=== PATIENT | female | born 1995 | race Caucasian/White ===

== ENCOUNTER 2019-07-05 13:06 | Emergency (ER) | payer BC, MEDICAID, SELFPAY ==
[2019-07-05 13:07] VITALS: BP 126/74; PULSE 93; RESP 14; TEMP 37.3; O2SAT 97; BMI 37.3
--- NOTE | 2019-07-05 13:43 | ED.DCSUM_ITS ---
History of Present Illness Chief Complaint: Lower Extremity Injury Informant: Patient Occurred: Today - JPTA Mechanism/Context: Trip Context: Sudden Onset Timing: Continuous Quality of Pain: Aching Location: R foot Current Severity: Moderate Maximum Severity: Severe Worsened by: WBing Relieved by: rest Associated Symptoms: Negative for: Parasthesia, Weakness, Loss of Funtion Narrative: Tripped on an uneven piece of concrete, her ankle inverted and she fell down onto the outside of her foot where she is having lots of pain. No ankle pain. Able to bear weight if she uses her heel. Past Medical History - Allergies and Home Meds Allergies/Adverse Reactions: Allergies No Known Allergies Allergy (Verified 07/05/19 13:11) Primary Care Physician: [facility] Doctor,Out of [NON-STAFF] - Past Medical History: None Surgical History: no surgical history Lives: With Family Smoking Status: Never smoker Review of Systems General: Denies: Chills, Fever, Sweats Musculoskeletal: Reports: Extremity Pain. Denies: Neck pain, Back pain Skin: Denies: Rash, Wounds Neurological: Denies: Headache, Weakness, Parasthesia, Numbness Physical Exam Vital Signs/Narrative: Vital Signs Temp Pulse Resp BP Pulse Ox 07/05/19 13:07 99.1 F 93 14 126/74 H 97 Inital Vital Signs reviewed: Yes - Extremity Exam Right Tib fib: - - Nontender throughout all the way up to the knees. Right Ankle: Limited ROM - Due to pain in foot, - - No deformity or swelling. No bony tenderness throughout the lateral medial malleolus including the posterior aspect and the distal sick centimeters. Right Foot: - - No deformities. Tender at the base of the fifth metatarsal, across the distal metatarsals all of them, and in the arch of the foot. Maybe some mild ecchymosis at the lateral/peroneal aspect of the foot. There is no ankle tenderness but the foot hurts worse to move the ankle. General: Well nourished, Well developed Head: Normocephalic, Atraumatic Skin: Normal color, No rash, No Trauma - Skin intact throughout the right foot and ankle Neurological: Alert, Oriented x3, Cranial nerves II-XII grossly intact, Normal Strength, Normal Sensation Psychological: Normal affect, Normal Mood Diagnostic/Tx/Re-eval Clinical Impression(s) from Imaging Studies Foot X-Ray 07/05/19 13:50 IMPRESSION: Normal x-ray examination of the foot. Electronically Signed: Gianluca Pope, at 14:04 EST , Service support , - Medical Decision Making X-rays are negative. I was mainly concerned about the base of the fifth metatarsal. She has no ankle tenderness to suggest high ankle fracture. I think this is a combination of sprains of the peroneus brevis, ATFL, and possibl y the peroneus longus. Supportive care advised long with anti-inflammatories which were given here, and an Aircast. She has crutches. All questions answered at the bedside she is comfortable with this plan. ED Disposition - Plan for ED Patient: Disposition: Home or Assisted Living Diagnosis: Right ankle sprain, Right foot sprain Instructions: Sprain Foot, Sprain, Ankle, with X-Ray Referrals: [facility] Doctor,Out of [NON-STAFF] - 10-14 Days if not better
--- NOTE | 2019-07-05 13:50 | RAD_ITS ---
STUDY: X-RAY - RIGHT FOOT CLINICAL: Female, 23 years old. Fell and injured foot this morning TECHNIQUE: 3 view(s) of the foot. COMPARISON: None. FINDINGS: Normal talus, calcaneus, and tarsal bones. Normal visualized subtalar, talonavicular, calcaneocuboid, tarsal and tarsometatarsal articulations. Normal metatarsi. Normal metatarsophalangeal joint of the great toe. Normal tibial and fibular sesamoid bones. Normal interphalangeal joint of the great toe. Normal phalanges of the great toe. Normal second through fifth metatarsophalangeal joints. Normal interphalangeal joints and phalanges of the lesser toes. The soft tissue structures are unremarkable. RAD/Foot min 3 Views IMPRESSION: Normal x-ray examination of the foot. Electronically Signed: Gianluca Pope, at 14:04 EST , Service support ,
--- NOTE | 2019-07-05 15:20 | ED.RN ---
DISCHARGE INSTRUCTIONS GIVEN TO AND REVIEWED WITH PATIENT, PATIENT DENIES QUESTIONS OR CONCERNS AND VOICES UNDERSTANDING OF DISCHARGE INSTRUCTIONS. PT AMBULATES OUT OF ROOM WITH STEADY GAIT.
== END 2019-07-05 15:21 | disposition home or self-care (01) ==
PROVIDERS: Emergency Provider Emergency Medicine
DX: S93.601A Unspecified sprain of right foot, initial encounter (principal); S93.401A Sprain of unspecified ligament of right ankle, initial encounter; W18.09XA Striking against other object with subsequent fall, initial encounter; Y93.01 Activity, walking, marching and hiking; Y92.89 Other specified places as the place of occurrence of the external cause; Y99.8 Other external cause status
CPT/HCPCS: 73630; 99283

== ENCOUNTER 2020-04-21 10:05 | Emergency (ER) | payer MEDICAID, SELFPAY ==
[2020-04-21 10:06] VITALS: BP 134/62; PULSE 99; RESP 16; TEMP 36.1; O2SAT 99; BMI 38.9
--- NOTE | 2020-04-21 10:20 | ED.VIS.GEN ---
History of Present Illness Chief Complaint: Abscess Informant: Patient Onset: Days Context: Sudden Onset Timing: Continuous Quality: Pain and redness Location: Left anterior axillary line to posterior ribs 4 5 Current Severity: Mild Maximum Severity: Severe Worsened by: Lying on area and prolonged rubbing against skin Relieved by: Nothing Associated Symptoms: No constitutional symptoms Narrative: Patient is a 24-year-old who presents with what she believes to be an abscess. She states she thought it was a pimple. She popped it. She had irritation from her bra strap. She states the area has gotten larger and more painful. There is erythema. She denies fever, chills night sweats. Denies rheumatic fever, heart murmur, mitral prolapse or being on immunosuppressive meds. She denies antibiotic allergies. She denies cardiac or respiratory symptoms. Prior similar symptoms: No Recent Illness/Hospitalization: No - Past Medical History (1) No significant past medical history Status: Acute Past Medical History - Allergies and Home Meds Allergies/Adverse Reactions: Allergies No Known Allergies Allergy (Verified 04/21/20 10:06) Primary Care Physician: Care Physician,No Primary [Primary Care Provider] - Surgical History: no surgical history Lives: Alone Smoking Status: Never smoker Alcohol: None Drugs: None Review of Systems General: Denies: Chills, Fever, Malaise ENT: Denies: Bilateral ear pain, Rhinorrhea Cardiovascular: Denies: Chest pain, Palpitations Respiratory: Denies: Dyspnea, Cough, Dyspnea on exertion Gastrointestinal: Denies: Nausea, Vomiting Musculoskeletal: Denies: Myalgias, Arthralgias, Neck pain, Back pain Skin: Reports: Abscess Neurological: Denies: Headache, Weakness Psych: Denies: Depression Hematologic: Denies: Easy bruising, Easy bleeding Allergy: Denies: Uticaria Physical Exam Vital Signs/Narrative: Vital Signs Temp Pulse Resp BP Pulse Ox 04/21/20 10:06 97.0 F L 99 16 134/62 H 99 Inital Vital Signs reviewed: Yes General: Well nourished, Well developed, Obese Head: Normocephalic, Atraumatic Eyes: Perrl, EOMI. Negative for: Pale conjunctiva Neck: Supple, Nontender, No lymphadenopathy, No JVD Cardiovascular: Regular rate, Regular rhythm, No murmurs, Normal S1, Normal S2 Respiratory: No distress, CTA bilaterally, Chest tenderness - Tenderness over the abscess which is located left side anterior to posterior axillary line ribs 4 5 on the left. Abdomen: Soft, Nontender, Nondistended, Normal bowel sounds Skin: Normal color, Rash Neurological: Alert, Oriented x3, Cranial nerves II-XII grossly intact, Normal Strength, Normal Sensation Psychological: Normal affect, Normal Mood Diagnostic/Tx/Re-eval - Medical Decision Making She has a subcutaneous abscess with surrounding cellulitis. Plan is I&D. Patient had a glass of water and a bagel approximately 1 to 2 hours ago. Plan is local anesthetic and I&D. Please read procedure note. She will receive antibiotics cephalexin and Bactrim. Procedures Procedure(s): I&D subcutaneous abscess. Patient was informed that she has an abscess which required drainage. She was informed of risks and need for I&D. Patient gave verbal consent. Patient was prepped draped sterile manner. Local and field block was placed using 1% lidocaine. A total of 5 cc was instilled. Incision was made with a 10 blade. Free flow of purulent material. There was 20 to 30 cc of green thick purulent material. Blunt dissection was undertaken. There was additional purulent material noted. The cavity was irrigated. Dressing was applied. She received first dose of cephalexin and Bactrim in the emergency department and discharged with prescription for both. ED Disposition - Plan for ED Patient: Disposition: Home or Assisted Living Diagnosis: Abscess or cellulitis of chest wall Instructions: ED Abscess Incision And Drainage, ED Cellulitis Prescriptions: Smz/Tmp Ds [Bactrim Ds] 1 tab PO BID #10 tab Transmission Status: Pending to [id number] Cephalexin [Keflex] 500 mg PO Q6 #20 cap Transmission Status: Pending to [id number] Referrals: Care Physician,No Primary [Primary Care Provider] - Yany Naylor MD [STAFF PHYSICIAN] - 2 Days for wound check Additional Instructions: You were referred to Dr. Naylor since she did not have a physician. You should follow-up in 2 to 3 days for wound check.
[2020-04-21] MEDS: Smz/Tmp Ds Tablet 1 TABLET PO (11:35)
[2020-04-21] MEDS: Lidocaine 1% (20 ml mdv) 20 ML Vial INFILT (11:36)
[2020-04-21] MEDS: Cephalexin 250 MG Capsule 500 MG PO (11:36)
[2020-04-21 11:37] VITALS: BP 134/62; PULSE 99; RESP 16; TEMP 36.1; O2SAT 99
== END 2020-04-21 11:39 | disposition home or self-care (01) ==
LOC: ED 11:11
PROVIDERS: Emergency Provider Emergency Medicine
DX: L02.412 Cutaneous abscess of left axilla (principal); E66.9 Obesity, unspecified
CPT/HCPCS: 10060; 99283

== ENCOUNTER → 2020-10-10 13:52 | Outpatient (CLI) | payer BC, MEDICAID, SELFPAY ==
[2020-10-10 15:54] LABS: Absolute Neutrophil Count 8.5 X10^3/uL (2.0-7.7); Basophil# 0.06 X10^3/uL; Basophil% 0.4 % (0-1); Eosinophil# 0.13 X10^3/uL; Hematocrit 42.4 % (37-47); Hemoglobin 13.7 g/dL (12.0-15.0); Lymphocyte % 28.1 % (19-41); Mean Corp Hgb Conc 32.3 g/dL (32-36); Mean Corpuscular Hgb 26.9 pg (27.0-32.0); Mean Corpuscular Volume 83.3 fL (81-99); Mean Platelet Vol. 9.4 fl (6.2-12.0); Monocyte# 0.94 X10^3/uL; Monocyte% 6.9 % (0-10); NRBC Flagged by Analyzer 0 % (0-5); Neutrophil # 8.54 X10^3/uL (2.7-7.7); Neutrophil % 63.1 % (47-70); Platelet Count 406 K/mm3 (150-450); RBC Distribution Width CV 13.2 % (11.6-14.6); RBC Distribution Width SD 39.8 fl (35.1-43.9); Red Blood Count 5.09 M/mm3 (4.2-5.4); White Blood Count 13.5 K/mm3 (4.4-11.0)
[2020-10-10 16:01] LABS: Glucose Challenge Gest 1H 50g 109 mg/dL (70-140)
[2020-10-11 09:01] LABS: HIV - WCH Non-Reactive (Nonreactive); Hepatitis B Surface Antigen Non-Reactive (Nonreactive); Hepatitis C Antibody Non-Reactive (Nonreactive); Rubella IgG Reactive (Nonreactive); Syphilis Antibodies Non-reactive
== END ==
PROVIDERS: Visit Provider Obstetrics & Gynecology
DX: Z34.82 Encounter for supervision of other normal pregnancy, second trimester (principal)
CPT/HCPCS: 36415; 82950; 85025; 86703; 86762; 86780; 86803; 87086; 87088; 87340

== ENCOUNTER 2020-11-15 13:31 | Outpatient (RCR) | payer BC, SELFPAY ==
[2020-10-31 14:48] VITALS: BMI 38.9
== END 2020-11-22 23:59 ==
LOC: EMPH 13:31
PROVIDERS: Visit Provider Family Medicine Geriatric Medicine
DX: Z03.818 Encounter for observation for suspected exposure to other biological agents ruled out (principal)

== ENCOUNTER → 2020-12-07 16:21 | Outpatient (CLI) | payer BC, MEDICAID, SELFPAY ==
[2020-10-31 14:48] VITALS: BMI 38.9
[2020-12-07 16:26] LABS: Mucous, Urine 0 SEEN /hpf (<or=2+); Red Blood Cells-Urine 0 SEEN /hpf (0-5)
[2020-12-07 16:38] LABS: Color, Urine Yellow (Yellow); Glucose, Dipstick Normal (Normal); Ketone-Dipstick Negative (Negative); Leukocyte Esterase-Dipstick 25 /ul (Negative); Nitrite-Dipstick Negative (Negative); Occult Blood-Urine Negative /ul (Negative); Protein-Dipstick Negative (Negative); Specific Gravity, Urine 1.015 (1.002-1.030); Urine Bilirubin Dipstick Negative (Negative); Urine Clarity Clear (Clear); Urine Urobilinogen 1 mg/dl (Normal)
[2020-12-07 16:48] LABS: Bacteria RARE /hpf (None Seen); Squamous Epithelial Cells - UA 5-10 SEEN /hpf (5-10); White Blood Cells 0-5 SEEN /hpf (0-5)
== END ==
PROVIDERS: Visit Provider Obstetrics & Gynecology
DX: O26.892 Other specified pregnancy related conditions, second trimester (principal); Z3A.00 Weeks of gestation of pregnancy not specified
CPT/HCPCS: 81001; 87086; 87088

== ENCOUNTER → 2020-12-29 14:20 | Outpatient (CLI) | payer BC, MEDICAID, SELFPAY ==
[2020-10-31 14:48] VITALS: BMI 38.9
[2020-12-29 16:44] LABS: Hematocrit 42.2 % (37-47); Hemoglobin 13.5 g/dL (12.0-15.0); Mean Corpuscular Hgb 26.9 pg (27.0-32.0); Mean Corpuscular Volume 84.1 fL (81-99); Mean Platelet Vol. 10.1 fl (6.2-12.0); Platelet Count 370 K/mm3 (150-450); RBC Distribution Width CV 14.3 % (11.6-14.6); RBC Distribution Width SD 43.7 fl (35.1-43.9); Red Blood Count 5.02 M/mm3 (4.2-5.4); White Blood Count 15.3 K/mm3 (4.4-11.0)
[2020-12-29 17:12] LABS: Glucose Challenge Gest 1H 50g 95 mg/dL (70-140)
[2021-01-02 09:54] LABS: HPV Reflexed? NOT INDICATED
== END ==
PROVIDERS: Visit Provider Obstetrics & Gynecology
DX: Z34.82 Encounter for supervision of other normal pregnancy, second trimester (principal)
CPT/HCPCS: 36415; 82950; 85027; 88175; G0145

== ENCOUNTER → 2021-03-19 | Outpatient (CLI) | payer BC, MEDICAID, SELFPAY | END | disposition home or self-care (01) | LOC: LABSPEC 16:15 | PROVIDERS: Visit Provider Obstetrics & Gynecology | DX: Z36.85 Encounter for antenatal screening for Streptococcus B (principal) | CPT/HCPCS: 87081 ==

== ENCOUNTER 2021-03-29 20:06 | Outpatient (CLI) | payer BC, MEDICAID, SELFPAY ==
[2021-03-29 20:42] VITALS: PULSE 107; O2SAT 97
[2021-03-29 20:44] VITALS: BP 124/61; PULSE 106
--- NOTE | 2021-03-29 20:48 | OB.TRI.NOTE ---
HPI - General HPI Narrative LA NENA RUFF, is a 25 F who presents contractions Maternal Data Information AYO Calculator Estimated Delivery Date Method Current WG Current Estimate 04/14/21 Manual 38w 4d PFSH PFSH Home Medications 1 tab PO/SL DAILY 03/29/21 [History Last Taken 04/03/21 09:00] Allergy/AdvReac Type Severity Reaction Status Date / Time No Known Allergies Allergy Verified 04/04/21 05:04 Social History Smoking Status: Never smoker NST FHR Rate Baby A Baseline: 120 Variability:: Moderate Accelerations:: 15 x 15 Decelerations:: None NST Reactive:: Yes Uterine Activity:: Few contractions Assessment & Plan (1) : PLAN: Patient arrives with contractions, ruled out labor. Okay to discharge home with follow-up scheduled appointments
[2021-03-29 22:22] LABS: Color, Urine Yellow (Yellow); Glucose, Dipstick Normal (Normal); Ketone-Dipstick 5 mg/dl (Negative); Leukocyte Esterase-Dipstick Negative /ul (Negative); Nitrite-Dipstick Negative (Negative); Occult Blood-Urine Negative /ul (Negative); Protein-Dipstick 15 mg/dl (Negative); Specific Gravity, Urine 1.015 (1.002-1.030); Urine Bilirubin Dipstick Negative (Negative); Urine Clarity Sl. Cloudy (Clear); Urine Urobilinogen 1 mg/dl (Normal)
[2021-03-29 22:56] VITALS: BMI 44.1
== END 2021-03-29 23:20 | disposition home or self-care (01) ==
LOC: WPOUT 20:11 → WP 20:12
PROVIDERS: Visit Provider Obstetrics & Gynecology
DX: Z34.90 Encounter for supervision of normal pregnancy, unspecified, unspecified trimester (principal)
CPT/HCPCS: 59025; 59050; 81002; 99218; G0378

== ENCOUNTER 2021-04-01 09:35 | Outpatient (CLI) | payer BC, MEDICAID, SELFPAY ==
[2021-04-01 09:52] VITALS: BMI 43.2
[2021-04-01 09:55] VITALS: BP 114/69; PULSE 113; TEMP 36.6
[2021-04-01 10:26] LABS: ROM Internal Control Test YES-OK TO RESULT pt. (Internal QC); ROM Patient Test Negative (Negative)
--- NOTE | 2021-04-02 12:36 | PCM.PN.BLA ---
Progress Note 38/1w. Rule out SROM. ROM negative. Cervix unchanged. No ruptured, not in labor. FHR 145/mod austen+accel/no decel, toco quiet Discharge home with precautions. F/u this week in office
== END 2021-04-01 10:53 | disposition home or self-care (01) ==
LOC: WPOUT 09:47 → WP 09:47
PROVIDERS: Visit Provider Student in an Organized Health Care Education/Training Program
DX: Z34.93 Encounter for supervision of normal pregnancy, unspecified, third trimester (principal)
CPT/HCPCS: 59025; 59050; 84112; 99218; G0378

== ENCOUNTER 2021-04-04 04:36 | Outpatient (CLI) | payer BC, MEDICAID, SELFPAY ==
[2021-04-04 04:57] VITALS: BP 112/72; PULSE 111; TEMP 37.5; O2SAT 98
[2021-04-04 05:05] VITALS: BMI 43.8
--- NOTE | 2021-04-04 08:09 | OB.TRI.NOTE ---
HPI - General HPI Narrative LA NENA RUFF, is a 25 F who presents with c/o contractions at 38 4/7 wga Maternal Data Information AYO Calculator Estimated Delivery Date Method Current WG Current Estimate 04/14/21 Manual 38w 4d PFSH PFSH Home Medications 1 tab PO/SL DAILY 03/29/21 [History Last Taken 04/03/21 09:00] Allergy/AdvReac Type Severity Reaction Status Date / Time No Known Allergies Allergy Verified 04/04/21 05:04 Social History Smoking Status: Never smoker NST FHR Rate Baby A Baseline: 130 Variability:: Moderate Accelerations:: None Decelerations:: None NST Reactive:: Yes FHR Category:: Category I Uterine Activity:: -08/02 Assessment & Plan (1) 38 weeks gestation of : PLAN: SVE /-3 per RN exam Cat I tracing d/c home
== END 2021-04-04 05:40 | disposition home or self-care (01) ==
LOC: WPOUT 04:39 → WP 04:40
PROVIDERS: Visit Provider Obstetrics & Gynecology
DX: Z34.83 Encounter for supervision of other normal pregnancy, third trimester (principal); Z3A.38 38 weeks gestation of pregnancy
CPT/HCPCS: 59025; 59050; 99218; G0378

== ENCOUNTER 2021-04-06 18:35 | Inpatient (IN) | payer BC, MEDICAID, SELFPAY ==
[2021-04-06] VITALS (61 sets, daily range): BP systolic 75–144; BP diastolic 40–77; PULSE 78–122; TEMP 36.2–37.4; O2SAT 87–100; BMI 43.4
[2021-04-06 18:30] LABS: ROM Internal Control Test YES-OK TO RESULT pt. (Internal QC)
[2021-04-06 18:31] LABS: ROM Patient Test POSITIVE (Negative)
[2021-04-06] MEDS: Lactated Ringers 1,000 ML 50 ML IV (18:50)
[2021-04-06] MEDS: Lactated Ringers 500 ML 999 ML IV ×2 (19:02→21:04)
[2021-04-06 19:07] LABS: Absolute Lymphocyte Count 3.27 X10^3/uL (0.83-4.51); Absolute Neutrophil Count 9.3 X10^3/uL (2.0-7.7); Basophil# 0.05 X10^3/uL; Basophil% 0.4 % (0-1); Eosinophil# 0.11 X10^3/uL; Eosinophils% 0.8 % (0-5); Hematocrit 39.6 % (37-47); Hemoglobin 12.5 g/dL (12.0-15.0); Lymphocyte # 3.27 X10^3/ul (0.83-4.51); Lymphocyte % 23.4 % (19-41); Mean Corp Hgb Conc 31.6 g/dL (32-36); Mean Corpuscular Hgb 25.6 pg (27.0-32.0); Mean Platelet Vol. 9.9 fl (6.2-12.0); Monocyte# 1.18 X10^3/uL; Monocyte% 8.4 % (0-10); NRBC Flagged by Analyzer 0 % (0-5); Neutrophil # 9.29 X10^3/uL (2.7-7.7); Neutrophil % 66.4 % (47-70); Platelet Count 364 K/mm3 (150-450); RBC Distribution Width CV 14.6 % (11.6-14.6); RBC Distribution Width SD 42.5 fl (35.1-43.9); Red Blood Count 4.89 M/mm3 (4.2-5.4)
--- NOTE | 2021-04-06 19:27 | HP.PCM.OB_ITS ---
HPI - General General Date of Admission: 04/06/21 HPI Narrative ROBINSON RUFF, is a 25 F who presents @ 38w6d with c/o painful contractions. Maternal Data Information AYO Calculator Estimated Delivery Date Method Current WG Current Estimate 04/14/21 Manual 38w 6d PFSH PFS Medical History (Updated 04/06/21 @ 19:[address] Pura Buck MD) Migraines Seasonal allergies Home Medications 1 tab PO/SL DAILY 03/29/21 [History Last Taken 04/06/21 10:00] Allergy/AdvReac Type Severity Reaction Status Date / Time No Known Allergies Allergy Verified 04/04/21 05:04 Family History Father Hypertension Mother Hypertension Surgical History (Updated 04/06/21 @ 19:[address] Pura Buck MD) H/O dilation and curettage H/O wisdom tooth extraction Social History Smoking Status: Never smoker History 4 Elective abortions Hx Para 1 Spontaneous abortions 2 Hx # Term Pregnancies 1 Ectopic pregnancies Hx # Pregnancies Multiple births # of living children 1 NST FHR Rate Baby A Baseline: 130 Variability:: Moderate Accelerations:: 15 x 15 Decelerations:: None NST Reactive:: Yes FHR Category:: Category I Uterine Activity:: 310 Vital Signs Vital Signs Vital Signs: 04/06/21 17:27 04/06/21 17:28 04/06/21 17:29 Temperature 98.8 F 98.8 F Temperature Source Temporal Pulse Rate 99 106 H Blood Pressure 114/77 114/77 BP Systolic 114 114 BP Diastolic 77 77 Pulse Ox 97 04/06/21 19:17 04/06/21 19:22 Temperature 97.2 F L Temperature Source Pulse Rate 95 97 Blood Pressure 144/71 H BP Systolic 144 BP Diastolic 71 Pulse Ox 100 99 Weight Weight: 111.357 kg Body Mass Index (BMI) 43.4 Physical Exam Const alert, oriented x3 and no apparent distress HEENT normocephalic Resp normal respiratory effort, normal air movement and clear to auscultation bilaterally Cardio regular rate and regular rhythm GI normal to inspection, nondistended, normoactive bowel sounds, soft to palpation, non-tender and non-distended Inspection: gravid Narrative: SVE per RN 3/80/-2, BBOW Labs Labs Labs: Blood Type A POSITIVE Antibody Screen Pending Hct 39.6 % (37-47) Hgb 12.5 g/dL (12.0-15.0) Syphilis Total Ab Non-reactive Rubella IgG Antibody Reactive (Nonreactive) Hep Bs Antigen Non-Reactive (Nonreactive) HIV 1&2 Antibody Non-Reactive (Nonreactive) Glucose 1 Hr 50 gm 95 mg/dL (70-140) Miscellaneous Test ACOG ANTEPARTUM RECORD - HISTORY AND PHYSICAL (04/06/2021) Name: ROBINSON RUFF History of this : This is a 25 year old [id number] presents at 38 wks + 6 days gestation. OB Physician: DISHA KARIMI MD 's Physician: [facility] Children. ...................................................................... : 1995 Age: 25 Address: [address] [place] [address] Phone: (h) [phone] ([phone] Insurance Carrier: [facility] [id number] Emergency Contact: LAVELL WORTHINGTON/ [phone] ...................................................................... Final AYO: 04/14/21 By Ultrasound: 13 weeks 3 days PARITY: (G-Total Pregnancies P-Fullterm,Premature,Induced AB,Spont AB, Ectopics, Multiple,Living) AYO CONFIRMATION: By LMP: 07/08/20 Initial Exam: 04/14/21 By First Ultrasound Exam: 04/13/21 Final AYO: 04/14/21 OB PROBLEM LIST: Declines genetic testing. Med hx- COVID19 Feb 2020., molar pg w D EPDS 6 Would like tubal ligation if has C/S ALLERGIES: No Known Drug Allergies MEDICATIONS: Macrobid 100 mg capsule One pill by mouth once a day 28 mg iron-800 mcg tablet daily Zofran 4 mg tablet One pill by mouth every eight hours PRN nausea SOCIAL HISTORY: Smoking - Never Alcohol Use - denies drinking Diet - balanced Diet, occ coffee or pop and Water tries for 6 bottles. Lifestyle - moderate stress lifestyle and Exercise - Busy w family, home. 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 Lavell has 6 and 4 yo w shared custody. Place of - [place] Spouse-Sig Other Name - Lavell Worthington Spouse-Sig Other Occupation - Apartment Leasing Specialist for [employer]. Spouse-Sig Other Phone No - [phone] Children Name(s) - Reina PRIOR DELIVERY HISTORY DEL DATE GEST LAB WT LB WT OZ TYPE ANES LABOR TX Jun 10 8 0 0 0 D and General No 10 Jul 20 4 0 0 0 Vag None No 29 Oct 17 39 4 7 3 Vag Epidural No ANTEPARTUM FLOW CHART VISIT GE RTC FU F F IN U U DATE WK MD WKS HT PN HR M SS BP ED WT IN GL D EF ST __ ____ ___ __ __ ___ __ __ __ ___ __ __ __ ___ __ 08 Mar JM 1 38 V + + 132/96 0 248 tr - 3 01 Mar JM 1 37 V + + 126/78 7s 246 tr - 1 25 Feb 36 JM 1 36 V + + 130/82 245 - - 1 Feb JM 1 35 V + + 126/74 sl 244 - - Feb 34 JM 2 34 V + + 124/76 sl 242 - - Feb 32 JM 2 32 V + + 110/68 0 242 tr - 17 Sep 30 JM 2 30 - + + 122/72 sl 240 03 Sep 28 JM 2 28 - + + 114/76 0 237 tr - 06 Jan 16 JM 4 24 - + + 114/64 0 234 - - 15 Dec 13 SHM 3 21 + + 128/70 0 232 09 Dec 12 JM 4 20 - on + 104/68 0 231 ne ne Nov 09 JMW 3 17 + ? 108/72 0 234 18 October 05 JMW 4 14 U+ US 116/80 0 231 tr - ANTEPARTUM NOTE(S): Apr 02 2021: lower abdominal and back cramping, pelvic pressure Mar 26 2021: natalie castano, pelvic pressure, hip pain Mar 19 2021: GBS today, LARC declined Mar 15 2021: Mar 05 2021: see note Feb 23 2021: doing well Feb 09 2021: natalie castano and back pain Jan 26 2021: no concerns expressed Dec 29 2020: Dec 07 2020: see note Dec 01 2020: US today Nov 08 2020: Declines AFP and Good FM Oct 10 2020: Sono, Labs Drawn,Nausea Better COMPREHENSIVE ANTEPARTUM NOTE(S): Apr 02 2021: Robinson is here for a PNV at 38/2. FM present, but not as much. No edema present. Pt reports lower abdominal and back cramping for approximately 3 days. Experiencing increased amounts of pelvic pressure. Requesting membrane sweep today. BP recheck after 5 mins of L side: 116/64. Apr 02 2021: 38wk, membranes swept. NST reactive with decreased movement. Follow up BP wnl, asymptomatic, reassuring. Mar 27 2021: H taken to OB. tkg Mar 26 2021: Robinson is here for a PNV at 37/2. Good FM. Sl edema present in fingers. Reports natalie castano, pelvic pressure and hip pain. Increasing amount of lower abdominal cramping. Would like cervix check, last exam pt was 1.5 cm. Mar 26 2021: 37 weeks, GBS negative. Cervix unchanged. Mar 19 2021: Robinson is here for visit. More uncomfortable but nothing unexpected. Reviewed FM, SROM, and labor. LARC declined and she expresses interest in tubal. Planned vaginal delivery but if has C/S would like tubal. States this is her second and baby #4 at their house and does not desire future childbearing. LMT Mar 19 2021: 36wks, GBS collected today. Desires tubal if she has unscheduled c/s. Mar 15 2021: Robinson is here as a work in visit for concern of cramping off and on for the past 4 days. Denies spotting. No leaking fluid. Long dip urine showing sp gr 1.005, ph 7.5, rest is negative. Mar 15 2021: 35wk, add on for crampy pelvic pain. NST reactive, few ctx. Cervix 1-2/th/h. Mar 05 2021: Has been feeling more dizzy and noted edema in hands in the am. Had friend take her B/P this am and it was 130/95. Normal today in office, 124.76. No proteinuria. Reviewed FM, PTL, PROM. Encouraged Tdap and Influenza today at [facility] retail pharmacy. LMT Mar 05 2021: 34wks, discussed hydration and dizziness. GBS next visit. Feb 23 2021: Encouraged Influenza and Tdap vaccine. Reviewed FM, PROM, and PTL. LMT Feb 23 2021: 32wks, no complaints. Feb 09 2021: Robinson is here for a PNV at 30 wks 6 days. Good FM. Sl edema present in ankles. Occasional natalie castano, back pain present. No other concerns expressed. Feb 09 2021: 30 weeks, no complaints. Jan 26 2021: Robinson is here for a PNV at 28 wks w/ SO. Good FM. No edema present. Denies concerns/ questions at this time. Jan 26 2021: 28 weeks, 1 hour GTT within normal limits. Pap smear within normal limits. Dec 29 2020: Robinson presents today with grandmother for 24 wk 6 day PNV. States she is doing well. Reports good FM. No edema present today. She is due for her PAP and cultures today. Last PAP was 4 years ago. She c/o right side kidney pain and discomfort. Medications and allergies up to date. Dec 29 2020: 24 weeks, 1 hour GTT today. Pap and cultures collected today. Consider growth ultrasounds in third trimester. Dec 07 2020: Robinson calling @ 21 wks 5 days with concern of light pink vaginal bleeding and cramping. Last IC a week or so ago. Reporting FM this morning. Worried something is wrong as yesterday she was in for decreased FM. FHT's good here at yesterday's visit. US scheduled for today. Dec 07 2020: Robinson is here with complaint of bleeding last night for 1 hour when wiping. No further bleeding. Notes mild cramping. U/S does not show a bleed. Denies hemorrhoid, skin lesion. Urine is sent for complete UA and urine culture. LMT Dec 07 2020: Reports BRB per vagina x 1 hour with wiping last night. Denies intercourse, trauma/falls. Reports she did some lifting at work, she works as ENGINEERING ASSOCIATE at a assisted. US today with no evidence of bleeding and no previa. Exam performed with no blood in vaginal vault, no hemorrhoids. Wet prep neg clue/trich/yeast, pH < 4.5. Hx UTI. U/A and cx sent today. Dec 06 2020: Robinson is here following call to Triage re to decreased movement at 21.4 w. At work last evening she assisted moving a patient up in bed and felt a sharp pain in her rt hip to the front of her abd. Noted less movement following. FHT located with ease in low mid abd at 130 to 140s.. Robinson is relieved. Advised good body mechanics at work which she says they were taught and use. ISABEL. Dec 01 2020: Robinson ishere today folloiwng US. Per PERRY, to repeat GCT at 28 weeks. Robinson is c/o continuous N/V. Did not fill Zofran Rx due to cost. Finds the only thing that stays down is sweets/baked goods. Is able to keep fluids down. Advised to try healthier foods. Having good FM. No edema present today Urine neg/neg LSS Dec 01 2020: 20 weeks, anatomy ultrasound within normal limits. Passed early 1 hour GTT. For second trimester 1 hour GTT at next visit. PERRY Nov 08 2020: Robinson is her for PNV. N/V had subsided but has returned. Discussed saltines at bedside. Pepcid if needed. Is able to get adequate hydration. No edema noted. Thinks she be starting to feel FM. Voices no concerns today. Urine tr/neg. 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 Her other pregnancies have been in [place] Her first pg was a molar with a PO hemorrhage at day 2. She did not need transfused. . FOB is Lavell Worthington, Packaging Assembler of [employer] in [place] Oct 02 2020: Robinson is here for missed menses appt with her Lavell. They recently relocated from [place]. Lavell has a job here as a GM and her grandmother lives here. She relates LMP 2/13, +UPT today in office, EDC 04/14/21. She relates nausea is resolved. She does have cold/congestion sx. OTC meds for allergies/congestion reviewed. She is taking OTC PNV and no prescribed meds at this time. She is a REVIEW OF SYSTEMS: GENERAL - Denies fever, or chills SKIN - Denies rash, new skin lesions, or change in moles EYES - Denies blurred vision, or change in visual acuity EARS - Denies ear pain, or difficulty hearing NOSE - Denies nasal congestion, discharge, or bleeding MOUTH - Denies sore throat, or difficulty swallowing NECK - Denies pain or swelling RESPIRATORY - Denies shortness of breath, cough, wheezing CARDIOVASCULAR - Denies palpitations, chest pain, orthopnea, PND, peripheral edema, syncope or claudication GASTROINTESTINAL - Denies nausea, vomiting, diarrhea, constipation, Denies a bdominal pain, melena and or bright red blood GENITOURINARY - Denies dysuria, frequency of urination, urgency, or hesitancy MUSCULOSKELETAL - Denies joint or muscle pain, or back pain NEUROLOGICAL - Denies localized numbness, weakness, or tingling PSYCHIATRIC - Denies depression, anxiety, substance abuse or suicide attempts ENDOCRINE - Denies heat or cold intolerance, weight loss or gain, increasing thirst HEMATO-IMMUNOLOGIC - Denies easy bruising, bleeding, oral ulcerations or recurrent infections GENETICS SCREENING: Age 35+ years: No Thalassemia: No Neural Tube Defect: No Down Syndrome: No LEE ANN-SACHS: No Sickle Cell Disease: No Hemophilia: No Musc. Dystrophy: No Cystic Fibrosis: No-declines screening [place] Chorea: No Mental Retardation: No Fragile X: No Other genetic: No Other defects: No SABs/still births: Yes x2 Drugs since LMP: Yes INFECTION HISTORY: High risk AIDS: No High risk Hepatitis: No Exposed to TB: No Exposed to Herpes: No Rash/viral illness since LMP: No History of STD: No MENSTRUAL HISTORY: *Menses Amount/Duration: 3-4Menses Regularity: RegularMenarche (Age Onset): 16* PAST SUMMARY: PARITY: 1. Total Pregnancies............ 4 2. Full Term Pregnancies........ 1 3. Premature.................... 0 4. Abortions - Induced.......... 0 5. Abortions - Spontaneous...... 2 6. Ectopics..................... 0 7. Multiple Births.............. 0 8. Living Children.............. 1 PAST #1: Date of :.................. 05/26/15 Gestation Weeks:................ 8 Length of labor(hours):......... 0 Sex:............................ Weight-lbs:............... 0 Weight-oz:................ 0 Type of Delivery:............... D and C Type of Anesthesia:............. General Place of Delivery:.............. [place] Treatment of Labor?:.... No Comment: MOLAR PAST #2: Date of :.................. 11/21/16 Gestation Weeks:................ 39 Length of labor(hours):......... 4 Sex:............................ F Weight-lbs:............... 7 Weight-oz:................ 3 Type of Delivery:............... Vag Type of Anesthesia:............. Epidural Place of Delivery:.............. [place] Treatment of Labor?:.... No Comment: PPD PAST #3: Date of :.................. 08/03/19 Gestation Weeks:................ 4 Length of labor(hours):......... 0 Sex:............................ Weight-lbs:............... 0 Weight-oz:................ 0 Type of Delivery:............... Vag Type of Anesthesia:............. None Place of Delivery:.............. HOME Treatment of Labor?:.... No Comment: PHYSICAL EXAMINATION General Appearence: 25 yo female in no acute distress Vital Signs: AF, VSS Heart: RRR without rubs or gallops Lungs: CTA x 2 Breasts: deferred Abdomen: gravid Pelvis: Cervix: Presentation: cephalic Station: Fetus: Size: AGA Movement: present Heart: present LAB TEST(S) ORDERED SINCE:07/18/20 04/06/2021 COVID 19 AG RAPID (RN COLLECT) 04/06/2021 CBC W/DIFF, AUTOMATED 04/06/2021 (ROM) RUPTURE OF MEMBRANES 04/01/2021 (ROM) RUPTURE OF MEMBRANES 03/29/2021 URINALYSIS, ROUTINE (DIPSTICK) 03/22/2021 RULE OUT BETA STREP (GRP. B) 01/02/2021 PAP I-G W/RFX HRHPV-APTIMA 01/02/2021 MISCELLANEOUS LAB PROCEDURE 12/29/2020 GLUCOSE CHALLENGE GEST 1H 50G 12/29/2020 CBC-COMPLETE BLOOD CNT NO DIFF 12/09/2020 URINE CULTURE 12/07/2020 URINALYSIS, COMPLETE 10/12/2020 URINE CULTURE 10/11/2020 RUBELLA IGG 10/11/2020 L509.8000 10/11/2020 HIV - WC 10/11/2020 HEPATITIS C ANTIBODY 10/11/2020 HEPATITIS B SURFACE ANTIGEN 10/10/2020 T AND S-NO CHARGE W/PNP 10/10/2020 GLUCOSE CHALLENGE GEST 1H 50G 10/10/2020 CBC W/DIFF, AUTOMATED == ==== Order Observation Description Value Ref_Range A* Site == ==== CBC W/DIFF, AUT NOTE [place] CBC W/DIFF, AUT WBC 14.0 K/mm3 4.4-11.0 H ML CBC W/DIFF, AUT RBC 4.89 M/mm3 4.2-5.4 ML CBC W/DIFF, AUT HGB 12.5 g/dL 12.0-15.0 ML CBC W/DIFF, AUT HCT 39.6 37-47 ML CBC W/DIFF, AUT MCV 81.0 fL 81-99 ML CBC W/DIFF, AUT MCH 25.6 pg 27.0-32.0 L ML CBC W/DIFF, AUT MCHC 31.6 g/dL 32-36 L ML CBC W/DIFF, AUT RDW CV 14.6 11.6-14.6 ML CBC W/DIFF, AUT RDW SD 42.5 fl 35.1-43.9 ML CBC W/DIFF, AUT PLT 364 K/mm3 150-450 ML CBC W/DIFF, AUT MPV 9.9 fl 6.2-12.0 ML CBC W/DIFF, AUT NEUT% 66.4 47-70 ML CBC W/DIFF, AUT LY% 23.4 19-41 ML CBC W/DIFF, AUT MONO% 8.4 0-10 ML CBC W/DIFF, AUT EO% 0.8 0-5 ML CBC W/DIFF, AUT BASO% 0.4 0-1 ML CBC W/DIFF, AUT IG% 0.600 0.0-0.9 ML IG% - Immature Granulocytes (promyelocytes, myelocytes and metamyelocytes) > 1% indicates that a LEFT SHIFT is Present. CBC W/DIFF, AUT ABSOLUTE NEUT 9.3 X10 3/uL 2.0-7.7 H ML CBC W/DIFF, AUT ABSOLUTE LYMPH 3.27 X10 3/uL 0.83-4.51 ML CBC W/DIFF, AUT NUCLEATED RBC 0 0-5 ML COVID 19 AG RAP NOTE [place] (ROM) RUPTURE O NOTE [place] (ROM) RUPTURE O ROM POSITIVE Negative A ML Amniotic fluid present indicates rupture of Membranes. RESULTS CALLED TO BEATA ROSA 04/06/21 1830 Liban Mazariegos. REPORT READ BACK BY SAME . (ROM) RUPTURE O NOTE [place] (ROM) RUPTURE O ROM Negative Negative ML Amniotic fluid not present indicates No Rupture of Membranes at time of specimen collection. URINALYSIS, ROU NOTE [place] URINALYSIS, ROU COLOR Yellow Yellow ML URINALYSIS, ROU URINE CLARITY Sl. Cloudy Clear ML URINALYSIS, ROU GLUCOSE, UR Normal mg/dl Normal ML URINALYSIS, ROU BILIRUBIN URINE Negative mg/dL Negative ML URINALYSIS, ROU KETONE UR 5 mg/dl Negative A ML URINALYSIS, ROU SP.GR. DIPSTX 1.015 1.002-1.030 ML URINALYSIS, ROU PH UR 8.0 5.0 - 8.0 ML URINALYSIS, ROU PROT DIPSTX 15 mg/dl Negative A ML URINALYSIS, ROU UROBILI 1 mg/dl Normal A ML URINALYSIS, ROU NITRITE Negative Negative ML URINALYSIS, ROU OCCULT BLOOD-UR Negative /ul Negative ML URINALYSIS, ROU LEUK ESTERASE Negative /ul Negative ML RULE OUT BETA S NOTE [place] MISCELLANEOUS L NOTE [place] MISCELLANEOUS L MISC LAB TEST ML TEST RESULT LIMITS Chlamydia by WILLIAM Negative Negative Gonococcus by WILLIAM Negative Negative Trich vag by WILLIAM Negative Negative TESTING PERFORMED AT [facility]. ORIGINAL REPORT ON FILE IN LAB CONTAINS ADDITIONAL TEST SITE INFORMATION. PAP I-G W/RFX H NOTE [place] PAP I-G W/RFX H DIAG Comment . [facility] NEGATIVE FOR INTRAEPITHELIAL LESION OR MALIGNANCY. PAP I-G W/RFX H ADEQ Comment . [facility] Satisfactory for evaluation. Endocervical and/or squamous metaplastic cells (endocervical component) are present. PAP I-G W/RFX H PERFORM Comment . [facility] Yany Roberto, Tile Roofer (ASCP) This liquid based ThinPrep(R) pap test was screened with the use of an image guided system. PAP I-G W/RFX H COMM . . [facility] PAP I-G W/RFX H PAPSMR Comment . [facility] The Pap smear is a screening test designed to aid in the detection of premalignant and malignant conditions of the uterine cervix. It is not a diagnostic procedure and should not be used as the sole means of detecting cervical cancer. Both false-positive and false-negative reports do occur. PAP I-G W/RFX H HPV RFLX Comment . [facility] The HPV DNA reflex criteria were not met with this specimen result therefore, no HPV testing was performed. Performed at: [facility] [address], [place] [id number] Paper Steamer: Celine Moreno MD, Phone: [phone] GLUCOSE CHALLEN NOTE [place] GLUCOSE CHALLEN GLU GEST 50G 1H 95 mg/dL 70-140 ML CBC-COMPLETE BL NOTE [place] CBC-COMPLETE BL WBC 15.3 K/mm3 4.4-11.0 H ML CBC-COMPLETE BL RBC 5.02 M/mm3 4.2-5.4 ML CBC-COMPLETE BL HGB 13.5 g/dL 12.0-15.0 ML CBC-COMPLETE BL HCT 42.2 37-47 ML CBC-COMPLETE BL MCV 84.1 fL 81-99 ML CBC-COMPLETE BL MCH 26.9 pg 27.0-32.0 L ML CBC-COMPLETE BL MCHC 32.0 g/dL 32-36 ML CBC-COMPLETE BL RDW CV 14.3 11.6-14.6 ML CBC-COMPLETE BL RDW SD 43.7 fl 35.1-43.9 ML CBC-COMPLETE BL PLT 370 K/mm3 150-450 ML CBC-COMPLETE BL MPV 10.1 fl 6.2-12.0 ML URINE CULTURE NOTE [place] URINALYSIS, COM NOTE [place] URINALYSIS, COM COLOR Yellow Yellow ML URINALYSIS, COM URINE CLARITY Clear Clear ML URINALYSIS, COM GLUCOSE, UR Normal mg/dl Normal ML URINALYSIS, COM BILIRUBIN URINE Negative mg/dL Negative ML URINALYSIS, COM KETONE UR Negative mg/dl Negative ML URINALYSIS, COM SP.GR. DIPSTX 1.015 1.002-1.030 ML URINALYSIS, COM PH UR 8.0 5.0 - 8.0 ML URINALYSIS, COM PROT DIPSTX Negative mg/dl Negative ML URINALYSIS, COM UROBILI 1 mg/dl Normal A ML URINALYSIS, COM NITRITE Negative Negative ML URINALYSIS, COM OCCULT BLOOD-UR Negative /ul Negative ML URINALYSIS, COM LEUK ESTERASE 25 /ul Negative A ML URINE CULTURE NOTE [place] HEPATITIS C ANT NOTE [place] HEPATITIS C ANT HEPATITIS C AB Non-Reactive Nonreactive ML Non Reactive: < 0.8 Equivocal: >/= 0.8 to < 1.0 Reactive: >/= 1.0 The CDC recommends that a reactive/equivocal HCV antibody result be followed up by the HCV Nucleic Acid Amplification test (132605) HEPATITIS B MARINO NOTE [place] HEPATITIS B MARINO HEP B SURF AG Non-Reactive Nonreactive ML HIV - [facility] NOTE [place] HIV - [facility] HIV Non-Reactive Nonreactive ML L509.8000 NOTE [place] L509.8000 SYPHILIS ABS Non-reactive ML RUBELLA IGG NOTE [place] RUBELLA IGG RUBELLA IGG Reactive Nonreactive ML Antibody Results Interpretation of Immune Status Non Reactive Presumed Non-Immune Equivocal Equivocal Reactive Presumed Immune PN N [facility]~[address] [place], [address]~ T AND AB SCREEN GEL NEGATIVE ML GLUCOSE CHALLEN NOTE [place] GLUCOSE CHALLEN GLU GEST 50G 1H 109 mg/dL 70-140 ML CBC W/DIFF, AUT NOTE [place] CBC W/DIFF, AUT WBC 13.5 K/mm3 4.4-11.0 H ML CBC W/DIFF, AUT RBC 5.09 M/mm3 4.2-5.4 ML CBC W/DIFF, AUT HGB 13.7 g/dL 12.0-15.0 ML CBC W/DIFF, AUT HCT 42.4 37-47 ML CBC W/DIFF, AUT MCV 83.3 fL 81-99 ML CBC W/DIFF, AUT MCH 26.9 pg 27.0-32.0 L ML CBC W/DIFF, AUT MCHC 32.3 g/dL 32-36 ML CBC W/DIFF, AUT RDW CV 13.2 11.6-14.6 ML CBC W/DIFF, AUT RDW SD 39.8 fl 35.1-43.9 ML CBC W/DIFF, AUT PLT 406 K/mm3 150-450 ML CBC W/DIFF, AUT MPV 9.4 fl 6.2-12.0 ML CBC W/DIFF, AUT NEUT% 63.1 47-70 ML CBC W/DIFF, AUT LY% 28.1 19-41 ML CBC W/DIFF, AUT MONO% 6.9 0-10 ML CBC W/DIFF, AUT EO% 1.0 0-5 ML CBC W/DIFF, AUT BASO% 0.4 0-1 ML CBC W/DIFF, AUT IG% 0.500 0.0-0.9 ML IG% - Immature Granulocytes (promyelocytes, myelocytes and metamyelocytes) > 1% indicates that a LEFT SHIFT is Present. CBC W/DIFF, AUT ABSOLUTE NEUT 8.5 X10 3/uL 2.0-7.7 H ML CBC W/DIFF, AUT ABSOLUTE LYMPH 3.80 X10 3/uL 0.83-4.51 ML CBC W/DIFF, AUT NUCLEATED RBC 0 0-5 ML *Negative results from patients with symptom onset beyond five days should be treated as presumptive and confirmed by a molecular assay if clinically necessary. Negative results should not be used as the sole basis for treatment or for patient management. COVID 19 AG RAPID (RN COLLECT) *Positive results do not differentiate between SARS-CoV and SARS-CoV-2. If differentation of the specific SARS virus is desired an additional sample and an additional order is required. COVID 19 AG RAPID (RN COLLECT) * This test has not been FDA cleared or approved; the test has been authorized by FDA under an Emergency Use Authorization (EAU) for use by laboratories certified under CLIA that meet the requirements to perform moderate, high, or waived complexity tests. COVID 19 AG RAPID (RN COLLECT) Normal Reference Range: Negative SARS-CoV-2 (COVID 19) Negative RAPID METHOD Quidel Laney Analyzer HONG, lateral flow immunofluorescent Group B Beta Streptococcus is not isolated. Mixed Gram Positive Organisms [place] Count 25,000-50,000 MIXC Mixed contaminants. Submit a new specimen if indicated. Mixed Gram Pos Gram Neg Org [place] Count 50,000-80,000 MIXC Mixed contaminants. Submit a new specimen if indicated. A POSITIVE Assessment & Plan (1) : QUALIFIERS: Weeks of gestation: 38 weeks Qualified Code(s): Z3A.38 - 38 weeks gestation of COMMENT: Labor PLAN: Admit in labor, Cat I FHR GBS neg Pain management per patient request
[2021-04-06] MEDS: fentaNYL-bupivacaine (epidural) 100 ML BAG EPIDURAL (19:56)
[2021-04-06] MEDS: Ondansetron 4 MG/2 ML Vial IV (21:05)
[2021-04-06] MEDS: 0.9% Saline Lock 10 ML Syringe IV (21:05)
[2021-04-06] MEDS: Oxytocin 30 units/NS 500 ml 30 UNITS/500 ML IV.SOLN 334 UNITS IV (23:27)
--- NOTE | 2021-04-06 23:37 | EX.PCM.OBRPT ---
Assessment & Plan (1) (spontaneous vaginal delivery): Maternal Data Information AYO Calculator Estimated Delivery Date Method Current WG Current Estimate 04/14/21 Manual 38w 6d Vaginal Delivery Maternal Presentation Maternal Presentation: Active Labor Operative Information Date of Procedure: 04/06/21 Pre-Operative Diagnosis: 38-6/7 weeks gestational age Post-Operative Diagnosis: 38-6/7 weeks gestational age Type of Anesthesia: Epidural Anesthesiologist: Jack Tatum Drain: [place] to straight drain Estimated Blood Loss: 200 ml Time of Delivery: 23:24 Findings Description of Procedure: Patient pushed to deliver a [male] over an intact perineum. Infant mouth and nares were bulb suctioned. The infant was placed on the maternal abdomen and further attended by nursery personnel. The cord was doubly clamped and cut at [2] minutes of life. The placenta delivered spontaneously and appeared intact on inspection. Sponge and needle counts were correct x2. Presentation: Vertex Time of Membrane Rupture: 1518 Amniotic Fluid Description: Clear Placental Delivery Description: Spontaneous Placenta Disposition: [facility] Cord Vessel Description: 3 Vessels Cord Entanglement: Around neck x 1, loose Nuchal Cord Compression: Without compression Infant A Gender: Male (1 minute): 8 (5 minute): 9 Delayed Cord Clamping: Yes Post Vaginal Delivery Medications Given After Delivery: IV Pitocin Episiotomy Description: None Laceration: None Complication Complications: None
[2021-04-07] VITALS (21 sets, daily range): BP systolic 100–128; BP diastolic 53–81; PULSE 83–122; RESP 16–18; TEMP 36.1–36.5; O2SAT 95–99
[2021-04-07] MEDS: Acetaminophen 500 MG Tablet 1000 MG PO ×2 (06:49→14:13)
--- NOTE | 2021-04-07 08:50 | PCM.PN.OB ---
Subjective Subjective No issues overnight. She feels well. Has some cramping, but manageable. Denies other pain. No issues voiding. She is . Objective Data Objective Data Vital Signs: Vital Signs Temp Pulse Resp BP Pulse Ox 97.4 F L 101 H 18 108/58 L 95 04/07/21 08:12 04/07/21 08:12 04/07/21 08:12 04/07/21 08:12 04/07/21 08:12 Oxygen Delivery Method Room Air Weight: 111.357 kg Body Mass Index (BMI) 43.4 Intake & Output: Intake and Output for Last 24 Hours 04/05/21 04/06/21 04/07/21 23:59 23:59 23:59 Intake Total 1478.66 / 1478.66 333 / 333 Output Total 800 / 800 Balance 1478.66 / 1478.66 -467 / -467 Lab / Micro Data Result Diagrams: 04/06/21 18:50 Labs: Laboratory Results - last 24 hr 04/06/21 17:45: Vag Amniotic Fld Detect POSITIVE H 04/06/21 18:50: WBC 14.0 H, RBC 4.89, Hgb 12.5, Hct 39.6, MCV 81.0, MCH 25.6 L, MCHC 31.6 L, RDW Std Deviation 42.5, RDW Coeff of [place] 14.6, Plt Count 364, MPV 9.9, Immature Gran % (Auto) 0.600, Neut % (Auto) 66.4, Lymph % (Auto) 23.4, [place] % (Auto) 8.4, Eos % (Auto) 0.8, Baso % (Auto) 0.4, Absolute Neuts (auto) 9.3 H, Absolute Lymphs (auto) 3.27, Nucleated RBC % 0 04/06/21 18:50: Blood Type A POSITIVE, Antibody Screen NEGATIVE Micro: Microbiology 04/06/21 18:30 Nasal Secretion SARS-CoV-2 Antigen (Rapid) - Final Physical Exam Const alert, oriented x3 and no apparent distress Resp normal respiratory effort and normal air movement Cardio regular rate, regular rhythm, S1 normal heart sound and S2 normal heart sound Uterus Palpation: uterus fundus firm and other OB fundus nontender Extremity no calf tenderness Neuro oriented x3 Assessment & Plan (1) (spontaneous vaginal delivery): PLAN: PPD#1 s/p A pos Routine care
[2021-04-07] MEDS: Prenatal Vits Tablet 1 TABLET PO (12:17)
[2021-04-07] MEDS: Benzocaine/Lanolin/Aloe Vera 1 SPRAY EACH TOPICAL (15:56)
[2021-04-07] MEDS: Ibuprofen 600 MG Tablet PO (20:47)
[2021-04-07] MEDS: Senna/Docusate Sodium 1 Tablet PO (20:48)
[2021-04-08 01:38] VITALS: TEMP 36.1
[2021-04-08 01:39] VITALS: BP 126/68; PULSE 86; O2SAT 99
[2021-04-08 01:40] VITALS: BP 126/68; PULSE 80; RESP 18; TEMP 36.9; O2SAT 99
--- NOTE | 2021-04-08 01:45 | NURSING ---
Pt CPR certified, denies need for infant CPR ipad education.
[2021-04-08 08:06] VITALS: BP 119/67; PULSE 98; TEMP 36.6
[2021-04-08] MEDS: Ibuprofen 600 MG Tablet PO (08:11)
[2021-04-08 08:13] VITALS: BP 119/67; PULSE 98; RESP 18; TEMP 36.6
--- NOTE | 2021-04-08 10:28 | PCM.DC ---
Discharge Instructions Diet Discharge Diet: No restrictions Activity Discharge Activity: Return to Normal Activity May resume sexual activity in: 4-6 weeks Dressing / Incision Call your doctor if you observe: Fever of 101 or Higher, Using more than 1 pad per hour, Shortness of breath, Chest pain, Calf discomfort, Uncontrolled pain and - (Persistent or severe headache) Follow Up Care Please Follow Up With: Leti Cardenas DO When: 3 weeks for telehealth follow up 6 weeks for visit Test Results: Test results from this visit will be discussed in further detail at your follow-up appointment, if applicable. Discharge Plan Admission Admit Date/Time: 04/06/21 18:35 Primary Reason for Your Visit: Vaginal delivery Attending Provider: [place] Primary Care Provider: Care Physician,No Primary Instructions Patient Instructions: Depression Discharge Orders/Prescriptions Prescriptions: New ibuprofen 600 mg Tablet 600 mg PO Q8H PRN PRN (Reason: Pain Score 1-3) Qty: 30 RF: 0 Continued 1 tab PO/SL DAILY RF: 0 Referrals / Follow Up: Care Physician,No Primary [Primary Care Provider] - Disposition Disposition (needs filled in before D/C Order can be placed): Home, Self Care
--- NOTE | 2021-04-08 10:48 | PCM.PN.OB ---
Subjective Subjective No issues overnight. Infant is nursing well. She is out of bed, ambulating, voiding without difficulty. No bowel movement yet. Denies heavy lochia or significant painfulness. Looks forward to going home today. Objective Data Objective Data Vital Signs: Vital Signs Temp Pulse Resp BP Pulse Ox 97.8 F 98 18 119/67 99 04/08/21 08:13 04/08/21 08:13 04/08/21 08:13 04/08/21 08:13 04/08/21 01:40 Oxygen Delivery Method Room Air Weight: 111.357 kg Body Mass Index (BMI) 43.4 Intake & Output: Intake and Output for Last 24 Hours 04/06/21 04/07/21 04/08/21 23:59 23:59 23:59 Intake Total 1478.66 / 1478.66 333 / 333 Output Total 800 / 800 Balance 1478.66 / 1478.66 -467 / -467 Lab / Micro Data Result Diagrams: 04/06/21 18:50 Micro: Microbiology 04/06/21 18:30 Nasal Secretion SARS-CoV-2 Antigen (Rapid) - Final Physical Exam Const alert, oriented x3 and no apparent distress General Appearance: cooperative and comfortable HEENT normocephalic Resp normal respiratory effort OB / External & Speculum: other Uterus Palpation: other OB Fundus firm and nontender Extremity Extremity Narrative: trace b/l pedal edema General Extremity: edema bilateral Assessment & Plan (1) (spontaneous vaginal delivery):
== END 2021-04-08 11:08 | disposition home or self-care (01) | DRG 807 ==
LOC: WPOUT 18:42 → WP 18:42
PROVIDERS: Admitting Provider Obstetrics & Gynecology; Visit Provider Obstetrics & Gynecology
DX: O69.81X0 Labor and delivery complicated by cord around neck, without compression, not applicable or unspecified (principal); Z37.0 Single live birth; Z3A.38 38 weeks gestation of pregnancy
CPT/HCPCS: 59025; 59050; 84112; 85025; 86850; 86900; 86901; 87426; 99218; J7120; A4216; G0378; J2405

== ENCOUNTER → 2022-03-13 | Outpatient (CLI) | payer BC, MEDICAID, SELFPAY ==
[2022-03-13 16:04] LABS: AST(SGOT) 18 U/L (15-37); Alanine Aminotransfer ALT/SGPT 31 U/L (13-56); Albumin, Serum 3.9 g/dL (3.2-5.0); Alkaline Phosphatase 61 U/L (45-117); Anion Gap 7 (5-15); BUN 14 mg/dL (7-18); BUN/Creat Ratio 19.9 RATIO (10-20); Calcium,Total 9.1 mg/dL (8.5-10.1); Chloride 106 mmol/L (98-107); EST Glomerular Filtration Rate 108 mL/min (>60); Est Glom Filt Rate - Afr Amer 131 mL/min (>60); Globulin 3.9 g/dL (2.2-4.2); Glucose 103 mg/dL (74-106); Potassium 3.9 mmol/L (3.5-5.1); Protein, Total 7.8 g/dL (6.4-8.2); Sodium Level 137 mmol/L (136-145); Thyroid Stim Hormone (TSH) 1.06 uIU/mL (0.358-3.74)
== END | disposition home or self-care (01) ==
LOC: MFPLAB 11:50
PROVIDERS: PCP Family Medicine; Referring Provider Family Medicine; Visit Provider Family Medicine
DX: F41.9 Anxiety disorder, unspecified (principal)
CPT/HCPCS: 36415; 80053; 84443

== ENCOUNTER 2023-04-18 06:19 | Emergency (ER) | payer BC, MEDICAID, SELFPAY ==
[2023-04-18 06:20] VITALS: BP 129/69; PULSE 93; RESP 16; TEMP 36.4; O2SAT 97; BMI 39.9
--- NOTE | 2023-04-18 06:42 | EX.ED.VIS.UR ---
HPI HPI - URI History of Present Illness Chief Complaint: Sore Throat Informant: patient Onset/Context/Timing Onset: Days Context: Gradual Onset Timing: Continuous Current Severity: Moderate Maximum Severity: Moderate Worsened by: Swallowing Associated Symptoms Associated Symptoms: Positive for Nonproductive cough; Negative for Headache, Sinus Pressure, Vomiting, Diarrhea or Shortness of Breath Narrative Narrative: 27-year-old female no significant past medical or surgical history. Has had a 5-day history of nonproductive cough and progressively worsening sore throat. Able to swallow. No fever. No vomiting or diarrhea. She did test herself for COVID 2 days ago and it was negative. Prior similar symptoms: Yes Recent Illness/Hospitalization: No ROS ROS ED ROS Narrative Sore throat. Nonproductive cough. Review of Systems ROS Unobtainable: Denies due to encephalopathy Constitutional Constitutional ED: Denies chills or fever(s) Eyes Eyes: Denies blurry vision ENT ENT ED: Reports sore throat; Denies ear pain Cardiovascular Cardiovascular: Denies chest pain Respiratory/Chest Respiratory/Chest: Reports cough; Denies dyspnea Gastrointestinal Gastrointestinal: Denies abdominal pain, constipation, diarrhea, melena, nausea or vomiting Genitourinary Genitourinary ED: Denies dysuria or hematuria Musculoskeletal Musculoskeletal: Denies arthralgias or back pain Integumentary Denies abscess or Abrasions Neurologic Neurologic: Denies headache(s) Psychiatric Psychiatric: Denies anxiety or depression Endocrine Endocrinology: Denies cold intolerance or heat intolerance Hematologic/Lymphatic Hematologic/Lymphatic: Denies easy bleeding or easy bruising Allergic/Immunologic Allergic/Immunologic ED: Denies mouth swelling or tongue swelling PFSH PFSH Medical History Migraines Seasonal allergies Home Medications NK 04/18/23 [History Last Taken Unknown] Allergy/AdvReac Type Severity Reaction Status Date / Time Sulfa (Sulfonamide Allergy Hives Verified 04/18/23 06:24 Antibiotics) Family History Father Hypertension Mother Hypertension Surgical History H/O dilation and curettage H/O wisdom tooth extraction Social History Smoking Status: Never smoker EXAM Physical Exam Narrative Exam Narrative: Well-appearing 27-year-old female. Vital signs are stable afebrile. HEENT exam TMs normal bilaterally. Posterior pharynx is erythematous. No exudate. No peritonsillar abscess. Tonsils are nonenlarged. No difficulty swallowing or breathing. No drooling or stridor. Neck nontender no lymphadenopathy. Trachea midline. Lungs clear. Heart regular rhythm no murmur. Rate about 90. Abdomen soft nontender. No axillary lymphadenopathy. No cervical lymphadenopathy. Moving all 4 extremities. Skin no rashes. Neurologically she is awake and alert with no focal motor deficits. Const Vital Signs: 04/18/23 06:20 04/18/23 06:20 Temperature 97.6 F L Temperature Source Temporal Pulse Rate 93 Respiratory Rate 16 Blood Pressure 129/69 H Blood Pressure Mean 89 Pulse Ox 97 Oxygen Delivery Method Room Air Positive well nourished and well developed; Negative for cachectic or contractures General Appearance ED: well developed; Negative for cachectic, contractures or pallor Nutritional Appearance: Negative for cachectic HEENT Reports moist mucous membranes normocephalic and atraumatic; Negative for scalp tenderness Face and Sinus: Negative for sinus tenderness Teeth and Gingiva: Negative for caries Throat: posterior oropharynx abnormal Positive for edema and erythema; Negative for exudates, laceration or foreign body; Negative for posterior oropharynx normal Eyes PERRL and EOMs intact bilaterally Neck no lymphadenopathy, supple, no meningeal signs and no JVD General: Negative for anterior neck swelling or lymphadenopathy Resp normal respiratory effort Effort and Inspection: Negative for retractions Auscultation: Negative for rales, rhonchi or wheezes Cardio S1 normal heart sound, S2 normal heart sound and no murmurs Rate: regular rate Rhythm: regular rhythm GI non-tender, non-distended and no masses Inspection: Negative for abdominal distention Auscultation: normoactive bowel sounds Palpation: soft; Negative for tender, guarding or hepatomegaly Back/Spine no CVA tenderness and normal ROM General Back: Negative for CVA tenderness Cervical Spine: Negative for cervical spine tenderness Thoracic Spine / Upper Back: Negative for thoracic spinal tenderness Lumbar Spine / Lower Back: Negative for lumbar spinal tenderness Sacrum: Negative for tenderness Extremity normal to inspection and full ROM General Extremety ED: Negative for cyanosis or tenderness General Extremity: Negative for cyanosis Neuro oriented x3 and CN's II-XII intact bilaterally Sensorium / Orientation: alert, oriented to person, oriented to place and oriented to time; Negative for orientation impaired or lethargic Motor Exam: strength 5/5 throughout Psych mental status grossly normal Appearance: Negative for other Attitude: No agitated Mood & Affect: Negative for depressed, anxious or tearful Skin General Skin Exam: Negative for jaundice or pallor Lesions: no lesions Rashes: no rashes Trauma: Negative for abrasion or laceration MDM MDM MDM Narrative Medical decision making narrative: 27-year-old female 5-day history of a sore throat. Reportedly COVID-negative. Exam as bilateral erythema. No exudate. No abscess. No difficulty swallowing. No stridor or drooling. Tonsils are not enlarged. Rapid strep sent. If positive treat with antibiotics if negative treat as a viral pharyngitis. Patient will be checked out to the oncoming physician to check the rapid strep results. History & Record Review Discussion w/independent historian: Patient Additional record(s) reviewed:: Prior inpatient record, Prior outpatient record, Prior ED visit and No prior records Lab Data Lab results narrative: Rapid strep test is negative. Discharge Plan Triage Chief Complaint: Sore Throat ED Provider: Jalen Christianson Dx/Rx/DC Orders Clinical Impression: Acute viral pharyngitis Instructions: ED Pharyngitis, Viral Prescriptions: No Action NK Primary Care Provider: Care Physician,No Primary Referrals: Julien Talamantes MD [Med Staff - [employer] Director] - 1 Week if not improving NOT,DEFINED [Non-Staff] - Activity Restrictions/Additional Instructions: Plenty of fluids and rest. Motrin and Tylenol for pain. Warm salt water gargling. Follow-up with your doctor if not improving or return if worse. Disposition Disposition: Home, Self Care
[2023-04-18 07:48] VITALS: BP 131/80; PULSE 82; RESP 16; O2SAT 99
== END 2023-04-18 07:51 | disposition home or self-care (01) ==
LOC: ED 06:55
PROVIDERS: Emergency Provider Emergency Medicine; Visit Provider Emergency Medicine
DX: J02.9 Acute pharyngitis, unspecified (principal)
CPT/HCPCS: 87880; 99282

== ENCOUNTER → 2024-12-07 | Outpatient (CLI) | payer BC, SELFPAY ==
[2024-12-07 17:32] LABS: hCG Titer Quant., Serum 637 mIU/mL (<9 non-preg)
--- OUTSIDE RECORDS SUMMARY | 2024-12-07 22:19 | XMS RPT_ITS | CCD ---
Author Organization [facility] Care Team Providers Care Radio Recorder Name Role Phone Dr. Mc Delgadillo Primary Care Provider Dr. Mc Delgadillo Referring Provider SAMUEL Sherman Attending Provider Jalen Christianson Attending Unavailable Care Physician, No Primary Primary Care Unava ilable Sathish Sherman Attending Unavailable Care Physician, No Primary Referring Unava ilable Care Physician, No Primary Primary Care Unava ilable Dhiraj Mccoy Attending Unavailable Care Physician, No Primary Referring Unava ilable Care Physician, No Primary Primary Care Unava ilable Sathish Sherman Attending Unavailable Care Physician, No Primary Referring Unava ilable Care Physician, No Primary Primary Care Unava ilable Roof LATHE PULLER, Julien Winston Attending Unavailable Care Physician, No Primary Referring Unava ilable Care Physician, No Primary Primary Care Unava ilable Sathish Sherman Attending Unavailable Mc Delgadillo Referring Unavailable Mc Delgadillo Primary Care Unavailable Trevor Herring Unavailable [phone] Uvaldo Doss MD Primary Care Provider 1( [phone] TREVOR NELSON Attending Unavailable ORI FUCHS, UVALDO CHOLO Primary Care Unavailable VITALY RAMOS Attending Unavailable ORI FUCHS, UVALDO CHOLO Primary Care Unavailable VITALY RAMOS Attending Unavailable ORI FUCHS, UVALDO CHOLO Primary Care Unavailable VITALY RAMOS Attending Unavailable ORI FUCHS, UVALOD CHOLO Referring Unavailable ORI FUCHS, UVALDO CHOLO Primary Care Unavailable ORI SHILA, UVALDO CHOLO Referring Unavailable ORI FUCHS, UVALDO CHOLO Primary Care Unavailable Care Physician, No Primary Primary Care Provider Unavailable Care Physician, No Primary Referring Provider Un available Dr. Jennifer Erazo DO Attending Provider Allergies Allergy Classification Reported Allergen(s) Allergy Type Date of Onset Reaction(s) Facility (3 sources) Sulfonamides (Antibiotic); Translations: [SULFA (SULFONAMIDE ANTIBIOTICS)] Allergy to substance 3 Hives [facility] (1 source) Sulfonamides (Antibiotic) Drug allergy (disorder) 4 [facility] Repository (8 sources) Sulfonamides (Antibiotic) Drug Allergy 5 Hives, Rash [facility] Medications Current Medications Medication Drug Class(es) Dates Sig (Normalized) Sig (Original) [id number] 200 actuat albuterol 0.09 mg/actuat metered dose inhaler (7 sources) beta2-Adrenergic Agonist Start: 06-08-2024 End: 07-08-2024 take 2 puff(s) by inhalation every six hours as needed albuterol HFA (PROVENTIL HFA, VENTOLIN HFA) 90 mcg/actuation inhaler Inhale 2 Puffs as instructed every 6 hours as needed. 06/08/2024 Active Ascorbic Acid (8 sources) Vitamin C ascorbic acid (VITAMIN C ORAL) Take by mouth. Active 24 hr buPROPion hydrochloride 300 mg extended release oral tablet (11 sources) Aminoketone Start: 10-11-2024 End: 02-06-2025 take 1 tablet by mouth once daily Bupropion Hcl 300 mg tablet extended release 24 hr Active 300 mg PO daily December 07, 2024 12:00am Start: 09-06-2024 End: 10-06-2024 take 1 tablet by mouth once daily buPROPion XL (WELLBUTRIN XL) 300 mg 24 hr tablet Indications: Moderate episode of recurrent major depressive disorder (HCC) Take 1 tablet by mouth once daily. 30 tablet 09/06/2024 10/06/2024 Active Start: 06-29-2024 End: 09-27-2024 take 1 tablet by mouth twice daily buPROPion SR (WELLBUTRIN SR) 100 mg 12 hr tablet Indications: Moderate episode of recurrent major depressive disorder (HCC) Take 1 tablet by mouth two times a day. 180 tablet 06/29/2024 09/06/2024 Discontinued busPIRone hydrochloride 15 mg oral tablet (6 sources) Start: 12-07-2024 take 1 tablet by mouth twice daily Buspirone 15 mg tablet Active 15 mg PO TWICE A DAY December 07, 2024 12:00am Start: 11-08-2024 End: 02-06-2025 take 0.5 tablet by mouth twice daily busPIRone (BUSPAR) 15 mg tablet Indications: IVON (generalized anxiety disorder) Take 0.5 tablets by mouth two times a day. 30 tablet 2 11/08/2024 02/06/2025 Active Start: 11-08-2024 End: 11-08-2024 take 1 tablet by mouth twice daily busPIRone (BUSPAR) 7.5 mg tablet Indications: IVON (generalized anxiety disorder) Take 1 tablet by mouth two times a day. 60 tablet 2 11/08/2024 11/08/2024 Discontinued Start: 10-11-2024 End: 11-10-2024 take 1 tablet by mouth twice daily busPIRone (BUSPAR) 15 mg tablet Indications: IVON (generalized anxiety disorder) Take 1 tablet by mouth two times a day. 60 tablet 10/11/2024 11/08/2024 Discontinued fluticasone propionate 0.05 mg/actuat metered dose nasal spray (2 sources) Corticosteroid Start: 06-08-2024 End: 07-06-2024 fluticasone (FLONASE) 50 mcg/actuation nasal spray Use 1 [place] in the nose. 06/08/2024 07/06/2024 Active Lactobacillus acidophilus (8 sources) Lactobacillus ac idophilus (PROBIOTIC ORAL) Take by mouth. Active [place] (Nk) (1 source) Start: 04-18-2023 [place] (Nk) A ctive April 18, 2023 12:00am sodium chloride 0.111 meq/ml nasal spray (8 sources) Start: 06-08-2024 End: 06-08-2025 sodium chloride 0.65 % nasal spray Use 1 [place] in the nose. 06/08/2024 06/08/2025 Active Zinc (8 sources) ZINC ORAL Take b y mouth. Active Completed/Discontinued Medications Medication Drug Class(es) Dates Sig (Normalized) Sig (Original) amoxicillin 875 mg / clavulanate 125 mg oral tablet (1 source) Penicillin-class Antibacterial Start: 04-24-2023 End: 05-04-2023 Amoxicillin-Pot Clavulanate 875-125 mg tablet Discontinued 1 {tbl} PO Q12H 20 10 0 April 24, 2023 1:00am May 03, 2023 1:00am May 04, 2023 1:04am Acute sinusitis, unspecified azithromycin 250 mg oral tablet (2 sources) Macrolide Antimicrobial Start: 03-28-2023 End: 04-18-2023 take 2-5 tablets by mouth once daily Azithromycin 250 mg tablet Discontinued 0 PO .COMPLEX 6 0 March 28, 2023 12:00am April 18, 2023 7:24am take 500 mg today (day 1), then 250 mg for 4 days (days 2-5) PO benzonatate 100 mg oral capsule (2 sources) Non-narcotic Antitussive Start: 03-28-2023 End: 04-18-2023 take 2 capsules by mouth three times daily as needed for cough Benzonatate 100 mg capsule Discontinued 200 mg PO THREE TIMES A DAY as needed for cough 30 March 28, 2023 12:00am April 18, 2023 7:24am Start: 03-28-2023 End: 04-18-2023 take 200 mg by mouth three times daily Benzonatate Discontinued 200 MG PO THREE TIMES A DAY March 27, 2023 11:00pm April 18, 2023 6:24am ibuprofen 600 mg oral tablet (3 sources) Nonsteroidal Anti-inflammatory Drug Start: 04-07-2021 End: 04-18-2023 take 1 tablet by mouth every eight hours as needed for pain Ibuprofen 600 mg Tablet Discontinued 600 mg PO EVERY 8 HOURS NEEDED as needed for Pain Score 1-3 30 April 07, 2021 9:38am April 18, 2023 7:24am (3 sources) Start: 03-29-2021 End: 04-18-2023 Discontinued 1 {tbl} SL/PO DAILY March 29, 2021 12:00am April 18, 2023 7:24am Start: 03-29-2021 End: 04-18-2023 take 1 tablet by mouth once daily Discontinued 1 TABLET SL/PO DAILY March 28, 2021 11:00pm April 18, 2023 6:24am Start: 03-29-2021 take 1 tablet by mayra th once daily Active 1 TABLET SL/PO DAILY March 29, 2021 12:00am promethazine hydrochloride 25 mg oral tablet (1 source) Phenothiazine Start: 06-20-2023 End: 12-07-2024 take 1 tablet by mouth every six hours as needed for nausea and vomiting Promethazine 25 mg tablet Discontinued 25 mg PO EVERY 6 HOURS as needed for nausea and vomiting 14 0 June 20, 2023 1:00am December 07, 2024 3:53pm Problems Active Problems Problem Classification Problem Date Documented Date Episodic/Chronic Administrative/social admission (7 sources) Patient encounter status; Translations: [Encounter for pre-employment examination] 08-01-2022 Episodic Anxiety disorders (4 sources) Generalized anxiety disorder; Translations: [Generalized anxiety disorder] Onset: 11-08-2024 09-07-2024 Chronic Mood disorders (4 sources) Moderate recurrent major depression; Translations: [Major depressive disorder, recurrent, moderate] Onset: 06-29-2024 06-29-2024 Chronic Nausea and vomiting (1 source) Nausea, vomiting and diarrhea; Translations: [Nausea with vomiting, unspecified] 06-20-2023 Episodic Noninfectious gastroenteritis (1 source) Gastroenteritis; Translations: [Noninfective gastroenteritis and colitis, unspecified] 06-20-2023 Episodic Other nervous system disorders (2 sources) Disturbance of attention; Translations: [Attention and concentration deficit] 09-06-2024 Chronic Other nutritional; endocrine; and metabolic disorders (1 source) Body mass index 40+ - severely obese; Translations: [Body mass index (BMI) 40.0-44.9, adult] 09-07-2024 Chronic Other and delivery including normal (6 sources) Vaginal delivery; Translations: [Encounter for full-term uncomplicated delivery] 04-06-2021 Episodic Comment on above: Labor Other upper respiratory infections (6 sources) Acute pharyngitis; Translations: [Acute pharyngitis, unspecified] Onset: 07-30-2023 03-28-2023 Episodic Otitis media and related conditions (1 source) Acute right otitis media; Translations: [Otitis media, unspecified, right ear] 04-24-2023 Episodic Residual codes; unclassified (1 source) Obstructive sleep apnea syndrome; Translations: [Obstructive sleep apnea (adult) (pediatric)] 06-29-2024 Chronic Residual codes; unclassified (1 source) Obstructive sleep apnea (adult) (pediatric); Translations: [SHARON (obstructive sleep apnea)] Onset: 06-29-2024 Chronic Residual codes; unclassified (1 source) Difficulty sleeping ; Translations: [Sleep disorder, unspecified] 11-08-2024 Episodic Skin and subcutaneous tissue infections (3 sources) Cellulitis and abscess of chest wall ; Translations: [Abscess or cellulitis of chest wall] 04-22-2020 Episodic Sprains and strains (6 sources) Sprain of ankle; Translations: [Sprain of unspecified ligament of right ankle, initial encounter] 07-06-2019 Episodic Past or Other Problems Problem Classification Problem Date Documented Da te Episodic/Chronic Other screening for suspected conditions (not mental disorders or infectious disease) (1 source) Encounter for screening for lipoid disorders; Translations: [Encounter for screening for lipid disorder] Onset: 06-29-2024 Episodic Screening and history of mental health and substance abuse codes (1 source) Encounter for screening for depression; Translations: [Screening for depression] Onset: 06-29-2024 Episodic Unclassified (3 sources) No history of clinical finding in subject; Translations: [No significant past medical history] 04-06-2021 Results Test Name Value Interpretation Reference Range Facil ity CNPNon 10-12-2024 CNPN Telephone (AGINTMAC) ROBINSON RUFF ([id number]) 1995 F Date Time Provider Department 10/12/24 [facility] [place] [place] During your visit today, we recorded the following information about you: Uvaldo Doss MD 10/12/2024 11:55 AM Signed Received message from Vitaly Ramos that patient had recently expressed concerns about her HSAT as it was going to cost her $1000? Can we please reach our to patient to see what is going? Does the study need to be authorized? Marlena Arroyo 10/12/2024 12:01 PM Addendum Called and LVM for patient to call us back regarding this. From what I can tell patient may have tried to schedule before the orders were approved by insurance (possibly). I do not see anything where she's tried to schedule since June. Everything is approved and ready for her to schedule. Marlena Arroyo, Data Conversion Developer October 12, 2024 11:58 AM Allergies As of Date: 10/12/2024 Noted Allergy Reaction SULFA (SULFONAMIDE ANTIBIOTICS) 06/29/2024 4 - Hives 2 - Rash Date Reviewed: 06/29/2024 Reviewed by: Cholo Douglass LPN - Fully Assessed Reason for Visit: sleep study [Other] Prescriptions as of 10/12/2024 - buPROPion XL (WELLBUTRIN XL) 300 mg 24 hr tablet Take 1 tablet by mouth once daily. - busPIRone (BUSPAR) 15 mg tablet Take 1 tablet by mouth two times a day. - albuterol HFA (PROVENTIL HFA, VENTOLIN HFA) 90 mcg/actuation inhaler Inhale 2 Puffs as instructed every 6 hours as needed. - sodium chloride 0.65 % nasal spray Use 1 [place] in the nose. - ZINC ORAL Take by mouth. - ascorbic acid (VITAMIN C ORAL) Take by mouth. - Lactobacillus acidophilus (PROBIOTIC ORAL) Take by mouth. Problem List As Of Date: 10/12/2024 (None) Encounter Status:Closed by MARLENA ARORYO on 10/12/24 [facility] [place] 07-13-2024 [facility] Telephone (LILYINTMAC) ROBINSON RUFF ([id number]) 1995 F Date Time Provider Department 07/13/24 UVALDO DOSS During your visit today, we recorded the following information about you: Floridalma Adams 07/13/2024 9:56 AM Signed Called patient LVM, and sent message to patient to call our office to schedule August, or October follow up appointment. Dr. Nelson is on PTO in September Floridalma Adams Data Conversion Developer I July 13, 2024 9:56 AM Allergies As of Date: 07/13/2024 Noted Allergy Reaction SULFA (SULFONAMIDE ANTIBIOTICS) 06/29/2024 4 - Hives 2 - Rash Date Reviewed: 06/29/2024 Reviewed by: Cholo Douglass LPN - Fully Assessed Reason for Visit: Appointment [186] Prescriptions as of 07/13/2024 - albuterol HFA (PROVENTIL HFA, VENTOLIN HFA) 90 mcg/actuation inhaler Inhale 2 Puffs as instructed every 6 hours as needed. - sodium chloride 0.65 % nasal spray Use 1 [place] in the nose. - ZINC ORAL Take by mouth. - ascorbic acid (VITAMIN C ORAL) Take by mouth. - Lactobacillus acidophilus (PROBIOTIC ORAL) Take by mouth. - buPROPion SR (WELLBUTRIN SR) 100 mg 12 hr tablet Take 1 tablet by mouth two times a day. Problem List As Of Date: 07/13/2024 (None) Encounter Status:Closed by FLORIDALMA ADAMS on 07/13/24 Normal [facility] CBC panel Auto (Bld)on 06-29 Erythrocyte distribution width (RBC) [Ratio] 13.7 % 11.5 - 15.0 % [facility] Hematocrit (Bld) [Volume fraction] 43.9 % 36.0 - 46.0 % [facility] Hemoglobin (Bld) [Mass/Vol] 14.1 g/dL 11.5 - 15.5 g/dL [facility] Interpretation and review of laboratory results Abnormal [facility] MCH (RBC) [Entitic mass] 27.2 pg 26.0 - 34.0 pg [facility] MCHC (RBC) [Mass/Vol] 32.1 g/dL 30.5 - 36.0 g/dL [facility] MCV (RBC) [Entitic vol] 84.6 fL 80.0 - 100.0 fL [facility] Nucleated RBC (Bld) [#/Vol] NINF [facility] Platelet mean volume (Bld) [Entitic vol] 9.4 fL 9.0 - 12.7 fL [facility] Platelets (Bld) [#/Vol] 398 10*3/uL [facility] RBC (Bld) [#/Vol] 5.19 10*6/uL 3.90 - 5.2 0 m/uL [facility] WBC (Bld) [#/Vol] 11.97 10*3/uL [facility] Erythrocyte distribution width (RBC) [Ratio] 13.7 % Normal 11.5-15.0 [facility] Comment on above: Order Comment: Speci men Type: BLOOD SPECIMEN Ordering Facility: [facility] Address: [address] [place] [address] Performed By: #### 5 8410-2 #### [facility] CLIA [id number] [address] [place] [facility] Hematocrit (Bld) [Volume fraction] 43.9 % Normal 36.0-46.0 [facility] Comment on above: Order Comment: Speci men Type: BLOOD SPECIMEN Ordering Facility: [facility] Address: [address] [place] [address] Performed By: #### 5 8410-2 #### [facility] CLIA [id number] [address] [place] [facility] Hemoglobin (Bld) [Mass/Vol] 14.1 g/dL Normal 11.5-15.5 [facility] Comment on above: Order Comment: Speci men Type: BLOOD SPECIMEN Ordering Facility: [facility] Address: [address] [place] [address] Performed By: #### 5 8410-2 #### [facility] CLIA [id number] [address] [place] [facility] MCH (RBC) [Entitic mass] 27.2 pg Normal 26.0-34.0 [facility] Comment on above: Order Comment: Speci men Type: BLOOD SPECIMEN Ordering Facility: [facility] Address: [address] [place] [address] Performed By: #### 5 8410-2 #### [facility] CLIA [id number] [address] [place] MCHC (RBC) [Mass/Vol] 32.1 g/dL Normal 30.5-36.0 [facility] Comment on above: Order Comment: Speci men Type: BLOOD SPECIMEN Ordering Facility: [facility] Address: [address] [place] [address] Performed By: #### 5 8410-2 #### [facility] CLIA [id number] [address] MCV (RBC) [Entitic vol] 84.6 fL Normal 80.0-100.0 [facility] Comment on above: Order Comment: Speci men Type: BLOOD SPECIMEN Ordering Facility: [facility] Address: [address] [place] [address] Performed By: #### 5 8410-2 #### [facility] CLIA [id number] [address] Nucleated RBC (Bld) [#/Vol] 10*3/uL Normal <0.01 [facility] Comment on above: Order Comment: Speci men Type: BLOOD SPECIMEN Ordering Facility: [facility] Address: [address] [place] [address] Performed By: #### 5 8410-2 #### [facility] CLIA [id number] [address] Platelet mean volume (Bld) [Entitic vol] 9.4 fL Normal 9.0-12.7 [facility] Comment on above: Order Comment: Speci men Type: BLOOD SPECIMEN Ordering Facility: [facility] Address: [address] [place] [address] Performed By: #### 5 8410-2 #### [facility] CLIA [id number] [address] [place] Platelets (Bld) [#/Vol] 398 10*3/uL Normal 150-400 [facility] Comment on above: Order Comment: Speci men Type: BLOOD SPECIMEN Ordering Facility: [facility] Address: [address] [place] [address] Performed By: #### 5 8410-2 #### [facility] CLIA [id number] [address] [place] RBC (Bld) [#/Vol] 5.19 10*6/uL Normal 3.90-5.20 [facility] Comment on above: Order Comment: Speci men Type: BLOOD SPECIMEN Ordering Facility: [facility] Address: [address] [place] [address] Performed By: #### 5 8410-2 #### [facility] CLIA [id number] [address] [facility] WBC (Bld) [#/Vol] 11.97 10*3/uL High 3.70-11.00 [facility] Comment on above: Order Comment: Speci men Type: BLOOD SPECIMEN Ordering Facility: [facility] Address: [address] [place] [address] Performed By: #### 5 8410-2 #### [facility] CLIA [id number] [address] CNOVon 06-29-2024 CNOV Office Visit (AGINTMAC) ELZBIETAROBINSON M ([id number]) 1995 F Date Time Provider Department 06/29/24 10:20 AM TREVOR NELSON AGINTMAC During your visit today, we recorded the following information about you: Temperature Pulse Respiration Blood pressure 97.6 degrees 87/minute 18/minute 134/72 Weight Height Last Period 101.6 kg 1.575 m 06/24/24 Tervor Nelson MBBS 06/29/2024 2:28 PM Signed [facility] BRENDA Perez ASSESSMENT/PLAN: 1. Moderate episode of recurrent major depressive disorder (HCC) - ICD9: 296.32, ICD10: F33.1 (primary diagnosis) - BUPROPION HCL SR 100 MG TABLET,12 HR SUSTAINED-RELEASE - CONSULT TO PSYCHIATRY 2. Screening for depression - ICD9: V79.0, ICD10: Z13.31 - DEPRESSION SCREENING: Moderate depression 3. Encounter for routine laboratory testing - ICD9: V72.60, ICD10: Z01.89 - COMPLETE BLOOD COUNT - COMPREHENSIVE METABOLIC PANEL - HEMOGLOBIN A1C - LIPID PANEL BASIC 4. SHARON (obstructive sleep apnea) - ICD9: 327.23, ICD10: G47.33 - Recommended to continue weight loss with diet and exercise - HOME SLEEP APNEA TEST (HSAT) 5. Encounter for screening for lipid disorder - ICD9: V77.91, ICD10: Z13.220 - LIPID PANEL BASIC BRENDA Perez SUBJECTIVE: Robinson Ruff is a 28 year old female here today for establishing care. She used to follow-up with her primary care in [facility] but since her insurance has changed she comes in for establishing care at [facility]. She has not been taking any medications for 1 year. HPI She has a PMH of: -Depression: Previously on Zoloft which was changed to Lexapro then to BuSpar. -Morbid obesity, previously on Qsymia -Insomnia, was on short course of benzos. Patient mentions that she is having difficulty with her depression and has not been able to take medications for about a year. She has been on and off of different antidepressant as it did not provide much relief. She also mentions of excessive daytime sleepiness but relates it to not being able to sleep at night. Has tried melatonin but was not helpful. STOP BANG Questionnaire 1. Snoring Do you snore loudly (louder than talking or loud enough to be heard through closed doors)? NO 2. Tired Do you often feel tired, fatigued, or sleepy during daytime? YES 3. Observed Has anyone observed you stop breathing during your sleep? NO 4. Blood Pressure Do you have or are you being treated for high blood pressure? NO 5. BMI BMI more than 35 kg/m2? YES 6. Age Age over 50 yr old? NO 7. Neck circumference Neck circumference greater than 40 cm? YES 8. Gender Gender male? NO * Neck circumference is measured by staff High risk of SHARON: answering yes to three or more items Low risk of SHARON: answering yes to less than three items We discussed about obesity clinic for the patient, but the patient refused. She goes to the gym 5-6 times a week and has a meal prep plan. She mentions of losing weight from 232 pounds to 224 pounds since March,. No past medical history on file. No past surgical history on file. Social History Tobacco Use Smoking status: Never Smokeless tobacco: Never Vaping Use Vaping status: Never Used Substance Use Topics Alcohol use: Yes Comment: occassional Drug use: Never No family history on file. PAIN EVALUATION No data found in the last 1 encounters. ALLERGIES Allergen Reactions Sulfa (Sulfonamide * Hives, Rash Current Outpatient Medications Medication Sig albuterol HFA (PROVENTIL HFA, VENTOLIN HFA) 90 mcg/actuation inhaler Inhale 2 Puffs as instructed every 6 hours as needed. ZINC ORAL Take by mouth. ascorbic acid (VITAMIN C ORAL) Take by mouth. Lactobacillus acidophilus (PROBIOTIC ORAL) Take by mouth. fluticasone (FLONASE) 50 mcg/actuation nasal spray Use 1 [place] in the nose. (Patient not taking: Reported on 06/29/2024) sodium chloride 0.65 % nasal spray Use 1 [place] in the nose. (Patient not taking: Reported on 06/29/2024) No current facility-administered medications for this visit. I have confirmed and edited as necessary the chief complaint, medications, past medical, family and social histories. Review of Systems Constitutional: Negative for appetite change, diaphoresis, fatigue and fever. HENT: Negative for dental problem, drooling, ear discharge, ear pain, mouth sores, nosebleeds, rhinorrhea and sinus pain. Eyes: Negative for pain, discharge, redness and itching. Respiratory: Negative for cough, choking, chest tightness, shortness of breath and wheezing. Cardiovascular: Negative for chest pain and palpitations. Gastrointestinal: Negative for abdominal distention, abdominal pain, blood in stool, constipation, diarrhea and nausea. Endocrine: Negative for cold intolerance, heat intolerance, polydipsia, polyphagia and polyuria. Genitourinary: Negative for difficulty urin (more content not included)... Normal [facility] [place] 06-29-2024 [facility] Tele[facility] (AGINTMAC) ELZBIETAROBINSON ([id number]) 1995 F Date Time Provider Department 06/29/24 TREVOR NELSON During your visit today, we recorded the following information about you: Fabiola Najera 06/29/2024 11:49 AM Signed Referral to psychiatry entered into the [facility] portal on 06/29/24. Confirmation number [id number]. Allergies As of Date: 06/29/2024 Noted Allergy Reaction SULFA (SULFONAMIDE ANTIBIOTICS) 06/29/2024 4 - Hives 2 - Rash Date Reviewed: 06/29/2024 Reviewed by: Cholo Douglass LPN - Fully Assessed Reason for Visit: Referral Information [3853] Cmt: Psychiatry Prescriptions as of 06/29/2024 - albuterol HFA (PROVENTIL HFA, VENTOLIN HFA) 90 mcg/actuation inhaler Inhale 2 Puffs as instructed every 6 hours as needed. - fluticasone (FLONASE) 50 mcg/actuation nasal spray Use 1 [place] in the nose. - sodium chloride 0.65 % nasal spray Use 1 [place] in the nose. - ZINC ORAL Take by mouth. - ascorbic acid (VITAMIN C ORAL) Take by mouth. - Lactobacillus acidophilus (PROBIOTIC ORAL) Take by mouth. - buPROPion SR (WELLBUTRIN SR) 100 mg 12 hr tablet Take 1 tablet by mouth two times a day. Problem List As Of Date: 06/29/2024 (None) Encounter Status:Closed by FABIOLA NAJERA on 06/29/24 Normal [facility] Comprehensive metabolic 2000 panelon 06-29-2024 Albumin [Mass/Vol] 4.5 g/dL 3.9 - 4.9 g/dL [facility] ALP [Catalytic activity/Vol] 52 U/L 34 - 123 U/L [facility] ALT With P-5'-P [Catalytic activity/Vol] 14 U/L 7 - 38 U/L [facility] Anion gap [Moles/Vol] 14 mmol/L 8 - 15 mmol/L [facility] AST With P-5'-P [Catalytic activity/Vol] 19 U/L 13 - 35 U/L [facility] Bilirubin [Mass/Vol] 0.4 mg/dL 0.2 - 1.3 mg/dL [facility] Calcium [Mass/Vol] 9.5 mg/dL 8.5 - 10. 2 mg/dL [facility] Chloride [Moles/Vol] 103 mmol/L 98 - 107 mmol/L [facility] CO2 [Moles/Vol] 22 mmol/L 22 - 30 mmol/L [facility] Creatinine [Mass/Vol] 0.63 mg/dL 0.58 - 0.96 mg/dL [facility] GFR/1.73 sq M.predicted among non-blacks MDRD (S/P/Bld) [Vol rate/Area] 126 mL/min/{1.73_m2} - PINF [facility] Comment on above: Estimated Glomerular Filtration Rate (eGFR) is calculated using the 2020 CKD-EPI creatinine equation. This equation utilizes serum creatinine, sex, and age as parameters. The creatinine assay has traceable calibration to isotope dilution-mass spectrometry. Refer to KDIGO guidelines for clinical interpretation. In patients with unstable renal function, e.g. those with acute kidney injury, the eGFR may not accurately reflect actual GFR. Glucose [Mass/Vol] 99 mg/dL 74 - 99 mg/dL [facility] Comment on above: The [place] Diabete s Association (ADA) provides guidance for cutoff values for fasting glucose and random glucose. The ADA defines fasting as no caloric intake for at least 8 hours. Fasting plasma glucose results between 100 to 125 mg/dL indicate increased risk for diabetes (prediabetes). Fasting plasma glucose results greater than or equal to 126 mg/dL meet the criteria for diagnosis of diabetes. In the absence of unequivocal hyperglycemia, results should be confirmed by repeat testing. In a patient with classic symptoms of hyperglycemia or hyperglycemic crisis, random plasma glucose results greater than or equal to 200 mg/dL meet the criteria for diagnosis of diabetes. Reference: Standards of Medical Care in Diabetes 2016, [place] Diabetes Association. Diabetes Care. 2016.39(Suppl 1). Interpretation and review of laboratory results Normal [facility] Potassium [Moles/Vol] 4.3 mmol/L 3.7 - 5.1 mmol/L [facility] Protein [Mass/Vol] 7.4 g/dL 6.3 - 8.0 g/dL Cl [facility] Sodium [Moles/Vol] 139 mmol/L 136 - 144 mmol/L [facility] Urea nitrogen [Mass/Vol] 12 mg/dL 7 - 21 mg/dL [facility] Albumin [Mass/Vol] 4.5 g/dL Normal 3.9-4.9 [facility] Comment on above: Order Comment: Speci men Type: BLOOD SPECIMEN Ordering Facility: [facility] Address: [address] [place] [address] Performed By: #### 2 4323-8, 29663-1 #### [facility] CLIA [id number] [address] [place] OF [facility] ALP [Catalytic activity/Vol] 52 U/L Normal 34-123 [facility] Comment on above: Order Comment: Speci men Type: BLOOD SPECIMEN Ordering Facility: [facility] Address: [address] [place] [address] Performed By: #### 2 4323-8, 54388-6 #### [facility] CLIA [id number] [address] ALT With P-5'-P [Catalytic activity/Vol] 14 U/L Normal 7-38 [facility] Comment on above: Order Comment: Speci men Type: BLOOD SPECIMEN Ordering Facility: [facility] Address: [address] [place] [address] Performed By: #### 2 4323-8, 33244-5 #### [facility] CLIA [id number] [address] Anion gap [Moles/Vol] 14 mmol/L Normal 8-15 [facility] Comment on above: Order Comment: Speci men Type: BLOOD SPECIMEN Ordering Facility: [facility] Address: [address] [place] [address] Performed By: #### 2 4323-8, 96555-7 #### [facility] CLIA [id number] [address] [facility] AST With P-5'-P [Catalytic activity/Vol] 19 U/L Normal 13-35 [facility] Comment on above: Order Comment: Speci men Type: BLOOD SPECIMEN Ordering Facility: [facility] Address: [address] [place] [address] Performed By: #### 2 4323-8, 51102-3 #### [facility] CLIA [id number] [address] [place] Bilirubin [Mass/Vol] 0.4 mg/dL Normal 0.2-1.3 [facility] Comment on above: Order Comment: Speci men Type: BLOOD SPECIMEN Ordering Facility: [facility] Address: [address] [place] [address] Performed By: #### 2 4323-8, 12570-0 #### [facility] CLIA [id number] 1 [place] [address] [place] Calcium [Mass/Vol] 9.5 mg/dL Normal 8.5-10.2 [facility] Comment on above: Order Comment: Speci men Type: BLOOD SPECIMEN Ordering Facility: [facility] Address: [address] [place] [address] Performed By: #### 2 432-8, 42903-6 #### [facility] CLIA [id number] 1 [place] [address] [place] Chloride [Moles/Vol] 103 mmol/L Normal 98-107 [facility] Comment on above: Order Comment: Speci men Type: BLOOD SPECIMEN Ordering Facility: [facility] Address: [address] [place] [address] Performed By: #### 2 4323-8, 08403-5 #### [facility] CLIA [id number] [address] [place] [address] [place] CO2 [Moles/Vol] 22 mmol/L Normal 22-30 [facility] Comment on above: Order Comment: Speci men Type: BLOOD SPECIMEN Ordering Facility: [facility] Address: [address] [place] [address] Performed By: #### 2 4323-8, 00410-1 #### [facility] CLIA [id number] [address] [facility] Creatinine [Mass/Vol] 0.63 mg/dL Normal 0.58-0.96 [facility] Comment on above: Order Comment: Terrell barahona Type: BLOOD SPECIMEN Ordering Facility: [facility] Address: [address] [place] [address] Performed By: #### 2 4323-8, 95127-9 #### [facility] CLIA [id number] [address] [place] [address] [facility] Creatinine and Glomerular filtration rate.predicted panel (S/P/Bld) 126 mL/min/1.73m??? Normal >=60 [facility] Comment on above: Order Comment: Terrell barahona Type: BLOOD SPECIMEN Ordering Facility: [facility] Address: [address] [place] [address] Result Comment: Tamanna mated Glomerular Filtration Rate (eGFR) is calculated using the 2020 CKD-EPI creatinine equation. This equation utilizes serum creatinine, sex, and age as parameters. The creatinine assay has traceable calibration to isotope dilution-mass spectrometry. Refer to KDIGO guidelines for clinical interpretation. In patients with unstable renal function, e.g. those with acute kidney injury, the eGFR may not accurately reflect actual GFR. Performed By: #### 2 4323-8, 63157-4 #### [facility] CLIA [id number] [address] [place] [address] [place] Glucose [Mass/Vol] 99 mg/dL Normal 74-99 [facility] Comment on above: Order Comment: Terrell barahona Type: BLOOD SPECIMEN Ordering Facility: [facility] Address: [address] [place] [address] Result Comment: The [place] Diabetes Association (ADA) provides guidance for cutoff values for fasting glucose and random glucose. The ADA defines fasting as no caloric intake for at least 8 hours. Fasting plasma glucose results between 100 to 125 mg/dL indicate increased risk for diabetes (prediabetes). Fasting plasma glucose results greater than or equal to 126 mg/dL meet the criteria for diagnosis of diabetes. In the absence of unequivocal hyperglycemia, results should be confirmed by repeat testing. In a patient with classic symptoms of hyperglycemia or hyperglycemic crisis, random plasma glucose results greater than or equal to 200 mg/dL meet the criteria for diagnosis of diabetes. Reference: Standards of Medical Care in Diabetes 2016, [place] Diabetes Association. Diabetes Care. 2016.39(Suppl 1). Performed By: #### 2 4323-8, 99437-8 #### [facility] CLIA [id number] [address] [place] Potassium [Moles/Vol] 4.3 mmol/L Normal 3.7-5.1 [facility] Comment on above: Order Comment: Speci men Type: BLOOD SPECIMEN Ordering Facility: [facility] Address: [address] [place] [address] Performed By: #### 2 432-8, 06374-6 #### [facility] CLIA [id number] [address] [place] [facility] Protein [Mass/Vol] 7.4 g/dL Normal 6.3-8.0 [facility] Comment on above: Order Comment: Speci men Type: BLOOD SPECIMEN Ordering Facility: [facility] Address: [address] [place] [address] Performed By: #### 2 4323-8, 51514-6 #### [facility] CLIA [id number] [address] [place] [facility] Sodium [Moles/Vol] 139 mmol/L Normal 136-144 [facility] Comment on above: Order Comment: Speci men Type: BLOOD SPECIMEN Ordering Facility: [facility] Address: [address] [place] [address] Performed By: #### 2 4323-8, 66794-2 #### [facility] CLIA [id number] [address] [place] Urea nitrogen [Mass/Vol] 12 mg/dL Normal 7-21 [facility] Comment on above: Order Comment: Speci men Type: BLOOD SPECIMEN Ordering Facility: [facility] Address: [address] [place] [address] Performed By: #### 2 4323-8, 97413-5 #### [facility] CLIA [id number] [address] [place] HbA1c (Bld)on 06-29-2024 Average glucose Estimated from glycated hemoglobin (Bld) [Mass/Vol] 111 mg/dL Normal [facility] Comment on above: Order Comment: Terrell barahona Type: BLOOD SPECIMEN Ordering Facility: [facility] Address: [address] [place] [address] Result Comment: eAG: (Estimated average glucose) is a calculated value from HgbA1c and is employee's representative of the average blood glucose level in the last 2-3 month period. Performed By: #### 5 5454-3 #### [facility] CLIA [id number] [address] [place] [address] [facility] HbA1c (Bld) [Mass fraction] 5.5 % Normal 4.3-5.6 [facility] Comment on above: Order Comment: Terrell barahona Type: BLOOD SPECIMEN Ordering Facility: [facility] Address: [address] [place] [address] Result Comment: [place] Diabetes Association guidelines indicate that patients with HgbA1c in the range 5.7-6.4% are at increased risk for development of diabetes, and intervention by lifestyle modification may be beneficial. HgbA1c greater or equal to 6.5% is considered diagnostic of diabetes. Performed By: #### 5 5454-3 #### [facility] CLIA [id number] [address] [place] [address] [place] Lipid 1996 panelon 5 Cholesterol [Mass/Vol] 185 mg/dL NINF - 200 mg/dL [facility] Comment on above: <200 mg/dL, Desirabl e 200-239 mg/dL, Borderline high >239 mg/dL, High Cholesterol in HDL [Mass/Vol] 41 mg/dL 39 - PINF mg/dL [facility] Comment on above: 40-59 mg/dL, Accepta ble >59 mg/dL, High: Negative risk factor for coronary heart disease <40 mg/dL, Low: Positive risk factor for coronary heart disease Cholesterol in LDL [Mass/Vol] 126 mg/dL High NINF - 100 mg/dL [facility] Comment on above: <100 mg/dL, Optimal 100-129 mg/dL, Near optimal/above optimal 130-159 mg/dL, Borderline high 160-189 mg/dL, High >189 mg/dL, Very high Secondary prevention optimal LDL Cholesterol levels are recommended to be < 70 mg/dL Cholesterol in LDL/Cholesterol in HDL [Mass ratio] 3.07 {ratio} High NINF - 2.54 [facility] Comment on above: Reference: 1. National Cholesterol Education Program ATP III Guideline At-A-Glance Quick Desk Reference: National Heart, Lung, and Blood [place]. National Institutes of Health. 2001: NIH Publication No. 01-3305. 2. An International Atherosclerosis Society position paper: global recommendations for the management of dyslipidemia: executive summary, Atherosclerosis. 2014: 232(2):410-413. Cholesterol in VLDL [Mass/Vol] 18 mg/dL NINF - 30 mg/dL [facility] Cholesterol non HDL [Mass/Vol] 144 mg/dL High NINF - 130 mg/dL [facility] Comment on above: <130 mg/dL, Optimal 130-159 mg/dL, Near optimal/above optimal 160-189 mg/dL, Borderline high 190-219 mg/dL, High >219 mg/dL, Very high Secondary prevention optimal non HDL Cholesterol levels are recommended to be <100 mg/dL Cholesterol.total/Ch olesterol in HDL [Mass ratio] 4.51 {ratio} NINF - 5.10 [facility] Fasting Time 10 hrs [facility] Interpretation and review of laboratory results Abnormal [facility] Triglyceride [Mass/Vol] 92 mg/dL NINF - 150 mg/dL [facility] Comment on above: <150 mg/dL, Normal 150-199 mg/dL, Borderline high 200-499 mg/dL, High >499 mg/dL, Very high Cholesterol [Mass/Vol] 185 mg/dL Normal <200 [facility] Comment on above: Order Comment: Speci men Type: BLOOD SPECIMEN Ordering Facility: [facility] Address: [address] [place] [address] Result Comment: <200 mg/dL, Desirable 200-239 mg/dL, Borderline high >239 mg/dL, High Performed By: #### 2 4323-8, 09254-2 #### [facility] CLIA [id number] [address] Cholesterol in HDL [Mass/Vol] 41 mg/dL Normal >39 [facility] Comment on above: Order Comment: Isidroemely barahona Type: BLOOD SPECIMEN Ordering Facility: [facility] Address: [address] [place] [address] Result Comment: 40-5 9 mg/dL, Acceptable >59 mg/dL, High: Negative risk factor for coronary heart disease <40 mg/dL, Low: Positive risk factor for coronary heart disease Performed By: #### 2 4323-8, 50409-8 #### [facility] CLIA [id number] [address] Cholesterol in LDL [Mass/Vol] 126 mg/dL High <100 [facility] Comment on above: Order Comment: Terrell barahona Type: BLOOD SPECIMEN Ordering Facility: [facility] Address: [address] [place] [address] Result Comment: <100 mg/dL, Optimal 100-129 mg/dL, Near optimal/above optimal 130-159 mg/dL, Borderline high 160-189 mg/dL, High >189 mg/dL, Very high Secondary prevention optimal LDL Cholesterol levels are recommended to be < 70 mg/dL Performed By: #### 2 4323-8, 36218-2 #### [facility] CLIA [id number] [address] Cholesterol in LDL/Cholesterol in HDL [Mass ratio] 3.07 {ratio} High <2.54 [facility] Comment on above: Order Comment: Terrell barahona Type: BLOOD SPECIMEN Ordering Facility: [facility] Address: [address] [place] [address] Result Comment: Refe rence: 1. National Cholesterol Education Program ATP III Guideline At-A-Glance Quick Desk Reference: National Heart, Lung, and Blood [place]. National Institutes of Health. 2001: NIH Publication No. 01-3305. 2. An International Atherosclerosis Society position paper: global recommendations for the management of dyslipidemia: executive summary, Atherosclerosis. 2014: 232(2):410-413. Performed By: #### 2 4323-8, 14528-2 #### [facility] CLIA [id number] [address] [place] Cholesterol in VLDL [Mass/Vol] 18 mg/dL Normal <30 [facility] Comment on above: Order Comment: Speci men Type: BLOOD SPECIMEN Ordering Facility: [facility] Address: [address] [place] [address] Performed By: #### 2 4323-8, 85037-1 #### [facility] CLIA [id number] [address] [place] Cholesterol non HDL [Mass/Vol] 144 mg/dL High <130 [facility] Comment on above: Order Comment: Speci men Type: BLOOD SPECIMEN Ordering Facility: [facility] Address: [address] [place] [address] Result Comment: <130 mg/dL, Optimal 130-159 mg/dL, Near optimal/above optimal 160-189 mg/dL, Borderline high 190-219 mg/dL, High >219 mg/dL, Very high Secondary prevention optimal non HDL Cholesterol levels are recommended to be <100 mg/dL Performed By: #### 2 4323-8, 61398-8 #### [facility] CLIA [id number] [address] Cholesterol.total/Ch olesterol in HDL [Mass ratio] 4.51 {ratio} Normal <5.10 [facility] Comment on above: Order Comment: Speci men Type: BLOOD SPECIMEN Ordering Facility: [facility] Address: [address] [place] [address] Performed By: #### 2 4323-8, 69735-5 #### [facility] CLIA [id number] [address] [place] FASTING TIME 10 hrs Normal [facility] Comment on above: Order Comment: Speci men Type: BLOOD SPECIMEN Ordering Facility: [facility] Address: [address] [place] [address] Performed By: #### 2 4323-8, 37359-1 #### [facility] CLIA [id number] [address] [place] Triglyceride [Mass/Vol] 92 mg/dL Normal <150 [facility] Comment on above: Order Comment: Speci men Type: BLOOD SPECIMEN Ordering Facility: [facility] Address: [facility] [place] [address] Result Comment: <150 mg/dL, Normal 150-199 mg/dL, Borderline high 200-499 mg/dL, High >499 mg/dL, Very high Performed By: #### 2 4323-8, 25496-0 #### [facility] CLIA [id number] [address] [place] [id number] [place] [facility] No Panel Informationon 06-29 [facility] Office Visit Reporton 2023 Office Visit Report [place] [address] [place] [address] OFFICE VISIT Date of Service: 08/17/23 MR#: [id number] Acct: [id number] Patient: ROBINSON RUFF Rep #: [id number] : 1995 Provider: DEEPIKA aguilar Age/Sex: 28/F Location: [facility] Status: Signed Intake Vital Signs 04/18/23 06:20 Height 5 ft 4 in Intake Visit Reasons: TB READ Chief Complaint: TB read Mule Operator Required: No Is patient in pain?: No Allergies Sulfa (Sulfonamide Antibiotics) Allergy (Verified 08/17/23 09:05) Hives Is last menstrual period known: No Post menopausal: No Patient : No Results Office TB PPD Skin Test Office TB PPD Read Negative Last Edit by Susana Blount on 08/17/23 09:06 [facility] TB PPD Read By: Hardik Last Edit by Susana Blount on 08/17/23 09:06 Quality Reporting Tobacco Screening ([facility] 138) Smoking Status: Never smoker 08/17/23924 Date Julien Jurado Signature: Date (if applicable) CC: Normal [facility] Office Visit Reporton 2023 Office Visit Report [facility] [address] [place] [address] OFFICE VISIT Date of Service: 08/14/23 MR#: [id number] Acct: [id number] Patient: ROBINSON RUFF Rep #: [id number] : 1995 Provider: SAMUEL Villa Age/Sex: 28/F Location: [facility] Status: Signed Intake Vital Signs 04/18/23 06:20 Height 5 ft 4 in Intake Visit Reasons: TB TEST Chief Complaint: n/v/d/mid abd pain Allergies Sulfa (Sulfonamide Antibiotics) Allergy (Verified 06/20/23 07:04) Hives Office Procedures PPD Procedure TB Med Used: Tuberculin PPD 5 tub. unit/0.1 mL intradermal injection solution was administered Lot number: [id number] Consulting Technical Director: Sanofi Pasteur date: 08/14/23 PPD Location: Right forearm Date PPD Placed: 08/14/23 Time PPD Placed: 03:30 PPD Placed By: Josephine Mukherjee Quality Reporting Tobacco Screening ([facility] 138) Smoking Status: Never smoker Assessment and Plan Assessment and Plan Orders: Orders POC TB PPD SKIN Test (Clinic) 08/14/23 Z11.1 - Encounter for screening for respiratory tuberculosis 08/15/23 1223 Date Sathish Jurado Signature: Date (if applicable) CC: Normal [facility] Urgent Care Visit Reporton 0 06-20-2023 Urgent Care Visit Report [facility] [address], [address] [place] [address] OFFICE VISIT Date of Service: 06/20/23 MR#: [id number] Acct: [id number] Name: ROBINSON RUFF Rep #: [id number] : 1995 Provider: SAMUEL Clayton Age/Sex: 27/F Location: [facility] Status: Signed Intake Vital Signs 04/18/23 06:20 06/20/23 07:04 Height 5 ft 4 in BP 130/64 H Blood Pressure Location Lt brachial Position Sitting Respiration 17 Pulse 105 H Pulse Source NIBP Temp 97.7 F L Temp Source Temporal Pulse Oximetry (%) 100 Oxygen Delivery Method room air Intake Visit Reasons: VOMITING, UPSET STOMACH Chief Complaint: n/v/d/mid abd pain Mule Operator Required: No Is patient in pain?: Yes Allergies Sulfa (Sulfonamide Antibiotics) Allergy (Verified 06/20/23 07:04) Hives Is last menstrual period known: No Post menopausal: No Patient : No Nurse's Note: n/v/d/mid abd pain x 3 days. taking Zofran with only 1 hour of relief. unable to hold down water. [facility] Medical History (Updated 06/20/23 @ 07:38 by SAMUEL Holland) Gastroenteritis Migraines Nausea vomiting and diarrhea Seasonal allergies Surgical History H/O dilation and curettage H/O wisdom tooth extraction Family History Father Hypertension Mother Hypertension Social History Smoking Status: Never smoker Female Reproductive History Menstrual Ab spontaneous: 2 HPI HPI Chief Complaint: n/v/d/mid abd pain Details: ROBINSON RUFF, is a 27 F who presents to the office today for initial evaluation approximately 36- hour history of nausea/vomiting/diarr hea after eating/preparing dinner of chicken and beans and rice at home the evening of 06/18/2023. Patient notes developing up above described symptoms approximately 2 hours after consuming, noting no other members in household ate the same food. No complaints of fever, chills, sweats, lightheadedness/dizzi ness. Symptoms as above with nausea and vomiting lightening up somewhat over the last several hours she so states though diarrhea still persist. No melena/hematochezia. No complaints of chest pain or shortness of breath or dyspnea on exertion or mid back pain or dysuria or urinary frequency though mild generalized abdominal discomfort appreciated. Patient states trying an old prescription of Zofran which gave minimal relief. No gxhc-[id number]-hwvnybq products taken to assist. No other associated symptoms and no other alleviating/aggravati ng factors. ROS Const Constitutional: No other (as above) Exam Const General: cooperative, healthy appearing and no acute distress Orientation: alert, awake and oriented x3 [facility] Head: normal to inspection Ears: hearing grossly normal bilaterally, external ears normal, TM's normal bilaterally and EAC's normal Nose: external nose normal, nares normal, septum normal and no nasal discharge Face and sinus: normal facial exam and face symmetric Mouth: oral mucosae normal, lip normal and salivary ducts normal Throat: posterior oropharynx normal, tonsils normal and uvula midline Eyes General: appearance normal, both eyes and all related structures Neck Neck: normal visual inspection, full ROM, no lymphadenopathy, no meningeal signs and supple Neck mass: No Thyroid: thyroid normal Lymphatic: no lymphadenopathy noted Chest Chest palpation inspection: normal inspection of the chest Resp Effort Inspection: normal respiratory effort and able to speak in complete sentences Auscultation: Bilateral: Clear to Auscultation Cardio Palpation: normal PMI Rate: tachycardic Rhythm: regular rhythm Heart Sounds: S1 normal, S2 normal, no gallops, no murmurs and no rubs Pulses: radial pulses present GI Inspection: normal to inspection Palpation: soft, no hepatosplenomegaly, not firm, no guarding and tender (Mild generalized throughout) not at McBurney's point, not suprapubicly, Jackson's sign negative and with no rebound tenderness Skin General: no rashes or lesions noted Neuro General: patient alert, patient awake and patient oriented x3 Cognition: normal cognition Speech: speech normal Psych Appearance: grossly normal Mental Status: mental status grossly normal Mood: congruent mood Affect: normal affect Speech and Movement: speech and movement normal Attitude: cooperative Coding Level of Care Code Off vis,est,level 3 Diagnoses Nausea vomiting and diarrhea R11.2; R19.7 Gastroenteritis K52.9 Assessment and Plan Assessment and Plan (1) Nausea vomiting and diarrhea: Status: Acute (2) Gastroenteritis: Status: Acute Plan: - likely food toxin by history Supportive estrella (more content not included)... Normal [facility] Visit Reporton 1 06-24-2022 Urgent Care Visit Report [facility] [address], [address] [place] [address] OFFICE VISIT Date of Service: 04/24/23 MR#: [id number] Acct: [id number] Name: ROBINSON RUFF Rep #: [id number] : 1995 Provider: SAMUEL Villa Age/Sex: 27/F Location: [facility] Status: Signed Intake Vital Signs 04/18/23 06:20 04/24/23 17:08 Height 5 ft 4 in BP 136/78 H Blood Pressure Location Lt brachial Position Sitting Respiration 12 Pulse 107 H Pulse Source Monitor Temp 98.4 F Temp Source Temporal Pulse Oximetry (%) 98 Oxygen Delivery Method room air Intake Visit Reasons: SORE THROAT Chief Complaint: cough, ear pain Allergies Sulfa (Sulfonamide Antibiotics) Allergy (Verified 04/24/23 17:09) Hives [facility] Medical History Migraines Seasonal allergies Surgical History H/O dilation and curettage H/O wisdom tooth extraction Family History Father Hypertension Mother Hypertension Social History Smoking Status: Never smoker Female Reproductive History Menstrual Ab spontaneous: 2 HPI HPI Chief Complaint: cough, ear pain Details: ROBINSON RUFF, is a 27 F who presents to the office today for ear pain and sore throat worsening for the past several days. Patient states that intermittent for the past 3 weeks. Patient denies fever, chills, sweats. No nausea, vomiting or diarrhea. No hemoptysis, shortness of or difficulty breathing. No fever, chills, sweats. No nausea, vomiting or diarrhea. No other associated symptoms or alleviating/aggravati ng factors. ROS Const Constitutional: No other (6 system ROS completed with pertinent findings in the HPI otherwise normal.) Exam Const General: cooperative and well developed HENMT Head: normal to inspection and atraumatic Ears: hearing grossly normal bilaterally Nose: nasal discharge clear Face and sinus: normal facial exam Mouth: oral mucosae normal Throat: abnormal tonsil bilaterally hypertrophy 1+ Resp Effort Inspection: normal respiratory effort and no audible wheezes Auscultation: Bilateral: Clear to Auscultation Cardio Palpation: normal PMI Rate: regular rate Rhythm: regular rhythm Neuro General: patient alert and CN's II-XI intact bilaterally Psych Appearance: grossly normal Mental Status: mental status grossly normal Coding Level of Care Code Off vis,est,level 3 Diagnoses Acute pharyngitis J02.9 Acute right otitis media H66.91 Assessment and Plan Assessment and Plan (1) Acute pharyngitis: Status: Acute (2) Acute right otitis media: Status: Acute Medications: New amoxicillin-pot clavulanate 875-125 mg 1 TAB PO Q12H 10 days 20 tabs 0RF J01.90 - Acute sinusitis, unspecified Plan Augmentin as prescribed today. Encouraged to get plenty of rest, drink lots of clear liquids, and use Tylenol or Ibuprofen (unless contraindicated) for fever and comfort. Patient also educated on other symptomatic management techniques. To be seen in 7-10 days if no improvement; sooner if worsening of symptoms. Patient advised of potential red flags and when appropriate to report to the ED. Patient verbalized understanding and agreement with all the above. 04/24/23 1740 Date Sathish Jurado Signature: Date (if applicable) CC: Normal [facility] Strep A (Throat Rapid HONG)on 04-20-2023 S. pyogenes Ag IA Ql (Unsp spec) A Disk (Conf. Cult) Negative for Strep Group A Rapid Strep A Screen NEGATIVE Normal [facility] Comment on above: Performed By: #### M 100.676 #### [facility] [place], [address] Emergency Department Summary on 04-18-2023 Emergency Department Summary [facility] Medical Records Department [address] [place] [address] Emergency Department Summary 04/18/23 MR#: [id number] Acct: [id number] Name: ROBINSON RUFF Rep #: [id number] : 1995 27 From: Jalen Christianson MD PCP: Care Physician,No Primary Status:REG ER Location: ED ADDENDUM by Dr. Jalen Christianson MD on 04/18/23 at 0747 Rapid strep is negative. Treated as a viral pharyngitis. 04/18/23 0747 Cosigner Signature (if applicable): cc: No Primary Care Physician * Signed HPI HPI - URI History of Present Illness Chief Complaint: Sore Throat Informant: patient Onset/Context/Timing Onset: Days Context: Gradual Onset Timing: Continuous Current Severity: Moderate Maximum Severity: Moderate Worsened by: Swallowing Associated Symptoms Associated Symptoms: Positive for Nonproductive cough; Negative for Headache, Sinus Pressure, Vomiting, Diarrhea or Shortness of Breath Narrative Narrative: 27-year-old female no significant past medical or surgical history. Has had a 5-day history of nonproductive cough and progressively worsening sore throat. Able to swallow. No fever. No vomiting or diarrhea. She did test herself for COVID 2 days ago and it was negative. Prior similar symptoms: Yes Recent Illness/Hospitalizati on: No ROS ROS ED ROS Narrative Sore throat. Nonproductive cough. Review of Systems ROS Unobtainable: Denies due to encephalopathy Constitutional Constitutional ED: Denies chills or fever(s) Eyes Eyes: Denies blurry vision ENT ENT ED: Reports sore throat; Denies ear pain Cardiovascular Cardiovascular: Denies chest pain Respiratory/Chest Respiratory/Chest: Reports cough; Denies dyspnea Gastrointestinal Gastrointestinal: Denies abdominal pain, constipation, diarrhea, melena, nausea or vomiting Genitourinary Genitourinary ED: Denies dysuria or hematuria Musculoskeletal Musculoskeletal: Denies arthralgias or back pain Integumentary Denies abscess or Abrasions Neurologic Neurologic: Denies headache(s) Psychiatric Psychiatric: Denies anxiety or depression Endocrine Endocrinology: Denies cold intolerance or heat intolerance Hematologic/Lymphatic Hematologic/Lymphatic : Denies easy bleeding or easy bruising Allergic/Immunologic Allergic/Immunologic ED: Denies mouth swelling or tongue swelling PFSH PFSH Medical History Migraines Seasonal allergies Home Medications NK 04/18/23 [History Last Taken Unknown] Allergy/AdvReac Type Severity Reaction Status Date / Time Sulfa (Sulfonamide Allergy Hives Verified 04/18/23 06:24 Antibiotics) Family History Father Hypertension Mother Hypertension Surgical History H/O dilation and curettage H/O wisdom tooth extraction Social History Smoking Status: Never smoker EXAM Physical Exam Narrative Exam Narrative: Well-appearing 27-year-old female. Vital signs are stable afebrile. HEENT exam TMs normal bilaterally. Posterior pharynx is erythematous. No exudate. No peritonsillar abscess. Tonsils are nonenlarged. No difficulty swallowing or breathing. No drooling or stridor. Neck nontender no lymphadenopathy. Trachea midline. Lungs clear. Heart regular rhythm no murmur. Rate about 90. Abdomen soft nontender. No axillary lymphadenopathy. No cervical lymphadenopathy. Moving all 4 extremities. Skin no rashes. Neurologically she is awake and alert with no focal motor deficits. Const Vital Signs: 04/18/23 06:20 04/18/23 06:20 Temperature 97.6 F L Temperature Source Temporal Pulse Rate 93 Respiratory Rate 16 Blood Pressure 129/69 H Blood Pressure Mean 89 Pulse Ox 97 Oxygen Delivery Method Room Air Positive well nourished and well developed; Negative for cachectic or contractures General Appearance ED: well developed; Negative for cachectic, contractures or pallor Nutritional Appearance: Negative for cachectic HEENT Reports moist mucous membranes normocephalic and atraumatic; Negative for scalp tenderness Face and Sinus: Negative for sinus tenderness Teeth and Gingiva: Negative for caries Throat: posterior oropharynx abnormal Positive for edema and erythema; Negative for exudates, laceration or foreign body; Negative for posterior oropharynx normal Eyes PERRL and EOMs intact bilaterally Neck no lymphadenopathy, supple, no meningeal signs and no JVD General: Negative for anterior neck swelling or lymphadenopathy Resp normal respiratory effort Effort and Inspection: Negative for retractions Auscultation: Negative for rales, rhonchi or wheezes Cardio S1 normal heart sound, S2 normal he (more content not included)... Normal [facility] Visit Reporton 1 05-28-2022 Urgent Care Visit Report [facility] [address], [address] [place] [address] OFFICE VISIT Date of Service: 03/28/23 MR#: [id number] Acct: [id number] Name: ROBINSON RUFF Rep #: [id number] : 1995 Provider: SAMUEL Villa Age/Sex: 27/F Location: [facility] Status: Signed Intake Vital Signs 04/06/21 19:07 03/28/23 07:32 Height 5 ft 3 in BP 126/83 H Blood Pressure Location Rt brachial Position Sitting Respiration 17 Pulse 102 H Pulse Source NIBP Temp 98.2 F Temp Source Temporal Pulse Oximetry (%) 98 Oxygen Delivery Method room air Intake Visit Reasons: Cough Chief Complaint: cough, ear pain 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 tested for covid at work which was negative. [facility] Medical History (Updated 03/28/23 @ 07:40 by SAMUEL Kirk) Migraines Seasonal allergies Surgical History H/O dilation and curettage H/O wisdom tooth extraction Family History Father Hypertension Mother Hypertension Social History Smoking Status: Never smoker Female Reproductive History Menstrual Ab spontaneous: 2 HPI HPI Chief Complaint: cough, ear pain Details: ROBINSON RUFF, is a 27 F who presents to the office today for complaint of cough, congestion and sore throat for the past 10 days. Patient denies fever, chills, sweats. No nausea, vomiting or diarrhea. No loss of taste or smell. Patient did have a negative COVID test at work 3 days ago. No hemoptysis, shortness of breath or difficulty breathing. No other associated symptoms or alleviating/aggravati ng factors. ROS Const Constitutional: No other (6 system ROS completed with pertinent findings in the HPI otherwise normal.) Exam Const General: cooperative and well developed HENMT Head: normal to inspection and atraumatic Ears: hearing grossly normal bilaterally Nose: nasal discharge clear Face and sinus: normal facial exam Mouth: oral mucosae normal Throat: abnormal tonsil bilaterally hypertrophy 1+ Resp Effort Inspection: normal respiratory effort and no audible wheezes Auscultation: Bilateral: Clear to Auscultation Cardio Palpation: normal PMI Rate: regular rate Rhythm: regular rhythm Neuro General: patient alert and CN's II-XI intact bilaterally Psych Appearance: grossly normal Mental Status: mental status grossly normal Coding Level of Care Code Off vis,new,level 3 Diagnoses Acute pharyngitis J02.9 Assessment and Plan Assessment and Plan (1) Acute pharyngitis: Status: Acute Medications: New azithromycin take 500 mg today (day 1), then 250 mg for 4 days (days 2-5) PO 6 tabs 0RF benzonatate 200 mg (2 x 100 mg) PO TID PRN 30 caps 0RF cough Plan Azithromycin and benzonatate as prescribed today. Encouraged to get plenty of rest, drink lots of clear liquids, and use Tylenol or Ibuprofen (unless contraindicated) for fever and comfort. Patient also educated on other symptomatic management techniques. To be seen in 7-10 days if no improvement; sooner if worsening of symptoms. Patient advised of potential red flags and when appropriate to report to the ED. Patient verbalized understanding and agreement with all the above. 03/28/23 0741 Date Sathish Jurado Signature: Date (if applicable) CC: Normal [facility] Basophil percentageon 2021 Bilirubin [Mass/Vol] 0.50 mg/dL 0.20-1.00 [facility] Work Phone: Comment on above: For patients on eltr ombopag therapy, use of Dimension [place] TBIL is not recommended. Chloride [Moles/Vol] 106 mmol/L 98-107 [facility] Work Phone: Glucose [Mass/Vol] 103 mg/dL 74-106 [facility] Work Phone: Comment on above: Fasting Glucose resu lt from 100 to 125 mg/dL suggests IMPAIRED HOMEOSTASIS per A.D.A. criteria. Potassium [Moles/Vol] 3.9 mmol/L 3.5-5.1 [facility] Work Phone: Protein [Mass/Vol] 7.8 g/dL 6.4-8.2 [facility] Work Phone: Sodium [Moles/Vol] 137 mmol/L 136-145 [facility] Work Phone: Laboratory - Chemistry and C hemistry - challengeon 03-13-2022 ALP [Catalytic activity/Vol] 61 U/L 45-117 [facility] Work Phone: ALT [Catalytic activity/Vol] 31 U/L 13-56 [facility] Work Phone: CO2 [Moles/Vol] 24.0 mmol/L 21.0-32.0 [facility] Work Phone: Globulin (S) [Mass/Vol] 3.9 g/dL 2.2-4.2 [facility] Work Phone: Urea nitrogen/Creatinine [Mass ratio] 19.9 mg/mg 10-20 [facility] Work Phone: No Panel Informationon 03-13 Estimated GFR (MDRD) Amer 131 mL/min >60 [facility] Work Phone: Comment on above: GFR Calc Estimated GFR (MDRD) Non-Af Amer 108 mL/min >60 [facility] Work Phone: Comment on above: Non- GFR Calc Thyroid Stimulating Hormone (TSH) 1.06 uIU/mL 0.358-3.74 [facility] Work Phone: Serum or plasma albumin estrella urement (mass/volume)on 03-13-2022 Albumin [Mass/Vol] 3.9 g/dL 3.2-5.0 [facility] Work Phone: Serum or plasma albumin/glob ulin mass ratioon 03-13-2022 Albumin/Globulin [Mass ratio] 1.0 {ratio} 0.9-2.4 [facility] Work Phone: Serum or plasma calcium estrella urement (mass/volume)on 03-13-2022 Calcium [Mass/Vol] 9.1 mg/dL 8.5-10.1 [facility] Work Phone: Serum or plasma creatinine m easurement (mass/volume)on 03-13-2022 Creatinine [Mass/Vol] 0.70 mg/dL 0.55-1.02 [facility] Work Phone: Comment on above: The validity of the calculated GFR & GFRAA in patients over 70 years has not been determined. Clinical correlation is essential. Serum or plasma urea nitroge n measurement (mass/volume)on 03-13-2022 Urea nitrogen [Mass/Vol] 14 mg/dL 7-18 [facility] Work Phone: Thin prep Papanicolaou smear with manual screeningon 03-13-2022 Thin prep Papanicolaou smear with manual screening 18 U/L 15-37 [facility] Work Phone: Thin prep Papanicolaou smear with manual screening 7 5-15 [facility] Work Phone: CNCOon 09-17-2021 CNCO Letter Text Normal [facility] Vital Signs Date Time Vital Sign Value Performing Clinician Facility 12-07-2024 15:43-0400 Body height 162.56 cm No Primary Care Physician [facility] 12-07-2024 15:43-0400 Body mass index (BMI) [Ratio] 39 kg/m2 No Primary Care Physician [facility] 12-07-2024 15:43-0400 Body weight 103.19 kg No Primary Care Physician [facility] 12-07-2024 15:43-0400 Diastolic blood pressure 84 mm[Hg] No Primary Care Physician [facility] 12-07-2024 15:43-0400 Systolic blood pressure 115 mm[Hg] No Primary Care Physician [facility] 06-29-2024 10:51-0500 Body height 157.5 cm Trevor GUTIERREZ Work Phone: [facility] 06-29-2024 10:51-0500 Body mass index (BMI) [Ratio] 40.97 kg/m2 Trevor GUTIERREZ Work Phone: [facility] 06-29-2024 10:51-0500 Body temperature 97.59 [degF] Trevor XIONGBS Work Phone: [facility] 06-29-2024 10:51-0500 Body weight 101.61 kg Trevor XIONGBS Work Phone: [facility] 06-29-2024 10:51-0500 Diastolic blood pressure 72 mm[Hg] Trevor GUTIERREZ Work Phone: [facility] 06-29-2024 10:51-0500 Heart rate 87 /min Trevor XIONGBS Work Phone: [facility] 06-29-2024 10:51-0500 Respiratory rate 18 /min Trevor XIONGBS Work Phone: [facility] 06-29-2024 10:51-0500 SaO2% (BldA) [Mass fraction] 99 % Trevor XIONGBS Work Phone: [facility] 06-29-2024 10:51-0500 Systolic blood pressure 134 mm[Hg] Trevor XIONGBS Work Phone: [facility] 04-18-2023 07:48-0500 Diastolic blood pressure 80 mm[Hg] Dr. Mc Delgadillo Work Phone: [facility] 04-18-2023 07:48-0500 Heart rate 82 /min Dr. Mc Delgadillo Work Phone: [facility] 04-18-2023 07:48-0500 Respiratory rate 16 /min Dr. Mc Delgadillo Work Phone: [facility] 04-18-2023 07:48-0500 SaO2% (BldA) [Mass fraction] 99 % Dr. Mc Delgadillo Work Phone: [facility] 04-18-2023 07:48-0500 Systolic blood pressure 131 mm[Hg] Dr. Mc Delgadillo Work Phone: [facility] 04-18-2023 06:20-0500 Body height 162.[address] Mc Delgadillo Work Phone: [facility] 04-18-2023 06:20-0500 Body mass index (BMI) [Ratio] 39.9 kg/m2 Dr. Mc Delgadillo Work Phone: [facility] 04-18-2023 06:20-0500 Body temperature 97.6 [degF] Dr. Mc Delgadillo Work Phone: [facility] 04-18-2023 06:20-0500 Body weight 105.[address] Mc Delgadillo Work Phone: [facility] 03-28-2023 07:32-0400 Body temperature 98.2 [degF] Dr. Mc Delgadillo Work Phone: [facility] 03-28-2023 07:32-0400 Diastolic blood pressure 83 mm[Hg] Dr. Mc Delgadillo Work Phone: [facility] 03-28-2023 07:32-0400 Heart rate 102 /min Dr. Mc Delgadillo Work Phone: [facility] 03-28-2023 07:32-0400 Respiratory rate 17 /min Dr. Mc Delgadillo Work Phone: [facility] 03-28-2023 07:32-0400 SaO2% (BldA) [Mass fraction] 98 % Dr. Mc Delgadillo Work Phone: [facility] 03-28-2023 07:32-0400 Systolic blood pressure 126 mm[Hg] Dr. Mc Delgadillo Work Phone: [facility] Encounters Encounter Date Encounter Type Care Provider Facility Start: 12-07-2024 End: 12-07-2024 ambulatory No Primary Care Physician -[facility] Start: 12-07-2024 End: 12-07-[address] Jennifer Erazo DO -[facility] Work Phone: Start: 11-08-2024 End: 11-08-2024 Refill Vitaly Claradha PA-C Work Phone: [facility] ([place]) Comment on above: Med Change Request Start: 11-08-2024 End: 11-08-2024 Distance Health Vitaly Claburn PA-C Work Phone: [facility] ([place]) Comment on above: Moderate episode of recurrent major depressive disorder (HCC) (Primary Dx); IVON (generalized anxiety disorder); Attention and concentration deficit; Sleep difficulties Start: 10-25-2024 End: 10-29-2024 ambulatory Vitaly Claburn PA-C Work Phone: [facility] ([place]) Start: 10-25-2024 End: 10-29-2024 Patient encounter procedure Vitaly Claburn PA-C Work Phone: [facility] ([place]) Comment on above: [place] Start: 10-11-2024 End: 10-11-2024 ambulatory VITALY CLABURN Facility:[facility] Start: 09-06-2024 End: 09-06-2024 E-mail encounter from caregiver Vitaly Claburn PA-C Work Phone: [facility] ([place]) Start: 09-06-2024 End: 09-06-2024 Patient encounter procedure Vitaly Claburn PA-C Work Phone: [facility] ([place]) Comment on above: Questionnaire Submis job Moderate episode of recurrent major depressive disorder (HCC) (Primary Dx); Attention and concentration deficit; IVON (generalized anxiety disorder); BMI 40.0-44.9, adult (HCC) Start: 09-06-2024 End: 09-06-2024 Telemedicine consultation with patient Vitaly BAKER-C Work Phone: [facility] ([place]) Start: 09-06-2024 End: 09-06-2024 ambulatory VITALY RAMOS Facility:[facility] Start: 07-13-2024 End: 07-13-2024 Telephone encounter Uvaldo Doss MD Work Phone: [facility] ([facility]) Comment on above: Appointment Start: 06-29-2024 End: 06-29-2024 Telephone encounter Trevor GUTIERREZ Work Phone: [facility] ([facility]) Comment on above: Referral Information (Psychiatry) Start: 06-29-2024 End: 06-29-2024 ambulatory UVALDO DOSS Facility:[facility] Start: 06-29-2024 End: 06-29-2024 Patient encounter procedure Trevor GUTIERREZ Work Phone: [facility] ([facility]) Comment on above: Moderate episode of recurrent major depressive disorder (HCC) (Primary Dx); Screening for depression; Encounter for routine laboratory testing; SHARON (obstructive sleep apnea); Encounter for screening for lipid disorder Start: 06-29-2024 End: 06-29-2024 Patient encounter status Trevor GUTIERREZ Work Phone: [facility] Start: 06-29-2024 End: 06-29-2024 ambulatory TREVOR NELSON Facility:[facility] Start: 06-29-2024 Encounter for other specified special examinations TREVOR NELSON [facility] Start: 08-17-2023 End: 08-17-2023 ambulatory Julien Winston Elida LATHE PULLER Facility:[facility] Start: 08-14-2023 End: 08-14-2023 ambulatory Sathish Valderrama PA Facility:[facility] Start: 06-20-2023 End: 06-20-2023 ambulatory Dhiraj Avila PA Facility:[facility] Start: 04-24-2023 End: 04-24-2023 ambulatory Sathish Valderrama PA Facility:[facility] Start: 04-18-2023 End: 04-18-2023 Emergency department patient visit Jalen Christianson Facility:[facility] Start: 04-18-2023 End: 04-18-2023 Emergency department patient visit Dr. Mc Delgadillo Work Phone: [facility] Work Phone: Start: 03-28-2023 End: 03-28-2023 ambulatory Sathish BAKER Facility:[facility] Start: 03-28-2023 End: 03-28-[address] Mc Delgadillo Work Phone: [facility] Work Phone: Start: 03-13-2022 End: 03-13-2022 ambulatory [facility] Work Phone: Start: 03-13-2022 End: 03-13-2022 Patient encounter procedure [facility] Date Procedure Procedure Detail Performing Clinician Start: 06-29-2024 Adult depression screening assessment Trevor GUTIERREZ Work Phone: Plan of Treatment Date Care Activity Detail Author Start: 06-29-2025 Anxiety Screening Anxiety Screening [facility] Start: 06-29-2025 [facility] Start: 02-07-2025 End: 02-07-2025 Follow-up encounter 02/07/2025 9:30 AM EDT [facility] ([place]) [address] [place] [address] Vitaly Ramos PA-C [address], [place] [address] follow up [facility] ([place]) Comment on above: follow up Start: 12-07-2024 Choriogonadotropin ( test) [Presence] in Serum or Plasma [facility] Start: 11-08-2024 End: 11-08-2024 Follow-up encounter 11/08/2024 9:30 AM EDT [facility] ([place]) [address] [place] [address] Vitaly Ramos PA-C [address], [place] [id number] follow up [facility] Medicine (Jose) Comment on above: follow up Start: 10-04-2024 End: 10-04-2024 Follow-up encounter 10/04/2024 11:30 AM EDT [facility] (Jose) [address] [place] [address] Vitaly Ramos PA-C [address], [place] [id number] follow up [facility] (Jose) Comment on above: follow up Start: 09-06-2024 End: 09-06-2024 [facility] 09/06/2024 10:00 AM EDT [facility] (Jose) [address] [place] [address] Vitaly Ramos PA-C [address], [place] [address] Moderate episode of recurrent major depressive disorder (HCC) [F33.1 (ICD-10-CM)] [facility] (Jose) Comment on above: Moderate episode of recurrent major depressive disorder (HCC) [F33.1 (ICD-10-CM)] Start: 06-29-2024 End: 09-28-2024 Hemoglobin A1c in Blood [facility] Work Phone: Comment on above: Expected: 06/29/2024 , Expires: 09/28/2024 Start: 01-25-2024 Covid-19 Vaccine () Covid-19 Vaccine () [facility] Start: 04-18-2023 Streptococcus pyogen es antigen assay Group A Streptococcus Rapid Screen [facility] Start: 04-18-2023 [facility] Start: 2018 Screening for malign ant neoplasm of cervix Cervical Cancer Screening [facility] Start: 2015 Hepatitis C screening Hepatitis C Sc reening [facility] Start: 2015 HIV screening HIV Screening [facility] Start: 2012 HPV Vaccine (1 - 3-d ose series) HPV Vaccine (1 - 3-dose series) [facility] Start: 2011 Peds To Adult Transi tion Annual Assessment Peds To Adult Transition Annual Assessment [facility] Start: 2009 Peds To Adult Transi tion Initial Discussion Peds To Adult Transition Initial Discussion [facility] Start: 2008 Urine microalbumin profile DTa P,Tdap,Td Vaccine (6 - Tdap) [facility] End: 06-29-2025 HOME SLEEP APNEA TEST (HSAT) HOME SLEEP APNEA TEST (HSAT) Procedures Routine SHARON (obstructive sleep apnea) 1 Occurrences starting 06/29/2024 until 06/29/2025 [facility] Comment on above: 1 Occurrences starti ng 06/29/2024 until 06/29/2025 Patient Education ED Pharyngitis, Viral W [facility] Work Phone: Patient referral [facility] Work Phone: Immunizations Immunization Date Immunization Notes Care Provider Fa cili 03-26-2024 influenza, seasonal, injectable, preservative free Trevor GUTIERREZ Work Phone: [facility] 09-10-2021 tuberculin skin test ; purified protein derivative solution, intradermal Trevor GUTIERREZ Work Phone: [facility] 08-18-2021 COVID-19 original vaccine, age 12+ yr, monovalent ([employer] - RODRIGUEZ [employer]) Deeven Sinai MBBS Work Phone: [facility] 07-19-2021 COVID-19 original vaccine, age 12+ yr, monovalent ([employer]) Trevor Nelson MBBS Work Phone: [facility] 08-16-2002 diphtheria, tetanus toxoids and acellular pertussis vaccine, unspecified formulation Trevor Nelson MBBS Work Phone: [facility] 08-16-2002 measles, mumps and rubella virus vaccine Trevor Nelson MBBS Work Phone: [facility] 08-16-2002 poliovirus vaccine, inactivated Trevor Nelson MBBS Work Phone: [facility] 11-01-1998 diphtheria, tetanus toxoids and acellular pertussis vaccine, unspecified formulation Trevor Nelson MBBS Work Phone: [facility] 11-01-1998 haemophilus influenz ae type b vaccine, HbOC conjugate Trevor Nelson MBBS Work Phone: [facility] 07-19-1998 measles, mumps and rubella virus vaccine Trevor Nelson MBBS Work Phone: [facility] 01-23-1998 diphtheria, tetanus toxoids and acellular pertussis vaccine, unspecified formulation Trevor Nelson MBBS Work Phone: [facility] 01-23-1998 haemophilus influenz ae type b vaccine, conjugate unspecified formulation Trevor Nelson MBBS Work Phone: [facility] 01-23-1998 hepatitis B vaccine, pediatric or pediatric/adolescent dosage Trevor Nelson MBBS Work Phone: [facility] 01-23-1998 trivalent poliovirus vaccine, live, oral Trevor Nelson MBBS Work Phone: [facility] 1997 diphtheria, tetanus toxoids and acellular pertussis vaccine, unspecified formulation Trevor Nelson MBBS Work Phone: [facility] 1997 haemophilus influenz ae type b vaccine, conjugate unspecified formulation Trevor Brookski [facility] [place] [place] Work Phone: [facility] 1997 trivalent poliovirus vaccine, live, oral Delinda Brookski [facility] [place] [place] Work Phone: [facility] 1997 diphtheria, tetanus toxoids and acellular pertussis vaccine, unspecified formulation Deeven Sinai [facility] [place] [place] Work Phone: [facility] 1997 haemophilus influenz ae type b vaccine, PRP-OMP conjugate Daveshirleyen Sinai [facility] [place] [place] Work Phone: [facility] 1997 hepatitis B vaccine, pediatric or pediatric/adolescent dosage Deeven Sinai [facility] [place] [place] Work Phone: [facility] 1997 trivalent poliovirus vaccine, live, oral Trevor Sinai [facility] [place] [place] Work Phone: [facility] 1997 hepatitis B vaccine, pediatric or pediatric/adolescent dosage Deeven Sinai [facility] [place] [place] Work Phone: [facility] Payers Date Payer Category Payer [facility] PPO OOS [id number] 2024 Unknown [id number] 2024 Private Health Insurance [id number] 2024 Unknown [id number] 2023 Self-pay [id number] 2023 Unknown [id number] 2020 Unknown [id number] Unknown [facility] [id number] Unknown [id number] Unknown [id number] Unknown [id number] Unknown [id number] Unknown [id number] Unknown [id number] Social History Date Type Detail Facility Start: 08-02-2021 End: 04-18-2023 Tobacco smoking status COIS Unknown if ever smoked [facility] Start: 04-21-2020 None [facility] Start: 04-21-2020 Alone [facility] Start: 1995 Sex Assigned At Female W [facility] Start: 06-29-2024 End: 12-07-2024 Tobacco smoking status NHIS Never smoked tobacco [facility] Start: 06-29-2024 Tobacco use and exposure Smokeless tobacco non-user [facility] Start: 06-29-2024 Alcoholic beverage intake Current drinker of alcohol (finding) [facility] Start: 06-29-2024 End: 07-13-2024 History of Social function [facility] Start: 06-29-2024 End: 07-13-2024 [facility] Utilities [facility] Has the [employer], or water [employer] threatened to shut off services in your home in past 12Mo No [facility] Are you now , , , , never or living with a partner? [facility] How often to you hav e a drink containing alcohol? Never [facility] How many standard drinks containing alcohol do you have on a typical day? Patient does not drink [facility] Do you feel stress - tense, restless, nervous, or anxious, or unable to sleep at night because your mind is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 psychiatry referral and starting medication. Return in about 3 months (around 09/26/2024). Discussed the above with the patient and my preceptor using shared decision-making. The patient is in agreement with the diagnostic and treatment plans. Provider: BRENDA Perez Signed on: June 29, 2024 10:55 AM documented in this encounter [facility] Discharge summary Note Date/Time April 18, 2023 6:48am [facility] Medical Records Department [address] [place] [id number] Emergency Department Summary 04/18/23 MR#: [id number] Acct: [id number] Name: ROBINSON RUFF Rep #:[id number] : 1995 27 From: Jalen Christianson MD PCP: Care Physician,No Primary Status :REG ER Location: ED ADDENDUM by Dr. Jalen Christianson MD on 04/18/23 at 0747 Rapid strep is negative. Treated as a viral pharyngitis. 04/18/23 0747<Electronically signed by Jalen Christianson MD> Cosigner Signature (if applicable): cc: No Primary Care Physician ~* Signed HPI HPI - URI History of Present Illness Chief Complaint: Sore Throat Informant: patient Onset/Context/Timing Onset: Days Context: Gradual Onset Timing: Continuous Current Severity: Moderate Maximum Severity: Moderate Worsened by: Swallowing Associated Symptoms Associated Symptoms: Positive for Nonproductive cough; Negative for Headache, Sinus Pressure, Vomiting, Diarrhea or Shortness of Breath Narrative Narrative: 27-year-old female no significant past medical or surgical history. Has had a 5-day history of nonproductive cough and progressively worsening sore throat. Able to swallow. No fever. No vomiting or diarrhea. She did test herself for COVID 2 days ago and it was negative. Prior similar symptoms: Yes Recent Illness/Hospitalization: No ROS ROS ED ROS Narrative Sore throat. Nonproductive cough. Review of Systems ROS Unobtainable: Denies due to encephalopathy Constitutional Constitutional ED: Denies chills or fever(s) Eyes Eyes: Denies blurry vision ENT ENT ED: Reports sore throat; Denies ear pain Cardiovascular Cardiovascular: Denies chest pain Respiratory/Chest Respiratory/Chest: Reports cough; Denies dyspnea Gastrointestinal Gastrointestinal: Denies abdominal pain, constipation, diarrhea, melena, nausea or vomiting Genitourinary Genitourinary ED: Denies dysuria or hematuria Musculoskeletal Musculoskeletal: Denies arthralgias or back pain Integumentary Denies abscess or Abrasions Neurologic Neurologic: Denies headache(s) Psychiatric Psychiatric: Denies anxiety or depression Endocrine Endocrinology: Denies cold intolerance or heat intolerance Hematologic/Lymphatic Hematologic/Lymphatic: Denies easy bleeding or easy bruising Allergic/Immunologic Allergic/Immunologic ED: Denies mouth swelling or tongue swelling PFSH PFSH Medical History Migraines Seasonal allergies Home Medications NK 04/18/23 [History Last Taken Unknown] Allergy/AdvReac Type Severity Reaction Status Date / Time Sulfa (Sulfonamide Allergy Hives Verified 04/18/23 06:24 Antibiotics) Family History Father Hypertension Mother Hypertension Surgical History H/O dilation and curettage H/O wisdom tooth extraction Social History Smoking Status: Never smoker EXAM Physical Exam Narrative Exam Narrative: Well-appearing 27-year-old female. Vital signs are stable afebrile. HEENT examTMs normal bilaterally. Posterior pharynx is erythematous. No exudate. No peritonsillar abscess. Tonsils are nonenlarged. No difficulty swallowing or breathing. No drooling or stridor. Neck nontender no lymphadenopathy. Tracheamidline. Lungs clear. Heart regular rhythm no murmur. Rate about 90. Abdomensoft nontender. No axillary lymphadenopathy. No cervical lymphadenopathy. Moving all 4 extremities. Skin no rashes. Neurologically she is awake and alert with no focal motor deficits. Const Vital Signs: 04/18/23 06:20 04/18/23 06:20 Temperature 97.6 F L Temperature Source Temporal Pulse Rate 93 Respiratory Rate 16 Blood Pressure 129/69 H Blood Pressure Mean 89 Pulse Ox 97 Oxygen Delivery Method Room Air Positive well nourished and well developed; Negative for cachectic or contractures General Appearance ED: well developed; Negative for cachectic, contractures or pallor Nutritional Appearance: Negative for cachectic HEENT Reports moist mucous membranes normocephalic and atraumatic; Negative for scalp tenderness Face and Sinus: Negative for sinus tenderness Teeth and Gingiva: Negative for caries Throat: posterior oropharynx abnormal Positive for edema and erythema; Negative for exudates, laceration or foreign body; Negative for posterior oropharynx normal Eyes PERRL and EOMs intact bilaterally Neck no lymphadenopathy, supple, no meningeal signs and no JVD General: Negative for anterior neck swelling or lymphadenopathy Resp normal respiratory effort Effort and Inspection: Negative for retractions Auscultation: Negative for rales, rhonchi or wheezes Cardio S1 normal heart sound, S2 normal heart sound and no murmurs Rate: regular rate Rhythm: regular rhythm GI non-tender, non-distended and no masses Inspection: Negative for abdominal distention Auscultation: normoactive bowel sounds Palpation: soft; Negative for tender, guarding or hepatomegaly Back/Spine no CVA tenderness and normal ROM General Back: Negative for CVA tenderness Cervical Spine: Negative for cervical spine tenderness Thoracic Spine / Upper Back: Negative for thoracic spinal tenderness Lumbar Spine / Lower Back: Negative for lumbar spinal tenderness Sacrum: Negative for tenderness Extremity normal to inspection and full ROM General Extremety ED: Negative for cyanosis or tenderness General Extremity: Negative for cyanosis Neuro oriented x3 and CN's II-XII intact bilaterally Sensorium / Orientation: alert, oriented to person, oriented to place and oriented to time; Negative for orientation impaired or lethargic Motor Exam: strength 5/5 throughout Psych mental status grossly normal Appearance: Negative for other Attitude: No agitated Mood & Affect: Negative for depressed, anxious or tearful Skin General Skin Exam: Negative for jaundice or pallor Lesions: no lesions Rashes: no rashes Trauma: Negative for abrasion or laceration MDM MDM MDM Narrative Medical decision making narrative: 27-year-old female 5-day history of a sore throat. Reportedly COVID-negative. Exam as bilateral erythema. No exudate. No abscess. No difficulty swallowing. No stridor or drooling. Tonsils are not enlarged. Rapid strep sent. If positive treat with antibiotics if negative treat as a viral pharyngitis. Patient will be checked out to the oncoming physician to check the rapid strep results. History & Record Review Discussion w/independent historian: Patient Additional record(s) reviewed:: Prior inpatient record, Prior outpatient record,Prior ED visit and No prior records Lab Data Lab results narrative: Rapid strep test is negative. Discharge Plan Triage Chief Complaint: Sore Throat ED Provider: Jalen Christianson Dx/Rx/DC Orders Clinical Impression: Acute viral pharyngitis Instructions: ED Pharyngitis, Viral Prescriptions: No Action NK Primary Care Provider: Care Physician,No Primary Referrals: Julien Talamantes MD [Med Staff - Senior Sql Database Developer] - 1 Week if not improving NOT,DEFINED [Non-Staff] - Activity Restrictions/Additional Instructions: Plenty of fluids and rest. Motrin and Tylenol for pain. Warm salt water gargling. Follow-up with your doctor if not improving or return if worse. Disposition Disposition: Home, Self Care What to do if you have Problems For any increased pain, shortness of breath, bleeding, nausea or vomiting, chestpain, or any unexpected problems, contact your Primary Care Provider. Call [facility] ([phone]) or report to the closest Emergency Room. Call 911 if necessary. 04/18/23 1145 <Electronically signed by Jalen Christianson MD> Cosigner Signature (if applicable): CC: No Primary Care Physician ~ Signed [facility] Work Phone: Evaluation noteNo assessment information available [facility] Work Phone: Evaluation note* Diagnosis Onset Date Resolution Status Acute pharyngitis acute [facility] Work Phone: Evaluation note* Diagnosis Moderate episode of recurrent major depressive disorder (HCC)- Primary Screening for depression Encounter for routine laboratory testing Laboratory examination ordered as part of a routine general medical examination SHARON (obstructive sleep apnea) Obstructive sleep apnea (adult) (pediatric) Encounter for screening for lipid disorder [facility] Diagnosis Moderate episode of recurrent major depressive disorder (HCC)- Primary Attention and concentration deficit Attention or concentration deficit IVON (generalized anxiety disorder) Generalized anxiety disorder BMI 40.0-44.9, adult (HCC) Body Mass Index 40.0-44.9, adult [facility] Diagnosis Moderate episode of recurrent major depressive disorder (HCC)- Primary IVON (generalized anxiety disorder) Generalized anxiety disorder Attention and concentration deficit Attention or concentration deficit Sleep difficulties Sleep disturbance, unspecified documented in this encounter [facility] note* Diagnosis IVON (generalized anxiety disorder) Generalized anxiety disorder [facility] Additional Instructions Plenty of fluids and rest. Motrin and Tylenol for pain. Warm salt water gargling. Follow-up with your doctor if not improving or return if worse.[facility] Work Phone: Reason for referral (narrative)No reason for referral information [facility] Work Phone: Summary Purpose Family History Relationship Condition Age at Onset Recorded Date/T reji father Hypertension Unknown mother Hypertension Unknown Advance Directives Advance Directive Response Recorded Date/ Time Living Will No April 06, 2 021 8:07pm Power of Corporate Travel Expert No April 06, 2021 8:07pm Advance Directive Response Recorded Date/ Time Living Will No April 18, 2 023 6:22am Power of Corporate Travel Expert No April 18, 2023 6:22am Chief Complaint and Reason for Visit Chief Complaint Cough SORE THROAT Reason for Visit Acute pharyngitis Chief Complaint Admit Date Early OB, Vega, Requesting lab December 07, 2024 3:25pm Reason for Referral Specialty Diagnoses / Procedures Referred By Kathy bowden Referred To Contact Diagnoses Moderate episode of recurrent major depressive disorder (HCC) Procedures CONSULT TO PSYCHIATRY OFFICE/OUTPATIENT [facility] 60 MINUTES Uvaldo Doss MD [address] [facility] [address] [place] [address] Referral ID Status Reason Start Date Expiration Date Visits Requested Visits Authorized [id number] Pending Review PCP Requested Referral 06/29/2024 06/29/2025 1 1 Specialty Diagnoses / Procedures Referred By Kathy bowden Referred To Contact [facility] Diagnoses SHARON (obstructive sleep apnea) Procedures HOME SLEEP APNEA TEST (HSAT) SLEEP STD AIRFLOW HRT RATE&O2 SAT EFFORT UNATT Uvaldo Doss MD [address] [place] [address] Neu[facility] [place] [address] [place] [address] Referral ID Status Reason Start Date Expiration Date Visits Requested Visits Authorized [id number] New Request Auto-Generat ed Referral 06/29/2024 06/29/2025 1 1 Additional Source Comments INFORMATION SOURCE (unrecogn ized section and content) DATE CREATED AUTHOR 09/19/2021 [facility] DATE CREATED AUTHOR AUTHOR'S ORGANIZ ATION 08/17/2023 [facility] DATE CREATED AUTHOR AUTHOR'S ORGANIZ ATION 11/09/2024 [facility] Goals (unrecognized section and content) Goals may be documented in a n alternate sectionGoals may be documented in an alternate sectionGoals may be documented in an alternate section Care Teams (unrecognized sec tion and content) Team Status: Active Member Role Status Dates Out of Town Doctor Family Provider Active No Primary Care Physician Primary Care Provider Active Team Status: Inactive Member Role Status Dates Dr. Mc Delgadillo MD Primary Care Provider, Referring Provider Active Sathish BAKER, PA Attending Provider Active Team Status: Inactive Member Role Status Dates Dr. Jalen Christianson MD Emergency Provider Active No Primary Care Physician Primary Care Provider Active Radio Recorder Relationship Specialty Start Date End Date Uvaldo Doss MD [address] [place], [place] [id number] PCP - General Internal Medicine 06/29/24 Trevor Nelson MBBS [address] [facility] [place], [place] [id number] PCP Resident Internal Medicine 06/29/24 Radio Recorder Relationship Specialty Start Date End Date Uvaldo Doss MD [address] [place] [id number] PCP - General Internal Medicine 06/29/24 Trevor Nelson MBBS [address] [facility] [place], [place] [id number] PCP Resident Internal Medicine 06/29/24 Radio Recorder Relationship Specialty Start Date End Date Uvaldo Doss MD [address] [place] [address] PCP - General Internal Medicine 06/29/24 Trevor Nelson MBBS [address] [facility] [place], [place] [id number] [phone] Resident Internal Medicine 06/29/24 Radio Recorder Relationship Specialty Start Date End Date Uvaldo Doss MD [address] [place] [address] PCP - General Internal Medicine 06/29/24 Trevor Nelson MBBS [address] [place] [address] PCP Resident Internal Medicine 06/29/24 Radio Recorder Relationship Specialty Start Date End Date Uvaldo Doss MD [address] [place] [address] PCP - General Internal Medicine 06/29/24 Trevor Nelson MBBS [address] [place] [address] PCP Resident Internal Medicine 06/29/24 Radio Recorder Relationship Specialty Start Date End Date Uvaldo Doss MD [address] [place] [address] PCP - General Internal Medicine 06/29/24 Trevor Nelson MBBS [address] [place], [place] [id number] PCP Resident Internal Medicine 06/29/24 Radio Recorder Relationship Specialty Start Date End Date Uvaldo Doss MD [address] [facility] [address] [place] [id number] PCP - General Internal Medicine 06/29/24 Trevor Nelson MBBS [address] [place], [place] [id number] PCP Resident Internal Medicine 06/29/24 Team Status: Active Member Role/Relationship Status Dates Out of Town Doctor Family Provider Active No Primary Care Physician Primary Care Provider Active Team Status: Inactive Member Role/Relationship Status Dates No Primary Care Physician Primary Care Provider Active Start: December 07, 2024 End: December 07, 2024 No Primary Care Physician Referring Provider Active Start: December 07, 2024 End: December 07, 2024 Dr. Jennifer Erazo , Attending Provider Activ e Start: December 07, 2024 End: December 07, 2024 Team Status: Active Member Role/Relationship Status Dates No Primary Care Physician Primary Care Provider Active Start: December 07, 2024 Dr. Jennifer Erazo , Attending Provider Activ e Start: December 07, 2024 Source Comments (unrecognize d section and content) In the event this informatio n is protected by the Federal Confidentiality of Alcohol and Drug Abuse Patient Records regulations: The Federal rules restrict any use of the information to criminally investigate or prosecute any alcohol or drug abuse patient.[facility] the event this information is protected by the Federal Confidentiality of Alcohol and Drug Abuse Patient Records regulations: The Federal rules restrict any use of the information to criminally investigate or prosecute any alcohol or drug abuse patient.[facility] the event this information is protected by the Federal Confidentiality of Alcohol and Drug Abuse Patient Records regulations: The Federal rules restrict any use of the information to criminally investigate or prosecute any alcohol or drug abuse patient.[facility] the event this information is protected by the Federal Confidentiality of Alcohol and Drug Abuse Patient Records regulations: The Federal rules restrict any use of the information to criminally investigate or prosecute any alcohol or drug abuse patient.[facility] the event this information is protected by the Federal Confidentiality of Alcohol and Drug Abuse Patient Records regulations: The Federal rules restrict any use of the information to criminally investigate or prosecute any alcohol or drug abuse patient.[facility] the event this information is protected by the Federal Confidentiality of Alcohol and Drug Abuse Patient Records regulations: The Federal rules restrict any use of the information to criminally investigate or prosecute any alcohol or drug abuse patient.[facility] the event this information is protected by the Federal Confidentiality of Alcohol and Drug Abuse Patient Records regulations: The Federal rules restrict any use of the information to criminally investigate or prosecute any alcohol or drug abuse patient.[facility] the event this information is protected by the Federal Confidentiality of Alcohol and Drug Abuse Patient Records regulations: The Federal rules restrict any use of the information to criminally investigate or prosecute any alcohol or drug abuse patient.[facility] Reason for Visit (unrecogniz ed section and content) Reason Comments Referral Information Psychiatry Reason Comments Establish Care From [facility]. Lab request. Refill Request Previously Trintelex - not as effective. Lexapro also did not work. Buspar was better per patient. Qysima requested. Reason Comments Appointment Reason Comments Depression Specialty Diagnoses / Procedures Referred By Contac t Referred To Contact Diagnoses Moderate episode of recurrent major depressive disorder (HCC) Procedures CONSULT TO PSYCHIATRY OFFICE/OUTPATIENT [facility] 60 MINUTES Uvaldo Doss MD [address] [facility] [address] [place] [address] Phone: tel: fax: Referral ID Status Reason Start Date Expiration Date Visits Requested Visits Authorized [id number] Pending Review PCP Requested Referral 06/29/2024 06/29/2025 1 1 Reason Comments Anxiety Depression Reason Comments Med Change Request FOR RECORDS PERTAINING TO PATIENTS WHO ARE OR HAVE BEEN ENROLLED IN A CHEMICAL DEPENDENCY/SUBSTANCEABUSE PROGRAM, SOME INFORMATION MAY BE OMITTED. This clinical summary was aggregated from multiple sources. Caution should be exercised in using it in the provision of clinical care. This summary normalizes information from multiple sources, and as a consequence, information in this document may materially change the coding, format and clinical context of patient data. In addition, data may be omitted in some cases. CLINICAL DECISIONS SHOULD BE BASED ON THE PRIMARY CLINICAL RECORDS. [facility]. provides no warranty or guarantee of the accuracy or completeness of information in this document.
--- OUTSIDE RECORDS SUMMARY | 2024-12-07 22:19 | XMS RPT_ITS | CCD ---
Author Organization [facility] Care Team Providers Care Dining Room Host Name Role Phone Dr. Mc Delgadillo Primary Care Provider Dr. Mc Delgadillo Referring Provider [phone] SAMUEL Sherman Attending Provider Jalen Christianson Attending [...] No Primary Primary Care Unava ilable Roof EMBOSSING TOOL SETTER, Julien Winston Attending Unavailable Care Physician, No Primary Referring Unava ilable Care Physician, No Primary Primary Care Unava ilable Sathish Sherman Attending Unavailable Mc Delgadillo Referring Unavailable Mc Delgadillo Primary Care Unavailable Trevor Herring Unavailable [phone] Uvaldo Doss MD Primary Care Provider TREVOR NELSON Attending Unavailable ORI FUCHS, UVALDO CHOLO Primary Care Unavailable VITALY RAMOS Attending Unavailable ORI FUCHS, UVALDO CHOLO Primary Care Unavailable VITALY RAMOS Attending Unavailable ORI FUCHS, UVALDO CHOLO Primary Care Unavailable VITALY RAMOS Attending Unavailable ORI FUCHS, UVALDO CHOLO Referring Unavailable ORI FUCHS, UVALDO [...] (SULFONAMIDE ANTIBIOTICS)] Allergy to substance 3 Hives [facility] (1 source) Sulfonamides (Antibiotic) Drug allergy (disorder) 4 [facility] Repository (8 sources) Sulfonamides (Antibiotic) Drug Allergy 5 Hives, Rash [facility] Medications Current Medications Medication Drug Class(es) Dates Sig (Normalized) Sig (Original) [id number] 200 actuat albuterol 0.09 mg/actuat metered dose [...] (FLONASE) 50 mcg/actuation nasal spray Use 1 [place] in the nose. 06/08/2024 07/06/2024 Active Lactobacillus acidophilus (8 sources) Lactobacillus ac idophilus (PROBIOTIC ORAL) Take by mouth. Active [place] (Nk) (1 source) Start: 04-18-2023 [place] (Nk) A ctive April 18, 2023 12:00am sodium chloride 0.111 meq/ml nasal spray (8 sources) Start: 06-08-2024 End: 06-08-2025 sodium chloride 0.65 % nasal spray Use 1 [place] in the nose. 06/08/2024 06/08/2025 Active Zinc [...] CNPNon 10-12-2024 CNPN Telephone (AGINTMAC) ROBINSON RUFF ([id number]) 1995 F Date Time Provider Department 10/12/24 [facility] [place] your visit today, we recorded the [...] ready for her to schedule. Marlena Arroyo, Fish Hatchery Superintendent October 12, 2024 11:58 AM Allergies As [...] chloride 0.65 % nasal spray Use 1 [place] in the nose. - ZINC ORAL Take by mouth. - ascorbic acid (VITAMIN C ORAL) Take by mouth. - Lactobacillus acidophilus (PROBIOTIC ORAL) Take by mouth. Problem List As Of Date: 10/12/2024 (None) Encounter Status:Closed by MARLENA ARROYO on 10/12/24 [facility] [place] 07-13-2024 [facility] Telephone (LILYINTMAC) ROBINSON RUFF ([id number]) 1995 F Date Time Provider Department 07/13/24 UVALDO DOSS During your visit today, we recorded the following information about you: Floridalma Adams 07/13/2024 9:56 AM Signed Called patient LVM, and sent message to patient to call our office to schedule August, or October follow up appointment. Dr. Nelson is on PTO in September Floridalma Adams Fish Hatchery Superintendent I July 13, 2024 9:56 AM Allergies [...] chloride 0.65 % nasal spray Use 1 [place] in the nose. - ZINC ORAL Take by mouth. - ascorbic acid (VITAMIN C ORAL) Take by mouth. - Lactobacillus acidophilus (PROBIOTIC ORAL) Take by mouth. - buPROPion SR (WELLBUTRIN SR) 100 mg 12 hr tablet Take 1 tablet by mouth two times a day. Problem List As Of Date: 07/13/2024 (None) Encounter Status:Closed by FLORIDALMA ADAMS on 07/13/24 Normal [facility] CBC panel Auto (Bld)on 06-29 Erythrocyte distribution width (RBC) [Ratio] 13.7 % 11.5 - 15.0 % [facility] Hematocrit (Bld) [Volume fraction] 43.9 % 36.0 - 46.0 % [facility] Hemoglobin (Bld) [Mass/Vol] 14.1 g/dL 11.5 - 15.5 g/dL [facility] Interpretation and review of laboratory results Abnormal [facility] MCH (RBC) [Entitic mass] 27.2 pg 26.0 - 34.0 pg [facility] MCHC (RBC) [Mass/Vol] 32.1 g/dL 30.5 - 36.0 g/dL [facility] MCV (RBC) [Entitic vol] 84.6 fL 80.0 - 100.0 fL [facility] Nucleated RBC (Bld) [#/Vol] NINF [facility] Platelet mean volume (Bld) [Entitic vol] 9.4 fL 9.0 - 12.7 fL [facility] Platelets (Bld) [#/Vol] 398 10*3/uL [facility] RBC (Bld) [#/Vol] 5.19 10*6/uL 3.90 - 5.2 0 m/uL [facility] WBC (Bld) [#/Vol] 11.97 10*3/uL High [facility] Erythrocyte distribution width (RBC) [Ratio] 13.7 % Normal 11.5-15.0 [facility] Comment on above: Order Comment: Speci men Type: BLOOD SPECIMEN Ordering Facility: [facility] Address: [address] [place] [address] Performed By: #### 5 8410-2 #### [facility] CLIA [id number] [address] STATES OF [facility] Hematocrit (Bld) [Volume fraction] 43.9 % Normal 36.0-46.0 [facility] Comment on above: Order Comment: Speci men Type: BLOOD SPECIMEN Ordering Facility: [facility] Address: [address] [place] [address] Performed By: #### 5 8410-2 #### [facility] CLIA [id number] [address] [place] [facility] Hemoglobin (Bld) [Mass/Vol] 14.1 g/dL Normal 11.5-15.5 [facility] Comment on above: Order Comment: Speci men Type: BLOOD SPECIMEN Ordering Facility: [facility] Address: [address] [place] [address] Performed By: #### 5 8410-2 #### [facility] CLIA [id number] [address] [place] [facility] MCH (RBC) [Entitic mass] 27.2 pg Normal 26.0-34.0 [facility] Comment on above: Order Comment: Speci men Type: BLOOD SPECIMEN Ordering Facility: [facility] Address: [address] [place] [address] Performed By: #### 5 8410-2 #### [facility] CLIA [id number] [address] [place] MCHC (RBC) [Mass/Vol] 32.1 g/dL Normal 30.5-36.0 [facility] Comment on above: Order Comment: Speci men Type: BLOOD SPECIMEN Ordering Facility: [facility] Address: [address] [place] [address] Performed By: #### 5 8410-2 #### [facility] CLIA [id number] [address] MCV (RBC) [Entitic vol] 84.6 fL Normal 80.0-100.0 [facility] Comment on above: Order Comment: Speci men Type: BLOOD SPECIMEN Ordering Facility: [facility] Address: [address] [place] [address] Performed By: #### 5 8410-2 #### [facility] CLIA [id number] [address] Nucleated RBC (Bld) [#/Vol] 10*3/uL Normal <0.01 [facility] Comment on above: Order Comment: Speci men Type: BLOOD SPECIMEN Ordering Facility: [facility] Address: [address] [place] [address] Performed By: #### 5 8410-2 #### [facility] CLIA [id number] [address] Platelet mean volume (Bld) [Entitic vol] 9.4 fL Normal 9.0-12.7 [facility] Comment on above: Order Comment: Speci men Type: BLOOD SPECIMEN [facility]ing Facility: [facility] Address: [address] [place] [address] Performed By: #### 5 8410-2 #### [facility] CLIA [id number] [address] OF [place] Platelets (Bld) [#/Vol] 398 10*3/uL Normal 150-400 [facility] Comment on above: Order Comment: Speci men Type: BLOOD SPECIMEN Ordering Facility: [facility] Address: [address] [place] [address] Performed By: #### 5 8410-2 #### [facility] CLIA [id number] [address] [place] RBC (Bld) [#/Vol] 5.19 10*6/uL Normal 3.90-5.20 [facility] Comment on above: Order Comment: Speci men Type: BLOOD SPECIMEN [facility]ing Facility[facility] Address: [address] [place] [address] Performed By: #### 5 8410-2 #### [facility] CLIA [id number] [address] OF [facility] WBC (Bld) [#/Vol] 11.97 10*3/uL High 3.70-11.00 [facility] Comment on above: Order Comment: Speci men Type: BLOOD SPECIMEN Ordering Facility: [facility] Address: [address] [place] [address] Performed By: #### 5 8410-2 #### [facility] CLIA [id number] [address] CNOVon 06-29-2024 CNOV Office Visit (AGINTMAC) ELZBIETAROBINSON M ([id number]) 1995 F Date Time Provider Department 06/29/24 10:20 AM TREVOR NELSON AGINTMAC During your visit today, we recorded the following information about you: Temperature Pulse Respiration Blood pressure 97.6 degrees 87/minute 18/minute 134/72 Weight Height Last Period 101.6 kg 1.575 m 06/24/24 Trevor Nelson MBBS 06/29/2024 2:28 PM Signed IMCA [...] to follow-up with her primary care in [facility] but since her insurance has changed she comes in for establishing care at [facility]. She has not been taking any [...] (FLONASE) 50 mcg/actuation nasal spray Use 1 [place] in the nose. (Patient not taking: Reported on 06/29/2024) sodium chloride 0.65 % nasal spray Use 1 [place] in the nose. (Patient not taking: Reported [...] difficulty urin (more content not included)... Normal [facility] [place] [facility]20[facility]AG[facility] ELZBIETAROBINSON ([id number]) 1995 F Date Time Provider Department 06/29/24 TREVOR NELSON During your visit today, we recorded the following information about you: Fabiola Najera 06/29/2024 11:49 AM Signed Referral to psychiatry entered into the [facility] portal on 06/29/24. Confirmation number [id number]. Allergies As of Date: 06/29/2024 Noted Allergy Reaction SULFA (SULFONAMIDE ANTIBIOTICS) 06/29/2024 4 - Hives 2 - Rash Date Reviewed: 06/29/2024 Reviewed by: Cholo Douglass LPN - Fully Assessed Reason for Visit: Referral Information [1797] Cmt: Psychiatry Prescriptions as of 06/29/2024 - albuterol HFA (PROVENTIL HFA, VENTOLIN HFA) 90 mcg/actuation inhaler Inhale 2 Puffs as instructed every 6 hours as needed. - fluticasone (FLONASE) 50 mcg/actuation nasal spray Use 1 [place] in the nose. - sodium chloride 0.65 % nasal spray Use 1 [place] in the nose. - ZINC ORAL Take by mouth. - ascorbic acid (VITAMIN C ORAL) Take by mouth. - Lactobacillus acidophilus (PROBIOTIC ORAL) Take by mouth. - buPROPion SR (WELLBUTRIN SR) 100 mg 12 hr tablet Take 1 tablet by mouth two times a day. Problem List As Of Date: 06/29/2024 (None) Encounter Status:Closed by FABIOLA NAJERA on 06/29/24 Normal [facility] Comprehensive metabolic 2000 panelon 06-29-2024 Albumin [Mass/Vol] 4.5 g/dL 3.9 - 4.9 g/dL [facility] ALP [Catalytic activity/Vol] 52 U/L 34 - 123 U/L [facility] ALT With P-5'-P [Catalytic activity/Vol] 14 U/L 7 - 38 U/L [facility] Anion gap [Moles/Vol] 14 mmol/L 8 - 15 mmol/L [facility] AST With P-5'-P [Catalytic activity/Vol] 19 U/L 13 - 35 U/L [facility] Bilirubin [Mass/Vol] 0.4 mg/dL 0.2 - 1.3 mg/dL [facility] Calcium [Mass/Vol] 9.5 mg/dL 8.5 - 10. 2 mg/dL [facility] Chloride [Moles/Vol] 103 mmol/L 98 - 107 mmol/L [facility] CO2 [Moles/Vol] 22 mmol/L 22 - 30 mmol/L [facility] Creatinine [Mass/Vol] 0.63 mg/dL 0.58 - 0.96 mg/dL [facility] GFR/1.73 sq M.predicted among non-blacks MDRD (S/P/Bld) [Vol rate/Area] 126 mL/min/{1.73_m2} - PINF [facility] Comment on above: Estimated Glomerular Filtration Rate [...] [Mass/Vol] 99 mg/dL 74 - 99 mg/dL [facility] Comment on above: The [place] Diabete s Association (ADA) provides guidance for [...] Standards of Medical Care in Diabetes 2016, [place] Diabetes Association. Diabetes Care. 2016.39(Suppl 1). Interpretation and review of laboratory results Normal [facility] Potassium [Moles/Vol] 4.3 mmol/L 3.7 - 5.1 mmol/L [facility] Protein [Mass/Vol] 7.4 g/dL 6.3 - 8.0 g/dL [facility] Sodium [Moles/Vol] 139 mmol/L 136 - 144 mmol/L [facility] Urea nitrogen [Mass/Vol] 12 mg/dL 7 - 21 mg/dL [facility] Albumin [Mass/Vol] 4.5 g/dL Normal 3.9-4.9 [facility] Comment on above: Order Comment: Speci men Type: BLOOD SPECIMEN [facility] Address: [address] [place] [address] Performed By: #### 2 4323-8, 80600-7 #### [facility] CLIA [id number] [address] [place] [facility] ALP [Catalytic activity/Vol] 52 U/L Normal 34-123 [facility] Comment on above: Order Comment: Speci men Type: BLOOD SPECIMEN Ordering [facility] Address: [address] [place] [address] Performed By: #### 2 4323-8, 36878-3 #### [facility] CLIA [id number] [address] ALT With P-5'-P [Catalytic activity/Vol] 14 U/L Normal 7-38 [facility] Comment on above: Order Comment: Speci men Type: BLOOD SPECIMEN [facility] Address: [address] [place] [address] Performed By: #### 2 4323-8, 19364-4 #### [facility] CLIA [id number] [address] Anion gap [Moles/Vol] 14 mmol/L Normal 8-15 [facility] Comment on above: Order Comment: Speci men Type: BLOOD SPECIMEN Order[facility] Address: [address] [place] [address] Performed By: #### 2 4323-8, 94970-7 #### [facility] CLIA [id number] [address] OF [facility] AST With P-5'-P [Catalytic activity/Vol] 19 U/L Normal 13-35 [facility] Comment on above: Order Comment: Speci men Type: BLOOD SPECIMEN Order[facility] Address: [address] [place] [address] Performed By: #### 2 4323-8, 59796-5 #### [facility] CLIA [id number] [address] [place] Bilirubin [Mass/Vol] 0.4 mg/dL Normal 0.2-1.3 [facility] Comment on above: Order Comment: Speci men Type: BLOOD SPECIMEN [facility] Address: [address] [place] [address] Performed By: #### 2 4323-8, 89022-4 #### [facility] CLIA [id number] 1 [place] [address] [place] Calcium [Mass/Vol] 9.5 mg/dL Normal 8.5-10.2 [facility] Comment on above: Order Comment: Speci men Type: BLOOD SPECIMEN [facility] Address: [address] [place] [address] Performed By: #### 2 432-8, 72870-2 #### [facility] CLIA [id number] 1 [place] [address] [place] Chloride [Moles/Vol] 103 mmol/L Normal 98-107 [facility] Comment on above: Order Comment: Speci men Type: BLOOD SPECIMEN [facility] Address: [address] [place] [address] Performed By: #### 2 4323-8, 21528-8 #### [facility] CLIA [id number] 1 [place] [address] [place] CO2 [Moles/Vol] 22 mmol/L Normal 22-30 [facility] Comment on above: Order Comment: Speci men Type: BLOOD SPECIMEN [facility] Address: [address] [place] [address] Performed By: #### 2 4323-8, 32213-0 #### [facility] CLIA [id number] [address] [facility] Creatinine [Mass/Vol] 0.63 mg/dL Normal 0.58-0.96 [facility] Comment on above: Order Comment: Terrell barahona Type: BLOOD SPECIMEN [facility] Address: [address] [place] [address] Performed By: #### 2 4323-8, 80142-5 #### [facility] CLIA [id number] [address] [place] [address] OF [facility] Creatinine and Glomerular filtration rate.predicted panel (S/P/Bld) 126 mL/min/1.73m??? Normal >=60 [facility] Comment on above: Order Comment: Terrell barahona Type: BLOOD SPECIMEN Order[facility] Address: [address] [place] [address] Result Comment: Tamanna mated Glomerular Filtration Rate [...] actual GFR. Performed By: #### 2 4323-8, 86699-2 #### [facility] CLIA [id number] [address] [place] [address] [place] Glucose [Mass/Vol] 99 mg/dL Normal 74-99 [facility] Comment on above: Order Comment: Terrell barahona Type: BLOOD SPECIMEN [facility] Address: [address] [place] [address] Result Comment: The [place] Diabetes Association (ADA) provides guidance for cutoff [...] Standards of Medical Care in Diabetes 2016, [place] Diabetes Association. Diabetes Care. 2016.39(Suppl 1). Performed By: #### 2 4323-8, 35694-0 #### [facility] CLIA [id number] [address] [place] Potassium [Moles/Vol] 4.3 mmol/L Normal 3.7-5.1 [facility] Comment on above: Order Comment: Speci men Type: BLOOD SPECIMEN [facility] Address: [address] [place] [address] Performed By: #### 2 432-8, 53838-6 #### [facility] CLIA [id number] [address] [place] [facility] Protein [Mass/Vol] 7.4 g/dL Normal 6.3-8.0 [facility] Comment on above: Order Comment: Speci men Type: BLOOD SPECIMEN [facility] Address: [address] [place] [address] Performed By: #### 2 4323-8, 85100-7 #### [facility] CLIA [id number] [address] STATES [facility] Sodium [Moles/Vol] 139 mmol/L Normal 136-144 [facility] Comment on above: Order Comment: Speci men Type: BLOOD SPECIMEN [facility] Address: [address] [place] [address] Performed By: #### 2 4323-8, 21577-5 #### [facility] CLIA [id number] [address] [place] Urea nitrogen [Mass/Vol] 12 mg/dL Normal 7-21 [facility] Comment on above: Order Comment: Speci men Type: BLOOD SPECIMEN [facility] Address: [address] [place] [address] Performed By: #### 2 4323-8, 83430-5 #### [facility] CLIA [id number] [address] [place] HbA1c (Bld)on 06-29-2024 Average glucose Estimated from glycated hemoglobin (Bld) [Mass/Vol] 111 mg/dL Normal [facility] Comment on above: Order Comment: Terrell barahona Type: BLOOD SPECIMEN [facility] Address: [address] [place] [address] Result Comment: eAG: (Estimated average glucose) is a calculated value from HgbA1c and is apprenticeship training representative of the average blood glucose level in the last 2-3 month period. Performed By: #### 5 5454-3 #### [facility] CLIA [id number] [address] [place] [address] [place] [facility] HbA1c (Bld) [Mass fraction] 5.5 % Normal 4.3-5.6 [facility] Comment on above: Order Comment: Terrell barahona Type: BLOOD SPECIMEN [facility] Address: [address] [place] [address] Result Comment: [place] Diabetes Association guidelines indicate that patients with HgbA1c in the range 5.7-6.4% are at increased risk for development of diabetes, and intervention by lifestyle modification may be beneficial. HgbA1c greater or equal to 6.5% is considered diagnostic of diabetes. Performed By: #### 5 5454-3 #### [facility] CLIA [id number] [address] [place] [address] [place] Lipid 1996 panelon 5 Cholesterol [Mass/Vol] 185 mg/dL NINF - 200 mg/dL [facility] Comment on above: <200 mg/dL, Desirabl e 200-239 mg/dL, Borderline high >239 mg/dL, High Cholesterol in HDL [Mass/Vol] 41 mg/dL 39 - PINF mg/dL [facility] Comment on above: 40-59 mg/dL, Accepta ble >59 mg/dL, High: Negative risk factor for coronary heart disease <40 mg/dL, Low: Positive risk factor for coronary heart disease Cholesterol in LDL [Mass/Vol] 126 mg/dL High NINF - 100 mg/dL [facility] Comment on above: <100 mg/dL, Optimal 100-129 mg/dL, Near optimal/above optimal 130-159 mg/dL, Borderline high 160-189 mg/dL, High >189 mg/dL, Very high Secondary prevention optimal LDL Cholesterol levels are recommended to be < 70 mg/dL Cholesterol in LDL/Cholesterol in HDL [Mass ratio] 3.07 {ratio} High NINF - 2.54 [facility] Comment on above: Reference: 1. National Cholesterol Education Program ATP III Guideline At-A-Glance Quick Desk Reference: National Heart, Lung, and Blood [place]. National Institutes of Health. 2001: NIH Publication No. 01-3305. 2. An International Atherosclerosis Society position paper: global recommendations for the management of dyslipidemia: executive summary, Atherosclerosis. 2014: 232(2):410-413. Cholesterol in VLDL [Mass/Vol] 18 mg/dL NINF - 30 mg/dL [facility] Cholesterol non HDL [Mass/Vol] 144 mg/dL High NINF - 130 mg/dL [facility] Comment on above: <130 mg/dL, Optimal 130-159 mg/dL, Near optimal/above optimal 160-189 mg/dL, Borderline high 190-219 mg/dL, High >219 mg/dL, Very high Secondary prevention optimal non HDL Cholesterol levels are recommended to be <100 mg/dL Cholesterol.total/Ch olesterol in HDL [Mass ratio] 4.51 {ratio} NINF - 5.10 [facility] Fasting Time 10 hrs [facility] Interpretation and review of laboratory results Abnormal [facility] Triglyceride [Mass/Vol] 92 mg/dL NINF - 150 mg/dL [facility] Comment on above: <150 mg/dL, Normal 150-199 mg/dL, Borderline high 200-499 mg/dL, High >499 mg/dL, Very high Cholesterol [Mass/Vol] 185 mg/dL Normal <200 [facility] Comment on above: Order Comment: Speci men Type: BLOOD SPECIMEN Order[facility] Address: [address] [place] [address] Result Comment: <200 mg/dL, Desirable 200-239 mg/dL, Borderline high >239 mg/dL, High Performed By: #### 2 4323-8, 59835-5 #### [facility] CLIA [id number] [address] Cholesterol in HDL [Mass/Vol] 41 mg/dL Normal >39 [facility] Comment on above: Order Comment: Isidroemely barahona Type: BLOOD SPECIMEN Order[facility] Address: [address] [place] [address] Result Comment: 40-5 9 mg/dL, Acceptable >59 mg/dL, High: Negative risk factor for coronary heart disease <40 mg/dL, Low: Positive risk factor for coronary heart disease Performed By: #### 2 4323-8, 05235-7 #### [facility] CLIA [id number] [address] Cholesterol in LDL [Mass/Vol] 126 mg/dL High <100 [facility] Comment on above: Order Comment: Terrell barahona Type: BLOOD SPECIMEN Order[facility] Address: [address] [place] [address] Result Comment: <100 mg/dL, Optimal 100-129 mg/dL, Near optimal/above optimal 130-159 mg/dL, Borderline high 160-189 mg/dL, High >189 mg/dL, Very high Secondary prevention optimal LDL Cholesterol levels are recommended to be < 70 mg/dL Performed By: #### 2 4323-8, 07567-5 #### [facility] CLIA [id number] [address] Cholesterol in LDL/Cholesterol in HDL [Mass ratio] 3.07 {ratio} High <2.54 [facility] Comment on above: Order Comment: Terrell barahona Type: BLOOD SPECIMEN [facility] Address: [address] [place] [address] Result Comment: Refe rence: 1. National Cholesterol Education Program ATP III Guideline At-A-Glance Quick Desk Reference: National Heart, Lung, and Blood [place]. National Institutes of Health. 2001: NIH Publication No. 01-3305. 2. An International Atherosclerosis Society position paper: global recommendations for the management of dyslipidemia: executive summary, Atherosclerosis. 2014: 232(2):410-413. Performed By: #### 2 4323-8, 52070-1 #### [facility] CLIA [id number] [address] [place] Cholesterol in VLDL [Mass/Vol] 18 mg/dL Normal <30 [facility] Comment on above: Order Comment: Speci men Type: BLOOD SPECIMEN [facility] Address: [address] [place] [address] Performed By: #### 2 4323-8, 71381-8 #### [facility] CLIA [id number] [address] [place] Cholesterol non HDL [Mass/Vol] 144 mg/dL High <130 [facility] Comment on above: Order Comment: Speci men Type: BLOOD SPECIMEN Ordering Facility: [facility] Address: [address] [place] [address] Result Comment: <130 mg/dL, Optimal 130-159 mg/dL, Near optimal/above optimal 160-189 mg/dL, Borderline high 190-219 mg/dL, High >219 mg/dL, Very high Secondary prevention optimal non HDL Cholesterol levels are recommended to be <100 mg/dL Performed By: #### 2 4323-8, 79558-6 #### [facility] CLIA [id number] [address] Cholesterol.total/Ch olesterol in HDL [Mass ratio] 4.51 {ratio} Normal <5.10 [facility] Comment on above: Order Comment: Speci men Type: BLOOD SPECIMEN Ordering Facility: [facility] Address: [address] [place] [address] Performed By: #### 2 4323-8, 73688-8 #### [facility] CLIA [id number] [address] [place] FASTING TIME 10 hrs Normal [facility] Comment on above: Order Comment: Speci men Type: BLOOD SPECIMEN Ordering Facility: [facility] Address: [address] [place] [address] Performed By: #### 2 4323-8, 09920-3 #### [facility] CLIA [id number] [address] OF [place] Triglyceride [Mass/Vol] 92 mg/dL Normal <150 [facility] Comment on above: Order Comment: Speci men Type: BLOOD SPECIMEN Ordering Facility: [facility] Address: [facility] [place] [address] Result Comment: <150 mg/dL, Normal 150-199 mg/dL, Borderline high 200-499 mg/dL, High >499 mg/dL, Very high Performed By: #### 2 4323-8, 78348-6 #### [facility] CLIA [id number] 1 [place] [id number] [place] STATES OF [facility] No Panel Informationon 06-29 [facility] Office Visit Reporton 2023 Office Visit Report [place] [address] [place] [address] OFFICE VISIT Date of Service: 08/17/23 MR#: [id number] Acct: [id number] Patient: ROBINSON RUFF Rep #: [id number] : 1995 Provider: DEEPIKA aguilar Age/Sex: 28/F Location: [facility] Status: Signed Intake Vital Signs 04/18/23 06:20 Height 5 ft 4 in Intake Visit Reasons: TB READ Chief Complaint: TB read General [address] Production Manager Required: No Is patient in pain?: No Allergies Sulfa (Sulfonamide Antibiotics) Allergy (Verified 08/17/23 09:05) Hives Is last menstrual period known: No Post menopausal: No Patient : No Results Office TB PPD Skin Test Office TB PPD Read Negative Last Edit by Susana Blount on 08/17/23 09:06 [facility] TB PPD Read By: Hardik Last Edit by Susana Blount on 08/17/23 09:06 Quality Reporting Tobacco Screening ([facility] 138) Smoking Status: Never smoker 08/17/23924 Date Julien Jurado Signature: Date (if applicable) CC: Normal [facility] Office Visit Reporton 2023 Office Visit Report [facility] [address] [place] [address] OFFICE VISIT Date of Service: 08/14/23 MR#: [id number] Acct: [id number] Patient: ROBINSON RUFF Rep #: [id number] : 1995 Provider: SAMUEL Villa Age/Sex: 28/F Location: [facility] Status: Signed Intake Vital Signs 04/18/23 06:20 Height 5 ft 4 in Intake Visit Reasons: TB TEST Chief Complaint: n/v/d/mid abd pain Allergies Sulfa (Sulfonamide Antibiotics) Allergy (Verified 06/20/23 07:04) Hives Office Procedures PPD Procedure TB Med Used: Tuberculin PPD 5 tub. unit/0.1 mL intradermal injection solution was administered Lot number: [id number] Box Turner: Sanofi Pasteur date: 08/14/23 PPD Location: Right forearm Date PPD Placed: 08/14/23 Time PPD Placed: 03:30 PPD Placed By: Josephine Mukherjee Quality Reporting Tobacco Screening ([facility] 138) Smoking Status: Never smoker Assessment and Plan Assessment and Plan Orders: Orders POC TB PPD SKIN Test (Clinic) 08/14/23 Z11.1 - Encounter for screening for respiratory tuberculosis 08/15/23 1223 Date Sathish Jurado Signature: Date (if applicable) CC: Normal [facility] Urgent Care Visit Reporton 0 06-20-2023 Urgent Care Visit Report [facility] [address], [address] [place] [address] OFFICE VISIT Date of Service: 06/20/23 MR#: [id number] Acct: [id number] Name: ROBINSON RUFF Rep #: [id number] : 1995 Provider: SAMUEL Clayton Age/Sex: 27/F Location: [facility] Status: Signed Intake Vital Signs 04/18/23 06:20 06/20/23 07:04 Height 5 ft 4 in BP 130/64 H Blood Pressure Location Lt brachial Position Sitting Respiration 17 Pulse 105 H Pulse Source NIBP Temp 97.7 F L Temp Source Temporal Pulse Oximetry (%) 100 Oxygen Delivery Method room air Intake Visit Reasons: VOMITING, UPSET STOMACH Chief Complaint: n/v/d/mid abd pain 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 taking Zofran with only 1 hour of relief. unable to hold down water. [facility] Medical History (Updated 06/20/23 @ 07:38 by [...] of Zofran which gave minimal relief. No [id number] products taken to assist. No other associated symptoms and no other alleviating/aggravati ng factors. ROS Const Constitutional: No other (as above) Exam Const General: cooperative, healthy appearing and no acute distress Orientation: alert, awake and oriented x3 [facility] Head: normal to inspection Ears: hearing grossly [...] - likely food toxin by history Supportive esterlla (more content not included)... Normal [facility] Urgent Care Visit Reporton 1 06-24-2022 Urgent Care Visit Report [facility] [address], [address] [place] [address] OFFICE VISIT Date of Service: 04/24/23 MR#: [id number] Acct: [id number] Name: ROBINSON RUFF Rep #: [id number] : 1995 Provider: SAMUEL Villa Age/Sex: 27/F Location: [facility] Status: Signed Intake Vital Signs 04/18/23 06:20 [...] (Sulfonamide Antibiotics) Allergy (Verified 04/24/23 17:09) Hives [facility] Medical History Migraines Seasonal allergies Surgical History [...] Jurado Signature: Date (if applicable) CC: Normal [facility] Strep A (Throat Rapid HONG)on 04-20-2023 S. pyogenes Ag IA Ql (Unsp spec) A Disk (Conf. Cult) Negative for Strep Group A Rapid Strep A Screen NEGATIVE Normal [facility] Comment on above: Performed By: #### M 100.676 #### [facility] Laboratory [facility] [place], [address] Emergency Department Summary on 04-18-2023 Emergency Department Summary [facility] [address] [place] [address] Emergency Department Summary 04/18/23 MR#: [id number] Acct: [id number] Name: ROBINSON RUFF Rep #: [id number] : 1995 27 From: Jalen Christianson MD [...] normal he (more content not included)... Normal [facility] Urgent Care Visit Reporton 1 05-28-2022 Urgent Care Visit Report [facility] [address], [address] [place] [address] OFFICE VISIT Date of Service: 03/28/23 MR#: [id number] Acct: [id number] Name: ROBINSON RUFF Rep #: [id number] : 1995 Provider: SAMUEL Villa Age/Sex: 27/F Location: [facility] Status: Signed Intake Vital Signs 04/06/21 19:07 03/28/23 07:32 Height 5 ft 3 in BP 126/83 H Blood Pressure Location Rt brachial Position Sitting Respiration 17 Pulse 102 H Pulse Source NIBP Temp 98.2 F Temp Source Temporal Pulse Oximetry (%) 98 Oxygen Delivery Method room air Intake Visit Reasons: Cough Chief Complaint: cough, ear pain 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 tested for covid at work which was negative. [facility] Medical History (Updated 03/28/23 @ 07:40 by [...] Jurado Signature: Date (if applicable) CC: Normal [facility] Basophil percentageon 2021 Bilirubin [Mass/Vol] 0.50 mg/dL 0.20-1.00 [facility] Work Phone: Comment on above: For patients on eltr ombopag therapy, use of Dimension Prewitt TBIL is not recommended. Chloride [Moles/Vol] 106 mmol/L 98-107 [facility] Work Phone: Glucose [Mass/Vol] 103 mg/dL 74-106 [facility] Work Phone: Comment on above: Fasting Glucose resu lt from 100 to 125 mg/dL suggests IMPAIRED HOMEOSTASIS per A.D.A. criteria. Potassium [Moles/Vol] 3.9 mmol/L 3.5-5.1 [facility] Work Phone: Protein [Mass/Vol] 7.8 g/dL 6.4-8.2 [facility] Work Phone: Sodium [Moles/Vol] 137 mmol/L 136-145 [facility] Work Phone: Laboratory - Chemistry and C hemistry - challengeon 03-13-2022 ALP [Catalytic activity/Vol] 61 U/L 45-117 [facility] Work Phone: ALT [Catalytic activity/Vol] 31 U/L 13-56 [facility] Work Phone: CO2 [Moles/Vol] 24.0 mmol/L 21.0-32.0 [facility] Work Phone: Globulin (S) [Mass/Vol] 3.9 g/dL 2.2-4.2 [facility] Work Phone: Urea nitrogen/Creatinine [Mass ratio] 19.9 mg/mg 10-20 [facility] Work Phone: No Panel Informationon 03-13 Estimated GFR (MDRD) Amer 131 mL/min >60 [facility] Work Phone: Comment on above: GFR Calc Estimated GFR (MDRD) Non-Af Amer 108 mL/min >60 [facility] Work Phone: Comment on above: Non- GFR Calc Thyroid Stimulating Hormone (TSH) 1.06 uIU/mL 0.358-3.74 [facility] Work Phone: Serum or plasma albumin estrella urement (mass/volume)on 03-13-2022 Albumin [Mass/Vol] 3.9 g/dL 3.2-5.0 [facility] Work Phone: Serum or plasma albumin/glob ulin mass ratioon 03-13-2022 Albumin/Globulin [Mass ratio] 1.0 {ratio} 0.9-2.4 [facility] Work Phone: Serum or plasma calcium estrella urement (mass/volume)on 03-13-2022 Calcium [Mass/Vol] 9.1 mg/dL 8.5-10.1 [facility] Work Phone: Serum or plasma creatinine m easurement (mass/volume)on 03-13-2022 Creatinine [Mass/Vol] 0.70 mg/dL 0.55-1.02 [facility] Work Phone: Comment on above: The validity of the calculated GFR & GFRAA in patients over 70 years has not been determined. Clinical correlation is essential. Serum or plasma urea nitroge n measurement (mass/volume)on 03-13-2022 Urea nitrogen [Mass/Vol] 14 mg/dL 7-18 [facility] Work Phone: Thin prep Papanicolaou smear with manual screeningon 03-13-2022 Thin prep Papanicolaou smear with manual screening 18 U/L 15-37 [facility] Work Phone: Thin prep Papanicolaou smear with manual screening 7 5-15 [facility] Work Phone: CNCOon 09-17-2021 CNCO Letter Text Normal [facility] Vital Signs Date Time Vital Sign Value Performing Clinician Facility 12-07-2024 15:43-0400 Body height 162.56 cm No Primary Care Physician [facility] 12-07-2024 15:43-0400 Body mass index (BMI) [Ratio] 39 kg/m2 No Primary Care Physician [facility] 12-07-2024 15:43-0400 Body weight 103.19 kg No Primary Care Physician [facility] 12-07-2024 15:43-0400 Diastolic blood pressure 84 mm[Hg] No Primary Care Physician [facility] 12-07-2024 15:43-0400 Systolic blood pressure 115 mm[Hg] No Primary Care Physician [facility] 06-29-2024 10:51-0500 Body height 157.5 cm Trevor GUTIERREZ Work Phone: [facility] 06-29-2024 10:51-0500 Body mass index (BMI) [Ratio] 40.97 kg/m2 Trevor GUTIERREZ Work Phone: [facility] 06-29-2024 10:51-0500 Body temperature 97.59 [degF] Trevor XIONGBS Work Phone: [facility] 06-29-2024 10:51-0500 Body weight 101.61 kg Trevor XIONGBS Work Phone: [facility] 06-29-2024 10:51-0500 Diastolic blood pressure 72 mm[Hg] Trevor GUTIERREZ Work Phone: [facility] 06-29-2024 10:51-0500 Heart rate 87 /min Trevor XIONGBS Work Phone: [facility] 06-29-2024 10:51-0500 Respiratory rate 18 /min Trevor XIONGBS Work Phone: [facility] 06-29-2024 10:51-0500 SaO2% (BldA) [Mass fraction] 99 % Trevor XIONGBS Work Phone: [facility] 06-29-2024 10:51-0500 Systolic blood pressure 134 mm[Hg] Trevor XIONGBS Work Phone: [facility] 04-18-2023 07:48-0500 Diastolic blood pressure 80 mm[Hg] Dr. Mc Delgadillo Work Phone: [facility] 04-18-2023 07:48-0500 Heart rate 82 /min Dr. Mc Delgadillo Work Phone: [facility] 04-18-2023 07:48-0500 Respiratory rate 16 /min Dr. Mc Delgadillo Work Phone: [facility] 04-18-2023 07:48-0500 SaO2% (BldA) [Mass fraction] 99 % Dr. Mc Delgadillo Work Phone: [facility] 04-18-2023 07:48-0500 Systolic blood pressure 131 mm[Hg] Dr. Mc Delgadillo Work Phone: [facility] 04-18-2023 06:20-0500 Body height 162.[address] Mc Delgadillo Work Phone: [facility] 04-18-2023 06:20-0500 Body mass index (BMI) [Ratio] 39.9 kg/m2 Dr. Mc Delgadillo Work Phone: [facility] 04-18-2023 06:20-0500 Body temperature 97.6 [degF] Dr. Mc Delgadillo Work Phone: [facility] 04-18-2023 06:20-0500 Body weight 105.[address] cM Delgadillo Work Phone: [facility] 03-28-2023 07:32-0400 Body temperature 98.2 [degF] Dr. Mc Delgadillo Work Phone: [facility] 03-28-2023 07:32-0400 Diastolic blood pressure 83 mm[Hg] Dr. Mc Delgadillo Work Phone: [facility] 03-28-2023 07:32-0400 Heart rate 102 /min Dr. Mc Delgadillo Work Phone: [facility] 03-28-2023 07:32-0400 Respiratory rate 17 /min Dr. Mc Delgadillo Work Phone: [facility] 03-28-2023 07:32-0400 SaO2% (BldA) [Mass fraction] 98 % Dr. Mc Delgadillo Work Phone: [facility] 03-28-2023 07:32-0400 Systolic blood pressure 126 mm[Hg] Dr. Mc Delgadillo Work Phone: [facility] Encounters Encounter Date Encounter Type Care Provider Facility Start: 12-07-2024 End: 12-07-2024 ambulatory No Primary Care Physician -[facility] Start: 12-07-2024 End: 12-07-[address] Jennifer Erazo DO -[facility] Work Phone: Start: 11-08-2024 End: 11-08-2024 Refill Vitaly Claradha PA-C Work Phone: [facility] ([place]) Comment on above: Med Change Request Start: 11-08-2024 End: 11-08-2024 Distance Health Vitaly Claburn PA-C Work Phone: [facility] ([place]) Comment on above: Moderate episode of recurrent major depressive disorder (HCC) (Primary Dx); IVON (generalized anxiety disorder); Attention and concentration deficit; Sleep difficulties Start: 10-25-2024 End: 10-29-2024 ambulatory Vitaly Claburn PA-C Work Phone: [facility] ([place]) Start: 10-25-2024 End: 10-29-2024 Patient encounter procedure Vitaly Claburn PA-C Work Phone: [facility] ([place]) Comment on above: [place] Start: 10-11-2024 End: 10-11-2024 ambulatory VITALY CLABURN Facility:[facility] Start: 09-06-2024 End: 09-06-2024 E-mail encounter from caregiver Vitaly Claburn PA-C Work Phone: [facility] ([place]) Start: 09-06-2024 End: 09-06-2024 Patient encounter procedure Vitaly Claburn PA-C Work Phone: [facility] Comment on above: Questionnaire Submis job Moderate episode of recurrent major depressive disorder (HCC) (Primary Dx); Attention and concentration deficit; IVON (generalized anxiety disorder); BMI 40.0-44.9, adult (HCC) Start: 09-06-2024 End: 09-06-2024 Telemedicine consultation with patient Vitaly BAKER-C Work Phone: [facility] ([place] Start: 09-06-2024 End: 09-06-2024 ambulatory VITALY RAMOS Facility:[facility] Start: 07-13-2024 End: 07-13-2024 Telephone encounter Uvaldo Doss MD Work Phone: [facility] Comment on above: Appointment Start: 06-29-2024 End: 06-29-2024 Telephone encounter Trevor GUTIERREZ Work Phone: [facility]) Comment on above: Referral Information (Psychiatry) Start: 06-29-2024 End: 06-29-2024 ambulatory UVALDO DOSS Facility:[facility] Start: 06-29-2024 End: 06-29-2024 Patient encounter procedure Trevor GUTIERREZ Work Phone: [facility] ([facility]) Comment on above: Moderate episode of recurrent major depressive disorder (HCC) (Primary Dx); Screening for depression; Encounter for routine laboratory testing; SHARON (obstructive sleep apnea); Encounter for screening for lipid disorder Start: 06-29-2024 End: 06-29-2024 Patient encounter status Trevor GUTIERREZ Work Phone: [facility] Start: 06-29-2024 End: 06-29-2024 ambulatory TREVOR NELSON Facility:[facility] Start: 06-29-2024 Encounter for other specified special examinations TREVOR NELSON [facility] Start: 08-17-2023 End: 08-17-2023 ambulatory Julien Winston Elida [employer] Facility:[facility] Start: 08-14-2023 End: 08-14-2023 ambulatory Sathish Valderrama PA Facility:[facility] Start: 06-20-2023 End: 06-20-2023 ambulatory Dhiraj Avila PA Facility:[facility] Start: 04-24-2023 End: 04-24-2023 ambulatory Sathish Valderrama PA Facility:[facility] Start: 04-18-2023 End: 04-18-2023 Emergency department patient visit Jalen Christianson Facility:[facility] Start: 04-18-2023 End: 04-18-2023 Emergency department patient visit Dr. Mc Delgadillo Work Phone: [facility] Work Phone: Start: 03-28-2023 End: 03-28-2023 ambulatory Sathish BAKER Facility:[facility] Start: 03-28-2023 End: 03-28-[address] Mc Delgadillo Work Phone: [facility] Work Phone: Start: 03-13-2022 End: 03-13-2022 ambulatory [facility] Work Phone: Start: 03-13-2022 End: 03-13-2022 Patient encounter procedure [facility] Date Procedure Procedure Detail Performing Clinician Start: 06-29-2024 Adult depression screening assessment Trevor GUTIERREZ Work Phone: Plan of Treatment Date Care Activity Detail Author Start: 06-29-2025 Anxiety Screening Anxiety Screening [facility] Start: 06-29-2025 [facility] Start: 02-07-2025 End: 02-07-2025 Follow-up encounter 02/07/2025 9:30 AM EDT [facility] ([place]) [address] [place] [address] Vitaly Ramos PA-C [address] [place], [place] [address] follow up [facility] ([place]) Comment on above: follow up Start: 12-07-2024 Choriogonadotropin ( test) [Presence] in Serum or Plasma [facility] Start: 11-08-2024 End: 11-08-2024 Follow-up encounter 11/08/2024 9:30 AM EDT [facility] ([place]) [address] [place] [address] Vitaly Ramos PA-C [address] [place], [place] [address] follow up [facility] ([place]) Comment on above: follow up Start: 10-04-2024 End: 10-04-2024 Follow-up encounter 10/04/2024 11:30 AM EDT [facility] ([place]) [address] [place] [address] Vitaly Ramos PA-C [address] [place], [place] [address] follow up [facility] ([place]) Comment on above: follow up Start: 09-06-2024 End: 09-06-2024 [facility] 09/06/2024 10:00 AM EDT [facility] ([place]) [address] [place] [address] Vitaly Ramos PA-C [address] [place], [place] [address] Moderate episode of recurrent major depressive disorder (HCC) [F33.1 (ICD-10-CM)] [facility] ([place]) Comment on above: Moderate episode of recurrent major depressive disorder (HCC) [F33.1 (ICD-10-CM)] Start: 06-29-2024 End: 09-28-2024 Hemoglobin A1c in Blood [facility] Work Phone: Comment on above: Expected: 06/29/2024 , Expires: 09/28/2024 Start: 01-25-2024 Covid-19 Vaccine () Covid-19 Vaccine () [facility] Start: 04-18-2023 Streptococcus pyogen es antigen assay Group A Streptococcus Rapid Screen [facility] Start: 04-18-2023 [facility] Start: 2018 Screening for malign ant neoplasm of cervix Cervical Cancer Screening [facility] Start: 2015 Hepatitis C screening Hepatitis C Sc reening [facility] Start: 2015 HIV screening HIV Screening [facility] Start: 2012 HPV Vaccine (1 - 3-d ose series) HPV Vaccine (1 - 3-dose series) [facility] Start: 2011 Peds To Adult Transi tion Annual Assessment Peds To Adult Transition Annual Assessment [facility] Start: 2009 Peds To Adult Transi tion Initial Discussion Peds To Adult Transition Initial Discussion [facility] Start: 2008 Urine microalbumin profile DTa P,Tdap,Td Vaccine (6 - Tdap) [facility] End: 06-29-2025 HOME SLEEP APNEA TEST (HSAT) HOME SLEEP APNEA TEST (HSAT) Procedures Routine SHARON (obstructive sleep apnea) 1 Occurrences starting 06/29/2024 until 06/29/2025 [facility] Comment on above: 1 Occurrences starti ng 06/29/2024 until 06/29/2025 Patient Education ED Pharyngitis, Viral [facility] Work Phone: Patient referral [facility] Work Phone: Immunizations Immunization Date Immunization Notes Care Provider Fa cili 03-26-2024 influenza, seasonal, injectable, preservative free Trevor GUTIERREZ Work Phone: [facility] 09-10-2021 tuberculin skin test ; purified protein derivative solution, intradermal Trevor GUTIERREZ Work Phone: [facility] 08-18-2021 COVID-19 original vaccine, age 12+ yr, monovalent ([employer] [place] [employer]) Deeven Sinai MBBS Work Phone: [facility] 07-19-2021 COVID-19 original vaccine, age 12+ yr, monovalent ([employer] [place] [employer]) Trevor Nelson MBBS Work Phone: [facility] 08-16-2002 diphtheria, tetanus toxoids and acellular pertussis vaccine, unspecified formulation Trevor Nelson MBBS Work Phone: [facility] 08-16-2002 measles, mumps and rubella virus vaccine Trevor Nelson MBBS Work Phone: [facility] 08-16-2002 poliovirus vaccine, inactivated Trevor Nelson MBBS Work Phone: [facility] 11-01-1998 diphtheria, tetanus toxoids and acellular pertussis vaccine, unspecified formulation Trevor Nelson MBBS Work Phone: [facility] [facility] 11-01-1998 haemophilus influenz ae type b vaccine, HbOC conjugate Trevor Nelson MBBS Work Phone: [facility] 07-19-1998 measles, mumps and rubella virus vaccine Trevor Nelson MBBS Work Phone: [facility] 01-23-1998 diphtheria, tetanus toxoids and acellular pertussis vaccine, unspecified formulation Trevor Nelson MBBS Work Phone: [facility] 01-23-1998 haemophilus influenz ae type b vaccine, conjugate unspecified formulation Trevor Nelson MBBS Work Phone: [facility] 01-23-1998 hepatitis B vaccine, pediatric or pediatric/adolescent dosage Trevor Nelson MBBS Work Phone: [facility] 01-23-1998 trivalent poliovirus vaccine, live, oral Trevor Nelson MBBS Work Phone: [facility] 1997 diphtheria, tetanus toxoids and acellular pertussis vaccine, unspecified formulation Trevor Nelson MBBS Work Phone: [facility] 1997 haemophilus influenz ae type b vaccine, conjugate unspecified formulation Trevor Brookski [facility] Work Phone: [facility] 1997 trivalent poliovirus vaccine, live, oral Delinda Brookski [facility] Work Phone: [facility] 1997 diphtheria, tetanus toxoids and acellular pertussis vaccine, unspecified formulation Deeven Sinai [facility] Work Phone: [facility] 1997 haemophilus influenz ae type b vaccine, PRP-OMP conjugate Daveshirleyen Sinai [facility] Work Phone: [facility] 1997 hepatitis B vaccine, pediatric or pediatric/adolescent dosage Deeven Sinai [facility] Work Phone: [facility] 1997 trivalent poliovirus vaccine, live, oral Trevro Sinai [facility] Work Phone: [facility] 1997 hepatitis B vaccine, pediatric or pediatric/adolescent dosage Deeven Sinai [facility] Work Phone: [facility] Payers Date Payer Category Payer [facility] PPO OOS [id number] 2024 Unknown [id number] 2024 Private Health Insurance [id number] 2024 Unknown [id number] 2023 Self-pay [id number] 2023 Unknown [id number] 2020 Unknown [id number] Unknown [facility] [id number] Unknown [id number] Unknown [id number] Unknown [id number] Unknown [id number] Unknown [id number] Unknown [id number] Social History Date Type Detail Facility Start: 08-02-2021 End: 04-18-2023 Tobacco smoking status MEIS Unknown if ever smoked [facility] Start: 04-21-2020 None [facility] Start: 04-21-2020 Alone [facility] Start: 1997 Sex Assigned At Female [facility] Start: 06-29-2024 End: 12-07-2024 Tobacco smoking status NHIS Never smoked tobacco [facility] Start: 06-29-2024 Tobacco use and exposure Smokeless tobacco non-user [facility] Start: 06-29-2024 Alcoholic beverage intake Current drinker of alcohol (finding) [facility] Start: 06-29-2024 End: 07-13-2024 History of Social function [facility] Start: 06-29-2024 End: 07-13-2024 [facility] Utilities [facility] Has the [place], or water [employer] threatened to shut off services in your home in past 12Mo No [facility] Are you now , , , , never or living with a partner? [facility] How often to you hav e a drink containing alcohol? Never [facility] How many standard drinks containing alcohol do you have on a typical day? Patient does not drink [facility] Do you feel stress - tense, restless, nervous, or anxious, or unable to sleep at night because your mind is troubled all the time - these days [OSQ] Rather much [facility] (I/We) worried wheth er (my/our) food would run out before (I/we) got money to buy more. Never true [facility] Start: 06-29-2024 Alcohol Comment occassional [facility] Start: 06-25-2024 Gender identity Identifies as female gender (finding) [facility] Start: 06-29-2024 Sexual orientation Heterosexual (odette pike) [facility] Clinical Notes 06-29-2024 to 11-08-2024 Patient InstructionsClVitaly weldon PA-C - 11/08/2024 9:29 AM EDTPatient InstructionsTelephone Encounter - Vitaly Ramos PA-C - 09/06/2024 10:51 AM EDT Note Date & Type Note Facility 11-08-2024 Instructions Vitaly Ramos PA-C - 11/08/2024 9:45 AM EDT Visit Instructions: - Please call front desk attendant at [phone] to schedule your next appointment in 3 months. -please feel free to call us with any questions or concerns - If you need help with [employer] access please call: [employer] Support at: [phone] - Please take all medications as directed. [...] Help: or 211 Crisis Emergency Lifeline-Suicide Prevention: 9-701-201-TALK (3411) MARISELA ([place] on Mental Illness): . Info referral line: If you or someone you know needs support now, call or text 677 or chat [employer] Vitaly Ramos PA-C documented in this encounter [facility] 11-08-2024 Note HNO ID: [id number] Author: VITALY RAMOS PA-C Service: ? Author Type: Physician Tree Climber Type: Progress Notes Filed: 11/08/2024 09:49 Note Text: [facility] BEHAVIORAL MEDICINE PROGRESS NOTE PATIENT: Robinosn Ruff MRD: [id number] DATE: November 08, 2024 This is a [...] enjoys. 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 Review of Systems Constitutional: Negative for fever, [...] by Vitaly Ramos PA-C November 08, 2024 [facility] 11-08-2024 History of Presen t illness Narrative [facility] BEHAVIORAL MEDICINE PROGRESS NOTE PATIENT: Robinson Castrejon Elzbieta MRD: [id number] DATE: November 08, 2024 This is a [...] enjoys. 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 Review of Systems Constitutional: Negative for fever, [...] 08, 2024 documented in this encounter [facility] 10-11-2024 Note HNO ID: [id number] Author: VITALY RAMOS PA-C Service: ? Author Type: Physician Tree Climber Type: Progress Notes Filed: 10/12/2024 11:50 Note Text: [facility] BEHAVIORAL MEDICINE PROGRESS NOTE PATIENT: Robinson Castrejon Elzbieta MRD: [id number] DATE: October 11, 2024 This is a [...] to spend time with their family in [place] soon. Grandfather is returning home; just received [...] Ramos PA-C October 11, 2024 9:07 AM [facility] 09-07-2024 Instructions Vitaly Ramos PA-C - 09/07/2024 10:32 AM EDT Visit Instructions: [employer] [email or web address] / Email: [email or web address] [facility] [email or web address] / - Please call front desk attendant at [phone] to schedule your next appointment in 4 weeks. -please feel free to call us with any questions or concerns - If you need help with [employer] access please call: [employer] Support at: [phone] - Please take all medications as directed. [...] Help: or 211 Crisis Emergency Lifeline-Suicide Prevention: 6-531-624-TALK (2702) MARISELA ([place] on Mental Illness): . Info referral line: If you or someone you know needs support now, call or text 608 or chat [address] [employer] Vitaly Ramos PA-C documented in this encounter [facility] 09-06-2024 Telephone encounter Note Summary: MC message Questionnaires [facility] 09-06-2024 Miscellaneous Notes Summary: MC message Questionnaires documented in this encounter [facility] 09-06-2024 Note HNO ID: [id number] Author: VITALY RAMOS PA-C Service: ? 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 She relies on her grandmother, and occasionally her mother for support. Pt endorses that Math and Czech were hard growing up. She still gets [...] SOCIAL HISTORY: Born and raised: Born in [place] but relocated to [place] when she was young. Came back to [place] 3 years ago. Childhood: 2nd grade her mother met her stepdad. He got a different job in [place] so the family relocated and she has been there until 4 years ago. Note that her mom and stepdad would constitution party a lot so she doesn't like loud noises. Her father was angry that she moved to [place] so he stopped talking to her when [...] Living Situation: Living in a duplex in [place] with her kids and her . Weapons: None Legal History: None SUBSTANCE ABUSE HISTORY: Drank alcohol when she was 23 but does not drink often now. Seldom has a drink on special occasions. Denies (more content not included)... [facility] 09-06-2024 History of Presen t illness Narrative Summary: Assessment Images from the original note were not included. 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 She relies on her grandmother, and occasionally her mother for support. Pt endorses that Math and Czech were hard growing up. She still gets [...] SOCIAL HISTORY: Born and raised: Born in [place] but relocated to [place] when she was young. Came back to [place] 3 years ago. Childhood: 2nd grade her mother met her stepdad. He got a different job in [place] so the family relocated and she has been there until 4 years ago. Note that her mom and stepdad would constitution party a lot so she doesn't like loud noises. Her father was angry that she moved to [place] so he stopped talking to her when [...] shifts as a nurse. Relationships: does oil [employer] work out of state so he is only home every other weekend. Children: Two children (son age 3 and daughter age 7) Living Situation: Living in a duplex in [place] with her kids and her . Weapons: [...] chloride 0.65 % nasal spray Use 1 [place] in the nose. (Patient not taking: Reported [...] Moderate or Serious response Ramírez Screening 09/06/2024 [facility] DETAIL RE[facility] 1.Have any of your closest [...] Adult ADHD Self Report Scale Questionnaire: [place] Rating Scale 3. IVON (generalized anxiety disorder) [...] 9:56 AM documented in this encounter [facility] 07-13-2024 Telephone encounter Note Called patient LVM, and sent message to patient MC to call our office to schedule August, or October follow up appointment. Dr. Nelson is on PTO in September Floridalma Adams Fish Hatchery Superintendent I July 13, 2024 9:56 AM [facility] 07-13-2024 Miscellaneous Notes Called patient LVM, and sent message to patient MC to call our office to schedule August, or October follow up appointment. Dr. Nelson is on PTO in September Floridalma Adams Fish Hatchery Superintendent I July 13, 2024 9:56 AM documented in this encounter [facility] 06-30-2024 Note HNO ID: [id number] Author: UVALDO DOSS MD Service: ? Author Type: Physician Type: Progress Notes Filed: 06/30/2024 18:46 Note Text: Attending Note I discussed with resident on day of the visit. The patient was not examined by the attending. I reviewed the resident's note. I agree with the resident's assessment and plan unless otherwise noted. Signature: Uvaldo Doss MD Date: 06/30/2024. Time: 6:46 PM [facility] 06-29-2024 Telephone encounter Note Referral to psychiatry entered into the [facility] portal on 06/29/24. Confirmation number [id number]. [facility] 06-29-2024 Miscellaneous Notes Referral to psychiatry entered into the [facility] portal on 06/29/24. Confirmation number [id number]. documented in this encounter [facility] 06-29-2024 Note HNO ID: [id number] Author: TREVOR NELSON MBBS Service: ? Author [...] to follow-up with her primary care in [facility] but since her insurance has changed she comes in for establishing care at [facility]. She has not been taking any [...] (FLONASE) 50 mcg/actuation nasal spray Use 1 [address] [place] in the nose. (Patient not taking: Reported on 06/29/2024) sodium chloride 0.65 % nasal spray Use 1 [address] [place] in the nose. (Patient not taking: Reported [...] dizziness, tremors, seizur (more content not included)... [facility] 06-29-2024 History of Presen t illness [...] to follow-up with her primary care in [facility] but since her insurance has changed she comes in for establishing care at [facility]. She has not been taking any [...] (FLONASE) 50 mcg/actuation nasal spray Use 1 [address] [place] in the nose. (Patient not taking: Reported on 06/29/2024) sodium chloride 0.65 % nasal spray Use 1 [address] [place] in the nose. (Patient not taking: Reported [...] the diagnostic and treatment plans. Provider: BRENDA Perze Signed on: June 29, 2024 10:55 AM documented in this encounter [facility] Discharge summary Note Date/Time April 18, 2023 6:48am [facility] Medical Records Department [address] [place] [id number] Emergency Department Summary 04/18/23 MR#: [id number] Acct: [id number] Name: ROBINSON RUFF Rep #:[id number] : [...] Referrals: Julien Talamantes MD [Med Staff - Lamina Searcher] - 1 Week if not improving NOT,DEFINED [...] your Primary Care Provider. Call [facility] ([phone]) or report to the closest Emergency Room. Call 911 if necessary. 04/18/23 1545 <Electronically signed by Jalen Christianson MD> Cosigner Signature (if applicable): CC: No Primary Care Physician ~ Signed [facility] Work Phone: Evaluation noteNo assessment information available [facility] Work Phone: Evaluation note* Diagnosis Onset Date Resolution Status Acute pharyngitis acute [facility] Work Phone: Evaluation note* Diagnosis Moderate episode of recurrent major depressive disorder (HCC)- Primary Screening for depression Encounter for routine laboratory testing Laboratory examination ordered as part of a routine general medical examination SHARON (obstructive sleep apnea) Obstructive sleep apnea (adult) (pediatric) Encounter for screening for lipid disorder [facility] Diagnosis Moderate episode of recurrent major depressive disorder (HCC)- Primary Attention and concentration deficit Attention or concentration deficit IVON (generalized anxiety disorder) Generalized anxiety disorder BMI 40.0-44.9, adult (HCC) Body Mass Index 40.0-44.9, adult documented [facility] encounter [facility]* Diagnosis Moderate episode of recurrent major depressive disorder (HCC)- Primary IVON (generalized anxiety disorder) Generalized anxiety disorder Attention and concentration deficit Attention or concentration deficit Sleep difficulties Sleep disturbance, unspecified documented in this encounter [facility] note* Diagnosis IVON (generalized anxiety disorder) Generalized anxiety disorder [facility] Additional Instructions Plenty of fluids and rest. Motrin and Tylenol for pain. Warm salt water gargling. Follow-up with your doctor if not improving or return if worse.[facility] Work Phone: Reason for referral (narrative)No reason for referral information availableEl[facility] Work Phone: Summary Purpose Family History Relationship Condition Age at Onset Recorded Date/T reji father Hypertension Unknown mother Hypertension Unknown Advance Directives Advance Directive Response Recorded Date/ Time Living Will No April 06, 2 021 8:07pm Power of Building Maintenance Repairer No April 06, 2021 8:07pm Advance Directive Response Recorded Date/ Time Living Will No April 18, 2 023 6:22am Power of Building Maintenance Repairer No April 18, 2023 6:22am Chief Complaint and Reason for Visit Chief Complaint Cough SORE THROAT Reason for Visit Acute pharyngitis Chief Complaint Admit Date Early OB, Vega, Requesting lab December 07, 2024 3:25pm Reason for Referral Specialty Diagnoses / Procedures Referred By Kathy bowden Referred To Contact Diagnoses Moderate episode of recurrent major depressive disorder (HCC) Procedures CONSULT TO PSYCHIATRY OFFICE/OUTPATIENT [facility] 60 MINUTES Uvaldo Doss MD [address] [facility] [address] [place] [address] Referral ID Status Reason Start Date Expiration Date Visits Requested Visits Authorized [id number] Pending Review PCP Requested Referral 06/29/2024 06/29/2025 1 1 Specialty Diagnoses / Procedures Referred By Kathy bowden Referred To Contact [facility] Diagnoses SHARON (obstructive sleep apnea) Procedures HOME SLEEP APNEA TEST (HSAT) SLEEP STD AIRFLOW HRT RATE&O2 SAT EFFORT UNATT Uvaldo Doss MD [address] [place] [address] [facility] [place] [address] [place] [address] Referral ID Status Reason Start Date Expiration Date Visits Requested Visits Authorized [id number] New Request Auto-Generat ed Referral 06/29/2024 06/29/2025 1 1 Additional Source Comments INFORMATION SOURCE (unrecogn ized section and content) DATE CREATED AUTHOR 09/19/2021 [facility] DATE CREATED AUTHOR AUTHOR'S ORGANIZ ATION 08/17/2023 [facility] DATE CREATED AUTHOR AUTHOR'S ORGANIZ ATION 11/09/2024 [facility] Goals (unrecognized section and content) Goals may [...] Primary Care Physician Primary Care Provider Active Dining Room Host Relationship Specialty Start Date End Date Uvaldo Doss MD [address] [place], [place] [id number] PCP - General Internal Medicine 06/29/24 Trevor Nelson MBBS [address] [facility] [place], [place] [phone] PCP Resident Internal Medicine 06/29/24 Dining Room Host Relationship Specialty Start Date End Date Uvaldo Doss MD [address] [place], [place] [id number] PCP - General Internal Medicine 06/29/24 Trevor Nelson MBBS [address] [place], [place] [phone] PCP Resident Internal Medicine 06/29/24 Dining Room Host Relationship Specialty Start Date End Date Uvaldo Doss MD [address] [place] [address] PCP - General Internal Medicine 06/29/24 Trevor Nelson MBBS [address] [place], [place] [phone] PCP Resident Internal Medicine 06/29/24 Dining Room Host Relationship Specialty Start Date End Date Uvaldo Doss MD [address] [place] [address] PCP - General Internal Medicine 06/29/24 Trevor Nelson MBBS [address] [place] [address] PCP Resident Internal Medicine 06/29/24 Dining Room Host Relationship Specialty Start Date End Date Uvaldo Doss MD [address] [place] [address] PCP - General Internal Medicine 06/29/24 Trevor Nelson MBBS [address] [place] [address] PCP Resident Internal Medicine 06/29/24 Dining Room Host Relationship Specialty Start Date End Date Uvaldo Doss MD [address] [place] [address] PCP - General Internal Medicine 06/29/24 Trevor Nelson MBBS [address] [place], [place] [phone] PCP Resident Internal Medicine 06/29/24 Dining Room Host Relationship Specialty Start Date End Date Uvaldo Doss MD [address] [facility] [address] [address] [place] [id number] PCP - General Internal Medicine 06/29/24 Trevor Nelson MBBS [address] [place], [place] [phone] PCP Resident Internal Medicine 06/29/24 Team Status: [...] prosecute any alcohol or drug abuse patient.[facility] the event this information is protected by the Federal Confidentiality of Alcohol and Drug Abuse Patient Records regulations: The Federal rules restrict any use of the information to criminally investigate or prosecute any alcohol or drug abuse patient.[facility] the event this information is protected by the Federal Confidentiality of Alcohol and Drug Abuse Patient Records regulations: The Federal rules restrict any use of the information to criminally investigate or prosecute any alcohol or drug abuse patient.[facility] Center[facility] the event this information is protected by the Federal Confidentiality of Alcohol and Drug Abuse Patient Records regulations: The Federal rules restrict any use of the information to criminally investigate or prosecute any alcohol or drug abuse patient.[facility] Center[facility] the event this information is protected by the Federal Confidentiality of Alcohol and Drug Abuse Patient Records regulations: The Federal rules restrict any use of the information to criminally investigate or prosecute any alcohol or drug abuse patient.[facility] Center[facility] the event this information is protected by the Federal Confidentiality of Alcohol and Drug Abuse Patient Records regulations: The Federal rules restrict any use of the information to criminally investigate or prosecute any alcohol or drug abuse patient.[facility] Center[facility] the event this information is protected by the Federal Confidentiality of Alcohol and Drug Abuse Patient Records regulations: The Federal rules restrict any use of the information to criminally investigate or prosecute any alcohol or drug abuse patient.[facility] Center[facility] the event this information is protected by the Federal Confidentiality of Alcohol and Drug Abuse Patient Records regulations: The Federal rules restrict any use of the information to criminally investigate or prosecute any alcohol or drug abuse patient.[facility] Reason for Visit (unrecogniz ed section and [...] disorder (HCC) Procedures CONSULT TO PSYCHIATRY OFFICE/OUTPATIENT [facility] 60 MINUTES Uvaldo Doss MD [address] [facility] [address] [place] [address] Phone: tel: fax: Referral ID Status Reason Start Date Expiration Date Visits Requested Visits Authorized [id number] Pending Review PCP Requested Referral 06/29/2024 06/29/2025 [...] BE BASED ON THE PRIMARY CLINICAL RECORDS. [facility] [employer] [facility]. provides no warranty or guarantee of the accuracy or completeness of information in this document.
== END | disposition home or self-care (01) ==
LOC: BWCLAB 16:19
PROVIDERS: Visit Provider Obstetrics & Gynecology
DX: N91.2 Amenorrhea, unspecified (principal)
CPT/HCPCS: 36415; 84702

== ENCOUNTER → 2024-12-09 | Outpatient (CLI) | payer BC, SELFPAY ==
[2024-12-09 17:56] LABS: hCG Titer Quant., Serum 970 mIU/mL (<9 non-preg)
== END | disposition home or self-care (01) ==
LOC: LAB 16:24
PROVIDERS: Referring Provider Obstetrics & Gynecology; Visit Provider Obstetrics & Gynecology
DX: N91.2 Amenorrhea, unspecified (principal)
CPT/HCPCS: 84702

== ENCOUNTER 2024-12-11 16:29 | Emergency (ER) | payer BC, SELFPAY ==
[2024-12-11 16:29] VITALS: BP 135/88; PULSE 102; RESP 17; TEMP 36.5; O2SAT 98; BMI 39.6
--- NOTE | 2024-12-11 16:53 | EDS_ITS ---
HPI HPI - Female History of Present Illness Chief Complaint: Vag Bld, Preg Narrative Narrative: Patient is a 29-year-old female 1 molar with the rest being miscarriages who presented to the emergency department chief complaint of vaginal bleeding. She states that yesterday she started having spotting and noted that on she had her quant level checked and called her [facility] [employer] [facility]. They noted that they wanted her to have this repeated today. States that she did have a ultrasound recently but notes that her quant level was too low to see anything she states that the [facility] [employer] [facility] wants to see if her quant level is high enough to repeat the ultrasound. [facility] Medical History Gastroenteritis Nausea vomiting and diarrhea Seasonal allergies Migraines Home Medications ?Medication ?Instructions ?Recorded ?Last Taken ?Type bupropion HCl 300 mg 24 hr tablet, 300 mg PO QDAY 11/23 10/17 Unknown History extended release buspirone 15 mg tablet 15 mg PO BID 12/07/24 Unknow n History cephalexin 500 mg capsule 500 mg PO BID 5 days #10 cap s 12/11/24 Unknown Rx Allergy/AdvReac Type Severity Reaction Status Date / Time Sulfa (Sulfonamide Allergy Hives Verified 12/07/24 15:41 Antibiotics) Family History Father Hypertension Mother Hypertension Surgical History H/O wisdom tooth extraction H/O dilation and curettage Social History household members: spouse and children current occupational status: employed current occupation: Nurse - [employer] sexually active: Yes Smoking Status: Never smoker additional social history: S/O : Lavell ROS ROS ED ROS Narrative Constitutional: Denies any fevers, chills, headaches Abdomen: Complains of cramping denies any nausea vomiting diarrhea : Complains of spotting as noted above denies painful urination increased frequency of urinary Neurological: Denies numbness, weakness, tingling Musculoskeletal: Denies back pain Skin: Denies any rashes or lesions EXAM Physical Exam Narrative Exam Narrative: General: Patient was lying in bed rest comfortably did not appear to be in acute distress Head: Atraumatic, normocephalic Eyes: PERRL bilaterally, EOMI by, no conjunctival injection noted Neck: Soft, supple, trachea midline Cardiovascular: Patient tachycardic with a regular rhythm Abdomen: Soft, nondistended, no tenderness to palpation Extremities: +5/5 strength noted in the bilateral upper and lower extremities Neurological: Patient follow commands knew that she was at [facility] the year is 2024 Skin: Warm, dry, intact no rashes or lesions noted Const Vital Signs: 12/11/24 16:29 Temperature 97.7 F L Temperature Source Temporal Pulse Rate 102 H Respiratory Rate 17 Blood Pressure 135/88 H Blood Pressure Mean 103 Pulse Ox 98 Oxygen Delivery Method Room Air MDM MDM MDM Narrative Medical decision making narrative: Patient is a 29-year-old female who presented to the emergency department with a chief complaint of vaginal spotting in the setting of she states that she is about 6 weeks . On the differential diagnosis includes but brennan ited to threatened miscarriage, UTI, ectopic . Once workup is obtained reviewed she will be reevaluated. Patient's HBG was noted to be normal at 12.8, patient's quant level was 1256, urinalysis showed 50 blood, 100 leukocyte esterase, 5-10 white cells with 1+ bacteria however this was likely a contaminant sample with 10-25 squamous epithelial cells she will be placed on Keflex she will be given her first dose here this will be sent for culture. I discussed case with on-call [facility] Dr. Stevenson who states that she wants her quant level repeated and 48 hours and at that point in time they will assess if they will need to do an ultrasound or not. She was advised that if she is having bleeding soaking through 1 more pad an hour for a few hours in a row then she needs to call the [facility] [employer] [facility] or return to the emergency department. I did discuss this plan with the patient she is agreeable with this plan all question concerns answered she was discharged home in stable condition. Lab Data Labs: Laboratory Results - last 24 hr 12/11/24 12/11/24 16:51 17:06 Hgb 12.8 Hct 38.6 HCG, Quant 1256 H Urine Color Yellow Urine Clarity Cloudy Urine pH 6.0 Ur Specific [place] 1.020 Urine Protein 15 H Urine Glucose (UA) Normal Urine Ketones Negative Urine Occult Blood 50 H Urine Nitrite Negative Urine Bilirubin Negative Urine Urobilinogen Normal Ur Leukocyte Esterase 100 H Urine RBC 0-5 SEEN Urine WBC 5-10 SEEN Ur Squamous Epith Cells 10-25 SEEN Urine Bacteria 1+ Hyaline Casts 0-5 SEEN Urine Mucus 0 SEEN Discharge Plan Triage Chief Complaint: Vag Bld, Preg Other Complaint: Abn Labs ED Provider: Jose Luis Rosenberg Dx/Rx/DC Orders Clinical Impression: Vaginal bleeding during , History of migraine Prescriptions: New cephalexin 500 mg capsule 500 mg PO BID 5 Days Qty: 10 0RF No Action bupropion HCl 300 mg tablet extended release 24 hr 300 mg PO QDAY buspirone 15 mg tablet 15 mg PO BID Primary Care Provider: Care Physician,No Primary Referrals: Care Physician,No Primary [Primary Care Provider] - Activity Restrictions/Additional Instructions: You will need your hCG quant level repeated again in 48 hours. Call your [facility] [employer] [facility] on Friday for this test and to follow-up in their office. If you are soaking through more than 1 pad an hour for a few hours in a row you should return to the emergency department or call your [facility] [employer] [facility]. Return with any other concerns. Your quantitative level here today was 1256. Take antibiotics as prescribed follow-up on urine culture with your [facility] [employer] [facility]. Print Language: Chinese Disposition Disposition: Home, Self Care
--- OUTSIDE RECORDS SUMMARY | 2024-12-11 17:01 | XMS RPT_ITS | CCD ---
Author Organization [facility] Care Team Providers Care School Janitor Name Role Phone Dr. Mc Delgadillo Primary Care Provider [phone] Dr. Mc Delgadillo Referring Provider [phone] SAMUEL Sherman Attending Provider Trevor Herring Unavailable [phone] Uvaldo Doss MD Primary Care Provider TREVOR NELSON Attending Unavailable ORI FUCHS, UVALDO CHOLO Primary Care Unavailable VITALY RAMOS Attending Unavailable ORI FUCHS, UVALDO CHOLO Primary Care Unavailable VITALY RAMOS Attending Unavailable ORI FUCHS, UVALDO CHOLO Primary Care Unavailable VITALY RAMOS Attending Unavailable ORI FUCHS, UVALDO CHOLO Referring Unavailable ORI FUCHS, UVALDO CHOLO Primary Care Unavailable ORI FUCHS, UVALDO CHOLO Referring Unavailable ORI FUCHS, UVALDO CHOLO Primary Care Unavailable Care Physician, No Primary Primary Care Provider Unavailable Care Physician, No Primary Referring Provider Un available Dr. Jennifer Erazo DO Attending Provider Care Physician, No Primary Primary Care Unava ilable Jennifer Erazo Attending Unavailabl e Care Physician, No Primary Referring Unava ilable Care Physician, No Primary Primary Care Unava ilable Jennifer Erazo Attending Unavailabl e Care Physician, No Primary Primary Care Unava ilable Jennifer Erazo Referring Unavailrenzo e Jennifer Erazo Attending Unavailabl e Allergies Allergy Classification Reported Allergen(s) Allergy Type Date of Onset Reaction(s) Facility (3 sources) Sulfonamides (Antibiotic); Translations: [SULFA (SULFONAMIDE ANTIBIOTICS)] Allergy to substance 3 [facility] (10 sources) Sulfonamides (Antibiotic) Drug Allergy 5 Hives, Rash [facility] (1 source) Sulfonamides (Antibiotic) Drug allergy (disorder) 5 [facility] Repository Medications Current Medications Medication Drug Class(es) Dates Sig (Normalized) Sig (Original) [id number] 200 actuat albuterol 0.09 mg/actuat metered dose inhaler (8 sources) beta2-Adrenergic Agonist Start: 06-08-2024 End: 07-08-2024 take 2 puff(s) by inhalation every six hours as needed albuterol HFA (PROVENTIL HFA, VENTOLIN HFA) 90 mcg/actuation inhaler Inhale 2 Puffs as instructed every 6 hours as needed. 06/08/2024 Active 24 hr buPROPion hydrochloride 150 mg extended release oral tablet (14 sources) Aminoketone Start: 12-10-2024 End: 12-14-2024 buPROPion XL (WELLBUTRIN XL) 150 mg 24 hr tablet Indications: Moderate episode of recurrent major depressive disorder (HCC) Take 1 tablet by mouth once daily for 4 days. Then discontinue Wellbutrin. 4 tablet 12/10/2024 12/14/2024 Active Start: 10-11-2024 End: 02-06-2025 take 1 tablet by mouth once daily buPROPion XL (WELLBUTRIN XL) 300 mg 24 hr tablet Indications: Moderate episode of recurrent major depressive disorder (HCC) Take 1 tablet by mouth once daily. 30 tablet 2 11/08/2024 12/10/2024 Discontinued Start: 09-06-2024 End: 10-06-2024 take 1 tablet [...] Discontinued busPIRone hydrochloride 15 mg oral tablet (8 sources) Start: 12-07-2024 take 1 tablet by [...] (FLONASE) 50 mcg/actuation nasal spray Use 1 Coss[place]una in the nose. 06/08/2024 07/06/2024 Active [place] (Nk) (1 source) Start: 04-18-2023 [place] (Nk) A ctive April 18, 2023 12:00am Completed/Discontinued Medications Medication Drug Class(es) Dates Sig (Normalized) Sig (Original) amoxicillin 875 mg / clavulanate 125 mg oral tablet (1 source) Penicillin-class Antibacterial Start: 04-24-2023 End: 05-04-2023 Amoxicillin-Pot Clavulanate 875-125 mg tablet Discontinued 1 {tbl} PO Q12H 20 10 0 April 24, 2023 1:00am May 03, 2023 1:00am May 04, 2023 1:04am Acute sinusitis, unspecified Ascorbic Acid (10 sources) Vitamin C End: 12-10-2024 ascorbic acid (VITAMIN C ORAL) Take by mouth. 12/10/2024 Discontinued ascorbic acid (V ITAMIN C ORAL) Take by mouth. Active azithromycin 250 mg oral tablet (2 sources) [...] 200 MG PO THREE TIMES A DAY 30 March 27, 2023 11:00pm April 18, 2023 6:24am ibuprofen 600 mg oral tablet (3 sources) Nonsteroidal Anti-inflammatory Drug Start: 04-07-2021 End: 04-18-2023 take 1 tablet by mouth every eight hours as needed for pain Ibuprofen 600 mg Tablet Discontinued 600 mg PO EVERY 8 HOURS NEEDED as needed for Pain Score 1-3 30 0 April 07, 2021 9:38am April 18, 2023 7:24am Lactobacillus acidophilus (10 sources) End: 12-10-2024 Lactobacillus acidophilus (PROBIOTIC ORAL) Take by mouth. 12/10/2024 Discontinued Lactobacillus ac idophilus (PROBIOTIC ORAL) Take by mouth. Active (3 sources) Start: 03-29-2021 End: 04-18-2023 Discontinued 1 {tbl } SL/PO DAILY March 29, 2021 12:00am April [...] 20, 2023 1:00am December 07, 2024 3:53pm sodium chloride 0.111 meq/ml nasal spray (10 sources) Start: 06-08-2024 End: 06-08-2025 sodium chloride 0.65 % nasal spray Use 1 [place] in the nose. 06/08/2024 12/10/2024 Discontinued Zinc (10 sources) End: 12-10-2024 ZINC ORAL Take by mouth. 12/10/2024 Discontinued ZINC ORAL Take b y mouth. Active Problems Active Problems Problem Classification Problem Date Documented Date Episodic/Chronic Administrative/social admission (7 sources) Patient encounter status; Translations: [Encounter for pre-employment examination] 08-01-2022 Episodic Anxiety disorders (5 sources) Generalized anxiety disorder; Translations: [Generalized anxiety disorder] Onset: 11-08-2024 09-07-2024 Chronic Menstrual disorders (2 sources) Amenorrhea, unspecified; Translations: [Amenorrhea, unspecified] Onset: 12-07-2024 Chronic Mood disorders (5 sources) Moderate recurrent major depression; Translations: [Major [...] on above: Labor Other upper respiratory infections (5 sources) Acute pharyngitis; Translations: [Acute pharyngitis, unspecified] 03-28-2023 Episodic Otitis media and related conditions [...] ; Translations: [Sleep disorder, unspecified] 11-08-2024 Episodic Residual codes; unclassified (1 source) First trimester ; Translations: [Less than 8 weeks gestation of ] 12-10-2024 Episodic Skin and subcutaneous tissue infections (3 [...] Name Value Interpretation Reference Range Facil ity hCG Titer Quant., Serumon HCG QUANT. 970 mIU/mL High <9 non-[facility] Comment on above: Result Comment: Gest ational Age 0.2-1 Week: 5-50 mIU/mL 1-2 Weeks: 50-500 mIU/mL 2-3 Weeks: 100-5000 mIU/mL 3-4 Weeks: 500-10,000 mIU/mL 4-5 Weeks:1000-50,000 mIU/mL 5-6 Weeks: 10,000-100,000 mIU/mL 6-8 Weeks: 15,000-200,000 mIU/mL 2-3 Months:10,000-100,000 mIU/mL Performed By: #### L 700.8000 #### [facility] [address] [place], [address] Electrophysiology Tech Office Visit Reporton 12-07-2024 Electrophysiology Tech Office Visit Report [facility] [address], [address] [place] [address] OFFICE VISIT Date of Service: 12/07/24 MR#: [id number] Acct: [id number] Name: ROBINSON RUFF Rep #: [id number] : 1995 Provider: Dr. Jennifer Brunson DO Age/Sex: 29/F Location: [facility] Status: Signed Intake Vital Signs 11/29/24 15:37 12/07/24 15:43 Height 5 ft 4 in 5 ft 4 in Weight: 227 lb 8 oz BMI 39.0 BP 115/84 H Intake Visit Reasons: Early OB, New, Requesting lab Chief Complaint: Early OB, Requesting HCGs Chain Builder Required: No Is patient in pain?: No Allergies Sulfa (Sulfonamide Antibiotics) Allergy (Verified 12/07/24 15:41) Hives Medications ???Medication ???Instructions ???Recorded ???Confirmed ???Type bupropion HCl 300 mg 24 hr tablet, 300 mg PO QDAY 12/07/24 12/07/24 History extended release buspirone 15 mg tablet 15 mg PO BID 12/07/24 12/07/24 His tory Is last menstrual period known: Yes Last Menstrual Period: 10/25/24 Post menopausal: No Patient : No : No PFSH Medical History Gastroenteritis Nausea vomiting and diarrhea Seasonal allergies Migraines Surgical History H/O wisdom tooth extraction H/O dilation and curettage Family History Father Hypertension Mother Hypertension Social History (Updated 12/07/24 @ 15:54 by Emmanuelle Reyes) household members: spouse and children current occupational status: employed current occupation: Nurse - [employer] sexually active: Yes Smoking Status: Never smoker additional social history: S/O : Lavell REYES Early OB, New, Requesting lab Details: ROBINSON RUFF is a 29 year old who presents for discussion about home test and history of molar . She thinks she is about 6 weeks 1 day since her last period. She states that she has a hard time keep her pregnancies but gets easily. 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 She moved to [place] recently . Female Reproductive History Last Menstrual Period: 10/25/24 History 4 Elective abortions Hx Para 1 Spontaneous abortions 2 Hx # Term Pregnancies 1 Ectopic pregnancies Hx # Pregnancies Multiple births # of living children 1 ROS Const ROS Unobtainable: All systems reviewed are unremarkable except as noted in H Resp Resp: Reports system reviewed and no additional complaints, except as documented; Denies cough GI GI: Reports as per HPI Psych Psych: Reports system reviewed and no additional complaints, except as documented Exam Const General: cooperative, healthy appearing, comfortable and no acute distress Resp Effort Inspection: normal respiratory effort General: bimanual renal exam normal bilaterally External Female Exam: normal appearance of the urethra Urethra: normal appearance of the urethra Speculum Exam - Vagina: normal appearance of the vagina Speculum Exam - Cervix: normal appearance of the cervix Bimanual Exam- Adnexa, other: normal adnexae and normal Pelvic Support: normal Other: ultrasound shows a small endometrial cyst vs a tiny gestational sac that is less than 2mm. No yolk sac or pole seen. Ovaries are not easily visualized. Skin General: no rashes or lesions noted Psych Appearance: grossly normal Speech and Movement: speech and movement normal Coding Level of Care Code Off vis,torito,level 4 Diagnoses History of molar Z87.59 Recurrent loss N96 Assessment and Plan Assessment and Plan (1) History of molar : Status: Acute (2) Recurrent loss: Status: Acute Orders: Orders hCG Titer Quant., Serum Today N91.2 - Amenorrhea, unspecified hCG Titer Quant., Serum 07/17/25 N91.2 - Amenorrhea, unspecified Plan no visualized on exam today. will order quants x 2 and call with results. ectopic precautions discussed. 12/07/24 1713 Date [facility]: Date (if applicable) CC: Normal [facility] hCG Titer Quant., Serumon HCG QUANT. 637 mIU/mL High <9 non-preg [facility] Comment on above: Result Comment: Gest ational Age 0.2-1 Week: 5-50 mIU/mL 1-2 Weeks: 50-500 mIU/mL 2-3 Weeks: 100-5000 mIU/mL 3-4 Weeks: 500-10,000 mIU/mL 4-5 Weeks:1000-50,000 mIU/mL 5-6 Weeks: 10,000-100,000 mIU/mL 6-8 Weeks: 15,000-200,000 mIU/mL 2-3 Months:10,000-100,000 mIU/mL Performed By: #### L 700.8000 #### [facility] [address] [place], [address] [facility] 10-12-2024 [facility] Telephone (KATIEMAC) ROBINSON RUFF ([id number]) 1995 F Date Time Provider Department 10/12/24 UVALDO DOSS During your visit today, we [...] ready for her to schedule. Marlena Arroyo, Forwarder Operator October 12, 2024 11:58 AM Allergies As of Date: 10/12/2024 Noted Allergy Reaction SULFA (SULFONAMIDE ANTIBIOTICS) 06/29/2024 4 - Hives 2 - Rash Date Reviewed: 06/29/2024 Reviewed by: Cholo Douglass, MYAH - Fully Assessed Reason for Visit: sleep [...] chloride 0.65 % nasal spray Use 1 [place] in the nose. - ZINC ORAL Take by mouth. - ascorbic acid (VITAMIN C ORAL) Take by mouth. - Lactobacillus acidophilus (PROBIOTIC ORAL) Take by mouth. Problem List As Of Date: 10/12/2024 (None) Encounter Status:Closed by MARLENA ARROYO on 10/12/24 [facility] 07-13-2024 [facility] Telephone (JONATHAN) ROBINSON RUFF ([id number]) 1995 F Date Time Provider Department 07/13/24 UVALDO DOSS During your visit today, we recorded the following information about you: Floridalma Adams 07/13/2024 9:56 AM Signed Called patient LVM, and sent message to patient to call our office to schedule August, or October follow up appointment. Dr. Nelson is on PTO in September Floridalma Adams Forwarder Operator I July 13, 2024 9:56 AM Allergies [...] chloride 0.65 % nasal spray Use 1 [place] in the nose. - ZINC ORAL Take by mouth. - ascorbic acid (VITAMIN C ORAL) Take by mouth. - Lactobacillus acidophilus (PROBIOTIC ORAL) Take by mouth. - buPROPion SR (WELLBUTRIN SR) 100 mg 12 hr tablet Take 1 tablet by mouth two times a day. Problem List As Of Date: 07/13/2024 (None) Encounter Status:Closed by FLORIDALMA ADAMS on 07/13/24 Normal [facility] CBC panel Auto (Bld)on 06-29 Erythrocyte distribution width (RBC) [Ratio] 13.7 % 11.5 - 15.0 % [facility] Hematocrit (Bld) [Volume fraction] 43.9 % 36.0 - 46.0 % [facility] Hemoglobin (Bld) [Mass/Vol] 14.1 g/dL 11.5 - 15.5 g/dL [facility] Interpretation and review of laboratory results Abnormal [facility] MCH (RBC) [Entitic mass] 27.2 pg 26.0 - 34.0 pg [facility] MCHC (RBC) [Mass/Vol] 32.1 g/dL 30.5 - 36.0 g/dL [facility] MCV (RBC) [Entitic vol] 84.6 fL 80.0 - 100.0 fL [facility] Nucleated RBC (Bld) [#/Vol] NINF [facility] Platelet mean volume (Bld) [Entitic vol] 9.4 fL 9.0 - 12.7 fL [facility] Platelets (Bld) [#/Vol] 398 10*3/uL [facility] RBC (Bld) [#/Vol] 5.19 10*6/uL 3.90 - 5.2 0 m/uL [facility] WBC (Bld) [#/Vol] 11.97 10*3/uL [facility] Erythrocyte distribution width (RBC) [Ratio] 13.7 % Normal 11.5-15.0 [facility] Comment on above: Order Comment: Speci men Type: BLOOD SPECIMEN Ordering Facility: [facility] Address: [address] [place] [address] Performed By: #### 5 8410-2 #### [facility] CLIA [id number] [address] STATES OF [facility] Hematocrit (Bld) [Volume fraction] 43.9 % Normal 36.0-46.0 [facility] Comment on above: Order Comment: Isidroi men Type: BLOOD SPECIMEN Ordering Facility: [facility] Address: [address] [place] [address] Performed By: #### 5 8410-2 #### [facility] CLIA [id number] [address] [place] Hemoglobin (Bld) [Mass/Vol] 14.1 g/dL Normal 11.5-15.5 [facility] Comment on above: Order Comment: Speci men Type: BLOOD SPECIMEN Ordering Facility: [facility] Address: [address] [place] [address] Performed By: #### 5 8410-2 #### [facility] CLIA [id number] [address] [place] MCH (RBC) [Entitic mass] 27.2 pg Normal 26.0-34.0 [facility] Comment on above: Order Comment: Speci men Type: BLOOD SPECIMEN Ordering Facility: [facility] Address: [address] [place] [address] Performed By: #### 5 8410-2 #### [facility] CLIA [id number] [address] MCHC (RBC) [Mass/Vol] 32.1 g/dL Normal 30.5-36.0 [facility] Comment on above: Order Comment: Speci men Type: BLOOD SPECIMEN Ordering Facility: [facility] Address: [address] [place] [address] Performed By: #### 5 8410-2 #### [facility] CLIA [id number] [address] MCV (RBC) [Entitic vol] 84.6 fL Normal 80.0-100.0 [facility] Comment on above: Order Comment: Speci men Type: BLOOD SPECIMEN Ordering Facility: [facility] Address: [address] [place] [address] Performed By: #### 5 8410-2 #### [facility] CLIA [id number] [address] Nucleated RBC (Bld) [#/Vol] 10*3/uL Normal <0.01 [facility] Comment on above: Order Comment: Speci men Type: BLOOD SPECIMEN Ordering Facility: [facility] Address: [address] [place] [address] Performed By: #### 5 8410-2 #### [facility] CLIA [id number] [address] Platelet mean volume (Bld) [Entitic vol] 9.4 fL Normal 9.0-12.7 [facility] Comment on above: Order Comment: Speci men Type: BLOOD SPECIMEN Ordering Facility: [facility] Address: [address] [place] [address] Performed By: #### 5 8410-2 #### [facility] CLIA [id number] [address] Platelets (Bld) [#/Vol] 398 10*3/uL Normal 150-400 [facility] Comment on above: Order Comment: Terrell barahona Type: BLOOD SPECIMEN Ordering Facility: [facility] Address: [address] [place] [address] Performed By: #### 5 8410-2 #### [facility] CLIA [id number] [address] RBC (Bld) [#/Vol] 5.19 10*6/uL Normal 3.90-5.20 [facility] Comment on above: Order Comment: Isidroi men Type: BLOOD SPECIMEN Ordering Facility: [facility] Address: [address] [place] [address] Performed By: #### 5 8410-2 #### [facility] CLIA [id number] [address] WBC (Bld) [#/Vol] 11.97 10*3/uL High 3.70-11.00 [facility] Comment on above: Order Comment: Terrell barahona Type: BLOOD SPECIMEN Ordering Facility: [facility] Address: [address] [place] [address] Performed By: #### 5 8410-2 #### [facility] CLIA [id number] [address] CNOVon 06-29-2024 CNOV Office Visit (AGINTMAC) ROBINSON RUFF ([id number]) 1995 F Date Time Provider Department 06/29/24 10:20 AM TREVOR NELSON AGJAVIER During your visit today, we recorded the following information about you: Temperature Pulse Respiration Blood pressure 97.6 degrees 87/minute 18/minute 134/72 Weight Height Last Period 101.6 kg 1.575 m 06/24/24 Trevor Nelson MBBS 06/29/2024 2:28 PM Signed [facility] BRENDA Perez ASSESSMENT/PLAN: 1. Moderate [...] to follow-up with her primary care in [facility] but since her insurance has changed she comes in for establishing care at [facility]. She has not been taking any [...] (FLONASE) 50 mcg/actuation nasal spray Use 1 [place]oss[place] in the nose. (Patient not taking: Reported on 06/29/2024) sodium chloride 0.65 % nasal spray Use 1 [place] in the nose. (Patient not taking: Reported [...] difficulty urin (more content not included)... Normal [facility] ROBINSON RUFF ([id number]) 1995 F Date Time Provider Department 06/29/24 TREVOR NELSON [employer] During your visit today, we recorded the following information about you: Fabiola Najera 06/29/2024 11:49 AM Signed Referral to psychiatry entered into the [facility] portal on 06/29/24. Confirmation number [id number]. Allergies As of Date: 06/29/2024 Noted Allergy Reaction SULFA (SULFONAMIDE ANTIBIOTICS) 06/29/2024 4 - Hives 2 - Rash Date Reviewed: 06/29/2024 Reviewed by: Cholo Douglass LPN - Fully Assessed Reason for Visit: Referral Information [[id number]] Cmt: Psychiatry Prescriptions as of 06/29/2024 - albuterol HFA (PROVENTIL HFA, VENTOLIN HFA) 90 mcg/actuation inhaler Inhale 2 Puffs as instructed every 6 hours as needed. - fluticasone (FLONASE) 50 mcg/actuation nasal spray Use 1 [place] in the nose. - sodium chloride 0.65 % nasal spray Use 1 [place] in the nose. - ZINC ORAL Take by mouth. - ascorbic acid (VITAMIN C ORAL) Take by mouth. - Lactobacillus acidophilus (PROBIOTIC ORAL) Take by mouth. - buPROPion SR (WELLBUTRIN SR) 100 mg 12 hr tablet Take 1 tablet by mouth two times a day. Problem List As Of Date: 06/29/2024 (None) Encounter Status:Closed by FABIOLA NAJERA on 06/29/24 Normal [facility] Comprehensive metabolic 2000 panelon 06-29-2024 Albumin [Mass/Vol] 4.5 g/dL 3.9 - 4.9 g/dL [facility] ALP [Catalytic activity/Vol] 52 U/L 34 - 123 U/L [facility] ALT With P-5'-P [Catalytic activity/Vol] 14 U/L 7 - 38 U/L [facility] Anion gap [Moles/Vol] 14 mmol/L 8 - 15 mmol/L [facility] AST With P-5'-P [Catalytic activity/Vol] 19 U/L 13 - 35 U/L [facility] Bilirubin [Mass/Vol] 0.4 mg/dL 0.2 - 1.3 mg/dL [facility] Calcium [Mass/Vol] 9.5 mg/dL 8.5 - 10. 2 mg/dL [facility] Chloride [Moles/Vol] 103 mmol/L 98 - 107 mmol/L [facility] CO2 [Moles/Vol] 22 mmol/L 22 - 30 mmol/L [facility] Creatinine [Mass/Vol] 0.63 mg/dL 0.58 - 0.96 mg/dL [facility] GFR/1.73 sq M.predicted among non-blacks MDRD (S/P/Bld) [Vol rate/Area] 126 mL/min/{1.73_m2} - PINF [facility] Comment on above: Estimated Glomerular Filtration [...] [Mass/Vol] 99 mg/dL 74 - 99 mg/dL [facility] Comment on above: The [place] Diab[employer] Association (ADA) provides guidance for [...] Standards of Medical Care in Diabetes 2016, [place] [employer]. Diabetes Care. 2016.39(Suppl 1). Interpretation and review of laboratory results Normal [facility] Potassium [Moles/Vol] 4.3 mmol/L 3.7 - 5.1 mmol/L [facility] Protein [Mass/Vol] 7.4 g/dL 6.3 - 8.0 g/dL [facility] Sodium [Moles/Vol] 139 mmol/L 136 - 144 mmol/L [facility] Urea nitrogen [Mass/Vol] 12 mg/dL 7 - 21 mg/dL [facility] Albumin [Mass/Vol] 4.5 g/dL Normal 3.9-4.9 [facility] Comment on above: Order Comment: Terrell barahona Type: BLOOD SPECIMEN Ordering Facility: [facility] Address: [address] [place] [address] Performed By: #### 2 4323-8, 18366-5 #### [facility] CLIA [id number] [address] ALP [Catalytic activity/Vol] 52 U/L Normal 34-123 [facility] Comment on above: Order Comment: Terrell barahona Type: BLOOD SPECIMEN Ordering Facility: [facility] Address: [address] [place] [address] Performed By: #### 2 4323-8, 35188-9 #### [facility] CLIA [id number] [address] STATES OF [facility] ALT With P-5'-P [Catalytic activity/Vol] 14 U/L Normal 7-38 [facility] Comment on above: Order Comment: Terrell barahona Type: BLOOD SPECIMEN Ordering Facility: [facility] Address: [address] [place] [address] Performed By: #### 2 4323-8, 35671-4 #### [facility] CLIA [id number] [address] Anion gap [Moles/Vol] 14 mmol/L Normal 8-15 [facility] Comment on above: Order Comment: Speci men Type: BLOOD SPECIMEN Ordering Facility: [facility] Address: [address] [place] [address] Performed By: #### 2 4323-8, 07949-9 #### [facility] CLIA [id number] [address] [place] AST With P-5'-P [Catalytic activity/Vol] 19 U/L Normal 13-35 [facility] Comment on above: Order Comment: Speci men Type: BLOOD SPECIMEN Ordering Facility: [facility] Address: [address] [place] [address] Performed By: #### 2 4323-8, 92051-2 #### [facility] CLIA [id number] [address] [place] [address] [place] Bilirubin [Mass/Vol] 0.4 mg/dL Normal 0.2-1.3 [facility] Comment on above: Order Comment: Speci men Type: BLOOD SPECIMEN Ordering Facility: [facility] Address: [address] [place] [address] Performed By: #### 2 4323-8, 67832-3 #### [facility] CLIA [id number] [address] [place] Calcium [Mass/Vol] 9.5 mg/dL Normal 8.5-10.2 [facility] Comment on above: Order Comment: Speci men Type: BLOOD SPECIMEN Ordering Facility: [facility] Address: [address] [place] [address] Performed By: #### 2 4323-8, 24690-9 #### [facility] CLIA [id number] [address] [place] [address] [place] Chloride [Moles/Vol] 103 mmol/L Normal 98-107 [facility] Comment on above: Order Comment: Speci men Type: BLOOD SPECIMEN Ordering Facility: [facility] Address: [address] [place] [address] Performed By: #### 2 4323-8, 89128-1 #### [facility] CLIA [id number] [address] [place] [address] [place] CO2 [Moles/Vol] 22 mmol/L Normal 22-30 [facility] Comment on above: Order Comment: Speci men Type: BLOOD SPECIMEN Ordering Facility: [facility] Address: [address] [place] [address] Performed By: #### 2 4323-8, 36868-2 #### [facility] CLIA [id number] [address] [place] Creatinine [Mass/Vol] 0.63 mg/dL Normal 0.58-0.96 [facility] Comment on above: Order Comment: Isidroi men Type: BLOOD SPECIMEN Ordering Facility: [facility] Address: [address] [place] [address] Performed By: #### 2 4323-8, 46347-9 #### [facility] CLIA [id number] [address] Creatinine and Glomerular filtration rate.predicted panel (S/P/Bld) 126 mL/min/1.73m??? Normal >=60 [facility] Comment on above: Order Comment: Speci men Type: BLOOD SPECIMEN Ordering Facility: [facility] Address: [address] [place] [address] Result Comment: Tamanna mated Glomerular Filtration Rate [...] actual GFR. Performed By: #### 2 4323-8, 20958-9 #### [facility] CLIA [id number] [address] [place] Glucose [Mass/Vol] 99 mg/dL Normal 74-99 [facility] Comment on above: Order Comment: Isidroi men Type: BLOOD SPECIMEN Ordering Facility: [facility] Address: [address] [place] [address] Result Comment: The [place] Diabetes Association (ADA) provides guidance for cutoff [...] Standards of Medical Care in Diabetes 2016, [place] [employer] Association. Diabetes Care. 2016.39(Suppl 1). Performed By: #### 2 4323-8, 43038-4 #### [facility] CLIA [id number] [address] [place] [address] [place] Potassium [Moles/Vol] 4.3 mmol/L Normal 3.7-5.1 [facility] Comment on above: Order Comment: Speci men Type: BLOOD SPECIMEN Ordering Facility: [facility] Address: [address] [place] [address] Performed By: #### 2 4328, #### [facility] CLIA [id number] [address] [place] [address] [place] Protein [Mass/Vol] 7.4 g/dL Normal 6.3-8.0 [facility] Comment on above: Order Comment: Speci men Type: BLOOD SPECIMEN Ordering Facility: [facility] Address: [address] [place] [address] Performed By: #### 2 4328, 76820-5 #### [facility] CLIA [id number] [address] [place] [address] [place] Sodium [Moles/Vol] 139 mmol/L Normal 136-144 [facility] Comment on above: Order Comment: Speci men Type: BLOOD SPECIMEN Ordering Facility: [facility] Address: [address] [place] [address] Performed By: #### 2 4328, 40652-8 #### [facility] CLIA [id number] [address] [place] [address] [place] Urea nitrogen [Mass/Vol] 12 mg/dL Normal 7-21 [facility] Comment on above: Order Comment: Terrell barahona Type: BLOOD SPECIMEN Ordering Facility: [facility] Address: [address] [place] [address] Performed By: #### 2 4323-8, 73438-5 #### [facility] CLIA [id number] [address] [place] [address] [place] HbA1c (Bld)on 06-29-2024 Average glucose Estimated from glycated hemoglobin (Bld) [Mass/Vol] 111 mg/dL Normal [facility] Comment on above: Order Comment: Terrell barahona Type: BLOOD SPECIMEN Ordering Facility: [facility] Address: [address] [place] [address] Result Comment: eAG: (Estimated average glucose) is a calculated value from HgbA1c and is patient relations representative of the average blood glucose level in the last 2-3 month period. Performed By: #### 5 5454-3 #### [facility] CLIA [id number] [address] [place] [address] [place] HbA1c (Bld) [Mass fraction] 5.5 % Normal 4.3-5.6 [facility] Comment on above: Order Comment: Terrell barahona Type: BLOOD SPECIMEN Ordering Facility: [facility] Address: [address] [place] [address] Result Comment: Amer ican Diabetes Association guidelines indicate that patients with HgbA1c in the range 5.7-6.4% are at increased risk for development of diabetes, and intervention by lifestyle modification may be beneficial. HgbA1c greater or equal to 6.5% is considered diagnostic of diabetes. Performed By: #### 5 5454-3 #### [facility] CLIA [id number] [address] [place] [address] [place] Lipid 1996 panelon Cholesterol [Mass/Vol] 185 mg/dL NINF - 200 mg/dL [facility] Comment on above: <200 mg/dL, Desirabl e 200-239 mg/dL, Borderline high >239 mg/dL, High Cholesterol in HDL [Mass/Vol] 41 mg/dL 39 - PINF mg/dL [facility] Comment on above: 40-59 mg/dL, Accepta ble >59 mg/dL, High: Negative risk factor for coronary heart disease <40 mg/dL, Low: Positive risk factor for coronary heart disease Cholesterol in LDL [Mass/Vol] 126 mg/dL High NINF - 100 mg/dL [facility] Comment on above: <100 mg/dL, Optimal 100-129 mg/dL, Near optimal/above optimal 130-159 mg/dL, Borderline high 160-189 mg/dL, High >189 mg/dL, Very high Secondary prevention optimal LDL Cholesterol levels are recommended to be < 70 mg/dL Cholesterol in LDL/Cholesterol in HDL [Mass ratio] 3.07 {ratio} High NINF - 2.54 [facility] Comment on above: Reference: 1. National Cholesterol Education Program ATP III Guideline At-A-Glance Quick Desk Reference: National Heart, Lung, and Blood [place]. National Institutes of Health. 2001: NIH Publication No. 01-3305. 2. An International Atherosclerosis Society position paper: global recommendations for the management of dyslipidemia: executive summary, Atherosclerosis. 2014: 232(2):410-413. Cholesterol in VLDL [Mass/Vol] 18 mg/dL NINF - 30 mg/dL [facility] Cholesterol non HDL [Mass/Vol] 144 mg/dL High NINF - 130 mg/dL [facility] Comment on above: <130 mg/dL, Optimal 130-159 mg/dL, Near optimal/above optimal 160-189 mg/dL, Borderline high 190-219 mg/dL, High >219 mg/dL, Very high Secondary prevention optimal non HDL Cholesterol levels are recommended to be <100 mg/dL Cholesterol.total/Ch olesterol in HDL [Mass ratio] 4.51 {ratio} NINF - 5.10 [facility] Fasting Time 10 hrs [facility] Interpretation and review of laboratory results Abnormal [facility] Triglyceride [Mass/Vol] 92 mg/dL NINF - 150 mg/dL [facility] Comment on above: <150 mg/dL, Normal 150-199 mg/dL, Borderline high 200-499 mg/dL, High >499 mg/dL, Very high Cholesterol [Mass/Vol] 185 mg/dL Normal <200 [facility] Comment on above: Order Comment: Isidroi men Type: BLOOD SPECIMEN Ordering Facility: [facility] Address: [address] [place] [address] Result Comment: <200 mg/dL, Desirable 200-239 mg/dL, Borderline high >239 mg/dL, High Performed By: #### 2 4323-8, 74115-8 #### [facility] CLIA [id number] [address] [place] Cholesterol in HDL [Mass/Vol] 41 mg/dL Normal >39 [facility] Comment on above: Order Comment: Isidroi men Type: BLOOD SPECIMEN Ordering Facility: [facility] Address: [address] [place] [address] Result Comment: 40-5 9 mg/dL, Acceptable >59 mg/dL, High: Negative risk factor for coronary heart disease <40 mg/dL, Low: Positive risk factor for coronary heart disease Performed By: #### 2 4323-8, 65455-5 #### [facility] CLIA [id number] [address] [place] Cholesterol in LDL [Mass/Vol] 126 mg/dL High <100 [facility] Comment on above: Order Comment: Terrell barahona Type: BLOOD SPECIMEN Ordering Facility: [facility] Address: [address] [place] [address] Result Comment: <100 mg/dL, Optimal 100-129 mg/dL, Near optimal/above optimal 130-159 mg/dL, Borderline high 160-189 mg/dL, High >189 mg/dL, Very high Secondary prevention optimal LDL Cholesterol levels are recommended to be < 70 mg/dL Performed By: #### 2 4323-8, 49419-1 #### [facility] CLIA [id number] [address] [place] Cholesterol in LDL/Cholesterol in HDL [Mass ratio] 3.07 {ratio} High <2.54 [facility] Comment on above: Order Comment: Isidroi men Type: BLOOD SPECIMEN Ordering Facility: [facility] Address: [address] [place] [address] Result Comment: Calvin kumari: 1. National Cholesterol Education Program ATP III Guideline At-A-Glance Quick Desk Reference: National Heart, Lung, and Blood [place]. National Institutes of Health. 2001: NIH Publication No. 01-3305. 2. An International Atherosclerosis Society position paper: global recommendations for the management of dyslipidemia: executive summary, Atherosclerosis. 2014: 232(2):410-413. Performed By: #### 2 4323-8, 64717-6 #### [facility] CLIA [id number] [address] OF [facility] Cholesterol in VLDL [Mass/Vol] 18 mg/dL Normal <30 [facility] Comment on above: Order Comment: Speci men Type: BLOOD SPECIMEN Ordering Facility: [facility] Address: [address] [place] [address] Performed By: #### 2 4323-8, 51293-9 #### [facility] CLIA [id number] [address] [place] Cholesterol non HDL [Mass/Vol] 144 mg/dL High <130 [facility] Comment on above: Order Comment: Terrell barahona Type: BLOOD SPECIMEN Ordering Facility: [facility] Address: [address] [place] [address] Result Comment: <130 mg/dL, Optimal 130-159 mg/dL, Near optimal/above optimal 160-189 mg/dL, Borderline high 190-219 mg/dL, High >219 mg/dL, Very high Secondary prevention optimal non HDL Cholesterol levels are recommended to be <100 mg/dL Performed By: #### 2 4323-8, 38146-7 #### [facility] CLIA [id number] [address] Cholesterol.total/Ch olesterol in HDL [Mass ratio] 4.51 {ratio} Normal <5.10 [facility] Comment on above: Order Comment: Isidroi men Type: BLOOD SPECIMEN Ordering Facility: [facility] Address: [address] [place] [address] Performed By: #### 2 4323-8, 37940-9 #### [facility] CLIA [id number] [address] STATES OF [facility] FASTING TIME 10 hrs Normal [facility] Comment on above: Order Comment: Speci men Type: BLOOD SPECIMEN Ordering Facility: [facility] Address: [address] [place] [address] Performed By: #### 2 4323-8, 36346-6 #### [facility] CLIA [id number] [address] Triglyceride [Mass/Vol] 92 mg/dL Normal <150 [facility] Comment on above: Order Comment: Speci men Type: BLOOD SPECIMEN Ordering Facility: [facility] Address: [address] [place] [address] Result Comment: <150 mg/dL, Normal 150-199 mg/dL, Borderline high 200-499 mg/dL, High >499 mg/dL, Very high Performed By: #### 2 4323-8, 57357-6 #### [facility] CLIA [id number] [address] STATES OF [facility] No Panel Informationon 06-29 [facility] Basophil percentageon 2021 Bilirubin [Mass/Vol] 0.50 mg/dL 0.20-1.00 [facility] Work Phone: Comment on above: For patients on eltr ombopag therapy, use of Dimension [place] TBIL is not recommended. Chloride [Moles/Vol] 106 mmol/L 98-107 [facility] Work Phone: Glucose [Mass/Vol] 103 mg/dL 74-106 [facility] Work Phone: Comment on above: Fasting Glucose resu lt from 100 to 125 mg/dL suggests IMPAIRED HOMEOSTASIS per A.D.A. criteria. Potassium [Moles/Vol] 3.9 mmol/L 3.5-5.1 [facility] Work Phone: Protein [Mass/Vol] 7.8 g/dL 6.4-8.2 [facility] Work Phone: Sodium [Moles/Vol] 137 mmol/L 136-145 [facility] Work Phone: Laboratory - Chemistry and C hemistry - challengeon 03-13-2022 ALP [Catalytic activity/Vol] 61 U/L 45-117 [facility] Work Phone: ALT [Catalytic activity/Vol] 31 U/L 13-56 [facility] Work Phone: CO2 [Moles/Vol] 24.0 mmol/L 21.0-32.0 [facility] Work Phone: Globulin (S) [Mass/Vol] 3.9 g/dL 2.2-4.2 [facility] Work Phone: Urea nitrogen/Creatinine [Mass ratio] 19.9 mg/mg 10 [facility] Work Phone: No Panel Informationon 03-13 Estimated GFR (MDRD) Amer 131 mL/min >60 [facility] Work Phone: Comment on above: GFR Calc Estimated GFR (MDRD) Non-Af Amer 108 mL/min >60 [facility] Work Phone: Comment on above: Non- GFR Calc Thyroid Stimulating Hormone (TSH) 1.06 uIU/mL 0.358-3.74 [facility] Work Phone: Serum or plasma albumin estrella urement (mass/volume)on 03-13-2022 Albumin [Mass/Vol] 3.9 g/dL 3.2-5.0 [facility] Work Phone: Serum or plasma albumin/glob ulin mass ratioon 03-13-2022 Albumin/Globulin [Mass ratio] 1.0 {ratio} 0.9-2.4 [facility] Work Phone: Serum or plasma calcium estrella urement (mass/volume)on 03-13-2022 Calcium [Mass/Vol] 9.1 mg/dL 8.5-10.1 [facility] Work Phone: Serum or plasma creatinine m easurement (mass/volume)on 03-13-2022 Creatinine [Mass/Vol] 0.70 mg/dL 0.55-1.02 [facility] Work Phone: Comment on above: The validity of the calculated GFR & GFRAA in patients over 70 years has not been determined. Clinical correlation is essential. Serum or plasma urea nitroge n measurement (mass/volume)on 03-13-2022 Urea nitrogen [Mass/Vol] 14 mg/dL - [facility] Work Phone: Thin prep Papanicolaou smear with manual screeningon 03-13-2022 Thin prep Papanicolaou smear with manual screening 18 U/L 15-37 [facility] Work Phone: Thin prep Papanicolaou smear with manual screening 7 10-07 [facility] Work Phone: CNCOon 09-17-2021 [facility] Letter Text Normal [facility] Vital Signs Date Time Vital Sign Value Performing Clinician Facility 12-07-2024 15:43-0400 Body height 162.56 cm No Primary Care Physician [facility] 12-07-2024 15:43-0400 Body mass index (BMI) [Ratio] 39 kg/m2 No Primary Care Physician [facility] 12-07-2024 15:43-0400 Body weight 103.19 kg No Primary Care Physician [facility] 12-07-2024 15:43-0400 Diastolic blood pressure 84 mm[Hg] No Primary Care Physician [facility] 12-07-2024 15:43-0400 Systolic blood pressure 115 mm[Hg] No Primary Care Physician [facility] 06-29-2024 10:51-0500 Body height 157.5 cm Trevor GUTIERREZ Work Phone: [facility] 06-29-2024 10:51-0500 Body mass index (BMI) [Ratio] 40.97 kg/m2 Trevor GUTIERREZ Work Phone: [facility] 06-29-2024 10:51-0500 Body temperature 97.59 [degF] Trevor GUTIERREZ Work Phone: [facility] 06-29-2024 10:51-0500 Body weight 101.61 kg Davelinda Sinai MBBS Work Phone: [facility] 06-29-2024 10:51-0500 Diastolic blood pressure 72 mm[Hg] Trevor Nelson MBBS Work Phone: [facility] 06-29-2024 10:51-0500 Heart rate 87 /min Trevor Nelson MBBS Work Phone: [facility] 06-29-2024 10:51-0500 Respiratory rate 18 /min Daveshirleycaitlyn Sinai MBBS Work Phone: [facility] 06-29-2024 10:51-0500 SaO2% (BldA) [Mass fraction] 99 % Davelinda Nelson MBBS Work Phone: [facility] 06-29-2024 10:51-0500 Systolic blood pressure 134 mm[Hg] Trevor Nelson MBBS Work Phone: [facility] 04-18-2023 07:48-0500 Diastolic blood pressure 80 mm[Hg] Dr. Mc Delgadillo Work Phone: [facility] 04-18-2023 07:48-0500 Heart rate 82 /min Dr. Mc Delgadillo Work Phone: [facility] 04-18-2023 07:48-0500 Respiratory rate 16 /min Dr. Mc Delgadillo Work Phone: [facility] 04-18-2023 07:48-0500 SaO2% (BldA) [Mass fraction] 99 % Dr. Mc Delgadillo Work Phone: [facility] 04-18-2023 07:48-0500 Systolic blood pressure 131 mm[Hg] Dr. cM Delgadillo Work Phone: [facility] 04-18-2023 06:20-0500 Body height 162.[address] Mc Delgadillo Work Phone: [facility] 04-18-2023 06:20-0500 Body mass index (BMI) [Ratio] 39.9 kg/m2 Dr. Mc Delgadillo Work Phone: [facility] 04-18-2023 06:20-0500 Body temperature 97.6 [degF] Dr. Mc Delgadillo Work Phone: [facility] 04-18-2023 06:20-0500 Body weight 105.[address] Mc Delgadillo Work Phone: [facility] 03-28-2023 07:32-0400 Body temperature 98.2 [degF] Dr. Mc Delgadillo Work Phone: [facility] 03-28-2023 07:32-0400 Diastolic blood pressure 83 mm[Hg] Dr. Mc Delgadillo Work Phone: [facility] 03-28-2023 07:32-0400 Heart rate 102 /min Dr. Mc Delgadillo Work Phone: [facility] 03-28-2023 07:32-0400 Respiratory rate 17 /min Dr. Mc Delgadillo Work Phone: [facility] 03-28-2023 07:32-0400 SaO2% (BldA) [Mass fraction] 98 % Dr. Mc Delgadillo Work Phone: [facility] 03-28-2023 07:32-0400 Systolic blood pressure 126 mm[Hg] Dr. Mc Delgadillo Work Phone: [facility] Encounters Encounter Date Encounter Type Care Provider Facility Start: 12-10-2024 End: 12-10-2024 [facility] Vitaly Ramos PA-C Work Phone: [facility] ([place]) Comment on above: Moderate episode of recurrent major depressive disorder (HCC) (Primary Dx); IVON (generalized anxiety disorder); Less than 8 weeks gestation of (HCC) Start: 12-09-2024 ambulatory No Primary Car e Physician Facility:[facility] Start: 12-07-2024 End: 12-07-2024 ambulatory No Primary Care Physician -[facility] Start: 12-07-2024 End: 12-07-[address] Jennifer Erazo DO [facility] Work Phone: Start: 12-03-2024 End: 12-09-2024 ambulatory Vitaly Claburn PA-C Work Phone: [facility] ([place]) Start: 12-03-2024 End: 12-09-2024 Patient encounter procedure Vitaly Claburn PA-C Work Phone: [facility] ([place]) Comment on above: Wellbutrin Start: 11-08-2024 End: 11-08-2024 Refill Vitaly Claburn PA-C Work Phone: [facility] ([place]) Comment on above: Med Change Request Start: 11-08-2024 End: 11-08-2024 Distance Health Vitaly Claburn PA-C Work Phone: [facility] ([place]) Comment on above: Moderate episode of recurrent major depressive disorder (HCC) (Primary Dx); IVON (generalized anxiety disorder); Attention and concentration deficit; Sleep difficulties Start: 10-25-2024 End: 10-29-2024 ambulatory Vitaly Claburn PA-C Work Phone: [facility] ([place]) Start: 10-25-2024 End: 10-29-2024 Patient encounter procedure Vitaly Claburn PA-C Work Phone: [facility] ([place]) Comment on above: Buspar Start: 10-11-2024 End: 10-11-2024 ambulatory VITALY CLABURN Facility:[facility] Start: 09-06-2024 End: 09-06-2024 E-mail encounter from caregiver Vitaly Claburn PA-C Work Phone: [facility] ([place]) Start: 09-06-2024 End: 09-06-2024 Patient encounter procedure Vitaly Claburn PA-C Work Phone: [facility] Comment on above: Questionnaire Submis job Moderate episode of recurrent major depressive disorder (HCC) (Primary Dx); Attention and concentration deficit; IVON (generalized anxiety disorder); BMI 40.0-44.9, adult (HCC) Start: 09-06-2024 End: 09-06-2024 Telemedicine consultation with patient Vitaly Ramos PA-C Work Phone: [facility] ([place]) Start: 09-06-2024 End: 09-06-2024 ambulatory VITALY RAMOS Facility:[facility] Start: 07-13-2024 End: 07-13-2024 Telephone encounter Uvaldo Doss MD Work Phone: [facility] ([facility]) Comment on above: Appointment Start: 06-29-2024 End: 06-29-2024 Telephone encounter Trevor GUTIERREZ Work Phone: [facility] ([facility]) Comment on above: Referral Information (Psychiatry) Start: 06-29-2024 End: 06-29-2024 ambulatory UVALDO DOSS Facility:[facility] Start: 06-29-2024 End: 06-29-2024 Patient encounter procedure Trevor GUTIERREZ Work Phone: [facility] ([facility]) Comment on above: Moderate episode of recurrent major depressive disorder (HCC) (Primary Dx); Screening for depression; Encounter for routine laboratory testing; SHARON (obstructive sleep apnea); Encounter for screening for lipid disorder Start: 06-29-2024 End: 06-29-2024 Patient encounter status Trevor GUTIERREZ Work Phone: [facility] Start: 06-29-2024 End: 06-29-2024 ambulatory TREVOR NELSON Facility:[facility] Start: 06-29-2024 Encounter for other specified special examinations TREVOR NELSON [facility] Start: 04-18-2023 End: 04-18-2023 Emergency department patient visit Dr. Mc Delgadillo Work Phone: [facility] Work Phone: Start: 03-28-2023 End: 03-28-[address] Mc Delgadillo Work Phone: [facility] Work Phone: Start: 03-13-2022 End: 03-13-2022 ambulatory [facility] Work Phone: Start: 03-13-2022 End: 03-13-2022 Patient encounter procedure [facility] [place] [facility] Date Procedure Procedure Detail Performing Clinician Start: 06-29-2024 Adult depression screening assessment Trevor GUTIERREZ Work Phone: Plan of Treatment Date Care Activity Detail Author Start: 06-29-2025 Anxiety Screening Anxiety Screening [facility] Start: 06-29-2025 Depression Screening Depression Scre ening [facility] Start: 06-14-2025 RSV Vaccine (1 - Ris k 1-dose series) RSV Vaccine (1 - Risk 1-dose series) [facility] Start: 02-07-2025 End: 02-07-2025 Follow-up encounter 02/07/2025 9:30 AM EDT [facility] [place]) [address] [place] [address] Vitaly Ramos PA-C [address] [place], [place] [phone] follow up [facility] [place]) Comment on above: follow up Start: 01-24-2025 Influenza vaccination Influenza Vacc ine (#1) [facility] Start: 01-07-2025 End: 01-07-2025 Follow-up encounter 01/07/2025 1:00 PM EDT [facility] ([place]) [address] [place] [address] Vitaly Ramos PA-C [address] [place], [place] [id number] follow up [facility] ([place]) Comment on above: follow up Start: 12-20-2024 End: 12-20-2024 Patient encounter procedure 12/20/2024 3:00 PM EDT Office Visit [facility] ([facility]) [address] [facility] [address] [place] [address] Trevor Nelson MBBS [address] [place], [place] [phone] Upper back pain [facility] ([facility]) Comment on above: Upper back pain Start: 12-10-2024 End: 12-10-2024 Distance Health 12/10/2024 1:30 PM EDT [facility] (Jose) [address] [place], [place] [address] Vitaly Ramos PA-C [address], [place] [address] Moderate episode of recurrent major depressive disorder (HCC) (Primary Dx); Attention and concentration deficit; IVON (generalized anxiety disorder) [facility] (Jose) Comment on above: Moderate episode of recurrent major depressive disorder (HCC) (Primary Dx); Attention and concentration deficit; IVON (generalized anxiety disorder) Start: 12-07-2024 Choriogonadotropin ( test) [Presence] in Serum or Plasma [facility] Start: 11-08-2024 End: 11-08-2024 Follow-up encounter 11/08/2024 9:30 AM EDT [facility] (Jose) [address] [place], [place] [address] Vitaly Ramos PA-C [address], [place] [address] follow up [facility] (Jose) Comment on above: follow up Start: 10-04-2024 End: 10-04-2024 Follow-up encounter 10/04/2024 11:30 AM EDT [facility] General Behavioral Medicine (Jose) [address] [place], [place] [id number] Vitaly Ramos PA-C [address], [place] [address] follow up [facility] Behavioral Medicine (Jose) Comment on above: follow up Start: 09-06-2024 End: 09-06-2024 [facility] 09/06/2024 10:00 AM EDT [facility]al Medicine (Jose) [address] [place], [place] [id number] Vitaly Ramos PA-C [address], [place] [id number] Moderate episode of recurrent major depressive disorder (HCC) [F33.1 (ICD-10-CM)] [facility] Behavioral Medicine (Jose) Comment on above: Moderate episode of recurrent major depressive disorder (HCC) [F33.1 (ICD-10-CM)] Start: 06-29-2024 End: 09-28-2024 Hemoglobin A1c in Blood [facility] Work Phone: Comment on above: Expected: 06/29/2024 , Expires: 09/28/2024 Start: 01-25-2024 Covid-19 Vaccine () Covid-19 Vaccine () [facility] Start: 04-18-2023 Streptococcus pyogen es antigen assay Group A Streptococcus Rapid Screen [facility] Start: 04-18-2023 [facility] Start: 2018 Screening for malign ant neoplasm of cervix Cervical Cancer Screening [facility] Start: 2015 Hepatitis C screening Hepatitis C Sc reening [facility] Start: 2015 HIV screening HIV Screening [facility] Start: 2012 HPV Vaccine (1 - 3-d ose series) HPV Vaccine (1 - 3-dose series) [facility] Start: 2011 Peds To Adult Transi tion Annual Assessment Peds To Adult Transition Annual Assessment [facility] Start: 2009 Peds To Adult Transi tion Initial Discussion Peds To Adult Transition Initial Discussion [facility] Start: 2008 Urine microalbumin profile DTa P,Tdap,Td Vaccine (6 - Tdap) [facility] End: 06-29-2025 HOME SLEEP APNEA TEST (HSAT) HOME SLEEP APNEA TEST (HSAT) Procedures Routine SHARON (obstructive sleep apnea) 1 Occurrences starting 06/29/2024 until 06/29/2025 [facility] Comment on above: 1 Occurrences starti ng 06/29/2024 until 06/29/2025 Patient Education ED Pharyngitis, Viral [facility] Work Phone: Patient referral [facility] Work Phone: Immunizations Immunization Date Immunization Notes Care Provider [facility] 03-26-2024 influenza, seasonal, injectable, preservative free Trevor GUTIERREZ Work Phone: [facility] 03-26-2024 influenza virus vacc ine, unspecified formulation Vitaly Ramos PA-C Work Phone: [facility] 09-10-2021 tuberculin skin test ; purified protein derivative solution, intradermal Trevor GUTIERREZ Work Phone: [facility] 08-18-2021 COVID-19 original vaccine, age 12+ yr, monovalent (PFIZER-BIONTECH - RODRIGUEZ TOP) Trevor GUTIERREZ Work Phone: [facility] 07-19-2021 COVID-19 original vaccine, age 12+ yr, monovalent (PFIZER-BIONTECH - RODRIGUEZ TOP) Trevor GUTIERREZ Work Phone: [facility] 08-16-2002 diphtheria, tetanus toxoids and acellular pertussis vaccine, unspecified formulation Trevor GUTIERREZ Work Phone: [facility] 08-16-2002 measles, mumps and rubella virus vaccine Trevor GUTIERREZ Work Phone: [facility] 08-16-2002 poliovirus vaccine, inactivated Deeven [facility] [employer] Work Phone: [facility] 11-01-1998 diphtheria, tetanus toxoids and acellular pertussis vaccine, unspecified formulation Deeven [facility] [employer] Work Phone: [facility] 11-01-1998 haemophilus influenz ae type b vaccine, HbOC conjugate Deeven [facility] [employer] Work Phone: [facility] 07-19-1998 measles, mumps and rubella virus vaccine Deeven [facility] [employer] Work Phone: [facility] 01-23-1998 diphtheria, tetanus toxoids and acellular pertussis vaccine, unspecified formulation Deeven [facility] [employer] Work Phone: [facility] 01-23-1998 haemophilus influenz ae type b vaccine, conjugate unspecified formulation Deeven [facility] [employer] Work Phone: [facility] 01-23-1998 hepatitis B vaccine, pediatric or pediatric/adolescent dosage Deeven [facility] [employer] Work Phone: [facility] 01-23-1998 trivalent poliovirus vaccine, live, oral Deeven [facility] [employer] Work Phone: [facility] 1997 diphtheria, tetanus toxoids and acellular pertussis vaccine, unspecified formulation Deeven [facility] [employer] Work Phone: [facility] 1997 haemophilus influenz ae type b vaccine, conjugate unspecified formulation [facility] [employer] Work Phone: [facility] 1997 trivalent poliovirus vaccine, live, oral Deeven [facility] [employer] Work Phone: [facility] 1997 diphtheria, tetanus toxoids and acellular pertussis vaccine, unspecified formulation Deeven [facility] [employer] Work Phone: [facility] 1997 haemophilus influenz ae type b vaccine, PRP-OMP conjugate Deeven [facility] [employer] Work Phone: [facility] 1997 hepatitis B vaccine, pediatric or pediatric/adolescent dosage Deeven [facility] [employer] Work Phone: [facility] 1997 trivalent poliovirus vaccine, live, oral Davelinda Sinai GUTIERREZ Work Phone: [facility] 1997 hepatitis B vaccine, pediatric or pediatric/adolescent dosage Trevor GUTIERREZ Work Phone: [facility] Payers Date Payer Category Payer Self-pay [id number] 2024 [employer] Blue [employer] BLUE CARD PPO OOS [id number] 2024 Unknown [id number] 2024 Private Health Insurance [id number] 2024 Unknown [id number] Unknown ANTHEM [id number] Unknown [facility] COMMUNITY PLAN [id number] Unknown [facility] COMMUNITY PLAN [id number] Unknown [id number] Unknown [id number] Unknown [id number] Social History Date Type Detail Facility Start: 08-02-2021 End: 04-18-2023 Tobacco smoking status NHIS Unknown if ever smoked [facility] Start: 04-21-2020 None [facility] Start: 04-21-2020 Alone [facility] Start: 1995 Sex Assigned At Female [facility] Start: 06-29-2024 End: 12-07-2024 Tobacco smoking status NHIS Never smoked tobacco [facility] Start: 06-29-2024 Tobacco use and exposure Smokeless tobacco non-user [facility] Start: 06-29-2024 End: 12-10-2024 Alcoholic beverage intake Current drinker of alcohol (finding) [facility] Start: 06-29-2024 End: 07-13-2024 History of Social function [facility] Start: 06-29-2024 End: 07-13-[address] [facility] Health 123ities [facility] Has the [employer], tarpipe, or [employer] threatened to shut off services in your home in past 12Mo No [facility] Are you now , , , , never or living with a partner? [facility] How often to you hav e a drink containing alcohol? Never [facility] How many standard drinks containing alcohol do you have on a typical day? Patient does not drink [facility] Do you feel stress - tense, restless, nervous, or anxious, or unable to sleep at night because your mind is troubled all the time - these days [OSQ] Rather much [facility] (I/We) worried wheleslie er (my/our) food would run out before (I/we) got money to buy more. Never true [facility] Start: 06-29-2024 Alcohol [facility] Start: 06-25-2024 Gender identity Identifies as female gender (finding) [facility] Start: 06-29-2024 Sexual orientation Heterosexual (odette pike) [facility] Start: 11-16-2024 [facility] Clinical Notes 06-29-2024 to 12-10-2024 Patient InstructionsClVitaly weldon PA-C - 12/10/2024 1:30 PM EDTPatient InstructionsVitaly Ramos PA-C - 11/08/2024 9:29 AM EDTPatient Instructions Note Date & Type Note Facility 12-10-2024 Instructions Vitaly Ramos PA-C - 12/10/2024 2:13 PM EDT Visit Instructions: - Please call front office assistant at [phone] to schedule your next appointment in 4 weeks. -please feel free to call us with any questions or concerns - If you need help with NeuroDerm access please call: NeuroDerm Support at: [phone] - Please take all medications as directed. [...] Help: or 211 Crisis Emergency Lifeline-Suicide Prevention: 7-628-518-TALK (5191) MARISELA (National [place] on Mental Illness): . Info referral line: If you or someone you know needs support now, call or text 087 or chat 988lifeline.org Vitaly Ramos PA-C documented in this encounter [facility] 12-10-2024 History of Presen t illness Narrative [facility] BEHAVIORAL MEDICINE PROGRESS NOTE PATIENT: Robinson Ruff MRD: [id number] DATE: December 10, 2024 This is a virtual visit. It [...] by her PCP, Dr. Doss. CHIEF COMPLAINT: Newly , to discuss medications. SUBJECTIVE: Robinson presents for follow up appointment; last seen November 08, 2024. Appointment moved up as she is currently . November 27 found out . Estimating around five weeks gestation. Estimated due date August 09. Presently feeling stressed and nervous. Feeling more anxious, overwhelmed than depression. Seventh : two children, two miscarriages, one molar . Next OB f/u is December 31. Receiving care through [facility]. No prior obstetric complications. Taking Wellbutrin and Buspar. Did not notice benefits from medications previously tried including Zoloft, Lexapro. Just entered fourth term of school; 20 weeks left, will be completely done in April. Work hours reduced to around 8-16 hours a week. Review of Systems Constitutional: Positive for malaise/fatigue. Negative for fever and weight loss. Respiratory: Negative for shortness [...] drink on special occasions. Denies any other substance use. VITAL SIGNS: LMP 06/24/2024 (Exact Date) LAB DATA: Last lab data 06/29/24. RATING SCALES: Patient Data Generalized Anxiety Disorder [...] suicide risk level: Medication management, therapy referral PDMP website checked and validated. All prescriptions have been APPROPRIATELY filled. No suspicious activity was identified. 12/10/2024 by Vitaly Ramos PA-C ASSESSMENT/PLAN: 1. Moderate episode of recurrent major depressive disorder (HCC) - ICD9: 296.32, ICD10: F33.1 (primary diagnosis) - Reviewed considerations and potential risks for Wellbutrin - Will discontinue Wellbutrin for now - Reduce to 150 mg for four days then stop - BUPROPION XL 150 MG TAB 2. IVON (generalized anxiety disorder) - ICD9: 300.02, ICD10: F41.1 - Reviewed considerations and potential risks for Buspar - Continue Buspar 7.5 mg bid 3. Less than 8 weeks gestation of (HCC) - ICD9: V22.2, ICD10: Z3A.01 - Self-reporting of approximately five weeks gestation - Follow up with [facility] - Follow up in 4 weeks Vitaly Ramos PA-C Patient understands and agrees with the plan: Yes Total time in direct patient contact = 30 min. Greater than 50% of the time was spent in counseling and/or coordination of care. Electronically signed by Vitaly Ramos PA-C December 10, 2024 1400 documented in this encounter [facility] 11-08-2024 Instructions Vitaly Ramos PA-C - 11/08/2024 9:45 AM EDT Visit Instructions: - Please call front office assistant at [phone] to schedule your next appointment in 3 months. -please feel free to call us with any questions or concerns - If you need help with NeuroDerm access please call: NeuroDerm Support at: [phone] - Please take all medications as directed. [...] Help: or 211 Crisis Emergency Lifeline-Suicide Prevention: 8-643-765-TALK (5156) MARISELA (National [place] on Mental Illness): . Info referral line: If you or someone you know needs support now, call or text 927 or chat 988TUTORizeline.[email or web address] Vitaly Ramos PA-C documented in this encounter [facility] 11-08-2024 Note HNO ID: [id number] Author: VITALY RAMOS PA-C Service: ? Author Type: Physician Light Coil Winder Type: Progress Notes Filed: 11/08/2024 09:49 Note Text: [facility]ICINE PROGRESS NOTE PATIENT: Robinson Ruff MRD: [id number] DATE: November 08, 2024 This is a [...] enjoys. 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 Review of Systems Constitutional: Negative for fever, [...] by Vitaly Ramos PA-C November 08, 2024 [facility] 11-08-2024 History of Presen t illness Narrative [facility]AL MEDICINE PROGRESS NOTE PATIENT: Robinson Ruff MRD: [id number] DATE: November 08, 2024 This is a [...] enjoys. 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 Review of Systems Constitutional: Negative for fever, [...] November 08, 2024 documented in this encounter [facility] 10-11-2024 Note HNO ID: [id number] Author: VITALY RAMOS PA-C Service: ? Author Type: Physician [employer] Winder Type: Progress Notes Filed: 10/12/2024 11:50 Note Text: [facility]ICINE PROGRESS NOTE PATIENT: Robinson Ruff MRD: [id number] DATE: October 11, 2024 This is a [...] Ramos PA-C October 11, 2024 9:07 AM [facility] 09-07-2024 Instructions Vitaly Ramos PA-C - 09/07/2024 10:32 AM EDT Visit Instructions: [email or web address] Email: [email or web address] / - Please call front office assistant at [phone] to schedule your next appointment in 4 weeks. -please feel free to call us with any questions or concerns - If you need help with NeuroDerm access please call: NeuroDerm Support at: [phone] - Please take all medications as directed. [...] medication if rash or itching develop. Call [phone] if you experience short of breath, wheezing, difficulty breathing, or swelling in your throat or airway. Recommended Community Resources: Crisis/Emergency 24-Hour Mental Health and Crisis Line for Adults and Children: Crisis Emergency First Call for Help: or 211 Crisis Emergency Lifeline-Suicide Prevention: 4-218-372-TALK (4322) MARISELA (National [place] on Mental Illness): . Info referral line: If you or someone you know needs support now, call or text 779 or chat [employer] Vitaly Ramos PA-C documented in this encounter [facility] 09-06-2024 Telephone encounter Note Summary: [employer] message Questionnaires [facility] 09-06-2024 Miscellaneous Notes Summary: [employer] message Questionnaires documented in this encounter [facility] 09-06-2024 Note HNO ID: [id number] Author: VITALY RAMOS PA-C Service: ? 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 She relies on her grandmother, and occasionally her mother for support. Pt endorses that Math and Colombian were hard growing up. She still gets [...] SOCIAL HISTORY: Born and raised: Born in [place] but relocated to [place] when she was young. Came back to [place] 3 years ago. Childhood: 2nd grade her mother met her erbeccad. He got a different job in [place] so the family relocated and she has been there until 4 years ago. 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 Children: Two children (son age 3 and daughter age 7) Living Situation: Living [facility] in [place] with her kids and her . Weapons: None Legal History: None SUBSTANCE ABUSE HISTORY: Drank alcohol when she was 23 but does not drink often now. Seldom has a drink on special occasions. Denies (more content not included)... [facility] 09-06-2024 History of Presen t illness Narrative Summary: Assessment Images from the original note were not included. 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 She relies on her grandmother, and occasionally her mother for support. Pt endorses that Math and Colombian were hard growing up. She still gets [...] SOCIAL HISTORY: Born and raised: Born in [place] but relocated to [place] when she was young. Came back to [place] 3 years ago. Childhood: 2nd grade her mother met her rick. He got a different job in [place] so the family relocated and she has been there until 4 years ago. 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 Children: Two children (son age 3 and daughter age 7) Living Situation: Living in a duplex in [place] with her kids and her . Weapons: [...] chloride 0.65 % nasal spray Use 1 Cossayuna in the nose. (Patient not taking: Reported [...] Moderate or Serious response Ramírez Screening 09/06/2024 [facility] DETAIL REVIEW 1.Have any of your closest [...] Adult ADHD Self Report Scale Questionnaire: Wender Megan Rating Scale 3. IVON (generalized anxiety disorder) [...] 2024 9:56 AM documented in this encounter [facility] 07-13-2024 Telephone encounter Note Called patient LVM, and sent message to patient MC to call our office to schedule August, or October follow up appointment. Dr. Nelson is on PTO in September Floridalma Adams Forwarder Operator I July 13, 2024 9:56 AM [facility] 07-13-2024 Miscellaneous Notes Called patient LVM, and sent message to patient MC to call our office to schedule August, or October follow up appointment. Dr. Nelson is on PTO in September Floridalma Adams Forwarder Operator I July 13, 2024 9:56 AM documented in this encounter [facility] 06-30-2024 Note HNO ID: [id number] Author: UVALDO DOSS MD Service: ? Author Type: Physician Type: Progress Notes Filed: 06/30/2024 18:46 Note Text: Attending Note I discussed with resident on day of the visit. The patient was not examined by the attending. I reviewed the resident's note. I agree with the resident's assessment and plan unless otherwise noted. Signature: Uvaldo Doss MD Date: 06/30/2024. Time: 6:46 PM [facility] 06-29-2024 Telephone encounter Note Referral to psychiatry entered into the [facility] portal on 06/29/24. Confirmation number [id number]. [facility] 06-29-2024 Miscellaneous Notes Referral to psychiatry entered into the [facility] portal on 06/29/24. Confirmation number [id number]. documented in this encounter [facility] 06-29-2024 Note HNO ID: [id number] Author: TREVOR NELSON MBBS Service: ? Author [...] to follow-up with her primary care in [facility] but since her insurance has changed she comes in for establishing care at [facility]. She has not been taking any [...] (FLONASE) 50 mcg/actuation nasal spray Use 1 Cossayuna in the nose. (Patient not taking: Reported on 06/29/2024) sodium chloride 0.65 % nasal spray Use 1 Cossayuna in the nose. (Patient not taking: Reported [...] dizziness, tremors, seizur (more content not included)... [facility] 06-29-2024 History of Presen t illness Narrative [...] V77.91, ICD10: Z13.220 - LIPID PANEL BASIC BERNDA Perez SUBJECTIVE: Robinson Ruff is a 28 year old female here today for establishing care. She used to follow-up with her primary care in [facility] but since her insurance has changed she comes in for establishing care at [facility]. She has not been taking any [...] (FLONASE) 50 mcg/actuation nasal spray Use 1 Cossayuna in the nose. (Patient not taking: Reported on 06/29/2024) sodium chloride 0.65 % nasal spray Use 1 Cossayuna in the nose. (Patient not taking: Reported [...] 2024 10:55 AM documented in this encounter [facility] Discharge summary Note Date/Time April 18, 2023 6:48am [facility] Medical Records Department [address] [place] [id number] Emergency Department Summary 04/18/23 MR#: [id number] Acct: [id number] Name: ROBINSON RUFF Rep #:[id number] : [...] History Migraines Seasonal allergies Home Medications NK 11/24/23 [History Last Taken Unknown] Allergy/AdvReac Type Severity [...] Referrals: Julien Talamantes MD [Med Staff - Salesforce Administrator] - 1 Week if not improving NOT,DEFINED [...] your Primary Care Provider. Call [facility] ([phone]) or report to the closest Emergency Room. Call 911 if necessary. 04/18/23 0745 <Electronically signed by Jalen Chrsitianson MD> Cosigner Signature (if applicable): CC: No Primary Care Physician ~ Signed [facility] Work Phone: Evaluation noteNo assessment information available [facility] Work Phone: Evaluation note* Diagnosis Onset Date Resolution Status Acute pharyngitis acute [facility] Work Phone: Evaluation note* Diagnosis Moderate episode of recurrent major depressive disorder (HCC)- Primary Screening for depression Encounter for routine laboratory testing Laboratory examination ordered as part of a routine general medical examination SHARON (obstructive sleep apnea) Obstructive sleep apnea (adult) (pediatric) Encounter for screening for lipid disorder [facility] Diagnosis Moderate episode of recurrent major depressive disorder (HCC)- Primary Attention and concentration deficit Attention or concentration deficit IVON (generalized anxiety disorder) Generalized anxiety disorder BMI 40.0-44.9, adult (HCC) Body Mass Index 40.0-44.9, adult [facility] Diagnosis Moderate episode of recurrent major depressive disorder (HCC)- Primary IVON (generalized anxiety disorder) Generalized anxiety disorder Attention and concentration deficit Attention or concentration deficit Sleep difficulties Sleep disturbance, unspecified documented in this encounter [facility] note* Diagnosis IVON (generalized anxiety disorder) Generalized anxiety disorder [facility] Diagnosis Moderate episode of recurrent major depressive disorder (HCC)- Primary IVON (generalized anxiety disorder) Generalized anxiety disorder Less than 8 weeks gestation of (HCC) state, incidental [facility] in this encounter [facility] Additional Instructions Plenty of fluids and rest. Motrin and Tylenol for pain. Warm salt water gargling. Follow-up with your doctor if not improving or return if worse.[facility] Work Phone: Reason for referral (narrative)No reason for referral information availableSt. [facility] Work Phone: Summary Purpose Family History No Family History Records Found Relationship Condition Age at Onset Recorded Date/T reji father Hypertension Unknown mother Hypertension Unknown Advance Directives No Advanced Directives Records Found Advance Directive Response Recorded Date/ Time Living Will No April 06, 2 021 8:07pm Power of Tour Leader No April 06, 2021 8:07pm Advance Directive Response Recorded Date/ Time Living Will No April 18, 2 023 6:22am Power of Tour Leader No April 18, 2023 6:22am Chief Complaint and Reason for Visit Chief Complaint Cough SORE THROAT Reason for Visit Acute pharyngitis Chief Complaint Admit Date Early OB, New, Requesting lab December 07, 2024 3:25pm Reason for Referral Specialty Diagnoses / Procedures Referred By Kathy bowden Referred To Contact Diagnoses Moderate episode of recurrent major depressive disorder (HCC) Procedures CONSULT TO PSYCHIATRY OFFICE/OUTPATIENT NEW HIGH MDM 60 MINUTES Uvaldo Doss MD [address] [facility] [address] [place] [address] Referral ID Status Reason Start Date Expiration Date Visits Requested Visits Authorized [id number] Pending Review PCP Requested Referral 06/29/2024 06/29/2025 1 1 Specialty Diagnoses / Procedures Referred By Kathy bowden Referred To [facility] Diagnoses SHARON (obstructive sleep apnea) Procedures HOME SLEEP APNEA TEST (HSAT) SLEEP STD AIRFLOW HRT RATE&O2 SAT EFFORT UNATT Uvaldo Doss MD [address] [facility] [address] [place] [address] [facility] [place] [address] [place] [address] Referral ID Status Reason Start Date Expiration Date Visits Requested Visits Authorized [id number] New Request Auto-Generat ed Referral 06/29/2024 06/29/2025 1 1 Additional Source Comments INFORMATION SOURCE (unrecogn ized section and content) DATE CREATED AUTHOR 09/19/2021 [facility] DATE CREATED AUTHOR AUTHOR'S ORGANIZ ATION [facility] DATE CREATED AUTHOR AUTHOR'S ORGANIZ ATION [facility] Goals (unrecognized section and content) Goals [...] Primary Care Physician Primary Care Provider Active School Janitor Relationship Specialty Start Date End Date Uvaldo Doss MD [address] [place] [address] PCP - General Internal Medicine 06/29/24 Trevor Nelson MBBS [address] [place] [address] PCP Resident Internal Medicine 06/29/24 School Janitor Relationship Specialty Start Date End Date Uvaldo Doss MD [address] [place] [address] PCP - General Internal Medicine 06/29/24 Trevor Nelson MBBS [address] [place] [address] PCP Resident Internal Medicine 06/29/24 School Janitor Relationship Specialty Start Date End Date Uvaldo Doss MD [address] [place] [address] PCP - General Internal Medicine 06/29/24 Trevor Nelson MBBS [address] [place] [address] PCP Resident Internal Medicine 06/29/24 School Janitor Relationship Specialty Start Date End Date Uvaldo Doss MD [address] [place] [address] PCP - General Internal Medicine 06/29/24 Trevor Nelson MBBS [address] [place] [address] PCP Resident Internal Medicine 06/29/24 School Janitor Relationship Specialty Start Date End Date Uvaldo Doss MD [address] [place] [address] PCP - General Internal Medicine 06/29/24 Trevor Nelson MBBS [address] [place] [address] PCP Resident Internal Medicine 06/29/24 School Janitor Relationship Specialty Start Date End Date Uvaldo Doss MD [address] [place] [address] PCP - General Internal Medicine 06/29/24 Trevor Nelson MBBS [address] [place] [address] PCP Resident Internal Medicine 06/29/24 School Janitor Relationship Specialty Start Date End Date Uvaldo Doss MD [address] [place] [address] PCP - General Internal Medicine 06/29/24 Trevor Nelson MBBS [address] [place] [address] PCP Resident Internal Medicine 06/29/24 Team Status: [...] December 07, 2024 Dr. Jennifer Erazo , DO Attending Provider Activ e Start: December 07, 2024 End: December 07, 2024 Team Status: Active Member Role/Relationship Status Dates No Primary Care Physician Primary Care Provider Active Start: December 07, 2024 Dr. Jennifer Erazo , DO Attending Provider Activ e Start: December 07, 2024 Source Comments (unrecognize d section and content) In the event this informatio n is protected by the Federal Confidentiality of Alcohol and Drug Abuse Patient Records regulations: The Federal rules restrict any use of the information to criminally investigate or prosecute any alcohol or drug abuse patient.[facility] the event this information is protected by the Federal Confidentiality of Alcohol and Drug Abuse Patient Records regulations: The Federal rules restrict any use of the information to criminally investigate or prosecute any alcohol or drug abuse patient.[facility] Hospital[facility] the event this information is protected by the Federal Confidentiality of Alcohol and Drug Abuse Patient Records regulations: The Federal rules restrict any use of the information to criminally investigate or prosecute any alcohol or drug abuse patient.[facility] Hospital[facility] the event this information is protected by the Federal Confidentiality of Alcohol and Drug Abuse Patient Records regulations: The Federal rules restrict any use of the information to criminally investigate or prosecute any alcohol or drug abuse patient.[facility] the event this information is protected by the Federal Confidentiality of Alcohol and Drug Abuse Patient Records regulations: The Federal rules restrict any use of the information to criminally investigate or prosecute any alcohol or drug abuse patient.[facility] the event this information is protected by the Federal Confidentiality of Alcohol and Drug Abuse Patient Records regulations: The Federal rules restrict any use of the information to criminally investigate or prosecute any alcohol or drug abuse patient.[facility] the event this information is protected by the Federal Confidentiality of Alcohol and Drug Abuse Patient Records regulations: The Federal rules restrict any use of the information to criminally investigate or prosecute any alcohol or drug abuse patient.[facility] the event this information is protected by the Federal Confidentiality of Alcohol and Drug Abuse Patient Records regulations: The Federal rules restrict any use of the information to criminally investigate or prosecute any alcohol or drug abuse patient.[facility] the event this information is protected by the Federal Confidentiality of Alcohol and Drug Abuse Patient Records regulations: The Federal rules restrict any use of the information to criminally investigate or prosecute any alcohol or drug abuse patient.[facility] HospitalIn the event this information is protected by the Federal Confidentiality of Alcohol and Drug Abuse Patient Records regulations: The Federal rules restrict any use of the information to criminally investigate or prosecute any alcohol or drug abuse patient.[facility] Reason for Visit (unrecogniz ed section and content) Reason Comments Referral Information Psychiatry Reason Comments Establish Care From [facility]. Lab request. Refill Request Previously Trintelex - not as effective. Lexapro also did not work. Buspar was better per patient. Qysima requested. Reason Comments Appointment Reason Comments Depression Specialty Diagnoses / Procedures Referred By Contfélix t Referred To Contact Diagnoses Moderate episode of recurrent major depressive disorder (HCC) Procedures CONSULT TO PSYCHIATRY OFFICE/OUTPATIENT [facility] 60 MINUTES Uvaldo Doss MD [address] [facility] [address] [place] [address] Phone: tel: fax: Referral ID Status Reason Start Date Expiration Date Visits Requested Visits Authorized [id number] Pending Review PCP Requested Referral 06/29/2024 06/29/2025 [...] BE BASED ON THE PRIMARY CLINICAL RECORDS. [employer] provides no warranty or guarantee of the accuracy or completeness of information in this document.
[2024-12-11 17:02] LABS: Hematocrit 38.6 % (37-47); Hemoglobin 12.8 g/dL (12.0-15.0)
[2024-12-11 17:09] LABS: Mucous, Urine 0 SEEN /hpf (<or=2+)
[2024-12-11 17:22] LABS: Color, Urine Yellow (Yellow); Glucose, Dipstick Normal (Normal); Ketone-Dipstick Negative (Negative); Leukocyte Esterase-Dipstick 100 /ul (Negative); Nitrite-Dipstick Negative (Negative); Occult Blood-Urine 50 /ul (Negative); Protein-Dipstick 15 mg/dl (Negative); Specific Gravity, Urine 1.020 (1.002-1.030); Urine Bilirubin Dipstick Negative (Negative)
[2024-12-11 17:34] LABS: hCG Titer Quant., Serum 1256 mIU/mL (<9 non-preg)
[2024-12-11 17:37] LABS: Red Blood Cells-Urine 0-5 SEEN /hpf (0-5); Squamous Epithelial Cells - UA 10-25 SEEN /hpf (5-10)
[2024-12-11 18:09] VITALS: BP 112/57; PULSE 79; RESP 16; TEMP 36.6; O2SAT 100
--- NOTE | 2024-12-11 18:09 | ED.RN ---
unable to send urine culture, did not have enough in sample
== END 2024-12-11 18:10 | disposition home or self-care (01) ==
PROVIDERS: Emergency Provider Emergency Medicine; Visit Provider Emergency Medicine
DX: O20.9 Hemorrhage in early pregnancy, unspecified (principal); O99.891 Other specified diseases and conditions complicating pregnancy; R82.71 Bacteriuria; O99.351 Diseases of the nervous system complicating pregnancy, first trimester; G43.909 Migraine, unspecified, not intractable, without status migrainosus; Z3A.01 Less than 8 weeks gestation of pregnancy
CPT/HCPCS: 81001; 84702; 85014; 85018; 99284; A4216

== ENCOUNTER → 2024-12-13 | Outpatient (CLI) | payer BC, SELFPAY ==
[2024-12-13 17:44] LABS: hCG Titer Quant., Serum 1627 mIU/mL (<9 non-preg)
--- OUTSIDE RECORDS SUMMARY | 2024-12-13 21:28 | XMS RPT_ITS | CCD ---
Author Organization [facility] CliniSywa Care Team Providers Care Animal Maintenance Supervisor Name Role Phone Dr. Mc Delgadillo Primary Care Provider [phone] Dr. Mc Delgadillo Referring Provider SAMUEL Sherman Attending Provider Trevor Herring Unavailable [phone] Kira Fuchs MD, Uvaldo Keyes Primary Care Provider TREVOR NELSON Attending Unavailable KIRA SHILA, UVALDO CHOLO Primary Care Unavailable VITALY RAMOS Attending Unavailable KIRA SHILA, UVALDO CHOLO Primary Care Unavailable VITALY RAMOS Attending Unavailable KIRA FUCHS, UVALDO CHOLO Primary Care Unavailable VITALY RAMOS Attending Unavailable KIRA FUCHS, UVALDO CHOLO Referring Unavailable KIRA FUCHS, UVALDO CHOLO Primary Care Unavailable KIRA FUCHS, UVALDO CHOLO Referring Unavailable KIRA FUCHS, UVALDO CHOLO Primary Care Unavailable Care [...] Primary Care Unava ilable Jennifer Erazo Referring Jennifer Garber Attending Dr. Jennifer Garber DO Referring Provider Dr. Jose Luis Rosenberg DO Emergency Provider Allergies Allergy Classification Reported Allergen(s) Allergy Type Date of Onset Reaction(s) Facility (5 sources) Sulfonamides (Antibiotic); Translations: [SULFA (SULFONAMIDE ANTIBIOTICS)] Allergy to substance 3 Hives [facility] (10 sources) Sulfonamides (Antibiotic) Drug Allergy 5 HivesFernando [facility] (1 source) Sulfonamides (Antibiotic) Drug allergy (disorder) 5 [facility] Repository Medications Current Medications Medication Drug Class(es) Dates Sig (Normalized) Sig (Original) [id number] 200 actuat albuterol 0.09 mg/actuat metered dose inhaler (8 sources) beta2-Adrenergic Agonist Start: 06-08-2024 End: 07-08-2024 take 2 puff(s) by inhalation every six hours as needed albuterol HFA (PROVENTIL HFA, VENTOLIN HFA) 90 mcg/actuation inhaler Inhale 2 Puffs as instructed every 6 hours as needed. 06/08/2024 Active 24 hr buPROPion hydrochloride 150 mg extended release oral tablet (16 sources) Aminoketone Start: 12-10-2024 End: 12-14-2024 buPROPion [...] Discontinued busPIRone hydrochloride 15 mg oral tablet (10 sources) Start: 12-07-2024 take 1 tablet by [...] a day. 60 tablet 10/11/2024 11/08/2024 Discontinued cephalexin 500 mg oral capsule (2 sources) Cephalosporin Antibacterial Start: 12-11-2024 take 1 capsule by mouth twice daily Cephalexin 500 mg capsule Active 500 mg PO TWICE A DAY 10 5 0 December 11, 2024 12:00am fluticasone propionate 0.05 mg/actuat metered dose nasal spray (2 sources) Corticosteroid Start: 06-08-2024 End: 07-06-2024 fluticasone (FLONASE) 50 mcg/actuation nasal spray Use 1 [place] in the nose. 06/08/2024 07/06/2024 Active [place] (Nk) (1 source) Start: 04-18-2023 [place] (Nk) Active April 18, 2023 12:00am Completed/Discontinued Medications Medication Drug Class(es) Dates Sig (Normalized) Sig (Original) amoxicillin 875 mg / clavulanate 125 mg oral tablet (3 sources) Penicillin-class Antibacterial Start: 04-24-2023 End: 05-04-2023 Amoxicillin-Pot [...] mouth. Active azithromycin 250 mg oral tablet (4 sources) Macrolide Antimicrobial Start: 03-28-2023 End: 04-18-2023 take 2-5 tablets by mouth once daily Azithromycin 250 mg tablet Discontinued 0 PO .COMPLEX 6 0 March 28, 2023 12:00am April 18, 2023 7:24am take 500 mg today (day 1), then 250 mg for 4 days (days 2-5) PO benzonatate 100 mg oral capsule (4 sources) Non-narcotic Antitussive Start: 03-28-2023 End: 04-18-2023 take 2 capsules by mouth three times daily as needed for cough Benzonatate 100 mg capsule Discontinued 200 mg PO THREE TIMES A DAY as needed for cough 30 0 March 28, 2023 12:00am April 18, 2023 7:24am Start: 03-28-2023 End: 04-18-2023 take 200 mg by mouth three times daily Benzonatate Discontinued 200 MG PO THREE TIMES A DAY March 27, 2023 11:00pm April 18, 2023 6:24am ibuprofen 600 mg oral tablet (5 sources) Nonsteroidal Anti-inflammatory Drug Start: 04-07-2021 End: [...] idophilus (PROBIOTIC ORAL) Take by mouth. Active (5 sources) Start: 03-29-2021 End: 04-18-2023 Discontinued 1 [...] 12:00am promethazine hydrochloride 25 mg oral tablet (3 sources) Phenothiazine Start: 06-20-2023 End: 12-07-2024 take 1 [...] chloride 0.65 % nasal spray Use 1 [place] in the nose. 06/08/2024 12/10/2024 Discontinued Zinc (10 sources) End: 12-10-2024 ZINC ORAL Take by mouth. 12/10/2024 Discontinued ZINC ORAL Take b y mouth. Active Problems Active Problems Problem Classification Problem Date Documented Date Episodic/Chronic Administrative/social admission (11 sources) Patient encounter status; Translations: [Encounter for pre-employment examination] 08-01-2022 Episodic Anxiety disorders (5 sources) Generalized anxiety disorder; Translations: [Generalized anxiety disorder] Onset: 11-08-2024 09-07-2024 Chronic Hemorrhage during ; abruptio placenta; placenta previa (2 sources) Bleeding from female genital tract during ; Translations: [Antepartum hemorrhage, unspecified, unspecified trimester] 12-11-2024 Episodic Menstrual disorders (4 sources) Amenorrhea, unspecified; Translations: [Amenorrhea] Onset: 12-07-2024 12-10-2024 Chronic Comment on above: HCG Mood disorders (5 sources) Moderate recurrent major depression; Translations: [Major depressive disorder, recurrent, moderate] Onset: 06-29-2024 06-29-2024 Chronic Nausea and vomiting (3 sources) Nausea, vomiting and diarrhea; Translations: [Nausea with vomiting, unspecified] 06-20-2023 Episodic Noninfectious gastroenteritis (3 sources) Gastroenteritis; Translations: [Noninfective gastroenteritis and colitis, unspecified] 06-20-2023 Episodic Other female genital disorders (4 sources) Recurrent miscarriage; Translations: [Recurrent loss] 12-07-2024 Episodic Other nervous system disorders (2 sources) Disturbance of attention; Translations: [Attention and concentration deficit] 09-06-2024 Chronic Other nervous system disorders (2 sources) H/O: migraine; Translations: [Personal history of other diseases of the nervous system and sense organs] 12-11-2024 Episodic Other nutritional; endocrine; and metabolic disorders (1 source) Body mass index 40+ - severely obese; Translations: [Body mass index (BMI) 40.0-44.9, adult] 09-07-2024 Chronic Other and delivery including normal (10 sources) Vaginal delivery; Translations: [Encounter for full-term uncomplicated delivery] 04-06-2021 Episodic Comment on above: Labor Other upper respiratory infections (9 sources) Acute pharyngitis; Translations: [Acute pharyngitis, unspecified] 03-28-2023 Episodic Otitis media and related conditions (3 sources) Acute right otitis media; Translations: [Otitis media, [...] 8 weeks gestation of ] 12-10-2024 Episodic Residual codes; unclassified (4 sources) History of molar ; Translations: [Personal history of other complications of , childbirth and the puerperium] 12-07-2024 Episodic Skin and subcutaneous tissue infections (5 sources) Cellulitis and abscess of chest wall ; Translations: [Abscess or cellulitis of chest wall] 04-22-2020 Episodic Sprains and strains (10 sources) Sprain of ankle; Translations: [Sprain of [...] [Screening for depression] Onset: 06-29-2024 Episodic Unclassified (5 sources) No history of clinical finding in subject; Translations: [No significant past medical history] 04-06-2021 Results Test Name Value Interpretation Reference Range Facility Bilirubin Test strip Ql (U)O rdered By: Jose Luis Rosenberg on 12-11-2024 Bilirubin Ql (U) Negative Negative [facility] Hematocrit Auto (Bld) [Volum e fraction]Ordered By: Jose Luis Rosenberg on 12-11-2024 Hematocrit (Bld) [Volume fraction] 38.6 % 37-47 [facility] Hemoglobin measurementOrdere d By: Jose Luis Rosenberg on 12-11-2024 Hemoglobin (Bld) [Mass/Vol] 12.8 g/dL 12.0-15.0 [facility] Hyaline casts LM.LPF (Urine sed) [#/Area]Ordered By: Jose Luis Rosenberg on 12-11-2024 Hyaline casts (Urine sed) [#/Area] 0 /[LPF] 0-5 [facility] Ketones Test strip Ql (U)Ord ered By: Jose Luis Rosenberg on 12-11-2024 Ketones Ql (U) Negative Negative [facility] Microscopic analysis of urin e for red blood cells (RBC)Ordered By: Jose Luis Rosenberg on 12-11-2024 Microscopic analysis of urine for red blood cells (RBC) 0-5 SEEN /hpf 0-5 [facility] Mucus LM Ql (Urine sed)Order ed By: Jose Luis Rosenberg on 12-11-2024 Mucus Ql (Urine sed) 0 SEEN /hpf [facility] Nitrite Test strip Ql (U)Ord ered By: Jose Luis Rosenberg on 12-11-2024 Nitrite Ql (U) Negative Negative [facility] Protein Test strip Ql (U)Ord ered By: Jose Luis Rosenberg on 12-11-2024 Protein Ql (U) 15 mg/dl High Negative [facility] Serum human chorionic gonado tropin detection for pregnancyOrdered By: Jose Luis Rosenberg on 12-11-2024 HCG ( test) Ql 1256 mIU/mL High <9 [facility] Comment on above: Gestational Age0.2-1 Week: 5-50 mIU/mL1-2 Weeks: 50-500 mIU/mL2-3 Weeks: 100-5000 mIU/mL3-4 Weeks: 500-10,000 mIU/mL4-5 Weeks:1000-50,000 mIU/mL5-6 Weeks: 10,000-100,000 mIU/mL6-8 Weeks: 15,000-200,000 mIU/mL2-3 Months:10,000-100,000 mIU/mL Squamous epithelial cells de tection in urine sediment by light microscopyOrdered By: Jose Luis Rosenberg on 12-11-2024 Epithelial cells.squamous LM Ql (Urine sed) 10-25 SEEN /hpf 5-10 [facility] Urine clarityOrdered By: Panda Rosenberg on 12-11-2024 Clarity (U) Cloudy Clear [facility] Urine color determinationOrd ered By: Jose Luis Rosenberg on 12-11-2024 Color (U) Yellow Yellow [facility] Urine glucose detectionOrder ed By: Jose Luis Rosenberg on 12-11-2024 Glucose Ql (U) Normal mg/dl Normal [facility] Urine leukocyte esterase det ection by dipstickOrdered By: Jose Luis Rosenberg on 12-11-2024 Leukocyte esterase Test strip Ql (U) 100 /ul High Negative [facility] Urine pHOrdered By: Jose Luis langley on 12-11-2024 pH (U) 6.0 [pH] 5.0 - 8.0 [facility] Urine sediment bacteria coun t by microscopy (number/high power field)Ordered By: Jose Luis Rosenberg on 12-11-2024 Bacteria LM.HPF (Urine sed) [#/Area] 1 /[HPF] None Seen [facility] Urine specific gravity measu rementOrdered By: Jose Luis Rosenberg on 12-11-2024 Specific gravity (U) [Rel density] 1.020 1.002-1.030 [facility] Urine urobilinogen measureme ntOrdered By: Jose Luis Rosenberg on 12-11-2024 Urobilinogen Ql (U) Normal mg/dl Normal [facility] White blood cell countOrdere d By: Jose Luis Rosenberg on 12-11-2024 White blood cell count 5-10 SEEN /hpf 0-5 [facility] Serum human chorionic gonado tropin detection for pregnancyOrdered By: Jennifer Tavera on 12-09-2024 HCG ( test) Ql 970 mIU/mL High <9 [facility] Comment on above: Gestational Age0.2-1 Week: 5-50 mIU/mL1-2 Weeks: 50-500 mIU/mL2-3 Weeks: 100-5000 mIU/mL3-4 Weeks: 500-10,000 mIU/mL4-5 Weeks:1000-50,000 mIU/mL5-6 Weeks: 10,000-100,000 mIU/mL6-8 Weeks: 15,000-200,000 mIU/mL2-3 Months:10,000-100,000 mIU/mL hCG Titer Quant., Serumon HCG QUANT. 970 mIU/mL High <9 non-preg [facility] Comment on above: Result Comment: Gest ational Age 0.2-1 Week: 5-50 mIU/mL 1-2 Weeks: 50-500 mIU/mL 2-3 Weeks: 100-5000 mIU/mL 3-4 Weeks: 500-10,000 mIU/mL 4-5 Weeks:1000-50,000 mIU/mL 5-6 Weeks: 10,000-100,000 mIU/mL 6-8 Weeks: 15,000-200,000 mIU/mL 2-3 Months:10,000-100,000 mIU/mL Performed By: #### L 700.8000 #### [facility] [address] [place], [address] Ct Scan Special Procedures Technologist Office Visit Reporton 12-07-2024 Ct Scan Special Procedures Technologist Office Visit Report [facility] [address], [address] [place] [address] OFFICE VISIT Date of Service: 12/07/24 MR#: [id number] Acct: [id number] Name: ROBINSON RUFF Rep #: [id number] : 1995 Provider: Dr. Jennifer Brunson DO Age/Sex: 29/F Location: [facility] Status: Signed Intake Vital Signs 11/29/24 15:37 12/07/24 15:43 Height 5 ft 4 in 5 ft 4 in Weight: 227 lb 8 oz BMI 39.0 BP 115/84 H Intake Visit Reasons: Early OB, New, Requesting lab Chief Complaint: Early OB, Requesting HCGs Lapping Machine Set Up Operator Required: No Is patient in pain?: [...] occupational status: employed current occupation: Nurse - [email or web address] sexually active: Yes Smoking Status: Never smoker additional social history: S/O : [place] Early OB, New, Requesting lab Details: ROBINSON RUFF is a 29 year old who presents for discussion about home test and history of molar . She thinks she is about 6 weeks 1 day since her last period. She states that she has a hard time keep her pregnancies but gets easily. 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 She moved to [place] recently . Female Reproductive History Last Menstrual [...] Coding Level of Care Code Off vis,new,level 4 Diagnoses History of molar Z87.59 Recurrent loss N96 Assessment and Plan Assessment and Plan (1) History of molar : Status: Acute (2) Recurrent loss: Status: Acute Orders: Orders hCG Titer Quant., Serum Today N91.2 - Amenorrhea, unspecified hCG Titer Quant., Serum 12/09/24 N91.2 - Amenorrhea, unspecified Plan no visualized on exam today. will order quants x 2 and call with results. ectopic precautions discussed. 12/07/24 1713 Date Jennifer Erazo DO [facility] Signature: Date (if applicable) CC: Normal [facility] Serum human chorionic gonado tropin detection for pregnancyOrdered By: Jennifer Tavera on 12-07-2024 HCG ( test) Ql 637 mIU/mL High <9 [facility] Comment on above: Gestational Age0.2-1 Week: 5-50 mIU/mL1-2 Weeks: 50-500 mIU/mL2-3 Weeks: 100-5000 mIU/mL3-4 Weeks: 500-10,000 mIU/mL4-5 Weeks:1000-50,000 mIU/mL5-6 Weeks: 10,000-100,000 mIU/mL6-8 Weeks: 15,000-200,000 mIU/mL2-3 Months:10,000-100,000 mIU/mL hCG Titer Quant., Serumon HCG QUANT. 637 mIU/mL High <9 non-preg [facility] Comment on above: Result Comment: Gest ational Age 0.2-1 Week: 5-50 mIU/mL 1-2 Weeks: 50-500 mIU/mL 2-3 Weeks: 100-5000 mIU/mL 3-4 Weeks: 500-10,000 mIU/mL 4-5 Weeks:1000-50,000 mIU/mL 5-6 Weeks: 10,000-100,000 mIU/mL 6-8 Weeks: 15,000-200,000 mIU/mL 2-3 Months:10,000-100,000 mIU/mL Performed By: #### L 700.8000 #### [facility] [address] [place], [place], [address] [facility] 10-12-2024 [facility] Telephone (JONATHAN) ---- ROBINSON RUFF ([id number]) 1995 F Date Time Provider Department 10/12/24 UVALDO DOSS During your visit today, we recorded the following information about you: Uvaldo Doss MD 10/12/2024 11:55 AM Signed Received message from Vitaly Julietaradha that patient had recently expressed concerns about [...] ready for her to schedule. Marlena Arroyo, Executive Administrative Assistant October 12, 2024 11:58 AM Allergies As [...] chloride 0.65 % nasal spray Use 1 [place] in the nose. - ZINC ORAL Take by mouth. - ascorbic acid (VITAMIN C ORAL) Take by mouth. - Lactobacillus acidophilus (PROBIOTIC ORAL) Take by mouth. Problem List As Of Date: 10/12/2024 (None) Encounter Status:Closed by MARLENA ARROYO on 10/12/24 [facility] 07-13-2024 TORIBIO Telephone (AGINTMAC) ---- ROBINSON RUFF ([id number]) 1995 F Date Time Provider Department 07/13/24 UVALDO DOSS During your visit today, we recorded the following information about you: Floridalma Adams 07/13/2024 9:56 AM Signed Called patient LVM, and sent message to patient to call our office to schedule August, or October follow up appointment. Dr. Nelson is on PTO in September Floridalma Adams Executive Administrative Assistant I July 13, 2024 9:56 AM Allergies [...] chloride 0.65 % nasal spray Use 1 [place] in the nose. - ZINC ORAL Take [...] [Ratio] 13.7 % 11.5 - 15.0 % [facility] Hematocrit (Bld) [Volume fraction] 43.9 % 36.0 - 46.0 % [facility] Hemoglobin (Bld) [Mass/Vol] 14.1 g/dL 11.5 - 15.5 g/dL [facility] Interpretation and review of laboratory results Abnormal [facility] MCH (RBC) [Entitic mass] 27.2 pg 26. 0 - 34.0 pg [facility] MCHC (RBC) [Mass/Vol] 32.1 g/dL 30.5 - 36.0 g/dL [facility] MCV (RBC) [Entitic vol] 84.6 fL 80.0 - 100.0 fL [facility] Nucleated RBC (Bld) [#/Vol] NINF [facility] Platelet mean volume (Bld) [Entitic vol] 9.4 fL 9.0 - 12.7 fL [facility] Platelets (Bld) [#/Vol] 398 10*3/uL [facility] RBC (Bld) [#/Vol] 5.19 10*6/uL 3.90 - 5.2 0 m/uL [facility] WBC (Bld) [#/Vol] 11.97 10*3/uL [facility] Erythrocyte distribution width (RBC) [Ratio] 13.7 % Normal 11.5-15.0 [facility] Comment on above: Order Comment: Speci men Type: BLOOD SPECIMEN Ordering Facility: [facility] Address: [address] [place] [address] Performed By: #### 5 8410-2 #### [facility] CLIA [id number] [address] STATES OF [facility] Hematocrit (Bld) [Volume fraction] 43.9 % Normal 36.0-46.0 [facility] Comment on above: Order Comment: Speci men Type: BLOOD SPECIMEN Ordering Facility: [facility] Address: [address] [place] [address] Performed By: #### 5 8410-2 #### [facility] CLIA [id number] [address] [place] OF [facility] Hemoglobin (Bld) [Mass/Vol] 14.1 g/dL Normal 11.5-15.5 [facility] Comment on above: Order Comment: Speci men Type: BLOOD SPECIMEN Ordering Facility: [facility] Address: [address] [place] [address] Performed By: #### 5 8410-2 #### [facility] CLIA [id number] [address] [place] MCH (RBC) [Entitic mass] 27.2 pg Normal 26.0-34.0 [facility] Comment on above: Order Comment: Speci men Type: BLOOD SPECIMEN Ordering Facility: [facility] Address: [address] [place] [address] Performed By: #### 5 8410-2 #### [facility] CLIA [id number] [address] MCHC (RBC) [Mass/Vol] 32.1 g/dL Normal 30.5-36.0 [facility] Comment on above: Order Comment: Speci men Type: BLOOD SPECIMEN Ordering Facility: [facility] Address: [address] [place] [address] Performed By: #### 5 8410-2 #### [facility] CLIA [id number] [address] MCV (RBC) [Entitic vol] 84.6 fL Normal 80.0-100.0 [facility] Comment on above: Order Comment: Speci men Type: BLOOD SPECIMEN Ordering Facility: [facility] Address: [address] [place] [address] Performed By: #### 5 8410-2 #### [facility] CLIA [id number] [address] Nucleated RBC (Bld) [#/Vol] 10*3/uL Normal <0.01 [facility] Comment on above: Order Comment: Speci men Type: BLOOD SPECIMEN Ordering Facility: [facility] Address: [address] [place] [address] Performed By: #### 5 8410-2 #### [facility] CLIA [id number] [address] Platelet mean volume (Bld) [Entitic vol] 9.4 fL Normal 9.0-12.7 [facility] Comment on above: Order Comment: Speci men Type: BLOOD SPECIMEN Ordering Facility: [facility] Address: [address] [place] [address] Performed By: #### 5 8410-2 #### [facility] CLIA [id number] [address] [place] [address] Platelets (Bld) [#/Vol] 398 10*3/uL Normal 150-400 [facility] Comment on above: Order Comment: Terrell barahona Type: BLOOD SPECIMEN Ordering Facility: [facility] Address: [address] [place] [address] Performed By: #### 5 8410-2 #### [facility] CLIA [id number] [address] OF [facility] RBC (Bld) [#/Vol] 5.19 10*6/uL Normal 3.90-5.20 [facility] Comment on above: Order Comment: Isidroi men Type: BLOOD SPECIMEN Ordering Facility: [facility] Address: [address] [place] [address] Performed By: #### 5 8410-2 #### [facility] CLIA [id number] [address] WBC (Bld) [#/Vol] 11.97 10*3/uL High 3.70-11.00 [facility] Comment on above: Order Comment: Terrell barahona Type: BLOOD SPECIMEN Ordering Facility: [facility] Address: [address] [place] [address] Performed By: #### 5 8410-2 #### [facility] CLIA [id number] [address] OF [facility] CNOVon 06-29-2024 CNOV Office Visit (AGINTMAC) ---- ROBINSON RUFF ([id number]) 1995 F Date Time Provider Department 06/29/24 10:20 AM TREVOR NELSON AGINTMAC During your visit today, we recorded the following information about you: Temperature Pulse Respiration Blood pressure 97.6 degrees 87/minute 18/minute 134/72 Weight Height Last Period 101.6 kg 1.575 m 06/24/24 Trevor Nelson MBBS 06/29/2024 2:28 PM Signed [facility] Perez ASSESSMENT/PLAN: 1. [...] to follow-up with her primary care in [facility] but since her insurance has changed she comes in for establishing care at [facility]. She has not been taking any [...] (FLONASE) 50 mcg/actuation nasal spray Use 1 [place] in the nose. (Patient not taking: Reported on 06/29/2024) sodium chloride 0.65 % nasal spray Use 1 [place] in the nose. (Patient not taking: Reported on 06/29/2024) No current facility-administer ed medications for this visit. I have confirmed [...] content not included)... Normal [facility]2024 [facility]Syn[facility] ---- ELZBIETAROBINSON ([id number]) 1995 F Date Time Provider Department 06/29/24 TREVOR NELSON During your visit today, we recorded the following information about you: Fabiola Najera 06/29/2024 11:49 AM Signed Referral to psychiatry entered into the [facility] portal on 06/29/24. Confirmation number [id number]. Allergies As of Date: 06/29/2024 Noted Allergy Reaction SULFA (SULFONAMIDE ANTIBIOTICS) 06/29/2024 4 - Hives 2 - Rash Date Reviewed: 06/29/2024 Reviewed by: Cholo Douglass, MYAH - Fully Assessed Reason for Visit: Referral Information [[id number]] Cmt: Psychiatry Prescriptions as of 06/29/2024 - albuterol HFA (PROVENTIL HFA, VENTOLIN HFA) 90 mcg/actuation inhaler Inhale 2 Puffs as instructed every 6 hours as needed. - fluticasone (FLONASE) 50 mcg/actuation nasal spray Use 1 [place] in the nose. - sodium chloride 0.65 % nasal spray Use 1 [place] in the nose. - ZINC ORAL Take [...] [Mass/Vol] 4.5 g/dL 3.9 - 4.9 g/dL [facility] ALP [Catalytic activity/Vol] 52 U/L 34 - 123 U/L [facility] ALT With P-5'-P [Catalytic activity/Vol] 14 U/L 7 - 38 U/L [facility] Anion gap [Moles/Vol] 14 mmol/L 8 - 15 mmol/L [facility] AST With P-5'-P [Catalytic activity/Vol] 19 U/L 13 - 35 U/L [facility] Bilirubin [Mass/Vol] 0.4 mg/dL 0.2 - 1 .3 mg/dL [facility] Calcium [Mass/Vol] 9.5 mg/dL 8.5 - 10. 2 mg/dL [facility] Chloride [Moles/Vol] 103 mmol/L 98 - 10 7 mmol/L [facility] CO2 [Moles/Vol] 22 mmol/L 22 - 30 mmol/L [facility] Creatinine [Mass/Vol] 0.63 mg/dL 0.58 - 0.96 mg/dL [facility] GFR/1.73 sq M.predicted among non-blacks MDRD (S/P/Bld) [Vol rate/Area] 126 mL/min/{1.73_m2} - PINF [facility] Comment on above: Estimated Glomerular [...] mg/dL 74 - 99 mg/dL [facility] Comment on above: [employer] ([employer]) provides guidance for [...] Standards of Medical Care in Diabetes 2016, [place] Diabetes Association. Diabetes Care. 2016.39(Suppl 1). Interpretation and review of laboratory results Normal [facility] Potassium [Moles/Vol] 4.3 mmol/L 3.7 - 5.1 mmol/L [facility] Protein [Mass/Vol] 7.4 g/dL 6.3 - 8.0 g/dL [facility] Sodium [Moles/Vol] 139 mmol/L 136 - 144 mmol/L [facility] Urea nitrogen [Mass/Vol] 12 mg/dL 7 - 21 mg/d L [facility] Albumin [Mass/Vol] 4.5 g/dL Normal 3.9-4.9 [facility] Comment on above: Order Comment: Terrell barahona Type: BLOOD SPECIMEN Ordering Facility: [facility] Address: [address] [place] [address] Performed By: #### 2 4323-8, 08422-6 #### [facility] CLIA [id number] [address] OF [facility] ALP [Catalytic activity/Vol] 52 U/L Normal 34-123 [facility] Comment on above: Order Comment: Terrell barahona Type: BLOOD SPECIMEN Ordering Facility: [facility] Address: [address] [place] [address] Performed By: #### 2 4323-8, 83956-8 #### [facility] CLIA [id number] [address] STATES OF [facility] ALT With P-5'-P [Catalytic activity/Vol] 14 U/L Normal 7-38 [facility] Comment on above: Order Comment: Terrell barahona Type: BLOOD SPECIMEN Ordering Facility: [facility] Address: [address] [place] [address] Performed By: #### 2 4323-8, 14690-5 #### [facility] CLIA [id number] [address] [place] Anion gap [Moles/Vol] 14 mmol/L Normal 8-15 [facility] Comment on above: Order Comment: Speci men Type: BLOOD SPECIMEN Ordering Facility: [facility] Address: [address] [place] [address] Performed By: #### 2 4323-8, 84690-5 #### [facility] CLIA [id number] [address] [place] AST With P-5'-P [Catalytic activity/Vol] 19 U/L Normal 13-35 [facility] Comment on above: Order Comment: Speci men Type: BLOOD SPECIMEN Ordering Facility: [facility] Address: [address] [place] [address] Performed By: #### 2 432-8, 28462-8 #### [facility] CLIA [id number] [address] [place] Bilirubin [Mass/Vol] 0.4 mg/dL Normal 0.2-1.3 [facility] Comment on above: Order Comment: Speci men Type: BLOOD SPECIMEN Ordering Facility: [facility] Address: [address] [place] [address] Performed By: #### 2 432-8, 32912-4 #### [facility] CLIA [id number] [address] [place] Calcium [Mass/Vol] 9.5 mg/dL Normal 8.5-10.2 [facility] Comment on above: Order Comment: Speci men Type: BLOOD SPECIMEN Ordering Facility: [facility] Address: [address] [place] [address] Performed By: #### 2 432-8, 66865-4 #### [facility] CLIA [id number] [address] [place] [address] [place] Chloride [Moles/Vol] 103 mmol/L Normal 98-107 [facility] Comment on above: Order Comment: Speci men Type: BLOOD SPECIMEN Ordering Facility: [facility] Address: [address] [place] [address] Performed By: #### 2 432-8, 25927-1 #### [facility] CLIA [id number] [address] [place] [address] [place] CO2 [Moles/Vol] 22 mmol/L Normal 22-30 [facility] Comment on above: Order Comment: Speci men Type: BLOOD SPECIMEN Ordering Facility: [facility] Address: [address] [place] [address] Performed By: #### 2 4323-8, 18904-4 #### [facility] CLIA [id number] [address] [place] Creatinine [Mass/Vol] 0.63 mg/dL Normal 0.58-0.96 [facility] Comment on above: Order Comment: Speci men Type: BLOOD SPECIMEN Ordering Facility: [facility] Address: [address] [place] [address] Performed By: #### 2 4323-8, 29875-7 #### [facility] CLIA [id number] [address] Creatinine and Glomerular filtration rate.predicted panel (S/P/Bld) 126 mL/min/1.73m??? Normal >=60 [facility] Comment on above: Order Comment: Speci men Type: BLOOD SPECIMEN Ordering Facility: [facility] Address: [address] [place] [address] Result Comment: Tamanna mated Glomerular Filtration Rate [...] actual GFR. Performed By: #### 2 4323-8, 60398-5 #### [facility] CLIA [id number] [address] [place] Glucose [Mass/Vol] 99 mg/dL Normal 74-99 [facility] Comment on above: Order Comment: Speci men Type: BLOOD SPECIMEN Ordering Facility: [facility] Address: [address] [place] [address] Result Comment: The [place] Diabetes Association (ADA) provides guidance for cutoff [...] Standards of Medical Care in Diabetes 2016, [place] Diabetes Association. Diabetes Care. 2016.39(Suppl 1). Performed By: #### 2 4323-8, 96226-0 #### [employer] [facility] CLIA [id number] 1 [place] [address] [place] Potassium [Moles/Vol] 4.3 mmol/L Normal 3.7-5.1 [facility] Comment on above: Order Comment: Speci men Type: BLOOD SPECIMEN Ordering Facility: [facility] Address: [address] [place] [address] Performed By: #### 2 4328, 44736-0 #### [facility] CLIA [id number] 1 [place] [address] [place] Protein [Mass/Vol] 7.4 g/dL Normal 6.3-8.0 [facility] Comment on above: Order Comment: Speci men Type: BLOOD SPECIMEN Ordering Facility: [facility] Address: [address] [place] [address] Performed By: #### 2 432-8, 02923-2 #### [facility] CLIA [id number] 1 [place] [address] [place] Sodium [Moles/Vol] 139 mmol/L Normal 136-144 [facility] Comment on above: Order Comment: Speci men Type: BLOOD SPECIMEN Ordering Facility: [facility] Address: [address] [place] [address] Performed By: #### 2 4328, 92233-9 #### [facility] CLIA [id number] 1 [place] [address] [place] Urea nitrogen [Mass/Vol] 12 mg/dL Normal 7-21 [facility] Comment on above: Order Comment: Terrell barahona Type: BLOOD SPECIMEN Ordering Facility: [facility] Address: [address] [place] [address] Performed By: #### 2 4323-8, 65843-9 #### [facility] CLIA [id number] 1 [place] [address] [place] HbA1c (Bld)on 06-29-2024 Average glucose Estimated from glycated hemoglobin (Bld) [Mass/Vol] 111 mg/dL Normal [facility] Comment on above: Order Comment: Terrell barahona Type: BLOOD SPECIMEN Ordering Facility: [facility] Address: [address] [place] [address] Result Comment: eAG: (Estimated average glucose) is a calculated value from HgbA1c and is guest relations representative of the average blood glucose level in the last 2-3 month period. Performed By: #### 5 5454-3 #### [facility] CLIA [id number] [address] [place] [address] [place] HbA1c (Bld) [Mass fraction] 5.5 % Normal 4.3-5.6 [facility] Comment on above: Order Comment: Terrell barahona Type: BLOOD SPECIMEN Ordering Facility: [facility] Address: [address] [place] [address] Result Comment: [place] Diabetes Association guidelines indicate that patients with HgbA1c in the range 5.7-6.4% are at increased risk for development of diabetes, and intervention by lifestyle modification may be beneficial. HgbA1c greater or equal to 6.5% is considered diagnostic of diabetes. Performed By: #### 5 5454-3 #### [facility] CLIA [id number] [address] [place] [address] [place] Lipid 1996 panelon Cholesterol [Mass/Vol] 185 mg/dL NINF - 200 mg/dL [facility] Comment on above: <200 mg/dL, Desirabl e 200-239 mg/dL, Borderline high >239 mg/dL, High Cholesterol in HDL [Mass/Vol] 41 mg/dL 39 - PINF mg/dL [facility] Comment on above: 40-59 mg/dL, Accepta ble >59 mg/dL, High: Negative risk factor for coronary heart disease <40 mg/dL, Low: Positive risk factor for coronary heart disease Cholesterol in LDL [Mass/Vol] 126 mg/dL High NINF - 100 mg/dL [facility] Comment on above: <100 mg/dL, Optimal 100-129 mg/dL, Near optimal/above optimal 130-159 mg/dL, Borderline high 160-189 mg/dL, High >189 mg/dL, Very high Secondary prevention optimal LDL Cholesterol levels are recommended to be < 70 mg/dL Cholesterol in LDL/Cholesterol in HDL [Mass ratio] 3.07 {ratio} High NINF - 2.54 [facility] Comment on above: Reference: 1. National Cholesterol Education Program ATP III Guideline At-A-Glance Quick Desk Reference: National Heart, Lung, and Blood [place]. National Institutes of Health. 2001: NIH Publication No. 01-3305. 2. An International Atherosclerosis Society position paper: global recommendations for the management of dyslipidemia: executive summary, Atherosclerosis. 2014: 232(2):410-413. Cholesterol in VLDL [Mass/Vol] 18 mg/dL NINF - 30 mg/dL [facility] Cholesterol non HDL [Mass/Vol] 144 mg/dL High NINF - 130 mg/dL [facility] Comment on above: <130 mg/dL, Optimal 130-159 mg/dL, Near optimal/above optimal 160-189 mg/dL, Borderline high 190-219 mg/dL, High >219 mg/dL, Very high Secondary prevention optimal non HDL Cholesterol levels are recommended to be <100 mg/dL Cholesterol.total/Cholest brigitte in HDL [Mass ratio] 4.51 {ratio} NINF - 5.10 [facility] Fasting Time 10 hrs [facility] Interpretation and review of laboratory results Abnormal [facility] Triglyceride [Mass/Vol] 92 mg/dL NINF - 150 mg/dL [facility] Comment on above: <150 mg/dL, Normal 150-199 mg/dL, Borderline high 200-499 mg/dL, High >499 mg/dL, Very high Cholesterol [Mass/Vol] 185 mg/dL Normal <200 [facility] Comment on above: Order Comment: Terrell men Type: BLOOD SPECIMEN Ordering Facility: [facility] Address: [address] [place] [address] Result Comment: <200 mg/dL, Desirable 200-239 mg/dL, Borderline high >239 mg/dL, High Performed By: #### 2 4323-8, 46163-2 #### [facility] CLIA [id number] [address] [place] Cholesterol in HDL [Mass/Vol] 41 mg/dL Normal >39 [facility] Comment on above: Order Comment: Terrell men Type: BLOOD SPECIMEN Ordering Facility: [facility] Address: [address] [place] [address] Result Comment: 40-5 9 mg/dL, Acceptable >59 mg/dL, High: Negative risk factor for coronary heart disease <40 mg/dL, Low: Positive risk factor for coronary heart disease Performed By: #### 2 4323-8, 95262-2 #### [facility] CLIA [id number] [address] [place] Cholesterol in LDL [Mass/Vol] 126 mg/dL High <100 [facility] Comment on above: Order Comment: Terrell barahona Type: BLOOD SPECIMEN Ordering Facility: [facility] Address: [address] [place] [address] Result Comment: <100 mg/dL, Optimal 100-129 mg/dL, Near optimal/above optimal 130-159 mg/dL, Borderline high 160-189 mg/dL, High >189 mg/dL, Very high Secondary prevention optimal LDL Cholesterol levels are recommended to be < 70 mg/dL Performed By: #### 2 4323-8, 43163-5 #### [facility] CLIA [id number] [address] [place] Cholesterol in LDL/Cholesterol in HDL [Mass ratio] 3.07 {ratio} High <2.54 [facility] Comment on above: Order Comment: Terrell men Type: BLOOD SPECIMEN Ordering Facility: [facility] Address: [address] [place] [address] Result Comment: Calvni kumari: 1. National Cholesterol Education Program ATP III Guideline At-A-Glance Quick Desk Reference: National Heart, Lung, and Blood [place]. National Institutes of Health. 2001: NIH Publication No. 01-3305. 2. An International Atherosclerosis Society position paper: global recommendations for the management of dyslipidemia: executive summary, Atherosclerosis. 2014: 232(2):410-413. Performed By: #### 2 4323-8, 00207-0 #### [facility] CLIA [id number] [address] [place] Cholesterol in VLDL [Mass/Vol] 18 mg/dL Normal <30 [facility] Comment on above: Order Comment: Terrell barahona Type: BLOOD SPECIMEN Ordering Facility: [facility] Address: [address] [place] [address] Performed By: #### 2 432-8, 93801-7 #### [facility] CLIA [id number] [address] [place] Cholesterol non HDL [Mass/Vol] 144 mg/dL High <130 [facility] Comment on above: Order Comment: Terrell barahona Type: BLOOD SPECIMEN Ordering Facility: [facility] Address: [address] [place] [address] Result Comment: <130 mg/dL, Optimal 130-159 mg/dL, Near optimal/above optimal 160-189 mg/dL, Borderline high 190-219 mg/dL, High >219 mg/dL, Very high Secondary prevention optimal non HDL Cholesterol levels are recommended to be <100 mg/dL Performed By: #### 2 432-8, 11403-3 #### [facility] CLIA [id number] [address] OF [facility] Cholesterol.total/Cholest brigitte in HDL [Mass ratio] 4.51 {ratio} Normal <5.10 [facility] Comment on above: Order Comment: Terrell barahona Type: BLOOD SPECIMEN Ordering Facility: [facility] Address: [address] [place] [address] Performed By: #### 2 4323-8, 99190-0 #### [facility] CLIA [id number] [address] STATES OF [facility] FASTING TIME 10 hrs Normal [facility] Comment on above: Order Comment: Speci men Type: BLOOD SPECIMEN Ordering Facility: [facility] Address: [address] [place] [address] Performed By: #### 2 4323-8, 71797-4 #### [facility] CLIA [id number] [address] [place] Triglyceride [Mass/Vol] 92 mg/dL Normal <150 [facility] Comment on above: Order Comment: Speci men Type: BLOOD SPECIMEN Ordering Facility: [facility] Address: [address] [place] [address] Result Comment: <150 mg/dL, Normal 150-199 mg/dL, Borderline high 200-499 mg/dL, High >499 mg/dL, Very high Performed By: #### 2 4323-8, 16730-2 #### [facility] CLIA [id number] [address] [place] No Panel Informationon 06-29 [facility] Basophil percentageon 2021 Bilirubin [Mass/Vol] 0.50 mg/dL 0.20-1.00 [facility] Work Phone: Comment on above: For patients on eltr ombopag therapy, use of Dimension [place] TBIL is not recommended. Chloride [Moles/Vol] 106 mmol/L 98-107 [facility] Work Phone: Glucose [Mass/Vol] 103 mg/dL 74-106 [facility] Work Phone: Comment on above: Fasting Glucose resu lt from 100 to 125 mg/dL suggests IMPAIRED HOMEOSTASIS per A.D.A. criteria. Potassium [Moles/Vol] 3.9 mmol/L 3.5-5.1 [facility] Work Phone: Protein [Mass/Vol] 7.8 g/dL 6.4-8.2 [facility] Work Phone: Sodium [Moles/Vol] 137 mmol/L 136-145 [facility] Work Phone: Laboratory - Chemistry and C hemistry - challengeon 03-13-2022 ALP [Catalytic activity/Vol] 61 U/L 45-117 [facility] Work Phone: ALT [Catalytic activity/Vol] 31 U/L 13-56 [facility] Work Phone: CO2 [Moles/Vol] 24.0 mmol/L 21.0-32.0 [facility] Work Phone: Globulin (S) [Mass/Vol] 3.9 g/dL 2.2-4.2 [facility] Work Phone: Urea nitrogen/Creatinine [Mass ratio] 19.9 mg/mg 10-20 [facility] Work Phone: No Panel Informationon 03-13 Estimated GFR (MDRD) Amer 131 mL/min >60 [facility] Work Phone: Comment on above: GFR Calc Estimated GFR (MDRD) Non-Af Amer 108 mL/min >60 [facility] Work Phone: Comment on above: Non- GFR Calc Thyroid Stimulating Hormone (TSH) 1.06 uIU/mL 0.358-3.74 [facility] Work Phone: Serum or plasma albumin estrella urement (mass/volume)on 03-13-2022 Albumin [Mass/Vol] 3.9 g/dL 3.2-5.0 [facility] Work Phone: Serum or plasma albumin/glob ulin mass ratioon 03-13-2022 Albumin/Globulin [Mass ratio] 1.0 {ratio} 0.9-2.4 [facility] Work Phone: Serum or plasma calcium estrella urement (mass/volume)on 03-13-2022 Calcium [Mass/Vol] 9.1 mg/dL 8.5-10.1 [facility] Work Phone: Serum or plasma creatinine m easurement (mass/volume)on 03-13-2022 Creatinine [Mass/Vol] 0.70 mg/dL 0.55-1.02 [facility] Work Phone: Comment on above: The validity of the calculated GFR & GFRAA in patients over 70 years has not been determined. Clinical correlation is essential. Serum or plasma urea nitroge n measurement (mass/volume)on 03-13-2022 Urea nitrogen [Mass/Vol] 14 mg/dL 7-18 [facility] Work Phone: Thin prep Papanicolaou smear with manual screeningon 03-13-2022 Thin prep Papanicolaou smear with manual screening 18 U/L 15-37 [facility] Work Phone: Thin prep Papanicolaou smear with manual screening 7 5-15 [facility] Work Phone: CNCOon 09-17-2021 [facility] Letter Text Normal [facility] Vital Signs Date Time Vital Sign Value Performing Clinician Facility 12-11-2024 18:09-0400 Body temperature 97.8 [degF] No Primary Care Physician [facility] 12-11-2024 18:09-0400 Diastolic blood pressure 57 mm[Hg] No Primary Care Physician [facility] 12-11-2024 18:09-0400 Heart rate 79 /min No Primary Care Physician [facility] 12-11-2024 18:09-0400 Respiratory rate 16 /min No Primary Care Physician [facility] 12-11-2024 18:09-0400 SaO2% (BldA) [Mass fraction] 100 % No Primary Care Physician [facility] 12-11-2024 18:09-0400 Systolic blood pressure 112 mm[Hg] No Primary Care Physician [facility] 12-11-2024 16:29-0400 Body height 162.56 cm No Primary Care Physician [facility] 12-11-2024 16:29-0400 Body mass index (BMI) [Ratio] 39.6 kg/m2 No Primary Care Physician [facility] 12-11-2024 16:29-0400 Body weight 104.96 kg No Primary Care Physician [facility] 12-07-2024 15:43-0400 Body height 162.56 cm No Primary Care Physician [facility] 12-07-2024 15:43-0400 Body mass index (BMI) [Ratio] 39 kg/m2 No Primary Care Physician [facility] 12-07-2024 15:43-0400 Body weight 103.19 kg No Primary Care Physician [facility] 12-07-2024 15:43-0400 Diastolic blood pressure 84 mm[Hg] No Primary Care Physician [facility] 12-07-2024 15:43-0400 Systolic blood pressure 115 mm[Hg] No Primary Care Physician [facility] 06-29-2024 10:51-0500 Body height 157.5 cm Trevor GUTIERREZ Work Phone: [facility] 06-29-2024 10:51-0500 Body mass index (BMI) [Ratio] 40.97 kg/m2 Trevor [employer] Work Phone: [facility] 06-29-2024 10:51-0500 Body temperature 97.59 [degF] Trevor [employer] Work Phone: [facility] 06-29-2024 10:51-0500 Body weight 101.61 kg Trevor [employer] Work Phone: [facility] 06-29-2024 10:51-0500 Diastolic blood pressure 72 mm[Hg] Trevor [employer] Work Phone: [facility] 06-29-2024 10:51-0500 Heart rate 87 /min Trevor Nelson MBBS Work Phone: [facility] 06-29-2024 10:51-0500 Respiratory rate 18 /min Trevor [employer] Work Phone: [facility] 06-29-2024 10:51-0500 SaO2% (BldA) [Mass fraction] 99 % Trevor [employer] Work Phone: [facility] 06-29-2024 10:51-0500 Systolic blood pressure 134 mm[Hg] Trevor GUTIERREZ Work Phone: [facility] 04-18-2023 07:48-0500 Diastolic blood pressure 80 mm[Hg] Dr. Mc Delgadillo Work Phone: [facility] 04-18-2023 07:48-0500 Heart rate 82 /min Dr. Mc Delgadillo Work Phone: [facility] 04-18-2023 07:48-0500 Respiratory rate 16 /min Dr. Mc Delgadillo Work Phone: [facility] 04-18-2023 07:48-0500 SaO2% (BldA) [Mass fraction] 99 % Dr. Mc Delgadillo Work Phone: [facility] 04-18-2023 07:48-0500 Systolic blood pressure 131 mm[Hg] Dr. Mc Delgadillo Work Phone: [facility] 04-18-2023 06:20-0500 Body height 162.[address] Mc Delgadillo Work Phone: [facility] 04-18-2023 06:20-0500 Body mass index (BMI) [Ratio] 39.9 kg/m2 Dr. Mc Delgadillo Work Phone: [facility] 04-18-2023 06:20-0500 Body temperature 97.6 [degF] Dr. Mc Delgadillo Work Phone: [facility] 04-18-2023 06:20-0500 Body weight 105.[address] Mc Delgadillo Work Phone: [facility] 03-28-2023 07:32-0400 Body temperature 98.2 [degF] Dr. Mc Delgadillo Work Phone: [facility] 03-28-2023 07:32-0400 Diastolic blood pressure 83 mm[Hg] Dr. Mc Delgadillo Work Phone: [facility] 03-28-2023 07:32-0400 Heart rate 102 /min Dr. Mc Delgadillo Work Phone: [facility] 03-28-2023 07:32-0400 Respiratory rate 17 /min Dr. Mc Delgadillo Work Phone: [facility] 03-28-2023 07:32-0400 SaO2% (BldA) [Mass fraction] 98 % Dr. Mc Delgadillo Work Phone: [facility] 03-28-2023 07:32-0400 Systolic blood pressure 126 mm[Hg] Dr. Mc Delgadillo Work Phone: [facility] Encounters Encounter Date Encounter Type Care Provider Facility Start: 12-11-2024 End: 12-11-2024 Emergency department patient visit No Primary Care Physician -Emergency Department Work Phone: Start: 12-10-2024 End: 12-10-2024 Distance [facility] Vitaly Ramos PA-C Work Phone: [facility] ([place]) Comment on above: Moderate episode of recurrent major depressive disorder (HCC) (Primary Dx); IVON (generalized anxiety disorder); Less than 8 weeks gestation of (HCC) Start: 12-09-[address] Jennifer Erazo DO -Laboratory Work Phone: Start: 12-09-2024 ambulatory No Primary Car e Physician Facility:[facility] Start: 12-07-2024 End: 12-07-2024 ambulatory No Primary Care Physician -[facility] Start: 12-07-2024 End: 12-07-[address] Jennifer Erazo DO -[facility] Work Phone: Start: 12-03-2024 End: 12-09-2024 ambulatory Vitaly Ramos PA-C Work Phone: [facility] ([place]) Start: 12-03-2024 End: 12-09-2024 Patient encounter procedure Vitaly Ramos PA-C Work Phone: [facility] ([place]) Comment on above: Wellbutrin Start: 11-08-2024 End: 11-08-2024 Refill Vitaly Claburn PA-C Work Phone: [facility] ([place]) Comment on above: Med Change Request Start: 11-08-2024 End: 11-08-2024 Distance [facility] Vitaly Claburn PA-C Work Phone: [facility] ([place]) Comment on above: Moderate episode of recurrent major depressive disorder (HCC) (Primary Dx); IVON (generalized anxiety disorder); Attention and concentration deficit; Sleep difficulties Start: 10-25-2024 End: 10-29-2024 ambulatory Vitaly Claburn PA-C Work Phone: [facility] ([place]) Start: 10-25-2024 End: 10-29-2024 Patient encounter procedure Vitaly Claburn PA-C Work Phone: [facility] ([place]) Comment on above: Buspar Start: 10-11-2024 End: 10-11-2024 [facility] Start: 09-06-2024 End: 09-06-2024 E-mail encounter from caregiver Vitaly Rendonburn PA-C Work Phone: [facility] ([place]) Start: 09-06-2024 End: 09-06-2024 Patient encounter procedure Vitaly Claburn PA-C Work Phone: [facility] ([place]) Comment on above: Questionnaire Submis job Moderate episode of recurrent major depressive disorder (HCC) (Primary Dx); Attention and concentration deficit; IVON (generalized anxiety disorder); BMI 40.0-44.9, adult (HCC) Start: 09-06-2024 End: 09-06-2024 Telemedicine consultation with patient Vitaly Claburn PA-C Work Phone: [facility] ([place]) Start: 09-06-2024 End: 09-06-2024 [facility]ulatory [facility] Start: 07-13-2024 End: 07-13-2024 Telephone encounter Uvaldo Doss MD Work Phone: [facility] ([facility]) Comment on above: Appointment Start: 06-29-2024 End: 06-29-2024 Telephone encounter Trevor GUTIERREZ Work Phone: [facility] ([facility]) Comment on above: Referral Information (Psychiatry) Start: 06-29-2024 End: 06-29-2024 ambulatory UVALDO DOSS Facility:[facility] Start: 06-29-2024 End: 06-29-2024 Patient encounter procedure Trevor GUTIERREZ Work Phone: [facility] ([facility]) Comment on above: Moderate episode of recurrent major depressive disorder (HCC) (Primary Dx); Screening for depression; Encounter for routine laboratory testing; SHARON (obstructive sleep apnea); Encounter for screening for lipid disorder Start: 06-29-2024 End: 06-29-2024 Patient encounter status Trevor GUTIERREZ Work Phone: [facility] Start: 06-29-2024 End: 06-29-2024 ambulatory TREVOR NELSON Facility:[facility] Start: 06-29-2024 Encounter for other specified special examinations TREVOR OMAR [facility] Start: 04-18-2023 End: 04-18-2023 Emergency department patient visit Dr. Mc Delgadillo Work Phone: [facility] Work Phone: Start: 03-28-2023 End: 03-28-[address] Mc Delgadillo Work Phone: [facility] Work Phone: Start: 03-13-2022 End: 03-13-2022 ambulatory [facility] Work Phone: Start: 03-13-2022 End: 03-13-2022 Patient encounter procedure [facility], [place] [facility] Procedures Date Procedure Procedure Detail Performing Clinician Start: 12-11-2024 Urnls dip stick/tabl et reagent auto microscopy No Primary Care Physician Start: 06-29-2024 Adult depression screening assessment Trevor GUTIERREZ Work Phone: Plan of Treatment Date Care Activity Detail Author Start: 06-29-2025 Anxiety Screening Anxiety Screening [facility] Start: 06-29-2025 Depression Screening Depression Scre ening [facility] Start: 06-14-2025 RSV Vaccine (1 - Ris k 1-dose series) RSV Vaccine (1 - Risk 1-dose series) [facility] Start: 02-07-2025 End: 02-07-2025 Follow-up encounter 02/07/2025 9:30 AM EDT [facility] ([place]) [address] [place], [place] [id number] Vitaly Ramos PA-C [address], [place] [id number] follow up [facility] ([place]) Comment on above: follow up Start: 01-24-2025 Influenza vaccination Influenza Vacc ine (#1) [facility] Start: 01-07-2025 End: 01-07-2025 Follow-up encounter 01/07/2025 1:00 PM EDT [facility] ([place]) [address] [place] [address] Vitaly Ramos PA-C [address], [place] [id number] follow up [facility] ([place]) Comment on above: follow up Start: 12-20-2024 End: 12-20-2024 Patient encounter procedure 12/20/2024 3:00 PM EDT Office Visit [facility] Internal Medicine [facility] ([facility]) [address] [place] [address] [address] [place], [place] [id number] Trevor Nelson MBBS [address] [place], [place] [id number] Upper back pain [facility] Internal [facility] ([facility]) Comment on above: Upper back pain Start: 12-11-2024 [facility] Start: 12-10-2024 End: 12-10-2024 [facility] 12/10/2024 1:30 PM EDT [facility] ([place]) [address] [place], [place] [id number] Vitaly Ramos PA-C [address], [place] [id number] Moderate episode of recurrent major depressive disorder (HCC) (Primary Dx); Attention and concentration deficit; IVON (generalized anxiety disorder) [facility] Behavior[facility] ([place]) Comment on above: Moderate episode of recurrent major depressive disorder (HCC) (Primary Dx); Attention and concentration deficit; IVON (generalized anxiety disorder) Start: 12-07-2024 Choriogonadotropin ( test) [Presence] in Serum or Plasma [facility] Start: 11-08-2024 End: 11-08-2024 Follow-up encounter 11/08/2024 9:30 AM EDT [facility] ([place]) [address] [place], [place] [address] Vitlay Ramos PA-C [address], [place] [id number] follow up [facility] Behavior[facility] ([place]) Comment on above: follow up Start: 10-04-2024 End: 10-04-2024 Follow-up encounter 10/04/2024 11:30 AM EDT [facility] ([place]) [address] [place], [place] [address] Vitaly Ramos PA-C [address], [place] [id number] follow up [facility] ([place]) Comment on above: follow up Start: 09-06-2024 End: 09-06-2024 [facility] 09/06/2024 10:00 AM EDT [facility] ([place]) [address] [place] [address] Vitaly Ramos PA-C [address] [place] [address] Moderate episode of recurrent major depressive disorder (HCC) [F33.1 (ICD-10-CM)] [facility] ([place]) Comment on above: Moderate episode of recurrent major depressive disorder (HCC) [F33.1 (ICD-10-CM)] Start: 06-29-2024 End: 09-28-2024 Hemoglobin A1c in Blood [facility] Work Phone: Comment on above: Expected: 06/29/2024 , Expires: 09/28/2024 Start: 01-25-2024 Covid-19 Vaccine () Covid-19 Vaccine () [facility] Start: 04-18-2023 Streptococcus pyogen es antigen assay Group A Streptococcus Rapid Screen [facility] Start: 04-18-2023 [facility] Start: 2018 Screening for malign ant neoplasm of cervix Cervical Cancer Screening [facility] Start: 2015 Hepatitis C screening Hepatitis C Sc reening [facility] Start: 2015 HIV screening HIV Screening [facility] Start: 2012 HPV Vaccine (1 - 3-d ose series) HPV Vaccine (1 - 3-dose series) [facility] Start: 2011 Peds To Adult Transi tion Annual Assessment Peds To Adult Transition Annual Assessment [facility] Start: 2009 Peds To Adult Transi tion Initial Discussion Peds To Adult Transition Initial Discussion [facility] Start: 2008 Urine microalbumin profile DTa P,Tdap,Td Vaccine (6 - Tdap) [facility] End: 06-29-2025 HOME SLEEP APNEA TEST (HSAT) HOME SLEEP APNEA TEST (HSAT) Procedures Routine SHARON (obstructive sleep apnea) 1 Occurrences starting 06/29/2024 until 06/29/2025 [facility] Comment on above: 1 Occurrences starti ng 06/29/2024 until 06/29/2025 Patient Education ED Pharyngitis, Viral W [facility] Work Phone: Patient referral [facility] Work Phone: Immunizations Immunization Date Immunization Notes Care Provider Fa cili 03-26-2024 influenza, seasonal, injectable, preservative free Trevor GUTIERREZ Work Phone: [facility] 03-26-2024 influenza virus vacc ine, unspecified formulation Vitaly Ramos PA-C Work Phone: [facility] 09-10-2021 tuberculin skin test ; purified protein derivative solution, intradermal Trevor GUTIERREZ Work Phone: [facility] 08-18-2021 COVID-19 original vaccine, age 12+ yr, monovalent (PFIZER-BIONTECH - RODRIGUEZ TOP) Trevor GUTIERREZ Work Phone: [facility] 07-19-2021 COVID-19 original vaccine, age 12+ yr, monovalent (PFIZER-BIONTECH - RODRIGUEZ TOP) Trevor XIONGBS Work Phone: [facility] 08-16-2002 diphtheria, tetanus toxoids and acellular pertussis vaccine, unspecified formulation Trevor XIONGBS Work Phone: [facility] 08-16-2002 measles, mumps and rubella virus vaccine Trevor XIONGBS Work Phone: [facility] 08-16-2002 poliovirus vaccine, inactivated Trevor XIONGBS Work Phone: [facility] 11-01-1998 diphtheria, tetanus toxoids and acellular pertussis vaccine, unspecified formulation Trevor XIONGBS Work Phone: [facility] 11-01-1998 haemophilus influenz ae type b vaccine, HbOC conjugate Trevor XIONGBS Work Phone: [facility] 07-19-1998 measles, mumps and rubella virus vaccine Deeven Omar MBBS Work Phone: [facility] 01-23-1998 diphtheria, tetanus toxoids and acellular pertussis vaccine, unspecified formulation Deeven Omar MBBS Work Phone: [facility] 01-23-1998 haemophilus influenz ae type b vaccine, conjugate unspecified formulation Deeven Omar MBBS Work Phone: [facility] 01-23-1998 hepatitis B vaccine, pediatric or pediatric/adolescent dosage Deeven Omar MBBS Work Phone: [facility] 01-23-1998 trivalent poliovirus vaccine, live, oral Deeven Omar MBBS Work Phone: [facility] 1997 diphtheria, tetanus toxoids and acellular pertussis vaccine, unspecified formulation Deeven Omar MBBS Work Phone: [facility] 1997 haemophilus influenz ae type b vaccine, conjugate unspecified formulation Deeven Omar MBBS Work Phone: [facility] 1997 trivalent poliovirus vaccine, live, oral Deeven Omar MBBS Work Phone: [facility] 1997 diphtheria, tetanus toxoids and acellular pertussis vaccine, unspecified formulation Deeven Omar MBBS Work Phone: [facility] 1997 haemophilus influenz ae type b vaccine, PRP-OMP conjugate Deeven Omar MBBS Work Phone: [facility] 1997 hepatitis B vaccine, pediatric or pediatric/adolescent dosage Deeven Omar MBBS Work Phone: [facility] 1997 trivalent poliovirus vaccine, live, oral Deeven Omar MBBS Work Phone: [facility] 1997 hepatitis B vaccine, pediatric or pediatric/adolescent dosage Deeven Omar MBBS Work Phone: [facility] Payers Date Payer Category Payer Self-pay [id number] 2024 Blue [employer] Blue Shield BLUE CARD PPO OOS [id number] 2024 Unknown [id number] 2024 Private Health Insurance [id number] 2024 Unknown [id number] Unknown ANTHEM [id number] Unknown [employer] [id number] Unknown [employer] [id number] Unknown [id number] Unknown [id number] Unknown [id number] Social History Date Type Detail Facility Start: 08-02-2021 End: 04-18-2023 Tobacco smoking status NHIS Unknown if ever smoked [facility] Start: 04-21-2020 None [facility] Start: 04-21-2020 Alone [facility] Start: 1995 Sex Assigned At Female W [facility] Start: 06-29-2024 End: 12-11-2024 Tobacco smoking status NHIS Never smoked tobacco [facility] Start: 06-29-2024 Tobacco use and exposure Smokeless tobacco non-user [facility] Start: 06-29-2024 End: 12-10-2024 Alcoholic beverage intake Current drinker of alcohol (finding) [facility] Start: 06-29-2024 End: 07-13-2024 History of Social function [facility] Start: 06-29-2024 End: 07-13-2024 [facility] [employer] [facility] Has the Sleek Audio, Aqua Access, or water [place] threatened to shut off services in your home in past 12Mo No [facility] Are you now , , , , never or living with a partner? [facility] How often to you hav e a drink containing alcohol? Never [facility] How many standard drinks containing alcohol do you have on a typical day? Patient does not drink [facility] Do you feel stress - tense, restless, nervous, or anxious, or unable to sleep at night because your mind is troubled all the time - these days [OSQ] Rather much [facility] (I/We) worried wheth er (my/our) food would run out before (I/we) got money to buy more. Never true [facility] Start: 06-29-2024 Alcohol Comment occassional [facility] Start: 06-25-2024 Gender identity Identifies as female gender (finding) [facility] Start: 06-29-2024 Sexual orientation Heterosexual (odette pike) [facility] Start: 11-16-2024 [facility] Mental Status Date Assessment Result Facility 12-11-2024 Cognitive function Level Of Cons ciousness Awake;Alert;Appropriate;Follow s Commands [facility] Work Phone: Clinical Notes 06-29-2024 to 12-11-2024 Note Date & Type Note Facility 12-11-2024 Discharge summary [facility] 12-11-2024 Discharge summary Note Date/Time December 11, 2024 6:01pm [facility] Medical Records Department [address] [place] [address] Emergency Department Summary 12/11/24 MR#: [id number] Acct: [id number] Name: ROBINSON RUFF Rep #:[id number] : 1995 29 From: Jose Luis Rosenberg DO PCP: Care Physician,No Primary Status :REG ER Location: ED HPI HPI - Female History of Present Illness Chief Complaint: Vag Bld, Preg Narrative Narrative: Patient is a 29-year-old female 1 molar with the rest being miscarriages who presented to the emergency department chief complaint of vaginal bleeding. She states that yesterday she started having spotting and noted that on she had her quant level checked and called her BAND TEACHER. They noted that they wanted her to have this repeated today. States that she did have a ultrasound recently but notes that her quant level was too low to seeanything she states that the BAND TEACHER wants to see if her quant level is high enough to repeat the ultrasound. PFSH PFS Medical History Gastroenteritis Nausea vomiting and diarrhea Seasonal allergies Migraines Home Medications ?Medication ?Instructions ?Recorded ?Last Taken ?Type bupropion HCl 300 mg 24 hr tablet, 300 mg PO QDAY 11/23 10/17 Unknown History extended release buspirone 15 mg tablet 15 mg PO BID 12/07/24 Unknow n History cephalexin 500 mg capsule 500 mg PO BID 5 days #10 cap s 12/11/24 Unknown Rx Allergy/AdvReac Type Severity Reaction Status Date / Time Sulfa (Sulfonamide Allergy Hives Verified 12/07/24 15:41 Antibiotics) Family History Father Hypertension Mother Hypertension Surgical History H/O wisdom tooth extraction H/O dilation and curettage Social History household members: spouse and children current occupational status: employed current occupation: Nurse - [employer] sexually active: Yes Smoking Status: Never smoker additional social history: S/O : Lavell ROS ROS ED ROS Narrative Constitutional: Denies any fevers, chills, headaches Abdomen: Complains of cramping denies any nausea vomiting diarrhea : Complains of spotting as noted above denies painful urination increased frequency of urinary Neurological: Denies numbness, weakness, tingling Musculoskeletal: Denies back pain Skin: Denies any rashes or lesions EXAM Physical Exam Narrative Exam Narrative: General: Patient was lying in bed rest comfortably did not appear to be in acutedistress Head: Atraumatic, normocephalic Eyes: PERRL bilaterally, EOMI by, no conjunctival injection noted Neck: Soft, supple, trachea midline Cardiovascular: Patient tachycardic with a regular rhythm Abdomen: Soft, nondistended, no tenderness to palpation Extremities: +5/5 strength noted in the bilateral upper and lower extremities Neurological: Patient follow commands knew that she was at [facility] the year is 2024 Skin: Warm, dry, intact no rashes or lesions noted Const Vital Signs: 12/11/24 16:29 Temperature 97.7 F L Temperature Source Temporal Pulse Rate 102 H Respiratory Rate 17 Blood Pressure 135/88 H Blood Pressure Mean 103 Pulse Ox 98 Oxygen Delivery Method Room Air MDM MDM MDM Narrative Medical decision making narrative: Patient is a 29-year-old female who presented to the emergency department with achief complaint of vaginal spotting in the setting of she states that she is about 6 weeks . On the differential diagnosis includes but limited to threatened miscarriage, UTI, ectopic . Once workup is obtained reviewed she will be reevaluated. Patient's HBG was noted to be normal at 12.8, patient's quant level was 1256, urinalysis showed 50 blood, 100 leukocyte esterase, 5-10 white cells with 1+ bacteria however this was likely a contaminant sample with 10-25 squamous epithelial cells she will be placed on Keflex she will be given her first dose here this will be sent for culture. I discussed case with on-call BAND TEACHER Dr. Stevenson who states that she wants her quant level repeated and 48 hours and at that point in time they will assessif they will need to do an ultrasound or not. She was advised that if she is having bleeding soaking through 1 more pad an hour for a few hours in a row thenshe needs to call the BAND TEACHER or return to the emergency department. I did discuss this plan with the patient she is agreeable with this plan all question concerns answered she was discharged home in stable condition. Lab Data Labs: Laboratory Results - last 24 hr 12/11/24 12/11/24 16:51 17:06 Hgb 12.8 Hct 38.6 HCG, Quant 1256 H Urine Color Yellow Urine Clarity Cloudy Urine pH 6.0 Ur Specific [place] 1.020 Urine Protein 15 H Urine Glucose (UA) Normal Urine Ketones Negative Urine Occult Blood 50 H Urine Nitrite Negative Urine Bilirubin Negative Urine Urobilinogen Normal Ur Leukocyte Esterase 100 H Urine RBC 0-5 SEEN Urine WBC 5-10 SEEN Ur Squamous Epith Cells 10-25 SEEN Urine Bacteria 1+ Hyaline Casts 0-5 SEEN Urine Mucus 0 SEEN Discharge Plan Triage Chief Complaint: Vag Bld, Preg Other Complaint: Abn Labs ED Provider: Jose Luis Rosenberg Dx/Rx/DC Orders Clinical Impression: Vaginal bleeding during , History of migraine Prescriptions: New cephalexin 500 mg capsule 500 mg PO BID 5 Days Qty: 10 0RF No Action bupropion HCl 300 mg tablet extended release 24 hr 300 mg PO QDAY buspirone 15 mg tablet 15 mg PO BID Primary Care Provider: Care Physician,No Primary Referrals: Care Physician,No Primary [Primary Care Provider] - Activity Restrictions/Additional Instructions: You will need your hCG quant level repeated again in 48 hours. Call your OB/GYNon Friday for this test and to follow-up in their office. If you are soaking through more than 1 pad an hour for a few hours in a row you should return to the emergency department or call your BAND TEACHER. Return with any other concerns. Your quantitative level here today was 1256. Take antibiotics as prescribed follow-up on urine culture with your BAND TEACHER. Print Language: Belarusian Disposition Disposition: Home, Self Care What to do if you have Problems For any increased pain, shortness of breath, bleeding, nausea or vomiting, chestpain, or any unexpected problems, contact your Primary Care Provider. Call [facility] ([phone]) or report to the closest Emergency Room. Call 911 if necessary. 12/11/24 180 <Electronically signed by Jose Luis Rosenberg DO> Cosigner Signature (if applicable): CC: No Primary Care Physician ~ Signed [facility] Work Phone: [phone]) 690-984607-18-2025 Instructions* Patient Instructions* Vitaly Ramos PA-C - 12/10/2024 2:13 PM EDT Visit Instructions: - Please call front end developer javascript html css at [phone] to schedule your next appointment in 4 weeks. -please feel free to call us with any questions or concerns - If you need help with [employer] access please call: [employer] Support at: [phone] - Please take all medications as directed. - Please do not hesitate to call the office if you notice new medication side effects, any depression or thoughts of self-harm. If the office is closed, report to the nearest emergency department. - Be aware that any new medication can cause side effect or possible allergic reaction. Please stopmedication if rash or itching develop. Call [phone] if you experience short of breath, wheezing, difficulty breathing, or swelling in your throat or airway. Recommended Community Resources: Crisis/Emergency 24-Hour Mental Health and Crisis Line for Adults and Children: Crisis Emergency First Call for Help: or 211 Crisis Emergency Lifeline-Suicide Prevention: 5-645-124-TALK (7826) MARISELA ([place] on Mental Illness): . Info referral line: If you or someone you know needs support now, call or text 788 or chat 988lifeline.org Vitaly Ramos PA-C [facility] History of Present illness Narrative* Vitaly Ramos PA-C - 12/10/2024 1:30 PM EDT [facility] PROGRESS NOTE PATIENT: Robinson Castrejon Elzbieta MRD: [id number] DATE: December 10, 2024 This is a [...] f/u is December 31. Receiving care through [facility]. No prior obstetric complications. Taking [...] population = 50. Five points is a clinicallymeaningful difference.) Physical T-Score 54.1 Mental T-Score 41.1 [place] SUICIDE SEVERITY RATING SCALE 1.) Wish to be : Have you wished you were or wished you could go to sleep and not wake up?NO 2.) Suicidal Thoughts: Have you actually had [...] All prescriptions have been APPROPRIATELY filled. No suspiciousactivity was identified. 12/10/2024 by Vitaly Ramos PA-C [...] five weeks gestation - Follow up with [facility] - Follow up in 4 weeks Vitaly Ramos PA-C Patient understands and agrees with the plan: Yes Total time in direct patient contact = 30 min. Greater than 50% of the time was spent in counselingand/or coordination of care. Electronically signed by Vitaly Ramos PA-C December 10, 2024 1400 documented in [facility]Ad[facility]07[facility] Evaluation note* Diagnosis Onset Date Resolution Status Admit Date History of molar acute December 07, 2024 3:25pm Recurrent loss acute December 07, 2024 3:25pm [facility] Work Phone: 1(671) 887-446806-16-2025 Instructions* Patient Instructions* Vitaly Rmaos PA-C - 11/08/2024 9:45 AM EDT Visit Instructions: - Please call front end developer javascript html css at [phone] to schedule your next appointment in 3 months. -please feel free to call us with any questions or concerns - If you need help with [employer] access please call: [employer] Support at: [phone] - Please take all medications as directed. - Please do not hesitate to call the office if you notice new medication side effects, any depression or thoughts of self-harm. If the office is closed, report to the nearest emergency department. - Be aware that any new medication can cause side effect or possible allergic reaction. Please stopmedication if rash or itching develop. Call 911 if you experience short of breath, wheezing, difficulty breathing, or swelling in your throat or airway. Recommended Community Resources: Crisis/Emergency 24-Hour Mental Health and Crisis Line for Adults and Children: Crisis Emergency First Call for Help: or 211 Crisis Emergency Lifeline-Suicide Prevention: 0-123-299-TALK (7793) MARISELA ([place] on Mental Illness): . Info referral line: If you or someone you know needs support now, call or text 472 or chat 98WoraPayline.org Vitaly Ramos PA-C documented in this encounterAdams County [facility] Center06-16-2025 NoteHNO ID: [id number] Author: VITALY RAMOS PA-C Service: ? Author Type: Physician Site Technician Type: Progress Notes Filed: 11/08/2024 09:49 Note Text: [facility]GRESS NOTE PATIENT: Robinson Ruff MRD: [id number] DATE: November 08, 2024 This is a [...] enjoys. 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 Review of Systems Constitutional: Negative for fever, [...] Electronically signed by Vitaly Ramos PA-C November 08[facility]06-16-2025 History of Present illness Narrative* Vitaly Ramos PA-C - 11/08/2024 9:29 AM EDT [facility] PROGRESS NOTE PATIENT: Robinson Ruff MRD: [id number] DATE: November 08, 2024 This is a [...] enjoys. 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 Review of Systems Constitutional: Negative for fever, [...] population = 50. Five points is a clinicallymeaningful difference.) Physical T-Score 54.1 Mental T-Score 41.1 [place] SUICIDE SEVERITY RATING SCALE 1.) Wish to be : Have you wished you were or wished you could go to sleep and not wake up?NO 2.) Suicidal Thoughts: Have you actually had [...] 50% of the time was spent in counselingand/or coordination of care. Electronically signed by Vitaly Ramos PA-C November 08, 2024 documented in this encounterAdams County Regional Medical Center05-19-2025 NoteHNO ID: [id number] Author: VITALY RAMOS PA-C Service: ? Author Type: Physician Site Technician Type: Progress Notes Filed: 10/12/2024 11:50 Note Text: [facility] PROGRESS NOTE PATIENT: Robinson Ruff MRD: [id number] DATE: October 11, 2024 This is a [...] to spend time with their family in [place] soon. Grandfather is returning home; just received [...] Vitaly Ramos PA-C October 11, 2024 9:07 [facility]04-15-2025 Instructions* Patient Instructions * Vitaly Ramos PA-C - 09/07/2024 10:32 AM EDT Visit Instructions: The [facility] [email or web address] Email: [email or web address] - Please call front end developer javascript html css at [phone] to schedule your next appointment in 4 weeks. -please feel free to call us with any questions or concerns - If you need help with [employer] access please call: [employer] Support at: [phone] - Please take all medications as directed. - Please do not hesitate to call the office if you notice new medication side effects, any depression or thoughts of self-harm. If the office is closed, report to the nearest emergency department. - Be aware that any new medication can cause side effect or possible allergic reaction. Please stopmedication if rash or itching develop. Call 911 if you experience short of breath, wheezing, difficulty breathing, or swelling in your throat or airway. Recommended Community Resources: Crisis/Emergency 24-Hour Mental Health and Crisis Line for Adults and Children: Crisis Emergency First Call for Help: or 211 Crisis Emergency Lifeline-Suicide Prevention: 1-790-933-TALK (7173) MARISELA ([place] on Mental Illness): . Info referral line: If you or someone you know needs support now, call or text 243 or chat [email or web address] Vitaly Ramos PA-C documented in this encounterAdams County Regional Medical Center04-14-2025 Telephone encounter Note * Telephone Encounter - Vitaly Ramos PA-C - 09/06/2024 10:51 AM EDT Summary: Border [employer] message Questionnaires [facility]04-14-2025 Miscellaneous Notes* Telephone Encounter - Vitaly Ramos PA-C - 09/06/2024 10:51 AM EDTSummary: [employer] message Questionnaires documented in this encounterAdams County Regional Medical Center04-14-2025 NoteHNO ID: [id number] Author: VITALY RAMOS PA-C Service: ? 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 She relies on her grandmother, and occasionally her mother for support. Pt endorses that Math and Belarusian were hard growing up. She still gets [...] SOCIAL HISTORY: Born and raised: Born in [place] but relocated to [place] when she was young. Came back to [place] 3 years ago. Childhood: 2nd grade her mother met her rebeccad. He got a different job in [place] so the family relocated and she has been there until 4 years ago. Note that her mom and stepdad would republican a lot so she doesn't like loud noises. Her father was angry that she moved to [place] so he stopped talking to her when [...] Living Situation: Living in a duplex in [place] with her kids and her . Weapons: None Legal History: None SUBSTANCE ABUSE HISTORY: Drank alcohol when she was 23 but does not drink often now. Seldom has a drink on special occasions. Denies (more content not included)...[facility]04-14-2025 History of Present illness Narrative* Vitaly Ramos PA-C - 09/06/2024 9:55 AM EDCITLALLIumsterling: Assessment Images from the original note were not included. 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 She relies on her grandmother, and occasionally her mother for support. Pt endorses that Math and Belarusian were hard growing up. She still gets [...] Difficulty controlling worry mostly related to her children,especially when she drops them off at school. [...] mg bid. Tried Zoloft in , Lexapro ,and Trintellix which was stopped after 8 months. Pt endorses feeling worse taking these meds. Also was rx'd Clonazepam for 3 months last year for anxiety and insomnia. SOCIAL HISTORY: Born and raised: Born in [place] but relocated to [place] when she was young. Came back to [place] 3 years ago. Childhood: 2nd grade her mother met her stepdad. He got a different job in [place] so the family relocated and she has been there until 4 years ago. Note that her mom and stepdad would republican a lot so she doesn't like loud noises. Her father was angry that she moved to [place] so he stopped talking to her when [...] shifts as a nurse. 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 Children: Two children (son age 3 and daughter age 7) Living Situation: Living in a duplex in [place] with her kids and her . Weapons: [...] chloride 0.65 % nasal spray Use 1 [place] in the nose. (Patient not taking: Reported [...] population = 50. Five points is a clinicallymeaningful difference.) Physical T-Score 54.1 Mental T-Score 41.1 Patient Data Mood Disorders Questionnaire (MDQ) 09/06/2024 Mood Disorders Questionnaire ...you felt so good or so hyper that other people thought you were not your normal self or you wereso hyper that you got into trouble? No [...] you that you had trouble concentrating or stayingon track? Yes ...you had more energy than [...] that other people might have thought were excessive,foolish, or risky? No ...spending money got you [...] that you have manic-depressive illness or bipolar disorder?No Mood Problems Total Score 6 Relatives with Mood Disorders Total Score 4 Positive Screen for Bipolar Disorder- All 3 of the following criteria must be met: Question 1: at least 7 out of 13 positive (yes) responses Question 2: Positive (yes) response Question 3: Moderate or Serious response Desiree Screening 09/06/2024 [facility] 1.Have any of your closest [...] could go to sleep and not wake up?NO 2.) Suicidal Thoughts: Have you actually had [...] test - Continue assessing for BED Vitaly Claburn, PA-C - Follow up in 4 week up Patient understands and agrees with the treatment plan: Yes The supervising clinician was present during the session to discuss with the Patient. LASHAWN Heath PA-C Total time in direct patient contact = 50 min. Greater than 50% of the time was spent in counselingand/or coordination of care. Electronically signed by Vitaly Ramos PA-C September 06, 2024 9:56 AM documented in this encounterAdams County Regional Medical Center02-18-2025 Telephone encounter Note * Telephone Encounter - Floridalma Adams - 07/13/2024 9:55 AM EST Called patient LVM, and sent message to patient MC to call our office to schedule August, or October follow up appointment. Dr. Nelson is on PTO in September Floridalma Adams Executive Administrative Assistant I July 13, 2024 9:56 AM [facility]02-18-2025 Miscellaneous Notes* Telephone Encounter - Floridalma Adams - 07/13/2024 9:55 AM EST Called patient LVM, and sent message to patient MC to call our office to schedule August, or October follow up appointment. Dr. Nelson is on PTO in September Floridalma Adams Executive Administrative Assistant I July 13, 2024 9:56 AM documented in this encounterAdams County Regional Medical Center02-05-2025 NoteHNO ID: [id number] Author: UVALDO DOSS MD Service: ? Author Type: Physician Type: Progress Notes Filed: 06/30/2024 18:46 Note Text: Attending Note I discussed with resident on day of the visit. The patient was not examined by the attending. I reviewed the resident's note. I agree with the resident's assessment and plan unless otherwise noted. Signature: Uvaldo Doss MD Date: 06/30/2024. Time: 6:46 [facility]02-04-2025 Telephone encounter Note* Telephone Encounter - Fabiola Najera - 06/29/2024 11:49 AM EST Referral to psychiatry entered into the [facility] portal on 06/29/24. Confirmation number [id number]. [facility]02-04-2025 Miscellaneous Notes* Telephone Encounter - Fabiola Najera - 06/29/2024 11:49 AM EST Referral to psychiatry entered into the [facility] portal on 06/29/24. Confirmation number [id number]. documented in this encounterAdams County Regional Medical Center02-04-2025 NoteHNO ID: [id number] Author: TREVOR NELSON MBBS Service: ? Author Type: Resident Type: Progress Notes Filed: 06/29/2024 14:28 Note Text: [facility] BR[facility]DA Perez ASSESSMENT/PLAN: 1. [...] to follow-up with her primary care in [facility] but since her insurance has changed she comes in for establishing care at [facility]. She has not been taking any [...] (FLONASE) 50 mcg/actuation nasal spray Use 1 [place] in the nose. (Patient not taking: Reported on 06/29/2024) sodium chloride 0.65 % nasal spray Use 1 [place] in the nose. (Patient not taking: Reported [...] for dizziness, tremors, seizur (more content not included)...[facility]02-04-2025 History of Present illness Narrative* Trevor Nelson MBBS - 06/29/2024 10:55 AM EST Images from the original note were not included. [facility] Perez ASSESSMENT/PLAN: 1. Moderate [...] to follow-up with her primary care in [facility] but since her insurance has changed she comes in for establishing care at [facility]. She has not been taking any [...] but relates it to not being able tosleep at night. Has tried melatonin but was [...] patient refused. She goes to the gym 5-6times a week and has a meal prep [...] (FLONASE) 50 mcg/actuation nasal spray Use 1 [place] in the nose. (Patient not taking: Reported on 06/29/2024) sodium chloride 0.65 % nasal spray Use 1 [place] in the nose. (Patient not taking: Reported on 06/29/2024) No current facility-administered medications for this visit. I have confirmed and edited as necessary the chief complaint, medications, past medical, family andsocial histories. Review of Systems Constitutional: Negative for [...] 29, 2024 10:55 AM documented in this encounterOroville ClinicDischar summary Author Jalen Christianson [facility] April 18, 2023 7:47am Note Date/Time April 18, 2023 6:48am [facility] Medical Records Department [address] [place] [id number] Emergency Department Summary 04/18/23 MR#: [id number] Acct: [id number] Name: ROBINSON RUFF Rep #:[id number] : [...] medical or surgical history. Has had a 5- day history of nonproductive cough and progressively worsening [...] Triage Chief Complaint: Sore Throat ED Provider: Jlaen Christianson Dx/Rx/DC Orders Clinical Impression: Acute viral pharyngitis Instructions: ED Pharyngitis, Viral Prescriptions: No Action NK Primary Care Provider: Care Physician,No Primary Referrals: Julien Talamantes MD [Med Staff - Senior Commissions Analyst] - 1 Week if not improving NOT,DEFINED [...] your Primary Care Provider. Call [facility] ([phone]) or report to the closest Emergency Room. Call 911 if necessary. 04/18/23 0363 <Electronically signed by Jalen Christianson MD> Cosigner Signature (if applicable): CC: No Primary Care Physician ~ Signed [facility] Work Phone: Evaluation noteNo assessment information available [facility] Work Phone: Evaluation note* Diagnosis Onset Date Resolution Status Acute pharyngitis acute [facility] Work Phone: Evaluation note* Diagnosis Moderate episode of recurrent major depressive disorder (HCC)- Primary Screening for depression Encounter for routine laboratory testing Laboratory examination ordered as part of a routine general medical examination SHARON (obstructive sleep apnea) Obstructive sleep apnea (adult) (pediatric) Encounter for screening for lipid disorder documented in this encounter [facility] Center[facility]* Diagnosis Moderate episode of recurrent major depressive disorder (HCC)- Primary Attention and concentration deficit Attention or concentration deficit IVON (generalized anxiety disorder) Generalized anxiety disorder BMI 40.0-44.9, adult (HCC) Body Mass Index 40.0-44.9, adult documented in this encounter [facility]* Diagnosis Moderate episode of recurrent major depressive disorder (HCC)- Primary IVON (generalized anxiety disorder) Generalized anxiety disorder Attention and concentration deficit Attention or concentration deficit Sleep difficulties Sleep disturbance, unspecified documented in this encounter [facility] CenterEval[facility]* Diagnosis IVON (generalized anxiety disorder) Generalized anxiety disorder documented in this encounter [facility]* Diagnosis Moderate episode of recurrent major depressive disorder (HCC)- Primary IVON (generalized anxiety disorder) Generalized anxiety disorder Less than 8 weeks gestation of (HCC) state, incidental [facility] Additional Instructions Plenty of fluids and rest. Motrin and Tylenol for pain. Warm salt water gargling. Follow-up with your doctor if not improving or return if worse.[facility] Work Phone: Hospital Discharge instructionsAdditional Instructions You will need your hCG quant level repeated again in 48 hours. Call your BAND TEACHER on Friday for this test and to follow-up in their office. If you are soaking through more than 1 pad an hour for a few hours in a row you should return to the emergency department or call your BAND TEACHER. Return with any other concerns. Your quantitative level here today was 1256. Take antibiotics as prescribed follow-up on urine culture with your BAND TEACHER.[facility] Work Phone: Reason for referral (narrative)No reason for referral information availableRonald Reagan [facility] Work Phone: Summary Purpose Family History Relationship Condition Age at Onset Recorded Date/T reji father Hypertension Unknown mother Hypertension Unknown Advance Directives Advance Directive Response Recorded Date/ Time Living Will No April 06, 021 8:07pm Power of Director Of Ancillary Services No April 06, 2021 8:07pm Advance Directive Response Recorded Date/ Time Living Will No April 18, 023 6:22am Power of Director Of Ancillary Services No April 18, 2023 6:22am Advance Directive Response Recorded Date/ Time Do you have a Healthcare Power of Director Of Ancillary Services? No December 11, 2024 5:58pm Chief Complaint and Reason for Visit Chief Complaint Cough SORE THROAT Reason for Visit Acute pharyngitis Chief Complaint Admit Date Early OBVega, Requesting lab December 07, 2024 3:25pm Chief Complaint Admit Date Early OBVega, Requesting lab December 07, 2024 3:25pm INT LAB ORDER December 09, 2024 4:23 pm BLOOD WORK December 11, 2024 4:29 pm Reason for Visit Admit Date History of molar December 07 3:25pm Recurrent loss December 07, 2024 3:25pm Reason for Referral Specialty Diagnoses / Procedures Referred By Kathy bowden Referred To Contact Diagnoses Moderate episode of recurrent major depressive disorder (HCC) Procedures CONSULT TO PSYCHIATRY OFFICE/OUTPATIENT [facility] 60 MINUTES Uvaldo Doss MD [address] [facility] [address] [place] [address] Referral ID Status Reason Start Date Expiration Date Visits Requested Visits Authorized [id number] Pending Review PCP Requested Referral 06/29/2024 06/29/2025 1 1 Specialty Diagnoses / Procedures Referred By Kathy bowden Referred To [facility] Diagnoses SHARON (obstructive sleep apnea) Procedures HOME SLEEP APNEA TEST (HSAT) SLEEP STD AIRFLOW HRT RATE&O2 SAT EFFORT UNATT Uvaldo Doss MD 1 [facility] [address] [place] [address] [address] Referral ID Status Reason Start Date Expiration Date Visits Requested Visits Authorized [id number] New Request Auto-Generat ed Referral 06/29/2024 06/29/2025 1 1 Additional Source Comments INFORMATION SOURCE (unrecogn ized section and content) DATE CREATED AUTHOR 09/19/2021 [facility] DATE CREATED AUTHOR AUTHOR'S ORGANIZ ATION 11/09/2024 [facility] DATE CREATED AUTHOR AUTHOR'S ORGANIZ ATION 12/11/2024 [facility] y Hospital Goals (unrecognized section and content) [...] Primary Care Physician Primary Care Provider Active Animal Maintenance Supervisor Relationship Specialty Start Date End Date Uvaldo Doss MD [address] [address] [place] [address] PCP - General Internal Medicine 06/29/24 Trevor Nelson MBBS [address] [place] [address] PCP Resident Internal Medicine 06/29/24 Animal Maintenance Supervisor Relationship Specialty Start Date End Date Uvaldo Doss MD [address] [address] [place] [address] PCP - General Internal Medicine 06/29/24 Trevor Nelson MBBS [address] [place] [place] [address] PCP Resident Internal Medicine 06/29/24 Animal Maintenance Supervisor Relationship Specialty Start Date End Date Uvaldo Doss MD [address] [address] [place] [address] PCP - General Internal Medicine 06/29/24 Trevor Nelson MBBS [address] [place] [place] [address] PCP Resident Internal Medicine 06/29/24 Animal Maintenance Supervisor Relationship Specialty Start Date End Date Uvaldo Doss MD [address] [place] [address] PCP - General Internal Medicine 06/29/24 Trevor Nelson MBBS [address] [place] [address] PCP Resident Internal Medicine 06/29/24 Animal Maintenance Supervisor Relationship Specialty Start Date End Date Uvaldo Doss MD [address] [place] [address] PCP - General Internal Medicine 06/29/24 Trevor Nelson MBBS [address] [place] [place] [address] PCP Resident Internal Medicine 06/29/24 Animal Maintenance Supervisor Relationship Specialty Start Date End Date Uvaldo Doss MD [address] [place] [address] PCP - General Internal Medicine 06/29/24 Trevor Nelson MBBS [address] [place] [place] [address] PCP Resident Internal Medicine 06/29/24 Animal Maintenance Supervisor Relationship Specialty Start Date End Date Uvaldo Doss MD [address] [place] [address] PCP - General Internal Medicine 06/29/24 Trevor Nelson MBBS [address] [place] [place] [address] PCP Resident Internal Medicine 06/29/24 Team Status: [...] Provider Activ e Start: December 07, 2024 Team Status: Active Member Role/Relationship Status Dates No Primary Care Physician Primary Care Provider Active Team Status: Active Member Role/Relationship Status Dates No Primary Care Physician Primary Care Provider Active Start: December 09, 2024 Dr. Jennifer Erazo DO Attending Provider Activ e Start: December 09, 2024 Dr. Jennifer Erazo , DO Referring Provider Activ e Start: December 09, 2024 Team Status: Inactive Member Role/Relationship Status Dates No Primary Care Physician Primary Care Provider Active Start: December 11, 2024 End: December 11, 2024 Dr. Jose Luis Rosenberg , Emergency Provider Active Start: December 11, 2024 End: December 11, 2024 Team Status: Inactive Member Role/Relationship Status Dates No Primary Care Physician Primary Care Provider Active Start: December 07, 2024 End: December 07, 2024 Dr. Jennifer Erazo DO Attending Provider Activ e Start: December 07, 2024 End: December 07, 2024 Source Comments (unrecognize d section and content) In the event this informatio n is protected by the Federal Confidentiality of Alcohol and Drug Abuse Patient Records regulations: The Federal rules restrict any use of the information to criminally investigate or prosecute any alcohol or drug abuse patient.[facility] CenterIn the event this information is protected by the Federal Confidentiality of Alcohol and Drug Abuse Patient Records regulations: The Federal rules restrict any use of the information to criminally investigate or prosecute any alcohol or drug abuse patient.[facility] CenterIn the event this information is protected by the Federal Confidentiality of Alcohol and Drug Abuse Patient Records regulations: The Federal rules restrict any use of the information to criminally investigate or prosecute any alcohol or drug abuse patient.[facility] CenterIn the event this information is protected by the Federal Confidentiality of Alcohol and Drug Abuse Patient Records regulations: The Federal rules restrict any use of the information to criminally investigate or prosecute any alcohol or drug abuse patient.[facility] CenterIn the event this information is protected by the Federal Confidentiality of Alcohol and Drug Abuse Patient Records regulations: The Federal rules restrict any use of the information to criminally investigate or prosecute any alcohol or drug abuse patient.[facility] CenterIn the event this information is protected by the Federal Confidentiality of Alcohol and Drug Abuse Patient Records regulations: The Federal rules restrict any use of the information to criminally investigate or prosecute any alcohol or drug abuse patient.[facility] CenterIn the event this information is protected by the Federal Confidentiality of Alcohol and Drug Abuse Patient Records regulations: The Federal rules restrict any use of the information to criminally investigate or prosecute any alcohol or drug abuse patient.[facility] CenterIn the event this information is protected by the Federal Confidentiality of Alcohol and Drug Abuse Patient Records regulations: The Federal rules restrict any use of the information to criminally investigate or prosecute any alcohol or drug abuse patient.[facility] CenterIn the event this information is protected by the Federal Confidentiality of Alcohol and Drug Abuse Patient Records regulations: The Federal rules restrict any use of the information to criminally investigate or prosecute any alcohol or drug abuse patient.[facility] Center[facility] the event this information is protected by the Federal Confidentiality of Alcohol and Drug Abuse Patient Records regulations: The Federal rules restrict any use of the information to criminally investigate or prosecute any alcohol or drug abuse patient.[facility] Reason for Visit (unrecogniz ed [...] disorder (HCC) Procedures CONSULT TO PSYCHIATRY OFFICE/OUTPATIENT [facility] 60 MINUTES Uvaldo Doss MD [address] [facility] [address] [place] [address] Phone: tel: fax: Referral ID Status Reason Start Date Expiration Date Visits Requested Visits Authorized [id number] Pending Review PCP Requested Referral 06/29/2024 06/29/2025 [...] BE BASED ON THE PRIMARY CLINICAL RECORDS. [facility]. provides no warranty or guarantee of the accuracy or completeness of information in this document.
== END | disposition home or self-care (01) ==
LOC: LAB 16:30
PROVIDERS: Referring Provider Obstetrics & Gynecology; Visit Provider Obstetrics & Gynecology
DX: O46.90 Antepartum hemorrhage, unspecified, unspecified trimester (principal); Z3A.00 Weeks of gestation of pregnancy not specified
CPT/HCPCS: 36415; 84702

== ENCOUNTER → 2024-12-17 | Outpatient (CLI) | payer BC, SELFPAY ==
[2024-12-17 11:10] LABS: hCG Titer Quant., Serum 1510 mIU/mL (<9 non-preg)
[2024-12-20 16:08] LABS: Anti-Cardiolipin Ab, IgG, Qn < 9 GPL U/mL (0-14); Anti-Cardiolipin Ab, IgM, Qn < 9 MPL U/mL (0-12); Beta-2-Glycoprotein I IgA <9 (0-25); Beta-2-Glycoprotein I IgG <9 (0-20); Beta-2-Glycoprotein I IgM <9 (0-32); Dilute Russell Viper Venom 37.6 sec (0.0-47.0); Interpretation Comment: (.); PTT-LA 38.1 sec (0.0-43.5)
== END | disposition home or self-care (01) ==
LOC: LAB 09:44
PROVIDERS: Obstetrics & Gynecology; Referring Provider Obstetrics & Gynecology; Visit Provider Obstetrics & Gynecology
DX: O20.0 Threatened abortion (principal); O26.20 Pregnancy care for patient with recurrent pregnancy loss, unspecified trimester; Z87.59 Personal history of other complications of pregnancy, childbirth and the puerperium; Z3A.00 Weeks of gestation of pregnancy not specified
CPT/HCPCS: 36415; 83036; 84443; 84702; 86146; 86147

== ENCOUNTER → 2024-12-20 | Outpatient (CLI) | payer BC, SELFPAY ==
[2024-12-20 11:07] LABS: hCG Titer Quant., Serum 127 mIU/mL (<9 non-preg)
== END | disposition home or self-care (01) ==
LOC: BWCLAB 08:35
PROVIDERS: Obstetrics & Gynecology; Visit Provider Obstetrics & Gynecology
DX: O20.0 Threatened abortion (principal); Z3A.00 Weeks of gestation of pregnancy not specified
CPT/HCPCS: 36415; 84702

== ENCOUNTER → 2024-12-27 | Outpatient (CLI) | payer BC, SELFPAY ==
[2024-12-27 13:00] LABS: hCG Titer Quant., Serum 5 mIU/mL (<9 non-preg)
== END | disposition home or self-care (01) ==
LOC: LAB 11:30
PROVIDERS: Referring Provider Nurse Practitioner Women's Health; Visit Provider Nurse Practitioner Women's Health
DX: O03.9 Complete or unspecified spontaneous abortion without complication (principal)
CPT/HCPCS: 36415; 84702

== ENCOUNTER → 2025-01-17 | Outpatient (CLI) | payer BC, SELFPAY ==
[2025-01-17 11:37] LABS: hCG Titer Quant., Serum 46 mIU/mL (<9 non-preg)
== END | disposition home or self-care (01) ==
LOC: LAB 10:15
PROVIDERS: Referring Provider Advanced Practice Midwife; Visit Provider Advanced Practice Midwife
DX: O09.299 Supervision of pregnancy with other poor reproductive or obstetric history, unspecified trimester (principal); Z3A.00 Weeks of gestation of pregnancy not specified
CPT/HCPCS: 36415; 84702

== ENCOUNTER → 2025-01-19 | Outpatient (CLI) | payer BC, SELFPAY ==
[2025-01-19 10:46] LABS: hCG Titer Quant., Serum 177 mIU/mL (<9 non-preg)
== END | disposition home or self-care (01) ==
LOC: LAB 08:01
PROVIDERS: Referring Provider Advanced Practice Midwife; Visit Provider Advanced Practice Midwife
DX: O09.299 Supervision of pregnancy with other poor reproductive or obstetric history, unspecified trimester (principal); Z3A.00 Weeks of gestation of pregnancy not specified
CPT/HCPCS: 36415; 84702

== ENCOUNTER 2025-01-27 15:15 | Outpatient (CLI) | payer BC, SELFPAY ==
--- NOTE | 2025-01-27 15:17 | US_ITS ---
PROCEDURE: TRANSVAGINAL W/PREG US 01/27/2025 REASON FOR EXAM: DATING 1st trimester . TECHNIQUE: Procedure Code: [id number] Modality: US Procedure: TRANSVAGINAL W/PREG US COMPARISON: None FINDINGS: Comments: Recent miscarriage. Number of Gestational Sacs: 1 Gestational Sac Shape: Normal Beta hCG not provided. Yolk Sac: Not visualized. Placenta: Not visualized. Amniotic Fluid Volume: Fluid in the gestational sac negative. Uterine Abnormalities: Maternal uterus is unremarkable. Cervix closed. Ovaries / Adnexa: Right ovary 2.8 x 2.1 x 4.7 cm. No definitive ectopic mass. No adjacent fluid. Left ovary 3.0 x 1.8 cm with normal flow. No definitive ectopic mass. No definitive free pelvic fluid. ESTIMATED GESTATIONAL AGE: By Ultrasound: 5 weeks 4 days. ESTIMATED DATE OF DELIVERY: By Ultrasound: 25 Sep 2025. US/Transvaginal w/Preg US IMPRESSION: Probable gestational sac. However yolk sac and embryonic pole not visualized Recommend correlation with patient's beta HCG. In a normal and a beta HCG greater than 1000 and embryonic pole with heart rate is visualized. No definitive ectopic mass. Reading Location: [id number]
== END 2025-01-27 23:59 | disposition home or self-care (01) ==
LOC: US 15:15
PROVIDERS: Referring Provider Advanced Practice Midwife; Visit Provider Advanced Practice Midwife
DX: Z34.01 Encounter for supervision of normal first pregnancy, first trimester (principal); Z78.9 Other specified health status
CPT/HCPCS: 76817

== ENCOUNTER → 2025-02-02 | Outpatient (CLI) | payer BC, SELFPAY ==
[2025-02-02 15:00] LABS: hCG Titer Quant., Serum 34819 mIU/mL (<9 non-preg)
== END | disposition home or self-care (01) ==
LOC: LAB 12:15
PROVIDERS: Referring Provider Advanced Practice Midwife; Visit Provider Advanced Practice Midwife
DX: Z78.9 Other specified health status (principal)
CPT/HCPCS: 36415; 84702

== ENCOUNTER → 2025-02-16 | Outpatient (CLI) | payer BC, SELFPAY ==
--- OUTSIDE RECORDS SUMMARY | 2025-02-16 19:03 | XMS RPT_ITS | CCD ---
Author Organization [facility] CliniSywy Care Team Providers Care Healthcare Associate Name Role Phone Dr. Mc Delgadillo Primary Care Provider [phone] Dr. Mc Delgadillo Referring Provider SAMUEL Sherman Attending Provider Trevor Herring Unavailable Kira Fuchs MD, Uvaldo Keyes Primary Care Provider [phone] Care Physician, No Primary Primary Care Provider Unavailable Care Physician, No Primary Referring Provider Un available Dr. Jennifer Erazo DO Attending Provider Dr. Jennifer Erazo DO Referring Provider Dr. Jose Luis Rosenberg DO Emergency Provider [phone] VITALY RAMOS Attending Unavailable KIRA FUCHS, UVALDO STEPHY Primary Care Unavailable VITALY RAMOS Attending Unavailable KIRA FUCHS, UVALDO STEPHY Primary Care Unavailable TREVOR NELSON Attending Unavailable KIRA FUCHS, UVALDO STEPHY Primary Care Unavailable KIRA FUCHS, UVALDO STEPHY Referring Unavailable KIRA FUCHS, UVALDO STEPHY Primary Care Unavailable VITALY RAMOS Attending Unavailable KIRA FUCHS, UVALDO STEPHY Referring Unavailable KIRA FUCHS, UVALDO STEPHY Primary Care Unavailable VITALY RAMOS Attending Unavailable KIRA FUCHS, UVALDO STEPHY Primary Care Unavailable Dr. Cindy Stevenson MD Attending Provider Dr. Cindy Stevenson MD Referring Provider Dr. Jose Luis Rosenberg DO Attending Provider [phone] Corby COMPRESSOR ASSEMBLER-CHillary Attending Provider [phone] Corby COMPRESSOR ASSEMBLER-CHillary Referring Provider [phone] Monica Magana CNM Attending Provider [phone] [place] CNMMonica Referring Provider Care Physician, No Primary Primary Care Unava ilable Monica Magana Referring Unavailable Monica Magana Attending Unavailable Care Physician, No Primary Primary Care Unava ilable Cindy Stevenson Referring Unavailable MarcanthCindy frost Attending Unavailable Jennifer Erazo Attending Unavailabl e Care Physician, No Primary Primary Care Unava ilable Raheeme Veldave, Referring Unavailabl e Rashi Veldave, Attending Unavailabl e Care Physician, No Primary Primary Care Unava ilable Raheeme Veldave, Referring Unavailabl e Care Physician, No Primary Primary Care Unava ilable Graham, Cindy Attending Unavailable Care Physician, No Primary Primary Care Unava ilable Corby COMPRESSOR ASSEMBLER, Hillary Referring Unavailable Corby COMPRESSOR ASSEMBLER, Hillary Attending Unavailable Care Physician, No Primary Primary Care Unava ilable Care Physician, No Primary Referring Unava ilable Cindy Stevenson Attending Unavailable Care Physician, No Primary Primary Care Unava ilable Care Physician, No Primary Referring Unava ilable Cindy Stevenson Attending Unavailable Care Physician, No Primary Primary Care Unava ilable Monica Magana Attending Unavailable Monica Magana Referring Unavailable Care Physician, No Primary Primary Care Unava ilable Monica Magana Attending Unavailable Monica Magana Referring Unavailable Care Physician, No Primary Primary Care Unava ilable Monica Magana Attending Unavailable Monica Magana Referring Unavailable Care Physician, No Primary Primary Care Unava ilable Jose Luis Rosenberg Attending Unavailable Jennifer Erazo Attending Unavailabl e Care Physician, No Primary Primary Care Unava ilable Care Physician, No Primary Primary Care Unava ilable Care Physician, No Primary Referring Unava ilable Jennifer Erazo Attending Unavailabl e Care Physician, No Primary Primary Care Unava ilable Care Physician, No Primary Referring Unava ilable Monica Magana Attending Unavailable Care Physician, No Primary Referring Unava ilable Care Physician, No Primary Primary Care Unava ilable Jennifer Erazo Attending Unavailabl e Care Physician, No Primary Primary Care Unava ilable Care Physician, No Primary Referring Unava ilable Cindy Stevenson Attending Unavailable Allergies Allergy Classification Reported Allergen(s) Allergy Type Date of Onset Reaction(s) Facility (17 sources) Sulfonamides (Antibiotic); Translations: [SULFA (SULFONAMIDE ANTIBIOTICS)] Allergy to substance 3 Hives [facility] (10 sources) Sulfonamides (Antibiotic) Drug Allergy 5 Hives, Rash [facility] (1 source) Sulfonamides (Antibiotic) Drug allergy (disorder) 5 [facility] Repository Medications Current Medications Medication Drug Class(es) Dates Sig (Normalized) Sig (Original) [id number] 200 actuat albuterol 0.09 mg/actuat metered dose inhaler (8 sources) beta2-Adrenergic Agonist Start: 06-08-2024 End: 07-08-2024 take 2 puff(s) by inhalation every six hours as needed albuterol HFA (PROVENTIL HFA, VENTOLIN HFA) 90 mcg/actuation inhaler Inhale 2 Puffs as instructed every 6 hours as needed. 06/08/2024 Active 24 hr buPROPion hydrochloride 150 mg extended release oral tablet (20 sources) Aminoketone Start: 12-10-2024 End: 12-14-2024 buPROPion XL (WELLBUTRIN XL) 150 mg 24 hr tablet Indications: Moderate episode of recurrent major depressive disorder (HCC) Take 1 tablet by mouth once daily for 4 days. Then discontinue Wellbutrin. 4 tablet 12/10/2024 12/14/2024 Active Start: 10-11-2024 End: 02-06-2025 take 1 tablet by mouth once daily Bupropion Hcl 300 mg tablet extended release 24 hr Discontinued 300 mg PO daily December 07, 2024 12:00am December 14, 2024 12:12pm Start: 09-06-2024 End: 10-06-2024 take 1 tablet [...] a day. 180 tablet 06/29/2024 09/06/2024 Discontinued fluticasone propionate 0.05 mg/actuat metered dose nasal spray (2 sources) Corticosteroid Start: 06-08-2024 End: 07-06-2024 fluticasone (FLONASE) 50 mcg/actuation nasal spray Use 1 Shelby in the nose. 06/08/2024 07/06/2024 Active [place] (Nk) (1 source) Start: 04-18-2023 [place] (Nk) Active April 18, 2023 12:00am ondansetron 4 mg disintegrating oral tablet (3 sources) Serotonin-3 Receptor Antagonist Start: 02-04-2025 take 1 tablet by mouth every six hours as needed for nausea and vomiting Ondansetron 4 mg tablet,disintegrat ing Active 4 mg PO EVERY 6 HOURS as needed for nausea and vomiting 30 4 February 04, 2025 12:00am Nausea and vomiting during Vomiting of , unspecified Pnv No.730-Ls-Su6-Dha-Ep a-Fish 400 mcg-35 mg- 25 mg-5 mg tablet,chewable (12 sources) Start: 12-14-2024 Pnv No.203-Kv-Tw0-Dha- Epa-Fish 400 mcg-35 mg- 25 mg-5 mg tablet,chewable Active 1 {tbl} PO DAILY December 14, 2024 12:00am progesterone 200 mg oral capsule (9 sources) Progesterone Start: 12-20-2024 Progesterone Micronized (Prometrium) 200 mg capsule Active 200 mg VAGINAL AT BEDTIME 30 30 3 December 20, 2024 12:00am continue through 14 weeks Completed/Discontinued Medications Medication Drug Class(es) Dates Sig (Normalized) Sig (Original) acetaminophen 325 mg / oxyCODONE hydrochloride 5 mg oral tablet (9 sources) Opioid Agonist Start: 12-17-2024 End: 12-20-2024 Oxycodone-Acetamin ophen (Percocet) 5-325 mg tablet Discontinued 1 {tbl} PO Q4H as needed for pain 18 3 0 December 17, 2024 December 19, 2024 12:00am December 20, 2024 12:07am Incomplete Incomplete spontaneous without complication amoxicillin 875 mg / clavulanate 125 mg oral tablet (15 sources) Penicillin-class Antibacterial Start: 04-24-2023 End: 12-10-2023 Amoxicillin-Pot Clavulanate 875-125 mg tablet Discontinued 1 {tbl} PO Q12H 20 10 0 April 24, 2023 1:00am May 03, 2023 1:00am May 04, 2023 1:04am Acute sinusitis, unspecified Ascorbic Acid (10 sources) Vitamin C End: 12-10-2024 ascorbic acid (VITAMIN C ORAL) Take by mouth. 12/10/2024 Discontinued ascorbic acid (V ITAMIN C ORAL) Take by mouth. Active azithromycin 250 mg oral tablet (16 sources) Macrolide Antimicrobial Start: 03-28-2023 End: 04-18-2023 take 2-5 tablets by mouth once daily Azithromycin 250 mg tablet Discontinued 0 PO .COMPLEX 6 March 28, 2023 12:00am April 18, 2023 7:24am take 500 mg today (day 1), then 250 mg for 4 days (days 2-5) PO benzonatate 100 mg oral capsule (16 sources) Non-narcotic Antitussive Start: 03-28-2023 End: 04-18-2023 take 2 capsules by mouth three times daily as needed for cough Benzonatate 100 mg capsule Discontinued 200 mg PO THREE TIMES A DAY as needed for cough March 28, 2023 12:00am April 18, 2023 7:24am Start: 03-28-2023 End: 04-18-2023 take 200 mg by mouth three times daily Benzonatate Discontinued 200 MG PO THREE TIMES A DAY March 27, 2023 11:00pm April 18, 2023 6:24am busPIRone hydrochloride 15 mg oral tablet (20 sources) Start: 12-07-2024 End: 02-04-2025 take 1 tablet by mouth twice daily Buspirone 15 mg tablet Discontinued 15 mg PO TWICE A DAY December 07, 2024 12:00am February 04, 2025 8:21am Start: 11-08-2024 End: 02-06-2025 take 0.5 tablet [...] 11/08/2024 Discontinued cephalexin 500 mg oral capsule (14 sources) Cephalosporin Antibacterial Start: 12-11-2024 End: 12-20-2024 take 1 capsule by mouth twice daily Cephalexin 500 mg capsule Discontinued 500 mg PO TWICE A DAY 10 5 0 December 11, 2024 12:00am December 20, 2024 8:02am ibuprofen 600 mg oral tablet (17 sources) Nonsteroidal Anti-inflammatory Drug Start: 04-07-2021 End: [...] idophilus (PROBIOTIC ORAL) Take by mouth. Active (17 sources) Start: 03-29-2021 End: 04-18-2023 Discontinued 1 [...] 12:00am promethazine hydrochloride 25 mg oral tablet (15 sources) Phenothiazine Start: 06-20-2023 End: 12-07-2024 take [...] chloride 0.65 % nasal spray Use 1 Shelby in the nose. 06/08/2024 12/10/2024 Discontinued Zinc (10 sources) End: 12-10-2024 ZINC ORAL Take by mouth. 12/10/2024 Discontinued ZINC ORAL Take b y mouth. Active Problems Active Problems Problem Classification Problem Date Documented Date Episodic/Chronic Administrative/social admission (20 sources) Patient encounter status; Translations: [Encounter for pre-employment examination] 08-01-2022 Episodic Anxiety disorders (5 sources) Generalized anxiety disorder; Translations: [Generalized anxiety disorder] Onset: 11-08-2024 09-07-2024 Chronic Hemorrhage during ; abruptio placenta; placenta previa (20 sources) Bleeding from female genital tract during ; Translations: [Antepartum hemorrhage, unspecified, unspecified trimester] Onset: 12-16-2024 12-11-2024 Episodic Menstrual disorders (8 sources) Amenorrhea; Translations: [Amenorrhea, unspecified] Onset: 12-15-2024 12-10-2024 Chronic Comment on above: HCG Mood disorders (5 sources) Moderate recurrent major depression; Translations: [Major depressive disorder, recurrent, moderate] Onset: 11-08-2024 06-29-2024 Chronic Nausea and vomiting (15 sources) Nausea, vomiting and diarrhea; Translations: [Nausea with vomiting, unspecified] 06-20-2023 Episodic Noninfectious gastroenteritis (15 sources) Gastroenteritis; Translations: [Noninfective gastroenteritis and colitis, unspecified] 06-20-2023 Episodic Other complications of (8 sources) H/O: miscarriage; Translations: [Supervision of with other poor reproductive or obstetric history, unspecified trimester] 01-17-2025 Episodic Comment on above: unknown LMP Other complications of (1 source) Supervision of with other poor reproductive or obstetric history, unspecified trimester; Translations: [Supervision of with other poor reproductive or obstetric history, unspecified trimester] Onset: 02-04-2025 Episodic Other complications of (1 source) Vomiting of , unspecified; Translations: [Vomiting of , unspecified] Onset: 02-04-2025 Episodic Other female genital disorders (1 source) Abnormal uterine and vaginal bleeding, unspecified; Translations: [Abnormal uterine and vaginal bleeding, unspecified] Onset: 12-20-2024 Chronic Other female genital disorders (20 sources) Recurrent miscarriage; Translations: [Recurrent loss] 12-07-2024 Episodic Other female genital disorders (1 source) Recurrent loss; Translations: [Recurrent loss] Onset: 02-04-2025 Episodic Other nervous system disorders (2 sources) Disturbance of attention; Translations: [Attention and concentration deficit] 09-06-2024 Chronic Other nervous system disorders (1 source) Attention and concentration deficit; Translations: [Attention and concentration deficit] Onset: 12-10-2024 Chronic Other nervous system disorders (14 sources) H/O: migraine; Translations: [Personal history of other diseases of the nervous system and sense organs] 12-11-2024 Episodic Other nutritional; endocrine; and metabolic disorders (1 source) Body mass index 40+ - severely obese; Translations: [Body mass index (BMI) 40.0-44.9, adult] 09-07-2024 Chronic Other and delivery including normal (20 sources) Vaginal delivery; Translations: [Encounter for full-term uncomplicated delivery] Onset: 02-04-2025 04-06-2021 Episodic Comment on above: Labor Other upper respiratory infections (20 sources) Acute pharyngitis; Translations: [Acute pharyngitis, unspecified] 03-28-2023 Episodic Otitis media and related conditions (8 sources) Acute right otitis media; Translations: [Otitis [...] of ] 12-10-2024 Episodic Residual codes; unclassified (20 sources) History of molar ; Translations: [Personal history of other complications of , childbirth and the puerperium] 12-07-2024 Episodic Residual codes; unclassified (5 sources) Finding of menstrual bleeding; Translations: [Other specified health status] 01-20-2025 Episodic Residual codes; unclassified (1 source) Other specified health status; Translations: [Other specified health status] Onset: 02-12-2025 Episodic Skin and subcutaneous tissue infections (17 sources) Cellulitis and abscess of chest wall ; Translations: [Abscess or cellulitis of chest wall] 04-22-2020 Episodic Spontaneous (19 sources) with abortive outcome; Translations: [Incomplete spontaneous without complication] Onset: 01-01-2025 12-17-2024 Episodic Sprains and strains (20 sources) Sprain of ankle; Translations: [Sprain of [...] [Screening for depression] Onset: 06-29-2024 Episodic Unclassified (17 sources) No history of clinical finding in subject; Translations: [No significant past medical history] 04-06-2021 Results Test Name Value Interpretation Reference Range Facility Cable Coverer Office Visit Reporton 02-07-2025 Cable Coverer Office Visit Report [facility] [address], [address] [place] [address] OFFICE VISIT Date of Service: 02/07/25 MR#: [id number] Acct: [id number] Name: ROBINSON RUFF Rep #: [id number] : 1995 Provider: Dr. Cindy lynne MD Age/Sex: 29/F [place] [facility] [place]: Signed Intake Vital Signs 02/04/25 08:13 02/07/25 14:54 02/07/25 14:54 Height 5 ft 4 in 5 ft 4 in 5 ft 4 in Weight: 235 lb 1 oz 234 lb 6 oz BMI 40.3 40.2 BP 110/75 136/81 H Intake Visit Reasons: spotting /SM MS Waistband Setter Required: No Is patient in pain?: No Allergies Sulfa (Sulfonamide Antibiotics) Allergy (Verified 02/07/25 14:54) Hives Medications ???Medication ???Instructions ???Recorded ???Confirmed ???Type PNV 153-FA 400 mcg-om3 35 mg-dha 1 tab PO DAILY 12/14/24 02/07/25 H istory 25 mg-epa 5 mg-fish oil chew tablet progesterone micronized 200 mg 200 mg vaginal QHS 30 days #30 cap s 12/20/24 02/07/25 Rx capsule (Prometrium) ondansetron 4 mg disintegrating 4 mg PO Q6H PRN nausea and 5 02/07/25 Rx tablet vomiting #30 tabs Is last menstrual period known: No Post menopausal: No Patient : Yes : No PFSH Medical History (spontaneous vaginal delivery) Complete Gastroenteritis Nausea vomiting and diarrhea Seasonal allergies Migraines Surgical History H/O wisdom tooth extraction H/O dilation and curettage Family History Father Hypertension Mother Hypertension Social History household members: spouse and children number of children: 2 current occupational status: employed 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 some cramping brown dischrge, seen 3 days ago and scann eiwht positiv heartbeat. History 7 Elective abortions Hx Para 2 Spontaneous abortions 4 Hx # Term Pregnancies 2 Ectopic pregnancies Hx # Pregnancies Multiple births # of living children 2 Past Pregnancies Del. Date Name GA/Weeks Outcome Route Bth Weight Gen Labor Lgth Anesthesia Del Locatn Provider FOB Unknown 2016 Reina Wolfe live - full term Unknown 2020 Ahmet live - full term Unknown 2016 molar ROS Const Constitutional: Reports system reviewed and no additional complaints, except as documented and fatigue; Denies fever(s) Eyes Eyes: Reports system reviewed and no additional complaints, except as documented ENT ENT: Reports system reviewed and no additional complaints, except as documented Cardio Card: Denies chest pain Resp Resp: Reports system reviewed and no additional complaints, except as documented; Denies cough or dyspnea GI GI: Reports nausea; Denies abdominal pain : Reports system reviewed and no additional complaints, except as documented Musc Musc: Reports system reviewed and no additional complaints, except as documented Skin Skin/Breast: Reports system reviewed and no additional complaints, except as documented Neuro Neuro: Reports system reviewed and no additional complaints, except as documented Psych Psych: Reports system reviewed and no additional complaints, except as documented Endo Endo: Reports system reviewed and no additional complaints, except as documented Exam Const General: healthy appearing, comfortable and no acute distress Orientation: alert HENMT Head: normal to inspection, normocephalic and atraumatic Ears: hearing grossly normal bilaterally and external ears normal Nose: external nose normal and nares normal Mouth: oral mucosae normal Teeth and gingiva: dentition normal Eyes General: appearance normal, both eyes and all related structures Neck Neck: normal visual inspection, no lymphadenopathy and supple Thyroid: thyroid normal Chest Chest palpation inspection: normal inspection of the chest Breast inspection: normal inspection of the breasts and normal inspection of the axillae Breast palpation: normal palpation of the breasts and normal palpation of the axillae Resp Effort Inspection: normal respiratory effort GI Inspection: normal to inspection Palpation: soft and no hepatosplenomegaly External Female Exam: normal external appearance and normal appearance of the urethra Urethra: normal appearance of the urethra Speculum Exam - Vagina: normal appearance of the vagina Speculum Exam - Ce (more content not included)... Normal [facility] Cable Coverer Office Visit Reporton 02-04-2025 Cable Coverer Office Visit Report [facility] [address], [address] [place] [address] OFFICE VISIT Date of Service: 02/04/25 MR#: [id number] Acct: [id number] Name: ROBINSON RUFF Rep #: [id number] : 1995 Provider: MATHEW Perez ams Age/Sex: 29/F Location[place] [facility] Status: Signed Intake Vital Signs 12/20/24 07:59 02/04/25 08:13 Height 5 ft 4 in 5 ft 4 in Weight: 235 lb 1 oz BMI 40.3 BP 110/75 Intake Visit Reasons: OB, Rescan Chief Complaint: OB, Rescan Waistband Setter Required: No Is patient in pain?: No Allergies Sulfa (Sulfonamide Antibiotics) Allergy (Verified 02/04/25 08:14) Hives Medications ???Medication ???Instructions ???Recorded ???Confirmed ???Type PNV 153-FA 400 mcg-om3 35 mg-dha 1 tab PO DAILY 12/14/24 02/04/25 H istory 25 mg-epa 5 mg-fish oil chew tablet progesterone micronized 200 mg 200 mg vaginal QHS 30 days #30 cap s 12/20/24 02/04/25 Rx capsule (Prometrium) ondansetron 4 mg disintegrating 4 mg PO Q6H PRN nausea and 5 02/04/25 Rx tablet vomiting #30 tabs Is last menstrual period known: No Post menopausal: No Patient : Yes : No PFSH Medical History (spontaneous vaginal delivery) Complete Gastroenteritis Nausea vomiting and diarrhea Seasonal allergies Migraines Surgical History H/O wisdom tooth extraction H/O dilation and curettage Family History Father Hypertension Mother Hypertension Social History household members: spouse and children number of children: 2 current occupational status: employed 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 Had a formal scan on 01/27 which showed possible IUP but no pole or yok sac. had HCG done earlier this week suggestive of . repeat scan today shows IUP with CRL of 0.46cm consistent with gestation of 6weeks and 1 day with FHT of 109 will RTO in 2 weeks for NOB appt. Is on vaginal progesterone for hx of SAB. History 7 Elective abortions Hx Para 2 Spontaneous abortions 4 Hx # Term Pregnancies 2 Ectopic pregnancies Hx # Pregnancies Multiple births # of living children 2 Past Pregnancies Del. Date Name GA/Weeks Outcome Route Bth Weight Infant Gen Labor Lgth Anesthesia Del Locatn Provider FOB Unknown 2016 Reina Wolfe live - full term Unknown 2020 Ahmet live - full term Unknown 2015 molar ROS Const Constitutional: Reports system reviewed and no additional complaints, except as documented Cardio Card: Reports system reviewed and no additional complaints, except as documented Resp Resp: Reports system reviewed and no additional complaints, except as documented GI GI: Reports system reviewed and no additional complaints, except as documented : Reports system reviewed and no additional complaints, except as documented; Denies difficulty voiding, dysuria or urinary frequency Skin Skin/Breast: Reports system reviewed and no additional complaints, except as documented Neuro Neuro: Reports system reviewed and no additional complaints, except as documented Psych Psych: Reports system reviewed and no additional complaints, except as documented Exam Const General: cooperative, healthy appearing, comfortable and no acute distress Resp Effort Inspection: normal respiratory effort, able to speak in complete sentences and symmetric chest movement GI Inspection: normal to inspection Palpation: soft External Female Exam: normal external appearance and normal appearance of the urethra Urethra: normal appearance of the urethra Speculum Exam - Vagina: normal appearance of the vagina and normal vaginal discharge Neuro General: patient alert, patient awake and patient oriented x3 Cognition: normal cognition Speech: speech normal Gait: normal gait Psych Appearance: grossly normal and well kempt Mental Status: mental status grossly normal Affect: normal affect Speech and Movement: speech and movement normal Attitude: cooperative Thought Process: normal Thought Content: normal Judgment: judgment good Coding Level of Care Code Off vis,est,level 3 Diagnoses Early stage of Z34.90 History of miscarriage, currently O09.299 Recurrent loss N96 Assessment and Plan Assessment and Plan (1) Early stage of : S (more content not included)... Normal [facility] Serum human chorionic gonado tropin detection for pregnancyOrdered By: Monica Magana on 09-10-2025 HCG ( test) Ql [address] mIU/mL High <9 [facility] Comment on above: Gestational Age0.2-1 Week: 5-50 mIU/mL1-2 Weeks: 50-500 mIU/mL2-3 Weeks: 100-5000 mIU/mL3-4 Weeks: 500-10,000 mIU/mL4-5 Weeks:1000-50,000 mIU/mL5-6 Weeks: 10,000-100,000 mIU/mL6-8 Weeks: 15,000-200,000 mIU/mL2-3 Months:10,000-100,000 mIU/mL hCG Titer Quant., Serumon HCG QUANT. 82607 mIU/mL High <9 non-preg [facility] Comment on above: Result Comment: Gest ational Age 0.2-1 Week: 5-50 mIU/mL 1-2 Weeks: 50-500 mIU/mL 2-3 Weeks: 100-5000 mIU/mL 3-4 Weeks: 500-10,000 mIU/mL 4-5 Weeks:1000-50,000 mIU/mL 5-6 Weeks: 10,000-100,000 mIU/mL 6-8 Weeks: 15,000-200,000 mIU/mL 2-3 Months:10,000-100,000 mIU/mL Performed By: #### L 700.8000 #### [facility] [address] [place], [address] Transvaginal w/Preg USon Transvaginal w/Preg US [facility] [address] [place] [address] Transvaginal w/Preg US MR#: [id number] Acct: [id number] Name: ROBINSON RUFF Rep #: [id number] : 1995 F 29 From: Huey Acuna MD PCP: Care Physician,No Primary Status: REG CLI Study: Transvaginal w/Preg US Date of Exam: 01/27/25 Exam# [id number] Ordering Dr: Monica Magana CNM PROCEDURE: TRANSVAGINAL W/PREG US 01/27/2025 REASON FOR EXAM: DATING 1st trimester . TECHNIQUE: Procedure Code: USTVAGP Modality: US Procedure: TRANSVAGINAL W/PREG US COMPARISON: None FINDINGS: Comments: Recent miscarriage. Number of Gestational Sacs: 1 Gestational Sac Shape: Normal Beta hCG not provided. Yolk Sac: Not visualized. Placenta: Not visualized. Amniotic Fluid Volume: Fluid in the gestational sac negative. Uterine Abnormalities: Maternal uterus is unremarkable. Cervix closed. Ovaries / Adnexa: Right ovary 2.8 x 2.1 x 4.7 cm. No definitive ectopic mass. No adjacent fluid. Left ovary 3.0 x 1.8 cm with normal flow. No definitive ectopic mass. No definitive free pelvic fluid. ESTIMATED GESTATIONAL AGE: By Ultrasound: 5 weeks 4 days. ESTIMATED DATE OF DELIVERY: By Ultrasound: 25 Sep 2025. US/Transvaginal w/Preg US IMPRESSION: Probable gestational sac. However yolk sac and embryonic pole not visualized Recommend correlation with patient's beta HCG. In a normal and a beta HCG greater than 1000 and embryonic pole with heart rate is visualized. No definitive ectopic mass. Reading Location: [id number] CC: MATHEW Magana; No Primary Care Physician Product Marketing Specialist: Signed Normal [facility] Serum human chorionic gonado tropin detection for pregnancyOrdered By: Monica Magana on 01-19-2025 HCG ( test) Ql 177 mIU/mL High <9 [facility] Comment on above: Gestational Age0.2-1 Week: 5-50 mIU/mL1-2 Weeks: 50-500 mIU/mL2-3 Weeks: 100-5000 mIU/mL3-4 Weeks: 500-10,000 mIU/mL4-5 Weeks:1000-50,000 mIU/mL5-6 Weeks: 10,000-100,000 mIU/mL6-8 Weeks: 15,000-200,000 mIU/mL2-3 Months:10,000-100,000 mIU/mL hCG Titer Quant., Serumon HCG QUANT. 177 mIU/mL High <9 non-preg [facility] Comment on above: Order Comment: rpt 4 8H, unknown LMP Result Comment: Gest ational Age 0.2-1 Week: 5-50 mIU/mL 1-2 Weeks: 50-500 mIU/mL 2-3 Weeks: 100-5000 mIU/mL 3-4 Weeks: 500-10,000 mIU/mL 4-5 Weeks:1000-50,000 mIU/mL 5-6 Weeks: 10,000-100,000 mIU/mL 6-8 Weeks: 15,000-200,000 mIU/mL 2-3 Months:10,000-100,000 mIU/mL Performed By: #### L 700.8000 #### [facility] [address] [place], [address] Serum human chorionic gonado tropin detection for pregnancyOrdered By: Monica Magana on 01-17-2025 HCG ( test) Ql 46 mIU/mL High <9 [facility] Comment on above: Gestational Age0.2-1 Week: 5-50 mIU/mL1-2 Weeks: 50-500 mIU/mL2-3 Weeks: 100-5000 mIU/mL3-4 Weeks: 500-10,000 mIU/mL4-5 Weeks:1000-50,000 mIU/mL5-6 Weeks: 10,000-100,000 mIU/mL6-8 Weeks: 15,000-200,000 mIU/mL2-3 Months:10,000-100,000 mIU/mL hCG Titer Quant., Serumon HCG QUANT. 46 mIU/mL High <9 non-preg [facility] Comment on above: Order Comment: unkno wn LMP Result Comment: Gest ational Age 0.2-1 Week: 5-50 mIU/mL 1-2 Weeks: 50-500 mIU/mL 2-3 Weeks: 100-5000 mIU/mL 3-4 Weeks: 500-10,000 mIU/mL 4-5 Weeks:1000-50,000 mIU/mL 5-6 Weeks: 10,000-100,000 mIU/mL 6-8 Weeks: 15,000-200,000 mIU/mL 2-3 Months:10,000-100,000 mIU/mL Performed By: #### L 700.8000 #### [facility] [address] [place], [place], [id number] Serum human chorionic gonado tropin detection for pregnancyOrdered By: Hillary Tavarez on 12-27-2024 HCG ( test) Ql 5 mIU/mL <9 [facility] Comment on above: Gestational Age0.2-1 Week: 5-50 mIU/mL1-2 Weeks: 50-500 mIU/mL2-3 Weeks: 100-5000 mIU/mL3-4 Weeks: 500-10,000 mIU/mL4-5 Weeks:1000-50,000 mIU/mL5-6 Weeks: 10,000-100,000 mIU/mL6-8 Weeks: 15,000-200,000 mIU/mL2-3 Months:10,000-100,000 mIU/mL hCG Titer Quant., Serumon HCG QUANT. 5 mIU/mL Normal <9 non-preg [facility] Comment on above: Result Comment: Gest ational Age 0.2-1 Week: 5-50 mIU/mL 1-2 Weeks: 50-500 mIU/mL 2-3 Weeks: 100-5000 mIU/mL 3-4 Weeks: 500-10,000 mIU/mL 4-5 Weeks:1000-50,000 mIU/mL 5-6 Weeks: 10,000-100,000 mIU/mL 6-8 Weeks: 15,000-200,000 mIU/mL 2-3 Months:10,000-100,000 mIU/mL Performed By: #### L 700.8000 #### [facility] [address] [place], [place], [id number] Anticardiolipin IgG, IgMon 0 12-20-2024 ANTICARDIO IgG < 9 Normal 0-14 [facility] Comment on above: Result Comment: Nega tive: <15 Indeterminate: 15 - 20 Low-Med Positive: >20 - 80 High Positive: >80 Performed By: #### L 4500.0100, L3100.8410, L501.9520, L3410.2000, L501.9966 #### [facility] [address] [place], [place], [address] Anticardio.IgM < 9 Normal 0-12 [facility] Comment on above: Result Comment: Nega tive: <13 Indeterminate: 13 - 20 Low-Med Positive: >20 - 80 High Positive: >80 Performed at: - [facility] [id number] Senior Medical Transcriptionist: Claire Kerns MD, Phone: [phone] Performed at: - [facility] [id number] Senior Medical Transcriptionist: Adarsh Taylor PhD, Phone: [phone] Performed By: #### L 4500.0100, L3100.8410, L501.9520, L3410.2000, L501.9985 #### [facility] [address] [place], [place], [id number] Beta-2 Glycoprot IgG, A, 12-20-2024 B2 GLYCO I IGA <9 Normal 0-25 [facility] Comment on above: Result Comment: Resu lt Units: GPI IgA units The reference interval reflects a 3SD or 99th percentile interval, which is thought to represent a potentially clinically significant result in accordance with the International Consensus Statement on the classification criteria for definitive antiphospholipid syndrome (APS). J Thromb Haem 2006;4:295-306. Performed By: #### L 4500.0100, L3100.8410, L501.9520, L3410.2000, L501.9985 #### [facility] [address] [place], [place], [address] B2 GLYCO I IGG <9 Normal 0-20 [facility] Comment on above: Result Comment: Resu lt Units: GPI IgG units The reference interval reflects a 3SD or 99th percentile interval, which is thought to represent a potentially clinically significant result in accordance with the International Consensus Statement on the classification criteria for definitive antiphospholipid syndrome (APS). J Thromb Haem 2006;4:295-306. Performed By: #### L 4500.0100, L3100.8410, L501.9520, L3410.2000, L501.9985 #### [facility] [address] [place], [address] B2 GLYCO I IGM <9 Normal 0-32 [facility] Comment on above: Result Comment: Resu lt Units: GPI IgM units The reference interval reflects a 3SD or 99th percentile interval, which is thought to represent a potentially clinically significant result in accordance with the International Consensus Statement on the classification criteria for definitive antiphospholipid syndrome (APS). J Thromb Haem 2006;4:295-306. Performed By: #### L 4500.0100, L3100.8410, L501.9520, L3410.2000, L501.9985 #### [facility] [address] [place], [address] Lupus Anticoagulant Compon 0 - aPTT Coag (Bld) [Time] 38.1 s Normal 0.0-43.5 [facility] Comment on above: Performed By: #### L 4500.0100, L3100.8410, L501.9520, L3410.2000, L501.9985 #### [facility] [address] [place], [address] DILUTE PT (dPT) 33.9 sec Normal 0.0-47.6 [facility] Comment on above: Performed By: #### L 4500.0100, L3100.8410, L501.9520, L3410.2000, L501.9985 #### [facility] [address] [place], [address] dPT Conf. Ratio 1.01 Ratio Normal 0.00-1.34 [facility] Comment on above: Performed By: #### L 4500.0100, L3100.8410, L501.9520, L3410.2000, L501.9985 #### [facility] [address] [place], [address] DRVVT 37.6 sec Normal 0.0-47.0 [facility] Comment on above: Performed By: #### L 4500.0100, L3100.8410, L501.9520, L3410.2000, L501.9985 #### [facility] [address] [place], [address] Interpretation Comment: Normal . [facility] Comment on above: Result Comment: No l upus anticoagulant was detected. Performed By: #### L 4500.0100, L3100.8410, L501.9520, L3410.2000, L501.9985 #### [facility] [address] [place], [address] THROMBIN TIME 17.8 sec Normal 0.0-23.0 [facility] Comment on above: Performed By: #### L 4500.0100, L3100.8410, L501.9520, L3410.2000, L501.9985 #### [facility] [address] [place], [address] Cable Coverer Office Visit Reporton 12-20-2024 Cable Coverer Office Visit Report [facility] [address], [address] [place] [address] OFFICE VISIT Date of Service: 12/20/24 MR#: [id number] Acct: [id number] Name: ROBINSON RUFF Rep #: [id number] : 1995 Provider: Dr. Cindy lynne MD Age/Sex: 29/F [place] [facility] [place]: Signed Intake Vital Signs 12/14/24 12:09 12/20/24 07:59 Height 5 ft 4 in 5 ft 4 in Weight: 228 lb 8 oz 230 lb BMI 39.2 39.4 BP 123/73 H 116/78 Intake Visit Reasons: 7 wk OB *per Waistband Setter Required: No Is patient in pain?: No Allergies Sulfa (Sulfonamide Antibiotics) Allergy (Verified 12/20/24 07:56) Hives Medications ???Medication ???Instructions ???Recorded ???Confirmed ???Type buspirone 15 mg tablet 15 mg PO BID 12/07/24 12/20/24 His tory PNV 153-FA 400 mcg-om3 35 mg-dha 1 tab PO DAILY 12/14/24 12/20/24 H istory 25 mg-epa 5 mg-fish oil chew tablet progesterone micronized 200 mg 200 mg vaginal QHS 30 days #30 cap s 12/20/24 12/20/24 Rx capsule (Prometrium) Post menopausal: No Patient : Yes : No PFSH Medical History Gastroenteritis Nausea vomiting and diarrhea Seasonal allergies Migraines Surgical History H/O wisdom tooth extraction H/O dilation and curettage Family History Father Hypertension Mother Hypertension Social History household members: spouse and children number of children: 2 current occupational status: employed 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 she has been having very ehavy bleeding and cramping n fevers or discharge, she thinks she already passed everything. she is slowing down bleeding now and feeling better. repeat ultrasound today shows no IUP she has passed eveyrthing and the lining is 5 mm no adnexal masses and no free fluid in the cul de sac. History 7 Elective abortions Hx Para 2 Spontaneous abortions 4 Hx # Term Pregnancies 2 Ectopic pregnancies Hx # Pregnancies Multiple births # of living children 2 Past Pregnancies Del. Date Name GA/Weeks Outcome Route Bth Weight Gen Labor Lgth Anesthesia Del Locatn Provider FOB Unknown 2016 Reina Wolfe live - full term Unknown 2020 Ahmet live - full term Unknown 2016 molar ROS Const Constitutional: Reports as per HPI; Denies fever(s) ENT ENT: Reports system reviewed and no additional complaints, except as documented Cardio Card: Reports system reviewed and no additional complaints, except as documented Resp Resp: Reports system reviewed and no additional complaints, except as documented GI GI: Reports as per HPI : Reports as per HPI Musc Musc: Reports system reviewed and no additional complaints, except as documented Skin Skin/Breast: Reports system reviewed and no additional complaints, except as documented Neuro Neuro: Reports system reviewed and no additional complaints, except as documented Endo Endo: Reports system reviewed and no additional complaints, except as documented Exam Const General: healthy appearing, comfortable and no acute distress HENMT Head: normal to inspection and normocephalic Neck Neck: no lymphadenopathy noted Thyroid: thyroid normal Chest Chest palpation inspection: normal inspection of the chest Resp Effort Inspection: normal respiratory effort Cardio Rate: regular rate Rhythm: regular rhythm GI Inspection: normal to inspection Palpation: soft and nontender External Female Exam: normal external appearance Speculum Exam - Vagina: normal appearance of the vagina and vaginal bleeding Bimanual Exam- Vagina Uterus: uterine shape normal and non-tender OB/External Speculum: vaginal bleeding Speculum Exam: vaginal bleeding Skin General: no rashes or lesions noted Neuro General: no focal motor deficits Extrem General: normal to inspection and no pedal edema Psych Appearance: grossly normal Coding Level of Care Code Off vis,est,level 3 Diagnoses Complete O03.9 Recurrent loss N96 Assessment and Plan Assessment and Plan (1) Complete : Status: Acute (2) Recurrent loss: Status: Acute Medications: New progesterone micronized (Prometrium) continue through 14 weeks 200 mg vaginal QHS 30 days 30 caps 3RF Discontinued oxycodone-acetaminophen 5-325 mg (Perc (more content not included)... Normal [facility] Serum human chorionic gonado tropin detection for pregnancyOrdered By: Jennifer Tavera on 12-20-2024 HCG ( test) Ql 127 mIU/mL High <9 [facility] Comment on above: Gestational Age0.2-1 Week: 5-50 mIU/mL1-2 Weeks: 50-500 mIU/mL2-3 Weeks: 100-5000 mIU/mL3-4 Weeks: 500-10,000 mIU/mL4-5 Weeks:1000-50,000 mIU/mL5-6 Weeks: 10,000-100,000 mIU/mL6-8 Weeks: 15,000-200,000 mIU/mL2-3 Months:10,000-100,000 mIU/mL hCG Titer Quant., Serumon HCG QUANT. 127 mIU/mL High <9 non-preg [facility] Comment on above: Result Comment: Gest ational Age 0.2-1 Week: 5-50 mIU/mL 1-2 Weeks: 50-500 mIU/mL 2-3 Weeks: 100-5000 mIU/mL 3-4 Weeks: 500-10,000 mIU/mL 4-5 Weeks:1000-50,000 mIU/mL 5-6 Weeks: 10,000-100,000 mIU/mL 6-8 Weeks: 15,000-200,000 mIU/mL 2-3 Months:10,000-100,000 mIU/mL Performed By: #### L 700.8000 #### [facility] [address] [place], [place], [id number] Dilute Kenneth's viper venom timeOrdered By: Cindy Stevenson on 12-17-2024 dRVVT Coag (PPP) [Time] 37.6 s 0.0-47.0 [facility] Hemoglobin A1con 12-17-2024 HbA1c (Bld) [Mass fraction] 5.5 % Normal <=5.6 [facility] Comment on above: Result Comment: Norm al < 5.7 % Prediabetic 5.7 - 6.4 % Diabetic >or= 6.5 % Please note range changes. Performed By: #### L 4500.0100, L3100.8410, L501.9520, L3410.2000, L501.9985 #### [facility] [address] [place], [place], [address] Hemoglobin A1c percentageOrd ered By: Cindy Stevenson on 12-17-2024 HbA1c (Bld) [Mass fraction] 5.5 % <5.7 [facility] Comment on above: Normal < 5.7 % Predi abetic 5.7 - 6.4 % Diabetic >or= 6.5 % Please note range changes. Serum beta 2 glycoprotein 1 IgA antibody detectionOrdered By: Cindy Stevenson on 12-17-2024 Beta 2 glycoprotein 1 IgA Ql (S) <9 -25 [facility] Comment on above: Result Units: GPI Ig A unitsThe reference interval reflects a 3SD or 99th percentileinterval, which is thought to represent a potentiallyclinically significant result in accordance with theInternational Consensus Statement on the classificationcriteria for definitive antiphospholipid syndrome (APS). JThromb Haem 2006;4:295-306. Serum beta 2 glycoprotein 1 IgG antibody detectionOrdered By: Cindy Stevenson on 12-17-2024 Beta 2 glycoprotein 1 IgG Ql (S) <9 0-20 [facility] Comment on above: Result Units: GPI Ig G unitsThe reference interval reflects a 3SD or 99th percentileinterval, which is thought to represent a potentiallyclinically significant result in accordance with theInternational Consensus Statement on the classificationcriteria for definitive antiphospholipid syndrome (APS). JThromb Haem 2006;4:295-306. Serum beta 2 glycoprotein 1 IgM antibody detectionOrdered By: Cindy Stevenson on 12-17-2024 Beta 2 glycoprotein 1 IgM Ql (S) <9 0-32 [facility] Comment on above: Result Units: GPI Ig M unitsThe reference interval reflects a 3SD or 99th percentileinterval, which is thought to represent a potentiallyclinically significant result in accordance with theInternational Consensus Statement on the classificationcriteria for definitive antiphospholipid syndrome (APS). JThromb Haem 2006;4:295-306. Serum cardiolipin IgG antibo dy assay by immunoassay (units/volume)Ordered By: Cindy Stevenson on 12-17-2024 Cardiolipin IgG IA Qn (S) < 9 GPL U/mL 0-14 [facility] Comment on above: Negative: <15 Indete rminate: 15 - 20 Low-Med Positive: >20 - 80 High Positive: >80 Serum human chorionic gonado tropin detection for pregnancyOrdered By: Jennifer Tavera on 12-17-2024 HCG ( test) Ql 1510 mIU/mL High <9 [facility] Comment on above: Gestational Age0.2-1 Week: 5-50 mIU/mL1-2 Weeks: 50-500 mIU/mL2-3 Weeks: 100-5000 mIU/mL3-4 Weeks: 500-10,000 mIU/mL4-5 Weeks:1000-50,000 mIU/mL5-6 Weeks: 10,000-100,000 mIU/mL6-8 Weeks: 15,000-200,000 mIU/mL2-3 Months:10,000-100,000 mIU/mL TSH DL <= 0.005 mIU/L QnOrde red By: Cindy Thomasanika on 12-17-2024 TSH Qn 1.450 uIU/mL 0.300-4.200 [facility] Thrombin timeOrdered By: Stephen Stevenson on 12-17-2024 Thrombin time Coag (PPP) [Time] 17.8 sec 0.0-23.0 [facility] Thyroid Stim Hormone (TSH)on 12-17-2024 TSH 1.450 uIU/mL Normal 0.300-4.200 [facility] Comment on above: Performed By: #### L 4500.0100, L3100.8410, L501.9520, L3410.2000, L501.9985 #### [facility] [address] [place], [place], [id number] hCG Titer Quant., Serumon HCG QUANT. 1510 mIU/mL High <9 non-preg [facility] Comment on above: Result Comment: Gest ational Age 0.2-1 Week: 5-50 mIU/mL 1-2 Weeks: 50-500 mIU/mL 2-3 Weeks: 100-5000 mIU/mL 3-4 Weeks: 500-10,000 mIU/mL 4-5 Weeks:1000-50,000 mIU/mL 5-6 Weeks: 10,000-100,000 mIU/mL 6-8 Weeks: 15,000-200,000 mIU/mL 2-3 Months:10,000-100,000 mIU/mL Performed By: #### L 700.8000 #### [facility] [address] [place], [place], [id number] Cable Coverer Office Visit Reporton 12-14-2024 Cable Coverer Office Visit Report [facility], [address] [place] [address] OFFICE VISIT Date of Service: 12/14/24 MR#: [id number] Acct: [id number] Name: ROBINSON RUFF Rep #: [id number] : 1995 Provider: Dr. Cindy lynne MD Age/Sex: 29/F Location[facility] Status: Signed Intake Vital Signs 12/11/24 16:29 12/14/24 10:09 12/14/24 12:09 Height 5 ft 4 in 5 ft 4 in 5 ft 4 in Weight: 228 lb 8 oz BMI 39.2 BP 123/73 H Intake Visit Reasons: Early OB spotting, US Waistband Setter Required: No Is patient in pain?: No Allergies Sulfa (Sulfonamide Antibiotics) Allergy (Verified 12/14/24 12:11) Hives Medications ???Medication ???Instructions ???Recorded ???Confirmed ???Type buspirone 15 mg tablet 15 mg PO BID 12/07/24 12/14/24 His tory cephalexin 500 mg capsule 500 mg PO BID 5 days #10 caps 11/2312/14/24 Rx PNV 153-FA 400 mcg-om3 35 mg-dha 1 tab PO DAILY 12/14/24 12/14/24 H istory 25 mg-epa 5 mg-fish oil chew tablet Is last menstrual period known: Yes Last Menstrual Period: 10/25/24 Post menopausal: No Patient : Yes : No PFSH Medical History Gastroenteritis Nausea vomiting and diarrhea Seasonal allergies Migraines Surgical History H/O wisdom tooth extraction H/O dilation and curettage Family History Father Hypertension Mother Hypertension Social History (Updated 12/14/24 @ 12:14 by Hillary Prakash) household members: spouse and children number of children: 2 current occupational status: employed 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 her quants are not rising appropriately. she denies any vaginal itching, odor. on ultrasound there is an IUP with GS measuring 11 mm with yolk ksac and 2 mm pole seen no fht seen. no adnexal masses. she denies any fevers or nausea. Female Reproductive History Last Menstrual Period: 10/25/24 History 7 Elective abortions Hx Para 2 Spontaneous abortions 4 Hx # Term Pregnancies 2 Ectopic pregnancies Hx # Pregnancies Multiple births # of living children 2 Past Pregnancies Del. Date Name GA/Weeks Outcome Route Bth Weight Gen Labor Lgth Anesthesia Del Locatn Provider FOB Unknown 2016 Reina Wolfe live - full term Unknown 2020 Ahmet live - full term Unknown 2015 molar ROS Const Constitutional: Reports as per HPI; Denies fever(s) ENT ENT: Reports system reviewed and no additional complaints, except as documented Cardio Card: Reports system reviewed and no additional complaints, except as documented Resp Resp: Reports system reviewed and no additional complaints, except as documented GI GI: Reports as per HPI : Reports as per HPI Musc Musc: Reports system reviewed and no additional complaints, except as documented Skin Skin/Breast: Reports system reviewed and no additional complaints, except as documented Neuro Neuro: Reports system reviewed and no additional complaints, except as documented Endo Endo: Reports system reviewed and no additional complaints, except as documented Exam Const General: healthy appearing, comfortable and no acute distress HENMT Head: normal to inspection and normocephalic Neck Neck: no lymphadenopathy noted Thyroid: thyroid normal Chest Chest palpation inspection: normal inspection of the chest Resp Effort Inspection: normal respiratory effort Cardio Rate: regular rate Rhythm: regular rhythm GI Inspection: normal to inspection Palpation: soft and nontender External Female Exam: normal external appearance Speculum Exam - Vagina: normal appearance of the vagina and vaginal bleeding Bimanual Exam- Vagina Uterus: uterine shape normal and non-tender OB/External Speculum: vaginal bleeding Speculum Exam: vaginal bleeding Skin General: no rashes or lesions noted Neuro General: no focal motor deficits Extrem General: normal to inspection and no pedal edema Psych Appearance: grossly normal Coding Level of Care Code Off vis,est,level 4 Diagnoses Threatened O20.0 Assessment and Plan Assessment and Plan (1) Threatened : Status: Acute Orders: Orders Thyroid Stim Hormone (TSH) Today Z87.59 - Personal history of other complications of , childbirth and the puerperium Hemoglobin A1c Today Z87.59 - Personal history of other complicatio (more content not included)... Normal [facility] Serum human chorionic gonado tropin detection for pregnancyOrdered By: Cindy Stevenson on 12-13-2024 HCG ( test) Ql 1627 mIU/mL High <9 [facility] Comment on above: Gestational Age0.2-1 Week: 5-50 mIU/mL1-2 Weeks: 50-500 mIU/mL2-3 Weeks: 100-5000 mIU/mL3-4 Weeks: 500-10,000 mIU/mL4-5 Weeks:1000-50,000 mIU/mL5-6 Weeks: 10,000-100,000 mIU/mL6-8 Weeks: 15,000-200,000 mIU/mL2-3 Months:10,000-100,000 mIU/mL hCG Titer Quant., Serumon HCG QUANT. 1627 mIU/mL High <9 non-preg [facility] Comment on above: Result Comment: Gest ational Age 0.2-1 Week: 5-50 mIU/mL 1-2 Weeks: 50-500 mIU/mL 2-3 Weeks: 100-5000 mIU/mL 3-4 Weeks: 500-10,000 mIU/mL 4-5 Weeks:1000-50,000 mIU/mL 5-6 Weeks: 10,000-100,000 mIU/mL 6-8 Weeks: 15,000-200,000 mIU/mL 2-3 Months:10,000-100,000 mIU/mL Performed By: #### L 700.8000 #### [facility] [address] [place], [address] Bilirubin Test strip Ql (U)O rdered By: Jose Luis Rosenberg on 12-11-2024 Bilirubin Ql (U) Negative Negative [facility] Emergency Department Summary on 12-11-2024 Emergency Department Summary [facility] Medical Records Department [address] [place] [address] Emergency Department Summary 12/11/24 MR#: [id number] Acct: [id number] Name: ROBINSON RUFF Rep #: [id number] : 1995 29 From: Jose Luis Rosenberg DO PCP: Care Physician,No Primary Status:REG ER Location: ED HPI HPI - Female History of Present Illness Chief Complaint: Vag Bld, Preg Narrative Narrative: Patient is a 29-year-old female 1 molar with the rest being miscarriages who presented to the emergency department chief complaint of vaginal bleeding. She states that yesterday she started having spotting and noted that on she had her quant level checked and called her HAND STONER. They noted that they wanted her to have this repeated today. States that she did have a ultrasound recently but notes that her quant level was too low to see anything she states that the HAND STONER wants to see if her quant level is high enough to repeat the ultrasound. PFSH PFS Medical History Gastroenteritis Nausea vomiting and diarrhea Seasonal allergies Migraines Home Medications ???Medication ???Instructions ???Recorded ???Last Taken ???Type bupropion HCl 300 mg 24 hr tablet, 300 mg PO QDAY 12/07/24 Unknown History extended release buspirone 15 mg tablet 15 mg PO BID 12/07/24 Unknown Hist ory cephalexin 500 mg capsule 500 mg PO BID 5 days #10 caps 11/23 02/17 Unknown Rx Allergy/AdvReac Type Severity Reaction Status Date / Time Sulfa (Sulfonamide Allergy Hives Verified 12/07/24 15:41 Antibiotics) Family History Father Hypertension Mother Hypertension Surgical History H/O wisdom tooth extraction H/O dilation and curettage Social History household members: spouse and children current occupational status: employed 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 Smoking Status: Never smoker additional social history: S/O : Lavell MILNER ROS ED ROS Narrative Constitutional: Denies any [...] comfortably did not appear to be in acute distress Head: Atraumatic, normocephalic Eyes: PERRL bilaterally, EOMI by, no conjunctival injection noted Neck: Soft, supple, trachea midline Cardiovascular: Patient tachycardic with a regular rhythm Abdomen: Soft, nondistended, no tenderness to palpation Extremities: +5/5 strength noted in the bilateral upper and lower extremities Neurological: Patient follow commands knew that she was at [facility] the year is 2024 Skin: Warm, dry, [...] who presented to the emergency department with a chief complaint of vaginal spotting in the setting [...] for culture. I discussed case with on-call HAND STONER Dr. Stevenson who states that she wants her quant level repeated and 48 hours and at that point in time they will assess if they will need to do an ultrasound or not. She was advised that if she is having bleeding soaking through 1 more pad an hour for a few hours in a row then she needs to call the HAND STONER or return to the emergency department. I did discuss this plan with the patient she is agreeable with this plan all question concerns answered she was discharged home in stable condition. Lab Data Labs: Laboratory Results - last 24 hr 12/11/24 12/11/24 16:51 17:06 Hgb 12.8 H (more content not included)... Normal [facility] HH, Hemoglobin AND Hematocri ton 12-11-2024 Hematocrit (Bld) [Volume fraction] 38.6 % Normal 37-47 [facility] Comment on above: Performed By: #### L 700.8000 #### [facility] [address] [place], [address] Hemoglobin (Bld) [Mass/Vol] 12.8 g/dL Normal 12.0-15.0 [facility] Comment on above: Performed By: #### L 700.8000 #### [facility] [address] [place], [address] Hematocrit Auto (Bld) [Volum e fraction]Ordered By: Jose Luis Rosenberg on 12-11-2024 Hematocrit (Bld) [Volume fraction] 38.6 % 37-47 [facility] Hemoglobin measurementOrdere d By: Jose Luis Rosenberg on 12-11-2024 Hemoglobin (Bld) [Mass/Vol] 12.8 g/dL 12.0-15.0 [facility] Hyaline casts LM.LPF (Urine sed) [#/Area]Ordered By: Jose Luis Rosenberg on 12-11-2024 Hyaline casts (Urine sed) [#/Area] 0 /[LPF] 0-5 [facility] Ketones Test strip Ql (U)Ord ered By: Jose Luis Rosenberg on 12-11-2024 Ketones Ql (U) Negative Negative [facility] Microscopic analysis of urin e for red blood cells (RBC)Ordered By: Jose Luis Rosenberg on 12-11-2024 Microscopic analysis of urine for red blood cells (RBC) 0-5 SEEN /hpf 0-5 [facility] Mucus LM Ql (Urine sed)Order ed By: Jose Luis Rosenberg on 12-11-2024 Mucus Ql (Urine sed) 0 SEEN /hpf [facility] Nitrite Test strip Ql (U)Ord ered By: Jose Luis Rosenberg on 12-11-2024 Nitrite Ql (U) Negative Negative [facility] Protein Test strip Ql (U)Ord ered By: Jose Luis Rosenberg on 07-19-2025 Protein Ql (U) 15 mg/dl High Negative [facility] Serum human chorionic gonado tropin detection for pregnancyOrdered By: Jose Luis Rosenberg on 12-11-2024 HCG ( test) Ql 1256 mIU/mL High <9 [facility] Comment on above: Gestational Age0.2-1 Week: 5-50 mIU/mL1-2 Weeks: 50-500 mIU/mL2-3 Weeks: 100-5000 mIU/mL3-4 Weeks: 500-10,000 mIU/mL4-5 Weeks:1000-50,000 mIU/mL5-6 Weeks: 10,000-100,000 mIU/mL6-8 Weeks: 15,000-200,000 mIU/mL2-3 Months:10,000-100,000 mIU/mL Squamous epithelial cells de tection in urine sediment by light microscopyOrdered By: Jose Luis Rosenberg on 12-11-2024 Epithelial cells.squamous LM Ql (Urine sed) 10-25 SEEN /hpf 5-10 [facility] Urinalysis, Completeon 12-11 CAST,HYALINE 0-5 SEEN Normal 0-5 [facility] Comment on above: Order Comment: CLEAN CATCH Performed By: #### L 400.0001 #### [facility] [address] [place], [place], [id number] (032) BACTERIA 1+ /hpf Normal None Seen [facility] Comment on above: Order Comment: CLEAN CATCH Performed By: #### L 400.0001 #### [facility] [address] [place], [address] EPI,SQUAMOUS 10-25 SEEN Normal 5-10 [facility] Comment on above: Order Comment: CLEAN CATCH Performed By: #### L 400.0001 #### [facility] [address] [place], [address] RBC 0-5 SEEN Normal 0-5 [facility] Comment on above: Order Comment: CLEAN CATCH Performed By: #### L 400.0001 #### [facility] [address] [place], [address] WBC 5-10 SEEN Normal 0-5 [facility] Comment on above: Order Comment: CLEAN CATCH Performed By: #### L 400.0001 #### [facility] [address] [place], [place], [address] Mucus Ql (Urine sed) 0 SEEN Normal [facility] Comment on above: Order Comment: CLEAN CATCH Performed By: #### L 400.0001 #### [facility] [address] [place], [place], [address] Urine clarityOrdered By: Panda Rosenberg on 12-11-2024 Clarity (U) Cloudy Clear [facility] Urine color determinationOrd ered By: Jose Luis Rosenberg on 12-11-2024 Color (U) Yellow Yellow [facility] Urine glucose detectionOrder ed By: Jose Luis Rosenberg on 12-11-2024 Glucose Ql (U) Normal mg/dl Normal [facility] Urine leukocyte esterase det ection by dipstickOrdered By: Jose Luis Rosenberg on 12-11-2024 Leukocyte esterase Test strip Ql (U) 100 /ul High Negative [facility] Urine pHOrdered By: Jose Luis langley on 12-11-2024 pH (U) 6.0 [pH] 5.0 - 8.0 [facility] Urine sediment bacteria coun t by microscopy (number/high power field)Ordered By: Jose Luis Rosenberg on 12-11-2024 Bacteria LM.HPF (Urine sed) [#/Area] 1 /[HPF] None Seen [facility] Urine specific gravity measu rementOrdered By: Jose Luis Rosenberg on 12-11-2024 Specific gravity (U) [Rel density] 1.020 1.002-1.030 [facility] Urine urobilinogen measureme ntOrdered By: Jose Luis Rosenberg on 12-11-2024 Urobilinogen Ql (U) Normal mg/dl Normal [facility] White blood cell countOrdere d By: Jose Luis Rosenberg on 12-11-2024 White blood cell count 5-10 SEEN /hpf 0-5 [facility] hCG Titer Quant., Serumon HCG QUANT. 1256 mIU/mL High <9 non-preg [facility] Comment on above: Result Comment: Gest ational Age 0.2-1 Week: 5-50 mIU/mL 1-2 Weeks: 50-500 mIU/mL 2-3 Weeks: 100-5000 mIU/mL 3-4 Weeks: 500-10,000 mIU/mL 4-5 Weeks:1000-50,000 mIU/mL 5-6 Weeks: 10,000-100,000 mIU/mL 6-8 Weeks: 15,000-200,000 mIU/mL 2-3 Months:10,000-100,000 mIU/mL Performed By: #### L 700.8000 #### [facility] [address] [place], [place], [address] Serum human chorionic gonado tropin detection for pregnancyOrdered By: Jennifer Tavera on 12-09-2024 HCG ( test) Ql 970 mIU/mL High <9 [facility] Comment on above: Gestational Age0.2-1 Week: 5-50 mIU/mL1-2 Weeks: 50-500 mIU/mL2-3 Weeks: 100-5000 mIU/mL3-4 Weeks: 500-10,000 mIU/mL4-5 Weeks:1000-50,000 mIU/mL5-6 Weeks: 10,000-100,000 mIU/mL6-8 Weeks: 15,000-200,000 mIU/mL2-3 Months:10,000-100,000 mIU/mL hCG Titer Quant., Serumon HCG QUANT. 970 mIU/mL High <9 non-preg [facility] Comment on above: Result Comment: Gest ational Age 0.2-1 Week: 5-50 mIU/mL 1-2 Weeks: 50-500 mIU/mL 2-3 Weeks: 100-5000 mIU/mL 3-4 Weeks: 500-10,000 mIU/mL 4-5 Weeks:1000-50,000 mIU/mL 5-6 Weeks: 10,000-100,000 mIU/mL 6-8 Weeks: 15,000-200,000 mIU/mL 2-3 Months:10,000-100,000 mIU/mL Performed By: #### L 700.8000 #### [facility] [address] [place], [address] Cable Coverer Office Visit Reporton 12-07-2024 Cable [facility]rer Office Visit Report [facility] [address], [address] [place] [address] OFFICE VISIT Date of Service: 12/07/24 MR#: [id number] Acct: [id number] Name: ROBINSON RUFF Rep #: [id number] : 1995 Provider: Dr. Jennifer Brunson DO Age/Sex: 29/F [place] [facility] [place] Signed Intake Vital Signs 11/29/24 15:37 12/07/24 15:43 Height 5 ft 4 in 5 ft 4 in Weight: 227 lb 8 oz BMI 39.0 BP 115/84 H Intake Visit Reasons: Early OB, New, Requesting lab Chief Complaint: Early OB, Requesting HCGs Waistband Setter Required: No Is patient in pain?: No [...] occupational status: employed 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 Smoking Status: Never smoker additional social history: S/O : Lavell HPI Early OB, New, Requesting lab Details: ROBINSON RUFF is a 29 year old who presents for discussion about home test and history of molar . She thinks she is about 6 weeks 1 day since her last period. She states that she has a hard time keep her pregnancies but gets easily. 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 She moved to [place] recently . Female Reproductive History Last Menstrual [...] discussed. 12/07/24 1713 Date [facility]: Date (if applicable) CC: Normal [facility] Serum human chorionic gonado tropin detection for pregnancyOrdered By: Jennifer Tavera on 12-07-2024 HCG ( test) Ql 637 mIU/mL High <9 [facility] Comment on above: Gestational Age0.2-1 Week: 5-50 mIU/mL1-2 Weeks: 50-500 mIU/mL2-3 Weeks: 100-5000 mIU/mL3-4 Weeks: 500-10,000 mIU/mL4-5 Weeks:1000-50,000 mIU/mL5-6 Weeks: 10,000-100,000 mIU/mL6-8 Weeks: 15,000-200,000 mIU/mL2-3 Months:10,000-100,000 mIU/mL hCG Titer Quant., Serumon HCG QUANT. 637 mIU/mL High <9 non-preg [facility] Comment on above: Result Comment: Gest ational Age 0.2-1 Week: 5-50 mIU/mL 1-2 Weeks: 50-500 mIU/mL 2-3 Weeks: 100-5000 mIU/mL 3-4 Weeks: 500-10,000 mIU/mL 4-5 Weeks:1000-50,000 mIU/mL 5-6 Weeks: 10,000-100,000 mIU/mL 6-8 Weeks: 15,000-200,000 mIU/mL 2-3 Months:10,000-100,000 mIU/mL Performed By: #### L 700.8000 #### [facility] [address] [place], [place], [address] Odilon 10-12-2024 CNPN Telephone ([email or web address]) ----- ROBINSON RUFF ([id number]) 1995 F Date Time Provider Department 10/12/24 UVALDO DOSS AGINTMAC During your visit today, we recorded the following information about you: Uvaldo Doss MD 10/12/2024 11:55 AM Signed Received message from Vitaly Ramos that patient had recently expressed concerns about her HSAT as it was going to cost her $1000? Can we please reach our to patient to see what is going? Does the study need to be authorized? Liam Arroyo 10/12/2024 12:01 PM Addendum Called and LVM for patient to call us back regarding this. From what I can tell patient may have tried to schedule before the orders were approved by insurance (possibly). I do not see anything where she's tried to schedule since June. Everything is approved and ready for her to schedule. Liam Arroyo, Poultry Inspector October 12, 2024 11:58 AM Allergies As of Date: 10/12/2024 Noted Allergy Reaction SULFA (SULFONAMIDE ANTIBIOTICS) 06/29/2024 4 - Hives 2 - Rash Date Reviewed: 06/29/2024 Reviewed by: Stephy Douglass LPN - Fully Assessed Reason for [...] chloride 0.65 % nasal spray Use 1 Shelby in the nose. - ZINC ORAL Take by mouth. - ascorbic acid (VITAMIN C ORAL) Take by mouth. - Lactobacillus acidophilus (PROBIOTIC ORAL) Take by mouth. Problem List As Of Date: 10/12/2024 (None) Encounter Status:Closed by LIAM ARROYO on 10/12/24 [facility] CNPNon 07-13-2024 CNPN Telephone ([employer]) ----- ROBINSON RUFF ([id number]) 1995 F Date Time Provider Department 07/13/24 UVALDO DOSS During your visit today, we recorded the following information about you: Sinan Adams 07/13/2024 9:56 AM Signed Called patient LVM, and sent message to patient MC to call our office to schedule August, or October follow up appointment. Dr. Nelson is on PTO in September Sinan Adams Poultry Inspector I July 13, 2024 9:56 AM Allergies As of Date: 07/13/2024 Noted Allergy Reaction SULFA (SULFONAMIDE ANTIBIOTICS) 06/29/2024 4 - Hives 2 - Rash Date Reviewed: 06/29/2024 Reviewed by: Stephy Douglass, MYAH - Fully Assessed Reason for Visit: Appointment [186] Prescriptions as of 07/13/2024 - albuterol HFA (PROVENTIL HFA, VENTOLIN HFA) 90 mcg/actuation inhaler Inhale 2 Puffs as instructed every 6 hours as needed. - sodium chloride 0.65 % nasal spray Use 1 Shelby in the nose. - ZINC ORAL Take by mouth. - ascorbic acid (VITAMIN C ORAL) Take by mouth. - Lactobacillus acidophilus (PROBIOTIC ORAL) Take by mouth. - buPROPion SR (WELLBUTRIN SR) 100 mg 12 hr tablet Take 1 tablet by mouth two times a day. Problem List As Of Date: 07/13/2024 (None) Encounter Status:Closed by SINAN ADAMS on 07/13/24 [facility] CBC panel Auto (Bld)on 06-29 Erythrocyte distribution width (RBC) [Ratio] 13.7 % 11.5 - 15.0 % [facility] Hematocrit (Bld) [Volume fraction] 43.9 % 36.0 - 46.0 % [facility] Hemoglobin (Bld) [Mass/Vol] 14.1 g/dL 11.5 - 15.5 g/dL [facility] Interpretation and review of laboratory results Abnormal [facility] MCH (RBC) [Entitic mass] 27.2 pg 26.0 - 34.0 pg [facility] MCHC (RBC) [Mass/Vol] 32.1 g/dL 30.5 - 36.0 g/dL [facility] MCV (RBC) [Entitic vol] 84.6 fL 80.0 - 100.0 fL [facility] Nucleated RBC (Bld) [#/Vol] NINF [facility] Platelet mean volume (Bld) [Entitic vol] 9.4 fL 9.0 - 12.7 fL [facility] Platelets (Bld) [#/Vol] 398 10*3/uL [facility] RBC (Bld) [#/Vol] 5.19 10*6/uL 3.90 - 5.2 0 m/uL [facility] WBC (Bld) [#/Vol] 11.97 10*3/uL [facility] Erythrocyte distribution width (RBC) [Ratio] 13.7 % Normal 11.5-15.0 [facility] Comment on above: Order Comment: Speci men Type: BLOOD SPECIMENOrdering Facility: [facility] Address: [address] [place] [address] Performed By: #### 5 8410-2 ####[facility] LABORATORYCLIA [id number] [address] STATES OF [facility] Hematocrit (Bld) [Volume fraction] 43.9 % Normal 36.0-46.0 [facility] Comment on above: Order Comment: Speci men Type: BLOOD SPECIMENOrdering Facility: [facility] Address: [address] [place] [address] Performed By: #### 5 8410-2 ####[facility] LABORATORYCLIA [id number] [place] [address] [place] Hemoglobin (Bld) [Mass/Vol] 14.1 g/dL Normal 11.5-15.5 [facility] Comment on above: Order Comment: Speci men Type: BLOOD SPECIMENOrdering Facility: [facility] Address: [address] [place] [address] Performed By: #### 5 8410-2 ####[facility] LABORATORYCLIA [id number] [address] MCH (RBC) [Entitic mass] 27.2 pg Normal 26.0-34.0 [facility] Comment on above: Order Comment: Speci men Type: BLOOD SPECIMENOrdering Facility: [facility] Address: [address] [place] [address] Performed By: #### 5 8410-2 ####[facility] LABORATORYCLIA [id number] [address] MCHC (RBC) [Mass/Vol] 32.1 g/dL Normal 30.5-36.0 [facility] Comment on above: Order Comment: Speci men Type: BLOOD SPECIMENOrdering Facility: [facility] Address: [address] [place] [address] Performed By: #### 5 8410-2 ####[facility] LABORATORYCLIA [id number] [address] MCV (RBC) [Entitic vol] 84.6 fL Normal 80.0-100.0 [facility] Comment on above: Order Comment: Speci men Type: BLOOD SPECIMENOrdering Facility: [facility] Address: [address] [place] [address] Performed By: #### 5 8410-2 ####[facility] LABORATORYCLIA [id number] [address] Nucleated RBC (Bld) [#/Vol] 10*3/uL Normal <0.01 [facility] Comment on above: Order Comment: Speci men Type: BLOOD SPECIMENOrdering Facility: [facility] Address: [address] [place] [address] Performed By: #### 5 8410-2 ####[facility] LABORATORYCLIA [id number] Platelet mean volume (Bld) [Entitic vol] 9.4 fL Normal 9.0-12.7 [facility] Comment on above: Order Comment: Speci men Type: BLOOD SPECIMENOrdering Facility: [facility] Address: [address] [place] [address] Performed By: #### 5 8410-2 ####[facility] LABORATORYCLIA [id number] [address] OF [place] Platelets (Bld) [#/Vol] 398 10*3/uL Normal 150-400 [facility] Comment on above: Order Comment: Speci men Type: BLOOD SPECIMENOrdering Facility: [facility] Address: [address] [place] [address] Performed By: #### 5 8410-2 ####[facility] LABORATORYCLIA [id number] [address] RBC (Bld) [#/Vol] 5.19 10*6/uL Normal 3.90-5.20 [facility] Comment on above: Order Comment: Speci men Type: BLOOD SPECIMENOrdering Facility: [facility] Address: [address] [place] [address] Performed By: #### 5 8410-2 ####[facility] LABORATORYCLIA [id number] [address] OF [place] WBC (Bld) [#/Vol] 11.97 10*3/uL High 3.70-11.00 [facility] Comment on above: Order Comment: Speci men Type: BLOOD SPECIMENOrdering Facility: [facility] Address: [address] [place] [address] Performed By: #### 5 8410-2 ####[facility] LABORATORYCLIA [id number] [address] CNOVon 06-29-2024 CNOV Office Visit ([facility]) ----- ROBINSON RUFF ([id number]) 1995 F Date Time Provider Department 06/29/24 10:20 AM TREVOR NELSON During your visit today, we [...] to follow-up with her primary care in [facility] but since her insurance has changed she comes in for establishing care at [facility]. She has not been taking any medications [...] (FLONASE) 50 mcg/actuation nasal spray Use 1 Shelby in the nose. (Patient not taking: Reported on 06/29/2024) sodium chloride 0.65 % nasal spray Use 1 Shelby in the nose. (Patient not taking: Reported [...] difficulty urin (more content not included)... Normal [facility]-2024 UVALDON Telephone ([employer]) ----- ROBINSON RUFF ([id number]) 1995 F Date Time Provider Department 06/29/24 TREVOR NELSON During your visit today, we recorded the following information about you: Brooke Najera 06/29/2024 11:49 AM Signed Referral to psychiatry entered into the [employer] portal on 06/29/24. Confirmation number [id number]. Allergies As of Date: 06/29/2024 Noted Allergy Reaction SULFA (SULFONAMIDE ANTIBIOTICS) 06/29/2024 4 - Hives 2 - Rash Date Reviewed: 06/29/2024 Reviewed by: Stephy Douglass LPN - Fully Assessed Reason for Visit: Referral Information [1934] Cmt: Psychiatry Prescriptions as of 06/29/2024 - albuterol HFA (PROVENTIL HFA, VENTOLIN HFA) 90 mcg/actuation inhaler Inhale 2 Puffs as instructed every 6 hours as needed. - fluticasone (FLONASE) 50 mcg/actuation nasal spray Use 1 Shelby in the nose. - sodium chloride 0.65 % nasal spray Use 1 Shelby in the nose. - ZINC ORAL Take by mouth. - ascorbic acid (VITAMIN C ORAL) Take by mouth. - Lactobacillus acidophilus (PROBIOTIC ORAL) Take by mouth. - buPROPion SR (WELLBUTRIN SR) 100 mg 12 hr tablet Take 1 tablet by mouth two times a day. Problem List As Of Date: 06/29/2024 (None) Encounter Status:Closed by BROOKE NAJERA on 06/29/24 Normal [facility] Comprehensive metabolic 2000 panelon 06-29-2024 Albumin [Mass/Vol] 4.5 g/dL 3.9 - 4.9 g/dL [facility] ALP [Catalytic activity/Vol] 52 U/L 34 - 123 U/L [facility] ALT With P-5'-P [Catalytic activity/Vol] 14 U/L 7 - 38 U/L [facility] Anion gap [Moles/Vol] 14 mmol/L 8 - 15 mmol/L [facility] AST With P-5'-P [Catalytic activity/Vol] 19 U/L 13 - 35 U/L [facility] Bilirubin [Mass/Vol] 0.4 mg/dL 0.2 - 1 .3 mg/dL [facility] Calcium [Mass/Vol] 9.5 mg/dL 8.5 - 10. 2 mg/dL [facility] Chloride [Moles/Vol] 103 mmol/L 98 - 10 7 mmol/L [facility] CO2 [Moles/Vol] 22 mmol/L 22 - 30 mmol/L [facility] Creatinine [Mass/Vol] 0.63 mg/dL 0.58 - 0.96 mg/dL [facility] GFR/1.73 sq M.predicted among non-blacks MDRD (S/P/Bld) [Vol rate/Area] 126 mL/min/{1.73_m2} - PINF [facility] Comment on above: Estimated Glomerular Filtration [...] [facility] Comment on above: The [place] Diabete s Association (ADA) provides guidance for [...] Standards of Medical Care in Diabetes 2016, [place] Diabetes Association. Diabetes Care. 2016.39(Suppl 1). Interpretation and review of laboratory results Normal [facility] Potassium [Moles/Vol] 4.3 mmol/L 3.7 - 5.1 mmol/L [facility] Protein [Mass/Vol] 7.4 g/dL 6.3 - 8.0 g/dL [facility] Sodium [Moles/Vol] 139 mmol/L 136 - 144 mmol/L [facility] Urea nitrogen [Mass/Vol] 12 mg/dL 7 - 21 mg/dL [facility] Albumin [Mass/Vol] 4.5 g/dL Normal 3.9-4.9 [facility] Comment on above: Order Comment: Speci men Type: BLOOD SPECIMENOrdering Facility: [facility] Address: [address] [place] [address] Performed By: #### 2 4323-8, 38057-7 ####[facility] LABORATORYCLIA [id number] [address] STATES OF [facility] ALP [Catalytic activity/Vol] 52 U/L Normal 34-123 [facility] Comment on above: Order Comment: Speci men Type: BLOOD SPECIMENOrdering Facility: [facility] Address: [address] [place] [address] Performed By: #### 2 4323-8, 41991-5 ####[facility] LABORATORYCLIA [id number] [place] [address] [place] ALT With P-5'-P [Catalytic activity/Vol] 14 U/L Normal 7-38 [facility] Comment on above: Order Comment: Speci men Type: BLOOD SPECIMENOrdering Facility: [facility] Address: [address] [place] [address] Performed By: #### 2 4323-8, 75159-1 ####[facility] LABORATORYCLIA [id number] [address] STATES [place] [facility] Anion gap [Moles/Vol] 14 mmol/L Normal 8-15 [facility] Comment on above: Order Comment: Speci men Type: BLOOD SPECIMENOrdering Facility: [facility] Address: [address] [place] [address] Performed By: #### 2 4323-8, 68738-3 ####[facility] LABORATORYCLIA [id number] [address] STATES [place] [facility] AST With P-5'-P [Catalytic activity/Vol] 19 U/L Normal 13-35 [facility] Comment on above: Order Comment: Speci men Type: BLOOD SPECIMENOrdering Facility: [facility] Address: [address] [place] [address] Performed By: #### 2 4323-8, 27382-2 ####[facility] LABORATORYCLIA [id number] [address] [place] Bilirubin [Mass/Vol] 0.4 mg/dL Normal 0.2-1.3 [facility] Comment on above: Order Comment: Speci men Type: BLOOD SPECIMENOrdering Facility: [facility] Address: [address] [place], [place] [address] Performed By: #### 2 4323-8, 26657-4 ####[facility] LABORATORYCLIA [id number] [address] [place] Calcium [Mass/Vol] 9.5 mg/dL Normal 8.5-10.2 [facility] Comment on above: Order Comment: Speci men Type: BLOOD SPECIMENOrdering Facility: [facility] Address: [address] [place] [address] Performed By: #### 2 4323-8, 48224-6 ####[facility] LABORATORYCLIA [id number] [address] [place] Chloride [Moles/Vol] 103 mmol/L Normal 98-107 [facility] Comment on above: Order Comment: Speci men Type: BLOOD SPECIMENOrdering Facility: [facility] Address: [address] [place] [address] Performed By: #### 2 4323-8, 19129-0 ####[facility] LABORATORYCLIA [id number] [address] OF [facility] CO2 [Moles/Vol] 22 mmol/L Normal 22-30 [facility] Comment on above: Order Comment: Speci men Type: BLOOD SPECIMENOrdering Facility: [facility] Address: [address] [place] [address] Performed By: #### 2 4323-8, 16614-1 ####[facility] LABORATORYCLIA [id number] [address] Creatinine [Mass/Vol] 0.63 mg/dL Normal 0.58-0.96 [facility] Comment on above: Order Comment: Speci men Type: BLOOD SPECIMENOrdering Facility: [facility] Address: [address] [place] [address] Performed By: #### 2 4323-8, 92365-4 ####[facility] LABORATORYCLIA [id number] [address] Creatinine and Glomerular filtration rate.predicted panel (S/P/Bld) 126 mL/min/1.73m??? Normal >=60 [facility] Comment on above: Order Comment: Speci men Type: BLOOD SPECIMENOrdering Facility: [facility] Address: [address] [place] [address] Result Comment: Tamanna mated Glomerular Filtration Rate [...] actual GFR. Performed By: #### 2 4323-8, 64360-7 ####[facility] LABORATORYCLIA [id number] [place] [address] [place] Glucose [Mass/Vol] 99 mg/dL Normal 74-99 [facility] Comment on above: Order Comment: Speci men Type: BLOOD SPECIMENOrdering Facility: [facility] Address: [address] [place] [address] Result Comment: The [place] Diabetes Association (ADA) provides guidance for cutoff [...] Standards of Medical Care in Diabetes 2016, [place] Diabetes Association. Diabetes Care. 2016.39(Suppl 1). Performed By: #### 2 4323-8, 07239-0 ####[facility] LABORATORYCLIA [id number] [place] [address] [place] Potassium [Moles/Vol] 4.3 mmol/L Normal 3.7-5.1 [facility] Comment on above: Order Comment: Speci men Type: BLOOD SPECIMENOrdering Facility: [facility] Address: [address] [place] [address] Performed By: #### 2 4323-8, 22955-3 ####[facility] LABORATORYCLIA [id number] [place] [id number] [place] Protein [Mass/Vol] 7.4 g/dL Normal 6.3-8.0 [facility] Comment on above: Order Comment: Isidroi men Type: BLOOD SPECIMENOrdering Facility: [facility] Address: [address] [place] [address] Performed By: #### 2 4323-8, 98310-0 ####[facility] LABORATORYCLIA [id number] [place] [address] [place] Sodium [Moles/Vol] 139 mmol/L Normal 136-144 [facility] Comment on above: Order Comment: Terrell barahona Type: BLOOD SPECIMENOrdering Facility: [facility] Address: [address] [place] [address] Performed By: #### 2 4323-8, 48731-2 ####[facility] LABORATORYCLIA [id number] [place] [id number] [place] Urea nitrogen [Mass/Vol] 12 mg/dL Normal 7-21 [facility] Comment on above: Order Comment: Terrell barahona Type: BLOOD SPECIMENOrdering Facility: [facility] Address: [address] [place] [address] Performed By: #### 2 4323-8, 02681-0 ####[facility] LABORATORYCLIA [id number] [place] [address] [place] HbA1c (Bld)on 06-29-2024 Average glucose Estimated from glycated hemoglobin (Bld) [Mass/Vol] 111 mg/dL Normal [facility] Comment on above: Order Comment: Terrell barahona Type: BLOOD SPECIMEN Ordering Facility: [facility] Address: [address] [place] [address] Result Comment: eAG: (Estimated average glucose) is a calculated value from HgbA1c and is patient relations representative of the average blood glucose level in the last 2-3 month period. Performed By: #### 5 5454-3 #### [facility] CLIA [id number] [address] [place], [place] [address] [place] [address] [place] HbA1c (Bld) [Mass fraction] 5.5 % Normal 4.3-5.6 [facility] Comment on above: Order Comment: Terrell barahona Type: BLOOD SPECIMEN Ordering Facility: [facility] Address: [address] [place] [address] Result Comment: [place] Diabetes Association guidelines indicate that patients with HgbA1c in the range 5.7-6.4% are at increased risk for development of diabetes, and intervention by lifestyle modification may be beneficial. HgbA1c greater or equal to 6.5% is considered diagnostic of diabetes. Performed By: #### 5 5454-3 #### [facility] CLIA [id number] [address] [place] [address] [place] Lipid 1996 panelon 5 Cholesterol [Mass/Vol] 185 mg/dL NINF - 200 mg/dL [facility] Comment on above: <200 mg/dL, Desirabl e 200-239 mg/dL, Borderline high >239 mg/dL, High Cholesterol in HDL [Mass/Vol] 41 mg/dL 39 - PINF mg/dL [facility] Comment on above: 40-59 mg/dL, Accepta ble >59 mg/dL, High: Negative risk factor for coronary heart disease <40 mg/dL, Low: Positive risk factor for coronary heart disease Cholesterol in LDL [Mass/Vol] 126 mg/dL High NINF - 100 mg/dL [facility] Comment on above: <100 mg/dL, Optimal 100-129 mg/dL, Near optimal/above optimal 130-159 mg/dL, Borderline high 160-189 mg/dL, High >189 mg/dL, Very high Secondary prevention optimal LDL Cholesterol levels are recommended to be < 70 mg/dL Cholesterol in LDL/Cholesterol in HDL [Mass ratio] 3.07 {ratio} High NINF - 2.54 [facility] Comment on above: Reference: 1. National Cholesterol Education Program ATP III Guideline At-A-Glance Quick Desk Reference: National Heart, Lung, and Blood [place]. National Institutes of Health. 2001: NIH Publication No. 01-3305. 2. An International Atherosclerosis Society position paper: global recommendations for the management of dyslipidemia: executive summary, Atherosclerosis. 2014: 232(2):410-413. Cholesterol in VLDL [Mass/Vol] 18 mg/dL NINF - 30 mg/dL [facility] Cholesterol non HDL [Mass/Vol] 144 mg/dL High NINF - 130 mg/dL [facility] Comment on above: <130 mg/dL, Optimal 130-159 mg/dL, Near optimal/above optimal 160-189 mg/dL, Borderline high 190-219 mg/dL, High >219 mg/dL, Very high Secondary prevention optimal non HDL Cholesterol levels are recommended to be <100 mg/dL Cholesterol.total/Deisy sterol in HDL [Mass ratio] 4.51 {ratio} NINF - 5.10 [facility] Fasting Time 10 hrs [facility] Interpretation and review of laboratory results Abnormal [facility] Triglyceride [Mass/Vol] 92 mg/dL NINF - 150 mg/dL [facility] Comment on above: <150 mg/dL, Normal 150-199 mg/dL, Borderline high 200-499 mg/dL, High >499 mg/dL, Very high Cholesterol [Mass/Vol] 185 mg/dL Normal <200 [facility] Comment on above: Order Comment: Terrell barahona Type: BLOOD SPECIMENOrdering Facility: [facility] Address: [address] [place] [address] Result Comment: <200 mg/dL, Desirable 200-239 mg/dL, Borderline high >239 mg/dL, High Performed By: #### 2 4323-8, 51772-1 ####[facility] LABORATORYCLIA [id number] [address] OF [facility] Cholesterol in HDL [Mass/Vol] 41 mg/dL Normal >39 [facility] Comment on above: Order Comment: Terrell barahona Type: BLOOD SPECIMENOrdering Facility: [facility] Address: [address] [place] [address] Result Comment: 40-5 9 mg/dL, Acceptable >59 mg/dL, High: Negative risk factor for coronary heart disease <40 mg/dL, Low: Positive risk factor for coronary heart disease Performed By: #### 2 4323-8, 16483-0 ####[facility] LABORATORYCLIA [id number] [address] Cholesterol in LDL [Mass/Vol] 126 mg/dL High <100 [facility] Comment on above: Order Comment: Terrell barahona Type: BLOOD SPECIMENOrdering Facility: [facility] Address: [address] [place] [address] Result Comment: <100 mg/dL, Optimal 100-129 mg/dL, Near optimal/above optimal 130-159 mg/dL, Borderline high 160-189 mg/dL, High >189 mg/dL, Very high Secondary prevention optimal LDL Cholesterol levels are recommended to be < 70 mg/dL Performed By: #### 2 4323-8, 44939-1 ####[facility] LABORATORYCLIA [id number] [address] Cholesterol in LDL/Cholesterol in HDL [Mass ratio] 3.07 {ratio} High <2.54 [facility] Comment on above: Order Comment: Speci men Type: BLOOD SPECIMENOrdering Facility: [facility] Address: [address] [place] [address] Result Comment: Refe rence: 1. National Cholesterol Education Program ATP III Guideline At-A-Glance Quick Desk Reference: National Heart, Lung, and Blood [place]. National Institutes of Health. 2001: NIH Publication No. 01-3305. 2. An International Atherosclerosis Society position paper: global recommendations for the management of dyslipidemia: executive summary, Atherosclerosis. 2014: 232(2):410-413. Performed By: #### 2 4323-8, 90872-7 ####[facility] LABORATORYCLIA [id number] [address] Cholesterol in VLDL [Mass/Vol] 18 mg/dL Normal <30 [facility] Comment on above: Order Comment: Isidroi men Type: BLOOD SPECIMENOrdering Facility: [facility] Address: [address] [place] [address] Performed By: #### 2 4323-8, 22766-1 ####[facility] LABORATORYCLIA [id number] [address] [place] Cholesterol non HDL [Mass/Vol] 144 mg/dL High <130 [facility] Comment on above: Order Comment: Speci men Type: BLOOD SPECIMENOrdering Facility: [facility] Address: [address] [place] [address] Result Comment: <130 mg/dL, Optimal 130-159 mg/dL, Near optimal/above optimal 160-189 mg/dL, Borderline high 190-219 mg/dL, High >219 mg/dL, Very high Secondary prevention optimal non HDL Cholesterol levels are recommended to be <100 mg/dL Performed By: #### 2 4323-8, 62569-8 ####[facility]ORATORYCLIA [id number] [address] Cholesterol.total/Deisy sterol in HDL [Mass ratio] 4.51 {ratio} Normal <5.10 [facility] Comment on above: Order Comment: Speci men Type: BLOOD SPECIMENOrdering Facility: [facility] Address: [address] [place] [address] Performed By: #### 2 4323-8, 34206-5 ####[facility] LABORATORYCLIA [id number] [address] FASTING TIME 10 hrs Normal [facility] Comment on above: Order Comment: Speci men Type: BLOOD SPECIMENOrdering Facility: [facility] Address: [address] [place] [address] Performed By: #### 2 4323-8, 47767-0 ####[facility] LABORATORYCLIA [id number] [address] Triglyceride [Mass/Vol] 92 mg/dL Normal <150 [facility] Comment on above: Order Comment: Speci men Type: BLOOD SPECIMENOrdering Facility: [facility] Address: [address] [place] [address] Result Comment: <150 mg/dL, Normal 150-199 mg/dL, Borderline high 200-499 mg/dL, High >499 mg/dL, Very high Performed By: #### 2 4323-8, 74652-0 ####[facility] LABORATORYCLIA [id number] [address] [place] No Panel Informationon 06-29 [facility] Basophil percentageon 2021 Bilirubin [Mass/Vol] 0.50 mg/dL 0.20-1.00 [facility] Work Phone: Comment on above: For patients on eltr ombopag therapy, use of Dimension [place] TBIL is not recommended. Chloride [Moles/Vol] 106 mmol/L 98-107 [facility] Work Phone: Glucose [Mass/Vol] 103 mg/dL 74-106 [facility] Work Phone: Comment on above: Fasting Glucose resu lt from 100 to 125 mg/dL suggests IMPAIRED HOMEOSTASIS per A.D.A. criteria. Potassium [Moles/Vol] 3.9 mmol/L 3.5-5.1 [facility] Work Phone: Protein [Mass/Vol] 7.8 g/dL 6.4-8.2 [facility] Work Phone: Sodium [Moles/Vol] 137 mmol/L 136-145 [facility] Work Phone: Laboratory - Chemistry and C hemistry - challengeon 03-13-2022 ALP [Catalytic activity/Vol] 61 U/L 45-117 [facility] Work Phone: ALT [Catalytic activity/Vol] 31 U/L 13-56 [facility] Work Phone: CO2 [Moles/Vol] 24.0 mmol/L 21.0-32.0 [facility] Work Phone: Globulin (S) [Mass/Vol] 3.9 g/dL 2.2-4.2 [facility] Work Phone: Urea nitrogen/Creatinine [Mass ratio] 19.9 mg/mg 10-20 [facility] Work Phone: No Panel Informationon 03-13 Estimated GFR (MDRD) Amer 131 mL/min >60 [facility] Work Phone: Comment on above: GFR Calc Estimated GFR (MDRD) Non-Af Amer 108 mL/min >60 [facility] Work Phone: Comment on above: Non- GFR Calc Thyroid Stimulating Hormone (TSH) 1.06 uIU/mL 0.358-3.74 [facility] Work Phone: Serum or plasma albumin estrella urement (mass/volume)on 03-13-2022 Albumin [Mass/Vol] 3.9 g/dL 3.2-5.0 [facility] Work Phone: Serum or plasma albumin/glob ulin mass ratioon 03-13-2022 Albumin/Globulin [Mass ratio] 1.0 {ratio} 0.9-2.4 [facility] Work Phone: Serum or plasma calcium estrella urement (mass/volume)on 03-13-2022 Calcium [Mass/Vol] 9.1 mg/dL 8.5-10.1 [facility] Work Phone: Serum or plasma creatinine m easurement (mass/volume)on 03-13-2022 Creatinine [Mass/Vol] 0.70 mg/dL 0.55-1.02 [facility] Work Phone: Comment on above: The validity of the calculated GFR & GFRAA in patients over 70 years has not been determined. Clinical correlation is essential. Serum or plasma urea nitroge n measurement (mass/volume)on 03-13-2022 Urea nitrogen [Mass/Vol] 14 mg/dL 7- [facility] Work Phone: Thin prep Papanicolaou smear with manual screeningon 03-13-2022 Thin prep Papanicolaou smear with manual screening 18 U/L 1537 [facility] Work Phone: Thin prep Papanicolaou smear with manual screening 7 10-07 [facility] Work Phone: CNCOon 09-17-2021 CNCO Letter Text Normal [facility] Vital Signs Date Time Vital Sign Value Performing Clinician Facility 02-07-2025 14:54-0400 Body height 162.56 cm No Primary Care Physician [facility] 02-07-2025 14:54-0400 Body mass index (BMI) [Ratio] 40.2 kg/m2 No Primary Care Physician [facility] 02-07-2025 14:54-0400 Body weight 106.31 kg No Primary Care Physician [facility] 02-07-2025 14:54-0400 Diastolic blood pressure 81 mm[Hg] No Primary Care Physician [facility] 02-07-2025 14:54-0400 Systolic blood pressure 136 mm[Hg] No Primary Care Physician [facility] 02-04-2025 08:13-0400 Body height 162.56 cm No Primary Care Physician [facility] 02-04-2025 08:13-0400 Body mass index (BMI) [Ratio] 40.3 kg/m2 No Primary Care Physician [facility] 02-04-2025 08:13-0400 Body weight 106.62 kg No Primary Care Physician [facility] 02-04-2025 08:13-0400 Diastolic blood pressure 75 mm[Hg] No Primary Care Physician [facility] 02-04-2025 08:13-0400 Systolic blood pressure 110 mm[Hg] No Primary Care Physician [facility] 12-20-2024 07:59-0400 Body height 162.56 cm No Primary Care Physician [facility] 12-20-2024 07:59-0400 Body mass index (BMI) [Ratio] 39.4 kg/m2 No Primary Care Physician [facility] 12-20-2024 07:59-0400 Body weight 104.32 kg No Primary Care Physician [facility] 12-20-2024 07:59-0400 Diastolic blood pressure 78 mm[Hg] No Primary Care Physician [facility] 12-20-2024 07:59-0400 Systolic blood pressure 116 mm[Hg] No Primary Care Physician [facility] 12-14-2024 12:09-0400 Body height 162.56 cm No Primary Care Physician [facility] 12-14-2024 12:09-0400 Body mass index (BMI) [Ratio] 39.2 kg/m2 No Primary Care Physician [facility] 12-14-2024 12:09-0400 Body weight 103.64 kg No Primary Care Physician [facility] 12-14-2024 12:09-0400 Diastolic blood pressure 73 mm[Hg] No Primary Care Physician [facility] 12-14-2024 12:09-0400 Systolic blood pressure 123 mm[Hg] No Primary Care Physician [facility] 12-11-2024 18:09-0400 Body temperature 97.8 [degF] No Primary Care Physician [facility] 12-11-2024 18:09-0400 Diastolic blood pressure 57 mm[Hg] No Primary Care Physician [facility] 12-11-2024 18:09-0400 Heart rate 79 /min No Primary Care Physician [facility] 12-11-2024 18:09-0400 Respiratory rate 16 /min No Primary Care Physician [facility] 12-11-2024 18:09-0400 SaO2% (BldA) [Mass fraction] 100 % No Primary Care Physician [facility] 12-11-2024 18:09-0400 Systolic blood pressure 112 mm[Hg] No Primary Care Physician [facility] 12-11-2024 16:29-0400 Body height 162.56 cm No Primary Care Physician [facility] 12-11-2024 16:29-0400 Body mass index (BMI) [Ratio] 39.6 kg/m2 No Primary Care Physician [facility] 12-11-2024 16:29-0400 Body weight 104.96 kg No Primary Care Physician [facility] 12-07-2024 15:43-0400 Body height 162.56 cm No Primary Care Physician [facility] 12-07-2024 15:43-0400 Body mass index (BMI) [Ratio] 39 kg/m2 No Primary Care Physician [facility] 12-07-2024 15:43-0400 Body weight 103.19 kg No Primary Care Physician [facility] 12-07-2024 15:43-0400 Diastolic blood pressure 84 mm[Hg] No Primary Care Physician [facility] 12-07-2024 15:43-0400 Systolic blood pressure 115 mm[Hg] No Primary Care Physician [facility] 06-29-2024 10:51-0500 Body height 157.5 cm Trevor GUTIERREZ Work Phone: [facility] 06-29-2024 10:51-0500 Body mass index (BMI) [Ratio] 40.97 kg/m2 Trevor GUTIERREZ Work Phone: [facility] 06-29-2024 10:51-0500 Body temperature 97.59 [degF] Trevor GUTIERREZ Work Phone: [facility] 06-29-2024 10:51-0500 Body weight 101.61 kg Trevor GUTIERREZ Work Phone: [facility] 06-29-2024 10:51-0500 Diastolic blood pressure 72 mm[Hg] Trevor Nelson [facility] Work Phone: [facility] 06-29-2024 10:51-0500 Heart rate 87 /min Daveshirleycaitlyn Sinai [facility] Work Phone: [facility] 06-29-2024 10:51-0500 Respiratory rate 18 /min Trevor Brookski [facility] Work Phone: [facility] 06-29-2024 10:51-0500 SaO2% (BldA) [Mass fraction] 99 % Trevor Brookski [facility] Work Phone: [facility] 06-29-2024 10:51-0500 Systolic blood pressure 134 mm[Hg] Daveshirleycaitlyn Brookski [facility] Work Phone: [facility] 04-18-2023 07:48-0500 Diastolic blood pressure 80 mm[Hg] Dr. Mc Delgadillo Work Phone: [facility] 04-18-2023 07:48-0500 Heart rate 82 /min Dr. Mc Delgadillo Work Phone: [facility] 04-18-2023 07:48-0500 Respiratory rate 16 /min Dr. Mc Delgadillo Work Phone: [facility] 04-18-2023 07:48-0500 SaO2% (BldA) [Mass fraction] 99 % Dr. Mc Delgadillo Work Phone: [facility] 04-18-2023 07:48-0500 Systolic blood pressure 131 mm[Hg] Dr. Mc Delgadillo Work Phone: [facility] 04-18-2023 06:20-0500 Body height 162.[address] Mc Delgadillo Work Phone: [facility] 04-18-2023 06:20-0500 Body mass index (BMI) [Ratio] 39.9 kg/m2 Dr. Mc Delgadillo Work Phone: [facility] 04-18-2023 06:20-0500 Body temperature 97.6 [degF] Dr. Mc Delgadillo Work Phone: [facility] 04-18-2023 06:20-0500 Body weight 105.[address] Mc Delgadillo Work Phone: [facility] 03-28-2023 07:32-0400 Body temperature 98.2 [degF] Dr. Mc Delgadillo Work Phone: [facility] 03-28-2023 07:32-0400 Diastolic blood pressure 83 mm[Hg] Dr. Mc Delgadillo Work Phone: [facility] 03-28-2023 07:32-0400 Heart rate 102 /min Dr. Mc Delgadillo Work Phone: [facility] 03-28-2023 07:32-0400 Respiratory rate 17 /min Dr. Mc Delgadillo Work Phone: [facility] 03-28-2023 07:32-0400 SaO2% (BldA) [Mass fraction] 98 % Dr. Mc Delgadillo Work Phone: [facility] 03-28-2023 07:32-0400 Systolic blood pressure 126 mm[Hg] Dr. Mc Delgadillo Work Phone: [facility] Encounters Encounter Date Encounter Type Care Provider Facility Start: 02-16-2025 ambulatory No Primary Car e Physician Facility:[facility] Start: 02-07-2025 End: 02-07-[address] Cindy Stevenson MD -[facility] Work Phone: Start: 02-07-2025 End: 02-07-2025 ambulatory No Primary Care Physician -[facility] Start: 02-04-2025 End: 02-04-2025 Patient encounter procedure Monica Magana CNM -[facility] Work Phone: Start: 02-04-2025 End: 02-04-2025 ambulatory No Primary Care Physician -[facility] Start: 02-02-2025 Patient encounter procedure Monica Magana CNM -Laboratory Work Phone: Start: 02-02-2025 End: 02-02-2025 ambulatory No Primary Care Physician Facility:[facility] Start: 01-27-2025 End: 01-27-2025 ambulatory No Primary Care Physician -[facility] Start: 01-27-2025 End: 01-27-2025 Patient encounter procedure Monica Magana CNM -[facility] Work Phone: Start: 01-27-2025 End: 01-27-2025 ambulatory No Primary Care Physician Facility:[facility] Start: 01-19-2025 End: 01-19-2025 ambulatory No Primary Care Physician -Laboratory Start: 01-19-2025 End: 01-19-2025 Patient encounter procedure Monica Magana CNM -Laboratory Work Phone: Start: 01-19-2025 End: 01-19-2025 ambulatory No Primary Care Physician Facility:[facility] Start: 01-17-2025 End: 01-17-2025 ambulatory No Primary Care Physician -Laboratory Start: 01-17-2025 End: 01-17-2025 Patient encounter procedure Monica Magana CNM -Laboratory Work Phone: Start: 01-17-2025 End: 01-17-2025 ambulatory No Primary Care Physician Facility:[facility] Start: 12-27-2024 End: 12-27-2024 ambulatory No Primary Care Physician -Laboratory Start: 12-27-2024 End: 12-27-2024 Patient encounter procedure Hillary Tavarez [employer] -Laboratory Work Phone: Start: 12-27-2024 End: 12-27-2024 ambulatory No Primary Care Physician Facility:[facility] Start: 12-20-2024 End: 12-20-[address] Cindy Stevenson MD -[facility] Work Phone: Start: 12-20-2024 End: 12-20-2024 ambulatory No Primary Care Physician -[facility] Start: 12-20-2024 End: 12-20-2024 ambulatory No Primary Care Physician Facility:[facility] Start: 12-17-2024 End: 12-17-2024 ambulatory No Primary Care Physician -Laboratory Start: 12-17-2024 End: 12-17-2024 Patient encounter procedure Dr. Jennifer Erazo DO -Laboratory Work Phone: Start: 12-17-2024 End: 12-17-2024 ambulatory Jennifer Erazo Facility:[facility] Start: 12-14-2024 End: 12-14-[address] Cindy Stevenson MD -[facility] Work Phone: Start: 12-14-2024 End: 12-14-2024 ambulatory No Primary Care Physician -[facility] Start: 12-13-2024 End: 12-13-2024 ambulatory No Primary Care Physician -Laboratory Start: 12-13-2024 End: 12-13-[address] Cindy Stevenson MD -Laboratory Work Phone: Start: 12-13-2024 End: 12-13-2024 ambulatory No Primary Care Physician Facility:[facility] Start: 12-11-2024 End: 12-11-2024 Emergency department patient visit No Primary Care Physician -Emergency Department Work Phone: Start: 12-10-2024 End: 12-10-2024 [facility] Rachel MCKEON Work Phone: [facility] ([place]) Comment on above: Moderate episode of recurrent major depressive disorder (HCC) (Primary Dx); IVON (generalized anxiety disorder); Less than 8 weeks gestation of (HCC) Start: 12-09-2024 End: 12-09-2024 ambulatory No Primary Care Physician -Laboratory Start: 12-09-2024 End: 12-09-[address] Jennifer Erazo DO -Laboratory Work Phone: Start: 12-09-2024 End: 12-09-2024 ambulatory Jennifer Erazo Facility:[facility] Start: 12-07-2024 End: 12-07-2024 ambulatory No Primary Care Physician [facility] Start: 12-07-2024 End: 12-07-[address] Jennifer Erazo DO [facility] Work Phone: Start: 12-07-2024 End: 12-07-2024 ambulatory Raheemeugenio Adriendave Facility:[facility] Start: 12-03-2024 End: 12-09-2024 ambulatory Vitaly Claburn PA-C Work Phone: [facility] ([place]) Start: 12-03-2024 End: 12-09-2024 Patient encounter procedure Vitaly Claburn PA-C Work Phone: [facility] ([place]) Comment on above: Wellbutrin Start: 11-08-2024 End: 11-08-2024 Refill Vitaly Claburn PA-C Work Phone: [facility] ([place]) Comment on above: Med Change Request Start: 11-08-2024 End: 11-08-2024 Distance Health Vitaly Claburn PA-C Work Phone: [facility] ([place]) Comment on above: Moderate episode of recurrent major depressive disorder (HCC) (Primary Dx); IVON (generalized anxiety disorder); Attention and concentration deficit; Sleep difficulties Start: 10-25-2024 End: 10-29-2024 ambulatory Vitaly Claburn PA-C Work Phone: [facility] ([place]) Start: 10-25-2024 End: 10-29-2024 Patient encounter procedure Vitaly Claburn PA-C Work Phone: [facility] ([place]) Comment on above: Buspar Start: 10-11-2024 End: 10-11-2024 ambulatory VITALY CLABURN Facility:[facility] Start: 09-06-2024 End: 09-06-2024 E-mail encounter from caregiver Vitaly Claburn PA-C Work Phone: [facility] ([place]) Start: 09-06-2024 End: 09-06-2024 Patient encounter procedure Vitaly Claburn PA-C Work Phone: [facility] ([place]) Comment on above: Questionnaire Submis job Moderate episode of recurrent major depressive disorder (HCC) (Primary Dx); Attention and concentration deficit; IVON (generalized anxiety disorder); BMI 40.0-44.9, adult (HCC) Start: 09-06-2024 End: 09-06-2024 Telemedicine consultation with patient Vitaly Ramos PA-C Work Phone: [facility] Start: 09-06-2024 End: 09-06-2024 ambulatory VITALY RAMOS Facility:[facility] Start: 07-13-2024 End: 07-13-2024 Telephone encounter Uvaldo Doss MD Work Phone: [facility] ([facility]) Comment on above: Appointment Start: 06-29-2024 End: 06-29-2024 Telephone encounter Trevor GUTIERREZ Work Phone: [facility] ([facility]) Comment on above: Referral Information (Psychiatry) Start: 06-29-2024 End: 06-29-2024 ambulatory UVALDO DOSS [facility] Start: 06-29-2024 End: 06-29-2024 Patient encounter procedure Trevor GUTIERREZ Work Phone: [facility] ([facility]) Comment on above: Moderate episode of recurrent major depressive disorder (HCC) (Primary Dx); Screening for depression; Encounter for routine laboratory testing; SHARON (obstructive sleep apnea); Encounter for screening for lipid disorder Start: 06-29-2024 End: 06-29-2024 Patient encounter status Trevor GUTIERREZ Work Phone: [facility] Start: 06-29-2024 End: 06-29-2024 ambulatory TREVOR NELSON Facility:[facility] Start: 06-29-2024 Encounter for other specified special examinations TREVOR NELSON [facility] Start: 04-18-2023 End: 04-18-2023 Emergency department patient visit Dr. Mc Delgadillo Work Phone: [facility]-Emergency Department Work Phone: Start: 03-28-2023 End: 03-28-[address] Mc Delgadillo Work Phone: [facility] Work Phone: Start: 03-13-2022 End: 03-13-2022 ambulatory [facility] Work Phone: Start: 03-13-2022 End: 03-13-2022 Patient encounter procedure [facility]-Laboratory, [facility] Procedures Date Procedure Procedure Detail Performing Clinician Start: 01-27-2025 Transvaginal obstetr ic ultrasonography No Primary Care Physician Start: 12-17-2024 Laboratory data interpretation No Primary Care Physician Comment on above: No lupus anticoagula nt was detected. Start: 12-17-2024 Lupus anticoagulant assay, platelet neutralization method No Primary Care Physician Start: 12-17-2024 Lupus anticoagulant screening test No Primary Care Physician Start: 12-17-2024 Prothrombin time No [facility] Care Physician Start: 12-17-2024 Serum IgM anticardio lipin measurement No Primary Care Physician Comment on above: Negative: <13 Indete rminate: 13 - 20 Low-Med Positive: >20 - 80 High Positive: >80Performed at: [facility] [address] [id number] Director: Claire Kerns MD, Phone: [phone] at: [facility] [employer] [id number] Director: Adarsh Taylor PhD, Phone: [phone] Start: 12-11-2024 Urnls dip stick/tabl et reagent auto microscopy No Primary Care Physician Start: 06-29-2024 Adult depression scr eening assessment Trevor GUTIERREZ Work Phone: Plan of Treatment Date Care Activity Detail Author Start: 06-29-2025 Anxiety Screening Anxiety Screening [facility] Start: 06-29-2025 [facility] Start: 06-14-2025 RSV Vaccine (1 - Ris k 1-dose series) RSV Vaccine (1 - Risk 1-dose series) [facility] Start: 02-07-2025 End: 02-07-2025 Follow-up encounter 02/07/2025 9:30 AM EDT [facility] ([place]) [address] [place] [address] Vitaly Ramos PA-C [address], [place] [address] follow up [facility] ([place]) Comment on above: follow up Start: 01-24-2025 Influenza vaccination Influenza Vacc ine (#1) [facility] Start: 01-07-2025 End: 01-07-2025 Follow-up encounter 01/07/2025 1:00 PM EDT [facility] ([place]) [address] [place] [address] Vitaly Ramos PA-C [address], [place] [address] follow up [facility] ([place]) Comment on above: follow up Start: 12-20-2024 End: 12-20-2024 Patient encounter procedure 12/20/2024 3:00 PM EDT Office Visit [facility] ([facility]) [address] [facility] [address] FLO[address] [place], [place] [id number] Trevor Nelson MBBS [address] [place] [address] Upper back pain [facility] Internal [facility] ([facility]) Comment on above: Upper back pain Start: 12-17-2024 Beta 2 glycoprotein 1 Ab IgA and IgG and IgM panel - Serum [facility] Start: 12-17-2024 Cardiolipin IgG and IgM panel - Serum [facility] Start: 12-17-2024 Lupus anticoagulant assay [facility] Start: 12-11-2024 [facility] Start: 12-10-2024 End: 12-10-2024 [facility] 12/10/2024 1:30 PM EDT [facility] ([place]) [address] [place] [address] Vitaly Ramos PA-C [address], [place] [address] Moderate episode of recurrent major depressive disorder (HCC) (Primary Dx); Attention and concentration deficit; IVON (generalized anxiety disorder) [facility] ([place]) Comment on above: Moderate episode of recurrent major depressive disorder (HCC) (Primary Dx); Attention and concentration deficit; IVON (generalized anxiety disorder) Start: 12-07-2024 Choriogonadotropin ( test) [Presence] in Serum or Plasma [facility] Start: 11-08-2024 End: 11-08-2024 Follow-up encounter 11/08/2024 9:30 AM EDT [facility] ([place]) [address] [place] [address] Vitaly Ramos PA-C [address], [place] [address] follow up [facility] ([place]) Comment on above: follow up Start: 10-04-2024 End: 10-04-2024 Follow-up encounter 10/04/2024 11:30 AM EDT [facility] ([place]) [address] [place] [address] Vitaly Ramos PA-C [address], [place] [id number] follow up [facility] ([place]) Comment on above: follow up Start: 09-06-2024 End: 09-06-2024 [facility] 09/06/2024 10:00 AM EDT [facility] [place]) [address] [place] [address] Vitaly Ramos PA-C [address] [place] [address] Moderate episode of recurrent major depressive disorder (HCC) [F33.1 (ICD-10-CM)] [facility] ([place]) Comment on above: Moderate episode of recurrent major depressive disorder (HCC) [F33.1 (ICD-10-CM)] Start: 06-29-2024 End: 09-28-2024 Hemoglobin A1c in Blood [facility] Work Phone: Comment on above: Expected: 06/29/2024 , Expires: 09/28/2024 Start: 01-25-2024 Covid-19 Vaccine () Covid-19 Vaccine () [facility] Start: 04-18-2023 Streptococcus pyogen es antigen assay Group A Streptococcus Rapid Screen [facility] Start: 04-18-2023 [facility] Start: 2018 Screening for malign ant neoplasm of cervix Cervical Cancer Screening [facility] Start: 2015 Hepatitis C screening Hepatitis C Sc reening [facility] Start: 2015 HIV screening HIV Screening [facility] Start: 2012 HPV Vaccine (1 - 3-d ose series) HPV Vaccine (1 - 3-dose series) [facility] Start: 2011 Peds To Adult Transi tion Annual Assessment Peds To Adult Transition Annual Assessment [facility] Start: 2009 Peds To Adult Transi tion Initial Discussion Peds To Adult Transition Initial Discussion [facility] Start: 2008 Urine microalbumin profile DTa P,Tdap,Td Vaccine (6 - Tdap) [facility] Beta 2 glycoprotein 1 Ab IgA and IgG and IgM panel - Serum [facility] Beta 2 glycoprotein 1 IgA Ab [Presence] in Serum [facility] Beta 2 glycoprotein 1 IgG Ab [Presence] in Serum [facility] Beta 2 glycoprotein 1 IgM Ab [Presence] in Serum [facility] Cardiolipin IgG Ab [Units/volume] in Serum or Plasma [facility] Cardiolipin IgG and IgM panel - Serum [facility] Cardiolipin IgM Ab [Units/volume] in Serum or Plasma [facility] Choriogonadotropin ( test) [Presence] in Serum or Plasma [facility] Hemoglobin A1c/Hemoglobin.total in Blood [facility] End: 06-29-2025 HOME SLEEP APNEA TEST (HSAT) HOME SLEEP APNEA TEST (HSAT) Procedures Routine SHARON (obstructive sleep apnea) 1 Occurrences starting 06/29/2024 until 06/29/2025 [facility] Comment on above: 1 Occurrences starti ng 06/29/2024 until 06/29/2025 Lupus anticoagulant assay [facility] Lupus anticoagulant screening test [facility] Partial thromboplast in time ratio [facility] Patient Education ED Pharyngitis, Viral [facility] Work Phone: Patient referral [facility] Work Phone: Thrombin time [facility] Thyroid stimulating hormone measurement [facility] Immunizations Immunization Date Immunization Notes Care Provider Fa richard 03-26-2024 influenza, seasonal, injectable, preservative free Trevor GUTIERREZ Work Phone: [facility] 03-26-2024 influenza virus vacc ine, unspecified formulation Vitaly Ramos PA-C Work Phone: [facility] 09-10-2021 tuberculin skin test ; purified protein derivative solution, intradermal Trevor GUTIERREZ Work Phone: [facility] 08-18-2021 COVID-19 original vaccine, age 12+ yr, monovalent (PFIZER-BIONTECH - RODRIGUEZ TOP) Trevor GUTIERREZ Work Phone: [facility] 07-19-2021 COVID-19 original vaccine, age 12+ yr, monovalent (PFIZER-BIONTECH - RODRIGUEZ TOP) Trevor GUTIERREZ Work Phone: [facility] 08-16-2002 diphtheria, tetanus toxoids and acellular pertussis vaccine, unspecified formulation Trevor GUTIERREZ Work Phone: [facility] 08-16-2002 measles, mumps and rubella virus vaccine Deeven Sinai MBBS Work Phone: [facility] 08-16-2002 poliovirus vaccine, inactivated Deeven Sinai MBBS Work Phone: [facility] 11-01-1998 diphtheria, tetanus toxoids and acellular pertussis vaccine, unspecified formulation Deeven Sinai MBBS Work Phone: [facility] 11-01-1998 haemophilus influenz ae type b vaccine, HbOC conjugate Deeven Sinai MBBS Work Phone: [facility] 07-19-1998 measles, mumps and rubella virus vaccine Deeven Sinai MBBS Work Phone: [facility] 01-23-1998 diphtheria, tetanus toxoids and acellular pertussis vaccine, unspecified formulation Deeven Sinai MBBS Work Phone: [facility] 01-23-1998 haemophilus influenz ae type b vaccine, conjugate unspecified formulation Daveeven Sinai MBBS Work Phone: [facility] 01-23-1998 hepatitis B vaccine, pediatric or pediatric/adolescent dosage Deeven Sinai MBBS Work Phone: [facility] 01-23-1998 trivalent poliovirus vaccine, live, oral Deeven Sinai MBBS Work Phone: [facility] 1995 diphtheria, tetanus toxoids and acellular pertussis vaccine, unspecified formulation Daveeven Sinai MBBS Work Phone: [facility] 1995 haemophilus influenz ae type b vaccine, conjugate unspecified formulation Deeven Sinai MBBS Work Phone: [facility] 1995 trivalent poliovirus vaccine, live, oral Deeven Sinai MBBS Work Phone: [facility] 1995 diphtheria, tetanus toxoids and acellular pertussis vaccine, unspecified formulation Daveeven Sinai MBBS Work Phone: [facility] 1995 haemophilus influenz ae type b vaccine, PRP-OMP conjugate Trevor Nelson MBBS Work Phone: [facility] 1995 hepatitis B vaccine, pediatric or pediatric/adolescent dosage Kevincaitlyn Sinai MB Work Phone: [facility] 1995 trivalent poliovirus vaccine, live, oral Davelinda Sinai MB Work Phone: [facility] 1995 hepatitis B vaccine, pediatric or pediatric/adolescent dosage Delinda Sinai MB Work Phone: [facility] Payers Date Payer Category Payer Self-pay [id number] 2024 [employer] BLUE CARD PPO OOS [id number] 2024 Unknown [id number] 2024 Private Health Insurance [id number] 2024 Unknown [id number] Unknown ANTHEM [id number] Unknown [facility] PLAN [id number] Unknown [facility] PLAN [id number] Unknown [id number]. 462 Unknown [id number] 2.16.840.1.307874.3.579.2. 462 Unknown [id number] 2.16.840.1.637579.3.579.2. 462 Unknown [id number] 2.16.840.1.086589.3.579.2. 462 Unknown [id number] 2.16.840.1.377373.3.579.2. 462 Unknown [id number] 2.16.840.1.559955.3.579.2. 462 Unknown [id number] 2.16.840.1.711653.3.579.2. 462 Unknown [id number] 2.16.840.1.181143.3.579.2. 462 Unknown [id number] 2.16.840.1.679732.3.579.2. 462 Unknown [id number] 2.16.840.1.453580.3.579.2. 462 Unknown [id number] 2.16.840.1.402678.3.579.2. 462 Unknown [id number] 2.16.840.1.468241.3.579.2. 462 Unknown [id number] 2.16.840.1.283556.3.579.2. 462 Unknown [id number] 2.16.840.1.263071.3.579.2. 462 Unknown [id number] [id number]. 462 Unknown [id number] 2.16840.1.760194.3.579.2. 462 Unknown [id number]. 462 Social History Date Type Detail Facility Start: 08-02-2021 End: 04-18-2023 Tobacco smoking status NHIS Unknown if ever smoked [facility] Start: 04-21-2020 None [facility] Start: 04-21-2020 Alone [facility] Start: 1995 Sex Assigned At Female [facility] Start: 06-29-2024 End: 12-14-2024 Tobacco smoking status NHIS Never smoked tobacco [facility] Start: 06-29-2024 Tobacco use and exposure Smokeless tobacco non-user [facility] Start: 06-29-2024 End: 12-10-2024 Alcoholic beverage intake Current drinker of alcohol (finding) [facility] Start: 06-29-2024 End: 07-13-2024 History of Social function [facility] Start: 06-29-2024 End: 07-13-2024 [facility] [employer] [facility] Has the [employer], or [employer] threatened to shut off services in your home in past 12Mo No [facility] Are you now , , , , never or living with a partner? [facility] How often to you hav e a drink containing alcohol? Never [facility] How many standard drinks containing alcohol do you have on a typical day? Patient does not drink [facility] Do you feel stress - tense, restless, nervous, or anxious, or unable to sleep at night because your mind is troubled all the time - these days [OSQ] Rather much [facility] (I/We) worried syd er (my/our) food would run out before (I/we) got money to buy more. Never true [facility] Start: 06-29-2024 Alcohol Comment occassional [facility] Start: 06-25-2024 Gender identity Identifies as female gender (finding) [facility] Start: 06-29-2024 Sexual orientation Heterosexual (fin shahzad) [facility] Start: 11-16-2024 [facility] Mental Status Date Assessment Result Facility 12-11-2024 Cognitive function Level Of Cons ciousness Awake;Alert;Appropriate;Follow s Commands [facility] Work Phone: Clinical Notes 06-29-2024 to 02-04-2025 Note Date & Type Note Facility 02-04-2025 Progress note [facility] 01-29-2025 Radiology Diagnostic study note [facility] Imaging Services [address] [place] [id number] Transvaginal w/Preg US MR#: [id number] Acct: [id number] Name: ROBINSON RUFF Rep #: [id number] : 1995 F 29 From: Anand Acuna MD PCP: Care Physician,No Primary Status: REG CLI Study:Transvaginal w/Preg US Date of Exam: 01/27/25 Exam# [id number] Ordering Dr: Monica Magana CNM PROCEDURE: TRANSVAGINAL W/PREG US 01/27/2025 REASON FOR EXAM: DATING 1st trimester . TECHNIQUE: Procedure Code: [id number] Modality: US Procedure: TRANSVAGINAL W/PREG US COMPARISON: None FINDINGS: Comments: Recent miscarriage. Number of Gestational Sacs: 1 Gestational Sac Shape: Normal Beta hCG not provided. Yolk Sac: Not visualized. Placenta: Not visualized. Amniotic Fluid Volume: Fluid in the gestational sac negative. Uterine Abnormalities: Maternal uterus is unremarkable. Cervix closed. Ovaries / Adnexa: Right ovary 2.8 x 2.1 x 4.7 cm. No definitive ectopic mass. No adjacent fluid. Left ovary 3.0 x 1.8 cm with normal flow. No definitive ectopic mass. No definitive free pelvic fluid. ESTIMATED GESTATIONAL AGE: By Ultrasound: 5 weeks 4 days. ESTIMATED DATE OF DELIVERY: By Ultrasound: 25 Sep 2025. US/Transvaginal w/Preg US IMPRESSION: Probable gestational sac. However yolk sac and embryonic pole not visualized Recommend correlation with patient's beta HCG. In a normal and a beta HCG greater than 1000 and embryonic pole with heart rate is visualized. No definitive ectopic mass. Reading Location: [id number] CC: MATHEW Magana; No Primary Care Physician ~ Product Marketing Specialist: Signed [facility] 12-11-2024 Discharge summary [facility] 12-11-2024 Discharge summary Note Date/Time December 11, 2024 6:01pm [facility] Medical Records Department [address] [place] [address] Emergency Department Summary 12/11/24 MR#: [id number] Acct: [id number] Name: ROBINSON RUFF Rep #:[id number] : [...] her quant level checked and called her HAND STONER. They noted that they wanted her to have this repeated today. States that she did have a ultrasound recently but notes that her quant level was too low to seeanything she states that the HAND STONER wants to see if her quant level is high enough to repeat the ultrasound. [facility] Medical History Gastroenteritis Nausea vomiting and diarrhea [...] occupational status: employed 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 Smoking Status: Never smoker additional social history: S/O : Lavell MILNER ROS ED ROS Narrative Constitutional: Denies any [...] follow commands knew that she was at [facility] the year is 2024 Skin: Warm, dry, [...] for culture. I discussed case with on-call HAND STONER Dr. Stevenson who states that she wants her quant level repeated and 48 hours and at that point in time they will assessif they will need to do an ultrasound or not. She was advised that if she is having bleeding soaking through 1 more pad an hour for a few hours in a row thenshe needs to call the HAND STONER or return to the emergency department. I did discuss this plan with the patient she is agreeable with this plan all question concerns answered she was discharged home in stable condition. Lab Data Labs: Laboratory Results - last 24 hr 12/11/24 12/11/24 16:51 17:06 Hgb 12.8 Hct 38.6 HCG, Quant 1256 H Urine Color Yellow Urine Clarity Cloudy Urine pH 6.0 Ur Specific [place] 1.020 Urine Protein 15 H Urine Glucose [...] to the emergency department or call your HAND STONER. Return with any other concerns. Your quantitative level here today was 1256. Take antibiotics as prescribed follow-up on urine culture with your HAND STONER. Print Language: Surinamese Disposition Disposition: Home, Self Care What to do if you have Problems For any increased pain, shortness of breath, bleeding, nausea or vomiting, chestpain, or any unexpected problems, contact your Primary Care Provider. Call [facility] ([phone]) or report to the closest Emergency Room. Call 911 if necessary. 12/11/24 1801 <Electronically signed by Jose Luis Rosenberg DO> Cosigner Signature (if applicable): CC: No Primary Care Physician ~ Signed [facility] Work Phone: [phone]) 974-706307-18-2025 Instructions* Patient Instructions* Vitaly Ramos PA-C - 12/10/2024 2:13 PM EDT Visit Instructions: - Please call front end developer at [phone] to schedule your next appointment in 4 weeks. -please feel free to call us with any questions or concerns - If you need help with [employer] access please call: [email or web address] Support at: [phone] - Please take all medications as directed. [...] Help: or 211 Crisis Emergency Lifeline-Suicide Prevention: 0-053-613-TALK (4316) MARISELA ([employer] [place] on Mental Illness): . Info referral line: If you or someone you know needs support now, call or text 088 or chat [email or web address] Vitaly Ramos PA-C documented in this encounterParkview Health [facility] Hospital2025 History of Present illness Narrative* Vitaly Ramos PA-C - 12/10/2024 1:30 PM EDT [facility] GENERAL BEHAVIORAL MEDICINE PROGRESS NOTE PATIENT: Robinson Castrejon Komal MRD: [id number] DATE: December 10, 2024 This is a [...] f/u is December 31. Receiving care through [facility]. No prior obstetric complications. Taking [...] five weeks gestation - Follow up with [facility] - Follow up in 4 weeks Vitaly Ramos PA-C Patient understands and agrees with the plan: Yes Total time in direct patient contact = 30 min. Greater than 50% of the time was spent in counselingand/or coordination of care. Electronically signed by Vitaly Ramos PA-C December 10, 2024 1400 documented in this encounterParkview Health Bryan Hospital2025 NoteHNO ID: [id number] Author: VITALY RAMOS PA-C Service: ? Author Type: Physician Aluminum Polisher Type: Progress Notes Filed: 12/10/2024 14:15 Note Text: [facility] GENERAL BEHAVIORAL MEDICINE PROGRESS NOTE PATIENT: Robinson Castrejon Komal MRD: [id number] DATE: December 10, 2024 This is a [...] f/u is December 31. Receiving care through [facility]. No prior obstetric complications. Taking Wellbutrin and [...] five weeks gestation - Follow up with [facility] - Follow up in 4 weeks Vitaly Ramos PA-C Patient understands and agrees with the plan: Yes Total time in direct patient contact = 30 min. Greater than 50% of the time was spent in counseling and/or coordination of care. Electronically signed by Vitaly Ramos PA-C December 10, [address] [place], [place] 6220607-15-2025 Evaluation note* Diagnosis Onset Date Resolution Status Admit Date History of molar acute December 07, 2024 3:25pm Recurrent loss acute December 07, 2024 3:25pm [facility] Work Phone: 1(693) 841-559207-15-2025 Evaluation note* Diagnosis Onset Date Resolution Status Admit Date History of molar acute December 07, 2024 3:25pm Recurrent loss acute December 07, 2024 3:25pm Threatened acute December 14, 2024 12:07pm [facility] Work Phone: 1(670) 618-991007-15-2025 Evaluation note* Diagnosis Onset Date Resolution Status Admit Date History of molar acute December 07, 2024 3:25pm Recurrent loss acute December 07, 2024 3:25pm Threatened acute December 14, 2024 12:07pm Complete acute December 202024 7:51am Recurrent loss acute December 20, 2024 7:51am [facility] Work Phone: 1(595) 967-407307-15-2025 Evaluation note* Diagnosis Onset Date Resolution Status Admit Date History of molar acute December 07, 2024 3:25pm Recurrent loss acute December 07, 2024 3:25pm Threatened deleted December 14, 2024 12:07pm Recurrent loss acute December 20, 2024 7:51am Complete inactive December 202024 7:51am [facility] Work Phone: 1(910) 761-730107-15-2025 Evaluation note* Diagnosis Onset Date Resolution Status Admit Date History of molar acute December 07, 2024 3:25pm Recurrent loss acute December 07, 2024 3:25pm Threatened deleted December 14, 2024 12:07pm Recurrent loss acute December 20, 2024 7:51am Complete inactive December 202024 7:51am Early stage of acute February 04, 2025 7:54am History of miscarriage, currently acute January 7:54am Recurrent loss acute February 04, 2025 7:54[address] [facility] Work Phone: 1(239) 570-5074572306-49-7440 Instructions* Patient Instructions* Vitaly Ramos PA-C - 11/08/2024 9:45 AM EDT Visit Instructions: - Please call front end developer at [phone] to schedule your next appointment in 3 months. -please feel free to call us with any questions or concerns - If you need help with DocLandingt access please call: [email or web address] Support at: [phone] - Please take all medications as directed. - Please do not hesitate to call the office if you notice new medication side effects, any depression or thoughts of self-harm. If the office is closed, report to the nearest emergency department. - Be aware that any new medication can cause side effect or possible allergic reaction. Please stopmedication if rash or itching develop. Call [phone] if you experience short of breath, wheezing, difficulty breathing, or swelling in your throat or airway. Recommended Community Resources: Crisis/Emergency 24-Hour Mental Health and Crisis Line for Adults and Children: Crisis Emergency First Call for Help: or 211 Crisis Emergency Lifeline-Suicide Prevention: 7-253-173-TALK (8586) MARISELA ([place] on Mental Illness): . Info referral line: If you or someone you know needs support now, call or text 888 or chat 988lifeline.org Vitaly Ramos PA-C documented in this encounterParkview Health Bryan Hospital06-16-2025 NoteHNO ID: [id number] Author: VITALY RAMOS PA-C Service: ? Author Type: Physician Aluminum Polisher Type: Progress Notes Filed: 11/08/2024 09:49 Note Text: [facility]GR[facility] PATIENT: Robinson Ruff MRD: [id number] DATE: November 08, 2024 This is a [...] enjoys. 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 Review of Systems Constitutional: Negative for fever, [...] coordination of care. 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 Review of Systems Constitutional: Negative for fever, [...] PA-C November 08, 2024 documented in this encounterParkview Health Bryan Hospital05-19-2025 NoteHNO ID: [id number] Author: VITALY RAMOS PA-C Service: ? Author Type: Physician Aluminum Polisher Type: Progress Notes Filed: 10/12/2024 11:50 Note Text: [facility] GENERAL BEH[facility]AL [facility]ICINE PROGRESS NOTE PATIENT: Robinson Ruff MRD: [id number] DATE: October 11, 2024 This is a [...] to spend time with their family in [place] soon. Grandfather is returning home; just received [...] Vitaly Ramos PA-C October 11, 2024 9:07 [facility]04-15-2025 Instructions* Patient Instructions * Vitaly Ramos PA-C - 09/07/2024 10:32 AM EDT Visit Instructions: The [email or web address] Email: [email or web address] - Please call front end developer at [phone] to schedule your next appointment in 4 weeks. -please feel free to call us with any questions or concerns - If you need help with [email or web address] access please call: [email or web address] Support at: [phone] - Please take all medications as directed. - Please do not hesitate to call the office if you notice new medication side effects, any depression or thoughts of self-harm. If the office is closed, report to the nearest emergency department. - Be aware that any new medication can cause side effect or possible allergic reaction. Please stopmedication if rash or itching develop. Call [phone] if you experience short of breath, wheezing, difficulty breathing, or swelling in your throat or airway. Recommended Community Resources: Crisis/Emergency 24-Hour Mental Health and Crisis Line for Adults and Children: Crisis Emergency First Call for Help: or 211 Crisis Emergency Lifeline-Suicide Prevention: 7-068-134-TALK (9240) MARISELA ([place] on Mental Illness): . Info referral line: If you or someone you know needs support now, call or text 547 or chat 396[email or web address] Vitaly Ramos PA-C documented in this encounterParkview Health [facility] Hospital04-14-2025 Telephone encounter Note * Telephone Encounter - Vitaly Ramos PA-C - 09/06/2024 10:51 AM EDT Summary: [employer] message Questionnaires [facility]04-14-2025 Miscellaneous Notes* Telephone Encounter - Vitaly Ramos PA-C - 09/06/2024 10:51 AM EDTSummary: [employer] message Questionnaires documented in this encounterParkview Health Bryan Hospital04-14-2025 NoteHNO ID: [id number] Author: VITALY RAMOS PA-C Service: ? Author Type: Physician Aluminum Polisher Type: Progress Notes Filed: 09/07/2024 10:50 Note Text: Summary: Assessment [facility] BEHAVIORAL MEDICINE INITIAL PSYCHIATRIC EVALUATION PATIENT: Robinson Ruff MRD: [id number] DATE: September 06, 2024 This is a [...] by her PCP, Dr. Doss. 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 She relies on her grandmother, and occasionally her mother for support. Pt endorses that Math and Surinames[place] were hard growing up. She still gets [...] SOCIAL HISTORY: Born and raised: Born in [place] but relocated to [place] when she was young. Came back to [place] 3 years ago. Childhood: 2nd grade her mother met her dafnedad. He got a different job in [place] so the family relocated and she has been there until 4 years ago. Note that her mom and stepdad would alliance party a lot so she doesn't like loud noises. Her father was angry that she moved to [place] so he stopped talking to her when [...] age 9) Living Situation: Living in a [facility] [place] with her kids and her . Weapons: None Legal History: None SUBSTANCE ABUSE HISTORY: Drank alcohol when she was 23 but does not drink often now. Seldom has a drink on special occasions. Denies (more content not included)...[facility]04-14-2025 History of Present illness Narrative* Vitaly Ramos PA-C - 09/06/2024 9:55 AM Arturo: Assessment Images from the original note were not included. [facility] BEHAVIORAL MEDICINE INITIAL PSYCHIATRIC EVALUATION PATIENT: Robinson Ruff MRD: [id number] DATE: September 06, 2024 This is a [...] by her PCP, Dr. Doss. 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 She relies on her grandmother, and occasionally her mother for support. Pt endorses that Math and [place] were hard growing up. She still gets [...] SOCIAL HISTORY: Born and raised: Born in [place] but relocated to [place] when she was young. Came back to [place] 3 years ago. Childhood: 2nd grade her mother met her stepdad. He got a different job in [place] so the family relocated and she has been there until 4 years ago. Note that her mom and stepdad would alliance party a lot so she doesn't like loud noises. Her father was angry that she moved to [place] so he stopped talking to her when [...] age 9) Living Situation: Living in a [facility] in [place] with her kids and her . Weapons: [...] chloride 0.65 % nasal spray Use 1 Shelby in the nose. (Patient not taking: Reported [...] Moderate or Serious response Desiree Screening 09/06/2024 DESIREE DETAIL REVIEW 1.Have any of your closest [...] Adult ADHD Self Report Scale Questionnaire: Wender [place] Rating Scale 3. IVON (generalized anxiety disorder) [...] 06, 2024 9:56 AM documented in this encounterParkview Health Bryan Hospital02-18-2025 Telephone encounter Note * Telephone Encounter - Sinan Adams - 07/13/2024 9:55 AM EST Called patient LVM, and sent message to patient MC to call our office to schedule August, or October follow up appointment. Dr. Nelson is on PTO in September Sinan Adams Poultry Inspector I July 13, 2024 9:56 AM [facility]02-18-2025 Miscellaneous Notes* Telephone Encounter - Sinan Adams - 07/13/2024 9:55 AM EST Called patient LVM, and sent message to patient MC to call our office to schedule August, or October follow up appointment. Dr. Nelson is on PTO in September Sinan Adams Poultry Inspector I July 13, 2024 9:56 AM documented in this encounterParkview Health Bryan Hospital02-05-2025 NoteHNO ID: [id number] Author: UVALDO DOSS MD Service: ? Author Type: Physician Type: Progress Notes Filed: 06/30/2024 18:46 Note Text: Attending Note I discussed with resident on day of the visit. The patient was not examined by the attending. I reviewed the resident's note. I agree with the resident's assessment and plan unless otherwise noted. Signature: Uvaldo Doss MD Date: 06/30/2024. Time: 6:46 [facility]02-04-2025 Telephone encounter Note* Telephone Encounter - Brooke Najera - 06/29/2024 11:49 AM EST Referral to psychiatry entered into the [facility] portal on 06/29/24. Confirmation number [id number]. [facility]02-04-2025 Miscellaneous Notes* Telephone Encounter - Brooke Najera - 06/29/2024 11:49 AM EST Referral to psychiatry entered into the [facility] portal on 06/29/24. Confirmation number [id number]. documented in this encounterParkview Health Bryan Hospital02-04-2025 NoteHNO ID: [id number] Author: TREVOR NELSON MBBS Service: ? Author [...] to follow-up with her primary care in [facility] but since her insurance has changed she comes in for establishing care at [facility]. She has not been taking any medications [...] (FLONASE) 50 mcg/actuation nasal spray Use 1 Shelby in the nose. (Patient not taking: Reported on 06/29/2024) sodium chloride 0.65 % nasal spray Use 1 Shelby in the nose. (Patient not taking: Reported [...] for dizziness, tremors, seizur (more content not included)...[facility]02-04-2025 History of Present illness Narrative* Trevor Nelson MBBS - 06/29/2024 10:55 AM EST Images from the original note were not included. [facility] BRENDA Perez ASSESSMENT/PLAN: [...] to follow-up with her primary care in [facility] but since her insurance has changed she comes in for establishing care at [facility]. She has not been taking any medications [...] (FLONASE) 50 mcg/actuation nasal spray Use 1 Shelby in the nose. (Patient not taking: Reported on 06/29/2024) sodium chloride 0.65 % nasal spray Use 1 Shelby in the nose. (Patient not taking: Reported [...] OBJECTIVE: Resp 18 Ht 157.5 cm (5' 2") Wt 101.6 kg (224 lb) BMI 40.97 [...] 29, 2024 10:55 AM documented in this encounterParkview Health [facility] HospitalD[facility] summary Author Jalen Christianson [facility] April 18, 2023 7:47am Note Date/Time April 18, 2023 6:48am [facility] Medical Records Department [address] [place] [id number] Emergency Department Summary 04/18/23 MR#: [id number] Acct: [id number] Name: ROBINSON RUFF Rep #:[id number] : [...] Referrals: Julien Talamantes MD [Med Staff - Disease Management Nurse] - 1 Week if not improving NOT,DEFINED [...] your Primary Care Provider. Call [facility] ([phone]) or report to the closest Emergency Room. Call 911 if necessary. 04/18/23 0745 <Electronically signed by Jalen Christianson MD> Cosigner Signature (if applicable): CC: No Primary Care Physician ~ Signed [facility] Work Phone: Evaluation noteNo assessment information available [facility] Work Phone: Evaluation note* Diagnosis Onset Date Resolution Status Acute pharyngitis acute [facility] Work Phone: Evaluation note* Diagnosis Moderate episode of recurrent major depressive disorder (HCC)- Primary Screening for depression Encounter for routine laboratory testing Laboratory examination ordered as part of a routine general medical examination SHARON (obstructive sleep apnea) Obstructive sleep apnea (adult) (pediatric) Encounter for screening for lipid disorder [facility] Diagnosis Moderate episode of recurrent major depressive disorder (HCC)- Primary Attention and concentration deficit Attention or concentration deficit IVON (generalized anxiety disorder) Generalized anxiety disorder BMI 40.0-44.9, adult (HCC) Body Mass Index 40.0-44.9, adult documented in this encounter [facility]* Diagnosis Moderate episode of recurrent major depressive disorder (HCC)- Primary IVON (generalized anxiety disorder) Generalized anxiety disorder Attention and concentration deficit Attention or concentration deficit Sleep difficulties Sleep disturbance, unspecified [facility] Diagnosis IVON (generalized anxiety disorder) Generalized anxiety disorder documented in this encounter [facility]* Diagnosis Moderate episode of recurrent major depressive disorder (HCC)- Primary IVON (generalized anxiety disorder) Generalized anxiety disorder Less than 8 weeks gestation of (HCC) state, incidental [facility] Additional Instructions Plenty of fluids and rest. Motrin and Tylenol for pain. Warm salt water gargling. Follow-up with your doctor if not improving or return if worse.[facility] Work Phone: Hospital Discharge instructionsAdditional Instructions You will need your hCG quant level repeated again in 48 hours. Call your HAND STONER on Friday for this test and to follow-up in their office. If you are soaking through more than 1 pad an hour for a few hours in a row you should return to the emergency department or call your HAND STONER. Return with any other concerns. Your quantitative level here today was 1256. Take antibiotics as prescribed follow-up on urine culture with your HAND STONER.[facility] Work Phone: Progress note Author Monica Magana [facility] Note Date/Time February 04, 2025 8:54am [facility] [address] [place] [address], [address] [place] [address] OFFICE VISIT Date of Service: 02/04/25 MR#: [id number] Acct: [id number] Name: ROBINSON RUFF Rep #: [id number] : 1995 Provider: MATHEW Magana Age/Sex: 29/F [place] [facility] Status: Signed Intake Vital Signs 12/20/24 07:59 02/04/25 08:13 Height 5 ft 4 in 5 ft 4 in Weight: 235 lb 1 oz BMI 40.3 BP 110/75 Intake Visit Reasons: OB, Rescan Chief Complaint: OB, Rescan Waistband Setter Required: No Is patient in pain?: No Allergies Sulfa (Sulfonamide Antibiotics) Allergy (Verified 02/04/25 08:14) Hives Medications ?Medication ?Instructions ?Recorded ?Confirmed ?Type PNV 153-FA 400 mcg-om3 35 mg-dha 1 tab PO DAILY 02/04/25 History 25 mg-epa 5 mg-fish oil chew tablet progesterone micronized 200 mg 200 mg vaginal QHS 30 d ays #30 caps 12/20/24 02/04/25 Rx capsule (Prometrium) ondansetron 4 mg disintegrating 4 mg PO Q6H PRN nausea and 02/04/25 02/04/25 Rx tablet vomiting #30 tabs Is last menstrual period known: No Post menopausal: No Patient : Yes : No PFSH Medical History (spontaneous vaginal delivery) Complete Gastroenteritis Nausea vomiting and diarrhea Seasonal allergies Migraines Surgical History H/O wisdom tooth extraction H/O dilation and curettage Family History Father Hypertension Mother Hypertension Social History household members: spouse and children number of children: 2 current occupational status: employed 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 Had a formal scan on 01/27 which showed possible IUP but no pole or yok sac. had HCG done earlier this week suggestive of . repeat scan today shows IUP with CRL of 0.46cm consistent with gestation of 6weeks and 1 daywith FHT of 109 will RTO in 2 weeks for NOB appt. Is on vaginal progesterone forhx of SAB. History 7 Elective abortions Hx Para 2 Spontaneous abortions 4 Hx # Term Pregnancies 2 Ectopic pregnancies Hx # Pregnancies Multiple births # of living children 2 Past Pregnancies Del. Date Name GA/Weeks Outcome Route Bth Weight Infant Gen Labor Lgth Anesthesia [facility] Provider FOB Unknown 2016 Reina Wolfe live - full term Unknown 2020 Ahmet live - full term Unknown 2015 molar ROS Const Constitutional: Reports system reviewed and no additional complaints, except as documented Cardio Card: Reports system reviewed and no additional complaints, except as documented Resp Resp: Reports system reviewed and no additional complaints, except as documented GI GI: Reports system reviewed and no additional complaints, except as documented : Reports system reviewed and no additional complaints, except as documented; Denies difficulty voiding, dysuria or urinary frequency Skin Skin/Breast: Reports system reviewed and no additional complaints, except as documented Neuro Neuro: Reports system reviewed and no additional complaints, except as documented Psych Psych: Reports system reviewed and no additional complaints, except as documented Exam Const General: cooperative, healthy appearing, comfortable and no acute distress Resp Effort & Inspection: normal respiratory effort, able to speak in complete sentences and symmetric chest movement GI Inspection: normal to inspection Palpation: soft External Female Exam: normal external appearance and normal appearance of the urethra Urethra: normal appearance of the urethra Speculum Exam - Vagina: normal appearance of the vagina and normal vaginal discharge Neuro General: patient alert, patient awake and patient oriented x3 Cognition: normal cognition Speech: speech normal Gait: normal gait Psych Appearance: grossly normal and well kempt Mental Status: mental status grossly normal Affect: normal affect Speech and Movement: speech and movement normal Attitude: cooperative Thought Process: normal Thought Content: normal Judgment: judgment good Coding Level of Care Code Off vis,est,level 3 Diagnoses Early stage of Z34.90 History of miscarriage, currently O09.299 Recurrent loss N96 Assessment and Plan Assessment and Plan (1) Early stage of : Status: Acute Plan: TVUS in office RTO for NOB in 2 weeks (2) History of miscarriage, currently : Status: Acute Comment: unknown LMP (3) Recurrent loss: Status: Acute Medications: New ondansetron 4 mg PO Q6H PRN 30 tabs 4RF nausea and vomiting O21.9 - Vomiting of , unspecified 02/04/25 0854 <Electronically signed by Monica cortes CNM> Date _ Monica Magana CNM Cosigner Signature: Date (if applicable) CC: ~ [facility] Work Phone: Reason for referral (narrative)No reason for referral information availableCentinela Freeman [facility] Work Phone: Summary Purpose Family History No Family History Records Found Relationship Condition Age at Onset Recorded Date/T reji father Hypertension Unknown mother Hypertension Unknown Advance Directives No Advanced Directives Records Found Advance Directive Response Recorded Date/ Time Living Will No April 06, 2 021 8:07pm Power of Credit And Collections Analyst No April 06, 2021 8:07pm Advance Directive Response Recorded Date/ Time Living Will No April 18, 2 023 6:22am Power of Credit And Collections Analyst No April 18, 2023 6:22am Advance Directive Response Recorded Date/ Time Do you have a [facility] Power of Credit And Collections Analyst? No December 11, 2024 5:58pm Chief Complaint and Reason for Visit Chief Complaint Cough SORE THROAT Reason for Visit Acute pharyngitis Chief Complaint Admit Date Early OBTorito, Requesting lab December 07, 2024 3:25pm Chief Complaint Admit Date Early OBTor[place], Requesting lab December 07, 2024 3:25pm INT LAB ORDER December 09, 2024 4:23 pm BLOOD WORK December 11, 2024 4:29 pm Reason for Visit Admit Date History of molar December 07 3:25pm Recurrent loss December 07, 2024 3:25pm Chief Complaint Admit Date Early OBT[place] Requesting lab December 07, 2024 3:25pm INT LAB ORDER December 09, 2024 4:23 pm BLOOD WORK December 11, 2024 4:29 pm Early OB [facility], December 14, 2024 12 :07pm Reason for Visit Admit Date History of molar December 07 3:25pm Recurrent loss December 07, 2024 3:25pm Threatened December 14, 2024 12:0 7pm Chief Complaint Admit Date Early OB, New, Requesting lab December 07, 2024 3:25pm INT LAB ORDER December 09, 2024 4:23 pm BLOOD WORK December 11, 2024 4:29 pm Early OB spotting, US December 14, 2024 12 :07pm 7 wk OB *per SM December 20, 2024 7:51 am Reason for Visit Admit Date History of molar December 07 3:25pm Recurrent loss December 07, 2024 3:25pm Threatened December 14, 2024 12:0 7pm Complete December 20, 2024 7:51 am Recurrent loss December 20, 2024 7:51am Reason for Visit Admit Date History of molar December 07 3:25pm Recurrent loss December 07, 2024 3:25pm Threatened December 14, 2024 12:0 7pm Recurrent loss December 20, 2024 7:51am Complete December 20, 2024 7:51 am Chief Complaint Admit Date Early OB, New, Requesting lab December 07, 2024 3:25pm INT LAB ORDER December 09, 2024 4:23 pm BLOOD WORK December 11, 2024 4:29 pm Early OB spotting, US December 14, 2024 12 :07pm 7 wk OB *per SM December 20, 2024 7:51 am E ORDERS January 17, 2025 10 :13am INT LABS January 19, 2025 8: 01am Chief Complaint Admit Date Early OB New, Requesting lab December 07, 2024 3:25pm INT LAB ORDER December 09, 2024 4:23 pm BLOOD WORK December 11, 2024 4:29 pm Early OB spotting, US December 14, 2024 12 :07pm 7 wk OB *per SM December 20, 2024 7:51 am E ORDERS January 17, 2025 10 :13am INT LABS January 19, 2025 8: 01am DATING January 27, 2025 3:15pm INT LAB ORDERS February 02, 2025 12:14pm OB, Rescan February 04, 2025 7:54am Reason for Visit Admit Date History of molar December 07 3:25pm Recurrent loss December 07, 2024 3:25pm Threatened December 14, 2024 12:0 7pm Recurrent loss December 20, 2024 7:51am Complete December 20, 2024 7:51 am Early stage of February 04, 2025 7:54am History of miscarriage, currently pregna nt February 04, 2025 7:54am Recurrent loss February 04, 2025 7:54am Chief Complaint Admit Date Early OB, New, Requesting lab December 07, 2024 3:25pm INT LAB ORDER December 09, 2024 4:23 pm BLOOD WORK December 11, 2024 4:29 pm Early OB spotting, US December 14, 2024 12 :07pm 7 wk OB *per SM December 20, 2024 7:51 am E ORDERS January 17, 2025 10 :13am INT LABS January 19, 2025 8: 01am DATING January 27, 2025 3:15pm INT LAB ORDERS February 02, 2025 12:14pm OB, Rescan February 04, 2025 7:54am spotting /SM & MS February 07, 2025 2:49pm Reason for Referral Specialty Diagnoses / Procedures Referred By Kathy bowden Referred To Contact Diagnoses Moderate episode of recurrent major depressive disorder (HCC) Procedures CONSULT TO PSYCHIATRY OFFICE/OUTPATIENT [facility] 60 MINUTES Uvaldo Doss MD [address] [place] [address] [place] [address] Referral ID Status Reason Start Date Expiration Date Visits Requested Visits Authorized [id number] Pending Review PCP Requested Referral 06/29/2024 06/29/2025 1 1 Specialty Diagnoses / Procedures Referred By Kathy bowden Referred To Contact [facility] Diagnoses SHARON (obstructive sleep apnea) Procedures HOME SLEEP APNEA TEST (HSAT) SLEEP STD AIRFLOW HRT RATE&O2 SAT EFFORT UNATT Uvaldo Doss MD 1 [facility] [address] [facility] [place] [place] [address] Neurological [place] [address] [place] [id number] Referral ID Status Reason Start Date Expiration Date Visits Requested Visits Authorized [id number] New Request Auto-Generat ed Referral 06/29/2024 06/29/2025 1 1 Additional Source Comments INFORMATION SOURCE (unrecogn ized section and content) DATE CREATED AUTHOR 09/19/2021 [facility] DATE CREATED AUTHOR AUTHOR'S ORGANIZ ATION 12/13/2024 [facility] DATE CREATED AUTHOR AUTHOR'S ORGANIZ ATION 02/13/2025 [facility] Goals (unrecognized section and content) Goals [...] Active Member Role Status Dates Out of [facility] Doctor Family Provider Active No Primary Care Physician Primary Care Provider Active Team Status: Inactive Member Role Status Dates Dr. Mc Delgadillo MD Primary Care Provider, Referring Provider Active Sathish BAKER, PA Attending Provider Active Team Status: Inactive Member Role Status Dates Dr. Jalen Christianson MD Emergency Provider Active No Primary Care Physician Primary Care Provider Active Healthcare Associate Relationship Specialty Start Date End Date Uvaldo Doss MD [address] [place] [address] [place], [place] [id number] PCP - General Internal Medicine 06/29/24 Trevor Nelson MBBS [address] [place], [place] [id number] PCP Resident Internal Medicine 06/29/24 Healthcare Associate Relationship Specialty Start Date End Date Uvaldo Doss MD [address] [place], [place] [id number] PCP - General Internal Medicine 06/29/24 Trevor Nelson MBBS [address] [place] [address] PCP Resident Internal Medicine 06/29/24 Healthcare Associate Relationship Specialty Start Date End Date Uvaldo Doss MD [address] [place] [address] PCP - General Internal Medicine 06/29/24 Trevor Nelson MBBS [address] [place] [address] PCP Resident Internal Medicine 06/29/24 Healthcare Associate Relationship Specialty Start Date End Date Uvaldo Doss MD [address] [place] [address] PCP - General Internal Medicine 06/29/24 Trevor Nelson MBBS [address] [place] [address] PCP Resident Internal Medicine 06/29/24 Healthcare Associate Relationship Specialty Start Date End Date Uvaldo Doss MD [address] [place] [address] PCP - General Internal Medicine 06/29/24 Trevor Nelson MBBS [address] [place] [address] PCP Resident Internal Medicine 06/29/24 Healthcare Associate Relationship Specialty Start Date End Date Uvaldo Doss MD [address] [place] [address] [place] [address] PCP - General Internal Medicine 06/29/24 Trevor Nelson MBBS [address] [place], [place] [id number] PCP Resident Internal Medicine 06/29/24 Healthcare Associate Relationship Specialty Start Date End Date Uvaldo Doss MD [address] [facility] [address] [place] [address] [place], [place] [id number] PCP - General Internal Medicine 06/29/24 Trevor Nelson MBBS 1 [place], [place] [id number] PCP Resident Internal Medicine 06/29/24 Team Status: [...] 09, 2024 Dr. Jennifer Erazo , DO Attending Provider Activ e Start: December 09, 2024 Dr. Jennifer Erazo , DO Referring Provider Activ e Start: December 09, 2024 Team Status: Inactive Member Role/Relationship Status Dates No Primary Care Physician Primary Care Provider Active Start: December 11, 2024 End: December 11, 2024 Dr. Jose Luis Rosenberg , DO Emergency Provider Active Start: December 11, 2024 [...] Physician Primary Care Provider Active Start: December 13, 2024 Dr. Cindy Stevenson MD Attending Provider Active Start: December 13, 2024 Dr. Cindy Stevenson MD Referring Provider Active Start: December 13, 2024 Team Status: Inactive Member Role/Relationship Status Dates No Primary Care Physician Primary Care Provider Active Start: December 14, 2024 End: December 14, 2024 No Primary Care Physician Referring Provider Active Start: December 14, 2024 End: December 14, 2024 Dr. Cindy Stevenson MD Attending Provider Active Start: December 14, 2024 End: December 14, 2024 Team Status: Inactive Member Role/Relationship Status Dates No Primary Care Physician Primary Care Provider Active Start: December 09, 2024 End: December 09, 2024 Dr. Jennifer Erazo DO Attending Provider Activ e Start: December 09, 2024 End: December 09, 2024 Dr. Jennifer Erazo DO Referring Provider Activ e Start: December 09, 2024 End: December 09, 2024 Team Status: Inactive Member Role/Relationship Status Dates No Primary Care Physician Primary Care Provider Active Start: December 13, 2024 End: December 13, 2024 Dr. Cindy Stevenson MD Attending Provider Active Start: December 13, 2024 End: December 13, 2024 Dr. Cindy Stevenson MD Referring Provider Active Start: December 13, 2024 End: December 13, 2024 Team Status: Active Member Role/Relationship Status Dates No Primary Care Physician Primary Care Provider Active Start: December 17, 2024 Dr. Jnenifer Erazo DO Attending Provider Activ e Start: December 17, 2024 Dr. Jennifer Erazo DO Referring Provider Activ e Start: December 17, 2024 Team Status: Inactive Member Role/Relationship Status Dates No Primary Care Physician Primary Care Provider Active Start: December 20, 2024 End: December 20, 2024 No Primary Care Physician Referring Provider Active Start: December 20, 2024 End: December 20, 2024 Dr. Cindy Stevenson MD Attending Provider Active Start: December 20, 2024 End: December 20, 2024 Team Status: Active Member Role/Relationship Status Dates No Primary Care Physician Primary Care Provider Active Start: December 20, 2024 Dr. Cindy Stevenson MD Attending Provider Active Start: December 20, 2024 Team Status: Inactive Member Role/Relationship Status Dates No Primary Care Physician Primary Care Provider Active Start: December 11, 2024 End: December 11, 2024 Dr. Jose Luis Rosenberg DO Attending Provider Active Start: December 11, 2024 End: December 11, 2024 Dr. Jose Luis Rosenberg DO Emergency Provider Active Start: December 11, 2024 End: December 11, 2024 Team Status: Inactive Member Role/Relationship Status Dates No Primary Care Physician Primary Care Provider Active Start: December 17, 2024 End: December 17, 2024 Dr. Jennifer Erazo DO Attending Provider Activ e Start: December 17, 2024 End: December 17, 2024 Dr. Jennifer Erazo DO Referring Provider Activ e Start: December 17, 2024 End: December 17, 2024 Team Status: Inactive Member Role/Relationship Status Dates No Primary Care Physician Primary Care Provider Active Start: December 20, 2024 End: December 20, 2024 Dr. Cindy Stevenson MD Attending Provider Active Start: December 20, 2024 End: December 20, 2024 Team Status: Active Member Role/Relationship Status Dates No Primary Care Physician Primary Care Provider Active Start: December 27, 2024 Hillary Tavarez [employer]SEM[employer], [employer]SEM[employer]-C Attending Provider Active Start: December 27, 2024 Hillary Tavarez COMPRESSOR [employer]SEMBLER, COMPRESSOR ASSEMBLER-C Referring Provider Active Start: December 27, 2024 Team Status: Inactive Member Role/Relationship Status Dates No Primary Care Physician Primary Care Provider Active Start: December 27, 2024 End: December 27, 2024 Hillary Tavarez COMPRESSOR ASSEMBLER, COMPRESSOR ASSEMBLER-C Attending Provider Active Start: December 27, 2024 End: December 27, 2024 Hillary Tavarez COMPRESSOR ASSEMBLER, COMPRESSOR ASSEMBLER-C Referring Provider Active Start: December 27, 2024 End: December 27, 2024 Team Status: Inactive Member Role/Relationship Status Dates No Primary Care Physician Primary Care Provider Active Start: January 17, 2025 End: January 17, 2025 Monica Magana CNM Attending Provider Active S tart: January 17, 2025 End: January 17, 2025 Monica Magana CNM Referring Provider Active S tart: January 17, 2025 End: January 17, 2025 Team Status: Active Member Role/Relationship Status Dates No Primary Care Physician Primary Care Provider Active Start: January 19, 2025 oMnica Magana CNM Attending Provider Active S tart: January 19, 2025 Monica Magana CNM Referring Provider Active S tart: January 19, 2025 Team Status: Inactive Member Role/Relationship Status Dates No Primary Care Physician Primary Care Provider Active Start: January 19, 2025 End: January 19, 2025 Monica Magana CNM Attending Provider Active S tart: January 19, 2025 End: January 19, 2025 Monica Magana CNM Referring Provider Active S tart: January 19, 2025 End: January 19, 2025 Team Status: Active Member Role/Relationship Status Dates No Primary Care Physician Primary Care Provider Active Start: January 27, 2025 Monica Magana CNM Attending Provider Active S tart: January 27, 2025 Monica Magana CNM Referring Provider Active S tart: January 27, 2025 Team Status: Active Member Role/Relationship Status Dates No Primary Care Physician Primary Care Provider Active Start: February 02, 2025 Monica Magana CNM Attending Provider Active S tart: February 02, 2025 Monica Magana CNM Referring Provider Active S tart: February 02, 2025 Team Status: Inactive Member Role/Relationship Status Dates No Primary Care Physician Primary Care Provider Active Start: February 04, 2025 End: February 04, 2025 No Primary Care Physician Referring Provider Active Start: February 04, 2025 End: February 04, 2025 Monica Magana CNM Attending Provider Active S tart: February 04, 2025 End: February 04, 2025 Team Status: Inactive Member Role/Relationship Status Dates No Primary Care Physician Primary Care Provider Active Start: January 27, 2025 End: January 27, 2025 Monica Magana CNM Attending Provider Active S tart: January 27, 2025 End: January 27, 2025 Monica Magana CNM Referring Provider Active S tart: January 27, 2025 End: January 27, 2025 Team Status: Inactive Member Role/Relationship Status Dates No Primary Care Physician Primary Care Provider Active Start: February 07, 2025 End: February 07, 2025 No Primary Care Physician Referring Provider Active Start: February 07, 2025 End: February 07, 2025 Dr. Cindy Stevenson MD Attending Provider Active Start: February 07, 2025 End: February 07, 2025 Source Comments (unrecognize d section and content) In the event this informatio n is protected by the Federal Confidentiality of Alcohol and Drug Abuse Patient Records regulations: The Federal rules restrict any use of the information to criminally investigate or prosecute any alcohol or drug abuse patient.[facility] the event this information is protected by the Federal Confidentiality of Alcohol and Drug Abuse Patient Records regulations: The Federal rules restrict any use of the information to criminally investigate or prosecute any alcohol or drug abuse patient.[facility] Hospital[facility] the event this information is protected by the Federal Confidentiality of Alcohol and Drug Abuse Patient Records regulations: The Federal rules restrict any use of the information to criminally investigate or prosecute any alcohol or drug abuse patient.[facility] Hospital[facility] the event this information is protected by the Federal Confidentiality of Alcohol and Drug Abuse Patient Records regulations: The Federal rules restrict any use of the information to criminally investigate or prosecute any alcohol or drug abuse patient.[facility] Hospital[facility] the event this information is protected by the Federal Confidentiality of Alcohol and Drug Abuse Patient Records regulations: The Federal rules restrict any use of the information to criminally investigate or prosecute any alcohol or drug abuse patient.[facility] Hospital[facility] the event this information is protected by the Federal Confidentiality of Alcohol and Drug Abuse Patient Records regulations: The Federal rules restrict any use of the information to criminally investigate or prosecute any alcohol or drug abuse patient.[facility] HospitalIn the event this information is protected by the Federal Confidentiality of Alcohol and Drug Abuse Patient Records regulations: The Federal rules restrict any use of the information to criminally investigate or prosecute any alcohol or drug abuse patient.[facility] Hospital[facility] the event this information is protected by the Federal Confidentiality of Alcohol and Drug Abuse Patient Records regulations: The Federal rules restrict any use of the information to criminally investigate or prosecute any alcohol or drug abuse patient.[facility] Hospital[facility] the event this information is protected by the Federal Confidentiality of Alcohol and Drug Abuse Patient Records regulations: The Federal rules restrict any use of the information to criminally investigate or prosecute any alcohol or drug abuse patient.[facility] HospitalIn the event this information is protected by the Federal Confidentiality of Alcohol and Drug Abuse Patient Records regulations: The Federal rules restrict any use of the information to criminally investigate or prosecute any alcohol or drug abuse patient.[facility] Reason for Visit (unrecogniz ed section [...] disorder (HCC) Procedures CONSULT TO PSYCHIATRY OFFICE/OUTPATIENT [facility] 60 MINUTES Uvaldo Doss MD 1 [facility] [address] [place] [address] Phone: tel: fax: Referral ID Status Reason Start Date Expiration Date Visits Requested Visits Authorized [id number] Pending Review PCP Requested Referral 06/29/2024 06/29/2025 [...] BE BASED ON THE PRIMARY CLINICAL RECORDS. [facility] [employer] [facility]. provides no warranty or guarantee of the accuracy or completeness of information in this document.
[2025-02-19 10:08] LABS: Chlamydia By Nucleic Acid AMP Negative (Negative); Gonococcus By Nucleic Acid AMP Negative (Negative)
== END | disposition home or self-care (01) ==
LOC: LABSPEC 16:22
PROVIDERS: Visit Provider Obstetrics & Gynecology
DX: O09.90 Supervision of high risk pregnancy, unspecified, unspecified trimester (principal); Z12.4 Encounter for screening for malignant neoplasm of cervix; Z3A.00 Weeks of gestation of pregnancy not specified
CPT/HCPCS: 87086; 87088; 87491; 87591; 88175; G0145

== ENCOUNTER → 2025-03-18 | Outpatient (CLI) | payer BC, SELFPAY ==
[2025-03-18 12:32] LABS: Hematocrit 39.8 % (37-47); Hemoglobin 13.5 g/dL (12.0-15.0); Immature Granulocytes Count 0.050 X10^3/uL (0.0-0.0); Mean Corp Hgb Conc 33.9 g/dL (32-36); Mean Corpuscular Volume 80.4 fL (81-99); Mean Platelet Vol. 9.2 fl (6.2-12.0); NRBC Flagged by Analyzer 0 % (0-5); Platelet Count 366 K/mm3 (150-450); RBC Distribution Width CV 13.5 % (11.6-14.6); RBC Distribution Width SD 39.2 fl (35.1-43.9); Red Blood Count 4.95 M/mm3 (4.2-5.4); White Blood Count 12.9 K/mm3 (4.4-11.0)
[2025-03-18 13:19] LABS: HIV Nonreactive (Nonreactive); Hepatitis B Surface Antigen Nonreactive (Nonreactive); Hepatitis C Antibody Nonreactive (Nonreactive); Syphilis Antibodies Nonreactive (Nonreactive)
== END | disposition home or self-care (01) ==
PROVIDERS: Visit Provider Obstetrics & Gynecology
DX: O09.90 Supervision of high risk pregnancy, unspecified, unspecified trimester (principal); Z3A.00 Weeks of gestation of pregnancy not specified
CPT/HCPCS: 36415; 85025; 86703; 86762; 86780; 86803; 86850; 86900; 86901; 87340